=== PATIENT | female | born 1975 | race Caucasian/White ===

== ENCOUNTER 2022-10-25 14:54 | Emergency (ER) | payer MEDICARE, MEDICAID, SELFPAY ==
[2022-10-25 15:01] VITALS: BP 170/95; PULSE 98; RESP 16; TEMP 36.8; O2SAT 98; BMI 37.0
--- NOTE | 2022-10-25 15:13 | XR_ITS ---
The [address] [address] Patient Name: CHRISSY ESCOBAR MRN: [id number] date: 1975 Sex: F Assigned Patient Location: ER Current Patient Location: ED.MAIN Accession/Order Number: [id number] Exam Date: 10/25/2022 15:48 Report Date: 10/25/2022 16:13 At the request of: EVANS CARLSON Procedure: XR ankle LT min 3V EXAM: XR foot LT min 3V, XR ankle LT min 3V HISTORY: left foot pain COMPARISON: None. TECHNIQUE: 3 views of the left foot, 3 views of the left ankle are performed. FINDINGS: There is no acute fracture. There is deformity of the distal fifth metatarsal, suggesting prior fracture. A small bony spur is noted laterally along the distal fifth metatarsal. The ankle mortise is preserved. Unremarkable soft tissues. XR/XR ankle LT min 3V IMPRESSION: Suspected prior trauma to the distal fifth metatarsal. No acute bony abnormality. Electronically authenticated by: LILIANA ANDERSEN Date: 10/25/2022 16:13
--- NOTE | 2022-10-25 15:13 | ED.LOWEXI1 ---
HPI - Extremity Injury (Lower) General Chief Complaint: Extremity Injury, Lower Stated Complaint: LEFT FOOT PAIN Time Seen by Provider: 10/25/22 15:13 Source: patient Mode of arrival: walk-in History of Present Illness HPI Narrative: patient is a 47-year-old female who presents to the emergency Department for pain in the left foot and ankle for several weeks. Patient reports an injury where she stubbed her toe several weeks ago but does not know if the pain was present prior to the injury. She reports pain diffusely from the left 3rd toe across the dorsum of the foot into the ankle. There has been no swelling, redness, wounds or drainage. She states she called her PCP office and they referred her to the Emergency Room to rule out a blood clot. She has no pain in the calf, knee or thigh. No medications taken prior to arrival. Related Data Home Medications Medication Instructions Recorded Confirmed levothyroxine 112 mcg tablet 112 mcg PO DAILY 10/25/22 10/25/22 Allergies Allergy/AdvReac Type Severity Reaction Status Date / Time celecoxib [From Celebrex] Allergy Severe Verified 10/25/22 15:07 codeine Allergy Severe Verified 10/25/22 15:01 naproxen [From Aleve] Allergy Severe Verified 10/25/22 15:07 Penicillins Allergy Severe Verified 10/25/22 15:01 pregabalin [From Lyrica] Allergy Severe Verified 10/25/22 15:07 Sulfa (Sulfonamide Allergy Severe Verified 10/25/22 15:09 Antibiotics) erythromycin Allergy Severe Uncoded 10/25/22 15:07 ouracil Allergy Severe Uncoded 10/25/22 15:09 Review of Systems ROS Constitutional Denies: fever or chills Ears, nose, mouth, and throat Denies: throat pain Cardiovascular Denies: chest pain Respiratory Denies: shortness of breath or cough Gastrointestinal Denies: nausea or vomiting Musculoskeletal Denies: back pain or neck pain Integumentary/Breast Denies: rash Neurological Denies: headache Hematologic/Lymphatic Denies: easy bruising Allergic/Immunologic Denies: hives Exam Narrative Exam Narrative: Gen.: Awake, alert, in no distress Head: Normocephalic, atraumatic ENT: Moist mucous membranes Respiratory: No respiratory distress Extremities: Moves extremities equally, diffuse tenderness of the dorsum of the left foot, left 3rd toe is edematous, mildly discolored area and limited range of motion of flexion and extension of the toes of the left foot. 2+ left DP pulse. No bony point tenderness of the medial or lateral malleolus. Left calf is soft and nontender with no wounds, drainage or redness noted of the left lower extremity. Psych: Normal mood and affect Neuro: No focal neuro deficit Skin: Warm, dry, intact Constitutional Vital Signs, click to edit/add: Last Vital Signs Temp 98.2 F 10/25/22 15:01 Pulse 98 H 10/25/22 15:01 Resp 16 10/25/22 15:01 BP 170/95 H 10/25/22 15:01 Pulse Ox 98 10/25/22 15:01 O2 Del Method Room Air 10/25/22 15:01 Course Vital Signs Vital signs: Vital Signs Temperature 98.2 F 10/25/22 15:01 Pulse Rate 98 H 10/25/22 15:01 Respiratory Rate 16 10/25/22 15:01 Blood Pressure 170/95 H 10/25/22 15:01 Pulse Oximetry 98 10/25/22 15:01 Oxygen Delivery Method Room Air 10/25/22 15:01 Temperature 98.2 F 10/25/22 15:01 Pulse Rate 98 H 10/25/22 15:01 Respiratory Rate 16 10/25/22 15:01 Blood Pressure 170/95 H 10/25/22 15:01 Pulse Oximetry 98 10/25/22 15:01 Oxygen Delivery Method Room Air 10/25/22 15:01 MDM - Extremity Injury (Lower) MDM Narrative Medical decision making narrative: lab studies show the patient has leukocytosis but no other evidence of acute sepsis or wound infection. She was reevaluated by attending physician and he requested we do an arterial ultrasound of the left lower extremity. US was obtained, but the patient eloped from the emergency department prior to completion of her workup and ultrasound results. Medical Records Attestation: I reviewed the patient's medical records. Lab Data Attestation: I reviewed the patient's lab results. Imaging Data XR foot/ankle: Attestation: I have reviewed the pertinent imaging results. Radiologist's impression: Procedure: XR foot LT min 3V EXAM: XR foot LT min 3V, XR ankle LT min 3V HISTORY: left foot pain COMPARISON: None. TECHNIQUE: 3 views of the left foot, 3 views of the left ankle are performed. FINDINGS: There is no acute fracture. There is deformity of the distal fifth metatarsal, suggesting prior fracture. A small bony spur is noted laterally along the distal fifth metatarsal. The ankle mortise is preserved. Unremarkable soft tissues. IMPRESSION: Suspected prior trauma to the distal fifth metatarsal. No acute bony abnormality. Electronically authenticated by: LILIANA ANDERSEN Date: 10/25/2022 16:13 Discharge Plan Discharge Chief Complaint: Extremity Injury, Lower Clinical Impression: Acute pain of left foot Patient Disposition: Left Against Medical Advice Time of Disposition Decision: 19:10 Prescriptions / Home Meds: No Action levothyroxine 112 mcg tablet 112 mcg PO DAILY Stand Alone Forms: Portal Instructions Referrals: JAMES RUIZ [Primary Care Provider] - 1 week
--- NOTE | 2022-10-25 15:14 | XR_ITS ---
The [address] [address] Patient Name: CHRISSY ESCOBAR MRN: [id number] date: 1975 Sex: F Assigned Patient Location: ER Current Patient Location: ED.MAIN Accession/Order Number: [id number] Exam Date: 10/25/2022 15:48 Report Date: 10/25/2022 16:13 At the request of: EVANS CARLSON Procedure: XR foot LT min 3V EXAM: XR foot LT min 3V, XR ankle LT min 3V HISTORY: left foot pain COMPARISON: None. TECHNIQUE: 3 views of the left foot, 3 views of the left ankle are performed. FINDINGS: There is no acute fracture. There is deformity of the distal fifth metatarsal, suggesting prior fracture. A small bony spur is noted laterally along the distal fifth metatarsal. The ankle mortise is preserved. Unremarkable soft tissues. XR/XR foot LT min 3V IMPRESSION: Suspected prior trauma to the distal fifth metatarsal. No acute bony abnormality. Electronically authenticated by: LILIANA ANDERSEN Date: 10/25/2022 16:13
--- NOTE | 2022-10-25 15:15 | PC.NURSE ---
left foot, ankle and toes swelling and pain with movement. skin intact and pt states a couple of weeks ago she hit her foot under the counter and this may have caused a injury but is unsure
[2022-10-25 16:05] LABS: Hemoglobin 14.1 g/dL (12.0-16.0); Mean Corpuscular HGB Conc 33.6 g/dL (29.9-35.2); Mean Corpuscular Volume 89.4 fL (81.0-99.0); Mean Platelet Volume 10.4 fL (9.5-13.5); Platelet Count 280 10^3/uL (150-450); Red Cell Distribution Width 13.4 % (11.0-15.0); White Blood Count 23.2 10^3/uL (4.0-11.0)
[2022-10-25 16:13] LABS: Erythrocyte Sedimentation Rate 35 mm/hr (<=20)
[2022-10-25 16:18] LABS: Anion Gap 12.7; Calcium 8.9 mg/dL (8.5-10.1); Carbon Dioxide 27.1 mmol/L (21.0-32.0); Chloride 102 mmol/L (98-107); Estimated GFR (African America >60 (>=60); Estimated GFR (Non-African Ame >60 (>=60); Glucose 96 mg/dL (74-106); Potassium 3.8 mmol/L (3.5-5.1); Sodium 138 mmol/L (136-145)
[2022-10-25 16:23] LABS: Uric Acid 3.1 mg/dL (2.6-6.0)
[2022-10-25 16:26] LABS: C Reactive Protein 1.5 mg/dL (<=1.0)
[2022-10-25 16:38] LABS: Band Neutrophils Absolute 0.2 10^3/uL (0.0-0.3)
[2022-10-25 16:40] LABS: Eosinophils Absolute Manual 0.23 10^3/uL (0.00-0.70); Monocytes Absolute Manual 0.92 10^3/uL (0.30-0.80); Segmented Neut Absolute Manual 9.51 10^3/uL (1.4-6.5)
--- NOTE | 2022-10-25 16:46 | US_ITS ---
The [address] [address] Patient Name: CHRISSY ESCOBAR MRN: [id number] date: 1975 Sex: F Assigned Patient Location: ER Current Patient Location: Accession/Order Number: [id number] Exam Date: 10/25/2022 17:44 Report Date: 10/25/2022 21:39 At the request of: EVANS CARLSON Procedure: US arterial duplex LE LT EXAM: US arterial duplex LE LT HISTORY: left foot pain COMPARISON: None. TECHNIQUE: Arterial duplex imaging was performed of the left lower extremity. FINDINGS: The left iliac, femoral and popliteal arteries appear patent with normal triphasic waveforms and no focal stenosis or occlusion. There is an abnormally elevated peak systolic velocity of the distal left anterior tibial artery measuring 64.1 cm/s, compared to the mid anterior tibial artery which has a PSV of 13.1 cm/s indicating a greater than 50% stenosis.. There is an abnormal monophasic waveform in the anterior tibial artery with spectral broadening and there is a tardus parvus waveform in the dorsalis pedis artery. There is mild increase in the peak systolic velocity of the distal posterior tibial artery to 31.9 cm/s, compared to the mid posterior tibial artery which is 21 cm/s. This indicates a moderate stenosis (20-49%). Biphasic waveforms are also seen in the posterior tibial artery. US/US arterial duplex LE LT IMPRESSION: 1. 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 2. Findings consistent with a moderate (20-49%) stenosis of the posterior tibial artery. 3. No arterial stenosis or occlusion is seen within the left iliac, femoral or popliteal arteries. Electronically authenticated by: ARIADNA GARCIA Date: 10/25/2022 21:39
== END 2022-10-25 19:20 | disposition left against medical advice (07) ==
PROVIDERS: Physician Assistant; Emergency Provider Emergency Medicine Emergency Medical Services; PCP Internal Medicine
DX: M79.672 Pain in left foot (principal); Z53.29 Procedure and treatment not carried out because of patient's decision for other reasons; I70.292 Other atherosclerosis of native arteries of extremities, left leg
CPT/HCPCS: 36415; 73610; 73630; 80048; 84550; 85007; 85025; 85027; 85652; 86140; 93926; 99285

== ENCOUNTER 2023-07-15 20:06 | Emergency (ER) | payer MEDICARE, MEDICAID, SELFPAY ==
[2023-07-15] VITALS (10 sets, daily range): BP systolic 107–145; BP diastolic 64–98; PULSE 93; TEMP 36.6; O2SAT 93–96; BMI 37.1
--- NOTE | 2023-07-15 20:22 | US_ITS ---
The [address] [address] Patient Name: CHRISSY ESCOBAR MRN: [id number] date: 1975 Sex: F Assigned Patient Location: ER Current Patient Location: ED.MAIN Accession/Order Number: [id number] Exam Date: 07/15/2023 20:40 Report Date: 07/15/2023 22:35 At the request of: EVANS CARLSON Procedure: US venous doppler LE LT EXAM: US venous doppler LE LT HISTORY: DVT COMPARISON: None. TECHNIQUE: Duplex compression ultrasound left leg deep veins groin to calf and greater saphenous vein in the groin/proximal thigh area. FINDINGS: Normal color flow and complete compressibility left leg deep venous system groin to calf.. Normal augmentation. No abnormal fluid collection, no evidence of Floyd's cyst. US/US venous doppler LE LT IMPRESSION: Negative for DVT or saphenous thrombus left leg. Electronically authenticated by: YANNICK LE Date: 07/15/2023 22:35
--- NOTE | 2023-07-15 20:22 | US_ITS ---
The [address] [address] Patient Name: CHRISSY ESCOBAR MRN: [id number] date: 1975 Sex: F Assigned Patient Location: ER Current Patient Location: Accession/Order Number: [id number] Exam Date: 07/15/2023 20:40 Report Date: 07/16/2023 00:10 At the request of: EVANS CARLSON Procedure: US arterial duplex LE LT EXAM: US arterial duplex LE LT HISTORY: Foot numbness. COMPARISON: Left lower extremity duplex ultrasound 10/25/2022. TECHNIQUE: Multiple grayscale, and duplex Doppler images performed of the left lower extremity from the level of the iliac arteries through the foot. FINDINGS: Triphasic flow was seen from the external iliac artery through the proximal superficial femoral artery. There are normal peak systolic velocities. There is minimal spectral broadening of the waveform in the left mid femoral artery. There is an elevated peak systolic velocity in the distal anterior tibial artery measuring 33.4 cm/s as compared to 17.1 cm/s at the mid anterior tibial artery. There is an abnormal monophasic waveform in this region with spectral broadening. This is consistent with an approximately 50% to 99% stenosis. Similar findings were noted on the previous study, although the peak systolic velocity was somewhat greater on the previous study in the distal HUSSAIN at 64 cm/s. Abnormal monophasic waveforms are also seen in the proximal to mid anterior tibial artery and there is an abnormal tardus harvest waveform in the dorsalis pedis artery which is essentially stable. There is an abnormal monophasic waveform also seen with the posterior tibial artery. The peak systolic velocity of the proximal posterior tibial artery is likely somewhat elevated at 46 cm/s, previously 22 cm/s. No proximal normal waveform was obtained for comparison but this is also suspicious for a moderate to severe, approximately 50% to 99% stenosis. This is worsened compared to previous study where there were findings suspicious for a 20% to 49% stenosis. US/US arterial duplex LE LT IMPRESSION: 1. Findings consistent with an approximately 50% to 99% stenosis in the left anterior tibial artery with an abnormal tardus parvus wave form in the dorsalis pedis artery with similar findings noted previously. 2. There are additional findings suspicious for a 50% to 99% stenosis of the left posterior tibial artery, worsened since the previous study. 3. No other significant arterial stenosis or occlusion. Electronically authenticated by: ARIADNA GARCIA Date: 07/16/2023 00:10
--- NOTE | 2023-07-15 20:28 | ED_ITS ---
Documented by User: HOMAR Becker 07/15/23 22:17 HPI HPI - General Adult General Chief complaint: Extremity Problem, Nontraumatic Stated complaint: FOOT IS NUMB Time Seen by Provider: 07/15/23 20:16 Source: patient Mode of arrival: Wheelchair Limitations: no limitations History of Present Illness HPI narrative: Patient is a 48-year-old female who presents to the emergency department for numbness and pain to the left foot intermittently for at least 6 months. Patient states she has had redness with moderate pain and spasm radiating from the toes and distal portion of the left foot up the leg. She has not had any fevers, she is a 1 pack/day cigarette smoker. She is establishing with a local primary care provider in 1 week but states that the pain was getting worse. No medications taken prior to arrival. She denies any history of vascular disease and does not take any blood thinners. Related Data Home Medications ?Medication ?Instructions ?Recorded ?Confirmed levothyroxine 112 mcg tablet 112 mcg PO DAILY 10/25/22 07/15/23 Allergies Allergy/AdvReac Type Severity Reaction Status Date / Time celecoxib [From Celebrex] Allergy Severe Verified 10/25/22 15:07 codeine Allergy Severe Verified 10/25/22 15:01 naproxen [From Aleve] Allergy Severe Verified 10/25/22 15:07 Penicillins Allergy Severe Verified 10/25/22 15:01 pregabalin [From Lyrica] Allergy Severe Verified 10/25/22 15:07 Sulfa (Sulfonamide Allergy Severe Verified 10/25/22 15:09 Antibiotics) erythromycin Allergy Severe Uncoded 10/25/22 15:07 ouracil Allergy Severe Uncoded 10/25/22 15:09 Opioid HPI Opioid Management Most Recent Opioid Data: Last Pain Scale 6 07/15/23 21:28 Review of Systems ROS Constitutional Denies: fever or chills Ears, nose, mouth, and throat Denies: throat pain or nasal congestion Cardiovascular Denies: chest pain Respiratory Denies: shortness of breath or cough Gastrointestinal Denies: nausea or vomiting Musculoskeletal Denies: back pain or neck pain Integumentary/Breast Denies: rash Hematologic/Lymphatic Denies: easy bruising or easy bleeding Exam Narrative Exam Narrative: Gen.: Awake, alert, in no distress Head: Normocephalic, atraumatic ENT: Moist mucous membranes Respiratory: No respiratory distress Extremities: Varicose veins noted to the left calf with no swelling, tenderness or redness of the calf. Distal portion of the foot and toes of the left foot are erythematous, no palpable DP pulse in the foot, DP pulse is able to be obtained by Doppler. PT pulse is also obtained by Doppler. Brittle appearing toenails of the left foot compared to the right Psych: Normal mood and affect Neuro: No focal neuro deficit Skin: Warm, dry Constitutional Vital Signs, click to edit/add: Last Vital Signs Temp 97.9 F 07/15/23 20:13 Pulse 93 H 07/15/23 20:13 Resp 16 07/15/23 20:13 BP 116/72 07/16/23 00:31 Pulse Ox 95 07/15/23 23:44 O2 Del Method Room Air 07/15/23 20:13 Course Vital Signs Vital signs: Vital Signs Temperature 97.9 F 07/15/23 20:13 Pulse Rate 93 H 07/15/23 20:13 Respiratory Rate 16 07/15/23 20:13 Blood Pressure 145/98 H 07/15/23 20:13 Pulse Oximetry 96 07/15/23 20:13 Oxygen Delivery Method Room Air 07/15/23 20:13 Temperature 97.9 F 07/15/23 20:13 Pulse Rate 93 H 07/15/23 20:13 Respiratory Rate 16 07/15/23 20:13 Blood Pressure 116/72 07/16/23 00:31 Pulse Oximetry 95 07/15/23 23:44 Oxygen Delivery Method Room Air 07/15/23 20:13 Medical Decision Making [facility] Narrative Medical decision making narrative: 2216: Labs, ultrasounds of the left lower extremity were ordered for the patient. She has an elevated white blood cell count of 48.4, lactic acid and blood cultures were added as a precaution. Her exam is not consistent with cellulitis and is more consistent with a worsening vascular issue. CRP and sed rates are mildly elevated. Kidney function is stable. Ultrasound arterial and venous were ordered for the left lower extremity and the patient was medicated for pain. Case turned over to attending physician at this time. Medical Records Medical records reviewed: Yes I reviewed the patient's medical records Lab Data Lab results reviewed: Yes I reviewed the patient's lab results Labs: Lab Results 07/15/23 07/15/23 Range/Units 20:49 23:45 WBC 48.4 H* (4.0-11.0) 10^3/uL RBC 4.83 (4.20-5.40) 10^6/uL Hgb 14.3 (12.0-16.0) g/dL Hct 44.6 (36.0-48.0) % MCV 92.3 (81.0-99.0) fL MCH 29.6 (26.7-34.0) pg MCHC 32.1 (29.9-35.2) g/dL RDW 13.4 (11.0-15.0) % Plt Count 327 (150-450) 10^3/uL MPV 10.0 (9.5-13.5) fL Seg Neuts % (Manual) 17.0 Lymphocytes % (Manual) 74.0 H (20.5-60.0) % Atypical Lymphs % (Man) 9.0 % Monocytes % (Manual) 0.0 L (1.7-12.0) % Eosinophils % (Manual) 0.0 L (0.9-7.0) % Basophils % (Manual) 0.0 L (0.2-2.0) % Neutrophils # (Manual) 8.22 H (1.4-6.5) 10^3/uL Lymphocytes # (Manual) 35.81 H (1.20-3.80) 10^3/uL Abs Atypical Lymphs Man 4.35 Monocytes # (Manual) 0.00 L (0.30-0.80) 10^3/uL Eosinophils # (Manual) 0.00 (0.00-0.70) 10^3/uL Basophils # (Manual) 0.00 (0.00-0.10) 10^3/uL Smudge Cells Seen ESR 39 H (<=20) mm/hr PT 10.1 (9.0-11.6) sec INR 0.95 Sodium 141 (136-145) mmol/L Potassium 3.8 (3.5-5.1) mmol/L Chloride 103 (98-107) mmol/L Carbon Dioxide 24.4 (21.0-32.0) mmol/L Anion Gap 17.4 BUN 24.0 H (7.0-18.0) mg/dL Creatinine 0.89 (0.55-1.02) mg/dL Est GFR ( Amer) >60 (>=60) Est GFR (Non-Af Amer) >60 (>=60) BUN/Creatinine Ratio 27.0 Glucose 95 (74-106) mg/dL Lactate 1.4 (0.4-2.0) mmol/L Calcium 8.9 (8.5-10.1) mg/dL C-Reactive Protein 0.72 H (<=0.50) mg/dL Urine Color Yellow (YELLOW) Urine Clarity Clear (CLEAR) Urine pH 5.0 (5.0-9.0) Ur Specific [place] >=1.030 A (1.005-1.025) Urine Protein Negative (NEG/TRACE) mg/dL Urine Glucose (UA) Negative (NEGATIVE) mg/dL Urine Ketones Negative (NEGATIVE) mg/dL Urine Occult Blood Negative (NEGATIVE) Urine Nitrite Negative (NEGATIVE) Urine Bilirubin Small A (NEGATIVE) Urine Urobilinogen 0.2 (0.2-1.0) EU/dL Ur Leukocyte Esterase Negative (NEGATIVE) Discharge Plan Discharge Stand Alone Forms: Portal Instructions Chief Complaint: Extremity Problem, Nontraumatic Clinical Impression: Acute pain of left foot, Lymphocytosis, PAD (peripheral artery disease) Patient Disposition: Home, Self-Care Prescriptions / Home Meds: No Action levothyroxine 112 mcg tablet 112 mcg PO DAILY Print Language: Malawian Instructions: Peripheral Artery Disease (ED), Leukocytosis (ED) Additional Instructions: follow up with vascular surgery regarding your foot. call [phone] tomorrow for an appointment in next couple of days. also need to call Oncology tomorrow at 8AM for an appointment later today [phone] due to your elevated white count as discussed as you may have leukemia May take [place] every 6 hours as needed for pain Referrals: JAMES RUIZ [Primary Care Provider] - 1 week Discharge Date/Time: 07/16/23 02:23 Documented by User: Manuel Toro MD 07/16/23 06:44 HPI HPI - General Adult General Chief complaint: Extremity Problem, Nontraumatic Stated complaint: FOOT IS NUMB Time Seen by Provider: 07/15/23 20:16 Related Data Home Medications ?Medication ?Instructions ?Recorded ?Confirmed levothyroxine 112 mcg tablet 112 mcg PO DAILY 10/25/22 07/15/23 Allergies Allergy/AdvReac Type Severity Reaction Status Date / Time celecoxib [From Celebrex] Allergy Severe Verified 10/25/22 15:07 codeine Allergy Severe Verified 10/25/22 15:01 naproxen [From Aleve] Allergy Severe Verified 10/25/22 15:07 Penicillins Allergy Severe Verified 10/25/22 15:01 pregabalin [From Lyrica] Allergy Severe Verified 10/25/22 15:07 Sulfa (Sulfonamide Allergy Severe Verified 10/25/22 15:09 Antibiotics) erythromycin Allergy Severe Uncoded 10/25/22 15:07 ouracil Allergy Severe Uncoded 10/25/22 15:09 Opioid HPI Opioid Management Most Recent Opioid Data: Last Pain Scale 6 07/15/23 21:28 Exam Constitutional Vital Signs, click to edit/add: Last Vital Signs Temp 97.9 F 07/15/23 20:13 Pulse 93 H 07/15/23 20:13 Resp 16 07/15/23 20:13 BP 116/72 07/16/23 00:31 Pulse Ox 95 07/15/23 23:44 O2 Del Method Room Air 07/15/23 20:13 Course Vital Signs Vital signs: Vital Signs Temperature 97.9 F 07/15/23 20:13 Pulse Rate 93 H 07/15/23 20:13 Respiratory Rate 16 07/15/23 20:13 Blood Pressure 145/98 H 07/15/23 20:13 Pulse Oximetry 96 07/15/23 20:13 Oxygen Delivery Method Room Air 07/15/23 20:13 Temperature 97.9 F 07/15/23 20:13 Pulse Rate 93 H 07/15/23 20:13 Respiratory Rate 16 07/15/23 20:13 Blood Pressure 116/72 07/16/23 00:31 Pulse Oximetry 95 07/15/23 23:44 Oxygen Delivery Method Room Air 07/15/23 20:13 Medical Decision Making MDM Narrative Medical decision making narrative: 2216: Labs, ultrasounds of the left lower extremity were ordered for the patient. She has an elevated white blood cell count of 48.4, lactic acid and blood cultures were added as a precaution. Her exam is not consistent with cellulitis and is more consistent with a worsening vascular issue. CRP and sed rates are mildly elevated. Kidney function is stable. Ultrasound arterial and venous were ordered for the left lower extremity and the patient was medicated for pain. Case turned over to attending physician at this time. care transferred at change of shift. Arterial duplex studied reviewed and discussed with international tax manager Vascular surgeon . Informed of 50-99% stenosis of the left intervertebral artery similar to previous study 10/2022 and worsening finding of posterior tibial artery 50-99% stenosis when compared to 20-49% stenosis 10/28. He did not feel this required hospitalization and could be seen in followup in his office. patient also has leukocytosis of 48.4 with large # of lymphocytes. WBC was 23,000 10/28 but patient was loss to follow up findings concerning for leukemia or lymphoma. Patient examined and no obvious lymph nodes. Oncology paged. discussed with Dr Whitten and he can see the patient in his clinic later today Lab Data Labs: Lab Results 07/15/23 07/15/23 Range/Units 20:49 23:45 WBC 48.4 H* (4.0-11.0) 10^3/uL RBC 4.83 (4.20-5.40) 10^6/uL Hgb 14.3 (12.0-16.0) g/dL Hct 44.6 (36.0-48.0) % MCV 92.3 (81.0-99.0) fL MCH 29.6 (26.7-34.0) pg MCHC 32.1 (29.9-35.2) g/dL RDW 13.4 (11.0-15.0) % Plt Count 327 (150-450) 10^3/uL MPV 10.0 (9.5-13.5) fL Seg Neuts % (Manual) 17.0 Lymphocytes % (Manual) 74.0 H (20.5-60.0) % Atypical Lymphs % (Man) 9.0 % Monocytes % (Manual) 0.0 L (1.7-12.0) % Eosinophils % (Manual) 0.0 L (0.9-7.0) % Basophils % (Manual) 0.0 L (0.2-2.0) % Neutrophils # (Manual) 8.22 H (1.4-6.5) 10^3/uL Lymphocytes # (Manual) 35.81 H (1.20-3.80) 10^3/uL Abs Atypical Lymphs Man 4.35 Monocytes # (Manual) 0.00 L (0.30-0.80) 10^3/uL Eosinophils # (Manual) 0.00 (0.00-0.70) 10^3/uL Basophils # (Manual) 0.00 (0.00-0.10) 10^3/uL Smudge Cells Seen ESR 39 H (<=20) mm/hr PT 10.1 (9.0-11.6) sec INR 0.95 Sodium 141 (136-145) mmol/L Potassium 3.8 (3.5-5.1) mmol/L Chloride 103 (98-107) mmol/L Carbon Dioxide 24.4 (21.0-32.0) mmol/L Anion Gap 17.4 BUN 24.0 H (7.0-18.0) mg/dL Creatinine 0.89 (0.55-1.02) mg/dL Est GFR ( Amer) >60 (>=60) Est GFR (Non-Af Amer) >60 (>=60) BUN/Creatinine Ratio 27.0 Glucose 95 (74-106) mg/dL Lactate 1.4 (0.4-2.0) mmol/L Calcium 8.9 (8.5-10.1) mg/dL C-Reactive Protein 0.72 H (<=0.50) mg/dL Urine Color Yellow (YELLOW) Urine Clarity Clear (CLEAR) Urine pH 5.0 (5.0-9.0) Ur Specific [place] >=1.030 A (1.005-1.025) Urine Protein Negative (NEG/TRACE) mg/dL Urine Glucose (UA) Negative (NEGATIVE) mg/dL Urine Ketones Negative (NEGATIVE) mg/dL Urine Occult Blood Negative (NEGATIVE) Urine Nitrite Negative (NEGATIVE) Urine Bilirubin Small A (NEGATIVE) Urine Urobilinogen 0.2 (0.2-1.0) EU/dL Ur Leukocyte Esterase Negative (NEGATIVE) Discharge Plan Discharge Stand Alone Forms: Portal Instructions Chief Complaint: Extremity Problem, Nontraumatic Clinical Impression: Acute pain of left foot, Lymphocytosis, PAD (peripheral artery disease) Patient Disposition: Home, Self-Care Prescriptions / Home Meds: No Action levothyroxine 112 mcg tablet 112 mcg PO DAILY Print Language: Malawian Instructions: Peripheral Artery Disease (ED), Leukocytosis (ED) Additional Instructions: follow up with vascular surgery regarding your foot. call [phone] tomorrow for an appointment in next couple of days. also need to call Oncology tomorrow at 8AM for an appointment later today [phone] due to your elevated white count as discussed as you may have leukemia May take Franklin every 6 hours as needed for pain Referrals: JAMES RUIZ [Primary Care Provider] - 1 week Discharge Date/Time: 07/16/23 02:23
[2023-07-15 20:56] LABS: Hematocrit 44.6 % (36.0-48.0); Hemoglobin 14.3 g/dL (12.0-16.0); Mean Corpuscular HGB Conc 32.1 g/dL (29.9-35.2); Mean Corpuscular Hemoglobin 29.6 pg (26.7-34.0); Mean Corpuscular Volume 92.3 fL (81.0-99.0); Platelet Count 327 10^3/uL (150-450); Red Blood Count 4.83 10^6/uL (4.20-5.40); Red Cell Distribution Width 13.4 % (11.0-15.0)
[2023-07-15 21:04] LABS: White Blood Count 48.4 10^3/uL (4.0-11.0)
[2023-07-15 21:07] LABS: Erythrocyte Sedimentation Rate 39 mm/hr (<=20)
[2023-07-15 21:13] LABS: Anion Gap 17.4; C Reactive Protein 0.72 mg/dL (<=0.50); Calcium 8.9 mg/dL (8.5-10.1); Carbon Dioxide 24.4 mmol/L (21.0-32.0); Chloride 103 mmol/L (98-107); Estimated GFR (African America >60 (>=60); Estimated GFR (Non-African Ame >60 (>=60); Glucose 95 mg/dL (74-106); INR 0.95; Potassium 3.8 mmol/L (3.5-5.1); Prothrombin Time 10.1 sec (9.0-11.6); Sodium 141 mmol/L (136-145)
[2023-07-15 21:20] LABS: Lactate/Lactic Acid 1.4 mmol/L (0.4-2.0)
[2023-07-15] MEDS: ONDANSETRON PF 4 MG/2 ML VIAL IV (21:28)
[2023-07-15] MEDS: HYDROMORPHONE HCL 0.5 MG/0.5 ML SYRINGE IV (21:28)
[2023-07-15 22:11] LABS: Atypical Lymphocytes Abs Man 4.35; Lymphocytes Absolute Manual 35.81 10^3/uL (1.20-3.80); Segmented Neut Absolute Manual 8.22 10^3/uL (1.4-6.5)
[2023-07-15 22:12] LABS: Smudge Cells SEEN
[2023-07-15] MEDS: 0.9 % SODIUM CHLORIDE 1,000 ML 1000 ML IV (22:54)
[2023-07-16] VITALS: BP 133/92
[2023-07-16 00:15] LABS: Bilirubin Urine SMALL (NEGATIVE); Blood Urine NEGATIVE (NEGATIVE); Clarity Urine CLEAR (CLEAR); Color Urine YELLOW (YELLOW); Glucose Urine UA NEGATIVE (NEGATIVE); Ketones Urine NEGATIVE (NEGATIVE); Leukocyte Esterase Urine NEGATIVE (NEGATIVE); Nitrite Urine NEGATIVE (NEGATIVE); Protein Urine NEGATIVE (NEG/TRACE); Specific Gravity Urine >=1.030 (1.005-1.025); Urobilinogen Urine 0.2 EU/dL (0.2-1.0)
[2023-07-16 00:20] LABS: Urine Microscopic Indicated NO
[2023-07-16 00:31] VITALS: BP 116/72
[2023-07-16] MEDS: HYDROCODONE/ACET 5-325 MG TABLET 4 TAB PO (02:16)
== END 2023-07-16 02:23 | disposition home or self-care (01) ==
PROVIDERS: Physician Assistant; Emergency Provider Internal Medicine; PCP Internal Medicine
DX: M79.672 Pain in left foot (principal); D72.820 Lymphocytosis (symptomatic); I73.9 Peripheral vascular disease, unspecified; F17.210 Nicotine dependence, cigarettes, uncomplicated; Z79.890 Hormone replacement therapy
CPT/HCPCS: 36415; 80048; 81003; 83605; 85007; 85027; 85610; 85652; 86140; 87040; 93926; 93971; 96374; 96375; 99284; J1170

== ENCOUNTER 2023-07-23 07:36 | Outpatient (RCR) | payer MEDICARE, MEDICAID, SELFPAY ==
[2023-07-23 16:16] LABS: Hematocrit 42.9 % (36.0-48.0); Hemoglobin 13.7 g/dL (12.0-16.0); Mean Corpuscular HGB Conc 31.9 g/dL (29.9-35.2); Mean Corpuscular Hemoglobin 29.2 pg (26.7-34.0); Mean Corpuscular Volume 91.5 fL (81.0-99.0); Mean Platelet Volume 10.7 fL (9.5-13.5); Platelet Count 293 10^3/uL (150-450); Red Blood Count 4.69 10^6/uL (4.20-5.40); Red Cell Distribution Width 13.8 % (11.0-15.0)
[2023-07-23 16:24] LABS: White Blood Count 47.9 10^3/uL (4.0-11.0)
[2023-07-23 16:37] LABS: Segmented Neut Absolute Manual 6.22 10^3/uL (1.4-6.5)
[2023-07-23 16:38] LABS: Lymphocytes Absolute Manual 40.23 10^3/uL (1.20-3.80); Monocytes Absolute Manual 1.43 10^3/uL (0.30-0.80); Smudge Cells SEEN
[2023-07-23 16:39] LABS: Lactate Dehydrogenase 191 U/L (81-234)
== END 2023-08-06 23:59 | disposition home or self-care (01) ==
LOC: INF 07:36
PROVIDERS: PCP Internal Medicine; Visit Provider Internal Medicine Hematology & Oncology
DX: D72.820 Lymphocytosis (symptomatic) (principal)
CPT/HCPCS: 36415; 83615; 85007; 85027; 99999; G0463

== ENCOUNTER 2023-08-13 07:29 | Outpatient (RCR) | payer MEDICARE, MEDICAID, SELFPAY | END 2023-09-06 23:59 | disposition home or self-care (01) | LOC: INF 07:29 | PROVIDERS: PCP Internal Medicine; Visit Provider Internal Medicine Hematology & Oncology | DX: C91.10 Chronic lymphocytic leukemia of B-cell type not having achieved remission (principal); Z90.49 Acquired absence of other specified parts of digestive tract; E05.00 Thyrotoxicosis with diffuse goiter without thyrotoxic crisis or storm; F17.210 Nicotine dependence, cigarettes, uncomplicated; Z90.710 Acquired absence of both cervix and uterus; D72.820 Lymphocytosis (symptomatic) | CPT/HCPCS: 36415; 88275; G0463 ==

== ENCOUNTER 2023-08-20 04:46 | Emergency (ER) | payer MEDICARE, MEDICAID, SELFPAY ==
[2023-08-20 04:46] VITALS: BP 165/82; PULSE 87; TEMP 36.7; O2SAT 97; BMI 37.0
--- NOTE | 2023-08-20 04:52 | ED.EXTPRO1 ---
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 Presents this AM complaining of pain of her foot. States she vomited earlier. Nofever. currently on [place] for pain Related Data Home Medications ?Medication ?Instructions ?Recorded ?Confirmed levothyroxine 112 mcg tablet 112 mcg PO DAILY 10/25/22 08/20/23 hydrocodone 5 mg-acetaminophen 325 1 tab PO Q8H 08/20/23 08/20/23 mg tablet Allergies Allergy/AdvReac Type Severity Reaction Status Date / Time celecoxib [From Celebrex] Allergy Severe Verified 08/20/23 04:51 codeine Allergy Severe Verified 08/20/23 04:51 naproxen [From Aleve] Allergy Severe Verified 08/20/23 04:51 Penicillins Allergy Severe Verified 08/20/23 04:51 pregabalin [From Lyrica] Allergy Severe Verified 08/20/23 04:51 Sulfa (Sulfonamide Allergy Severe Verified 08/20/23 04:51 Antibiotics) aspirin Allergy Hives Verified 08/20/23 04:51 erythromycin Allergy Severe Uncoded 08/20/23 04:51 ouracil Allergy Severe Uncoded 08/20/23 04:51 Review of Systems ROS Status of ROS 10 or more systems reviewed and unremarkable except as noted in history and below Exam Constitutional Vital Signs, click to edit/add: Last Vital Signs Temp 98.1 F 08/20/23 04:46 Pulse 87 08/20/23 04:46 Resp 18 08/20/23 04:46 BP 165/82 H 08/20/23 04:46 Pulse Ox 97 08/20/23 04:46 O2 Del Method Room Air 08/20/23 04:46 Common normals: no apparent distress, average body habitus, oriented x3, no limitations, healthy appearing, alert and well nourished [facility] Common normals: normocephalic and head/scalp atraumatic Eye Common normals: EOMs intact bilaterally and conjunctivae normal Respiratory Common normals: normal respiratory effort, no retractions, no use of accessory muscles and clear to auscultation bilaterally Cardio Common normals: regular rate, regular rhythm, S1 normal heart sound and S2 normal heart sound GI Common normals: Normal to inspection, nondistended, normoactive bowel sounds present, soft to palpation and non-tender Extremity Other: small ulcer 5mm superficial plantar left fifth toe left distal foot at MTP joints and toes are red and tender. not typical appearance of cellulitis Neuro Common normals: oriented x3, CN's II-XII intact bilaterally, moves all extremities, no focal motor deficits and no sensory deficits noted Psych Appearance: grossly normal Course Vital Signs Vital signs: Vital Signs Temperature 98.1 F 08/20/23 04:46 Pulse Rate 87 08/20/23 04:46 Respiratory Rate 18 08/20/23 04:46 Blood Pressure 165/82 H 08/20/23 04:46 Pulse Oximetry 97 08/20/23 04:46 Oxygen Delivery Method Room Air 08/20/23 04:46 Temperature 98.1 F 08/20/23 04:46 Pulse Rate 87 08/20/23 04:46 Respiratory Rate 18 08/20/23 04:46 Blood Pressure 165/82 H 08/20/23 04:46 Pulse Oximetry 97 08/20/23 04:46 Oxygen Delivery Method Room Air 08/20/23 04:46 MDM - Extremity (Nontraumatic) MDM Narrative Medical decision making narrative: patient has known history of CLL and is managed by oncology. past history of PAD and chronic arterial deficiency of her left toes. Has chronic pain of her toes. is on norco and followed by vascular surgery at [facility]. Presents here this AM via squad complaining of foot pain. I have seen her in the past and her foot appears the same. xray without evidence of osteomyelitis and her inflammatory markers are improved from last visit. Patient medicated with IM morphine and discharged home to follow up with her surgeon Lab Data Labs: Lab Results 08/20/23 Range/Units 05:30 WBC 47.7 H* (4.0-11.0) 10^3/uL RBC 4.38 (4.20-5.40) 10^6/uL Hgb 13.0 (12.0-16.0) g/dL Hct 40.9 (36.0-48.0) % MCV 93.4 (81.0-99.0) fL MCH 29.7 (26.7-34.0) pg MCHC 31.8 (29.9-35.2) g/dL RDW 13.9 (11.0-15.0) % Plt Count 303 (150-450) 10^3/uL MPV 10.0 (9.5-13.5) fL Seg Neuts % (Manual) 22.0 Lymphocytes % (Manual) 64.0 H (20.5-60.0) % Atypical Lymphs % (Man) 12.0 % Monocytes % (Manual) 2.0 (1.7-12.0) % Eosinophils % (Manual) 0.0 L (0.9-7.0) % Basophils % (Manual) 0.0 L (0.2-2.0) % Neutrophils # (Manual) 10.49 H (1.4-6.5) 10^3/uL Lymphocytes # (Manual) 30.52 H (1.20-3.80) 10^3/uL Abs Atypical Lymphs Man 5.72 Monocytes # (Manual) 0.95 H (0.30-0.80) 10^3/uL Eosinophils # (Manual) 0.00 (0.00-0.70) 10^3/uL Basophils # (Manual) 0.00 (0.00-0.10) 10^3/uL ESR 24 H (<=20) mm/hr Sodium 136 (136-145) mmol/L Potassium 3.9 (3.5-5.1) mmol/L Chloride 104 (98-107) mmol/L Carbon Dioxide 24.1 (21.0-32.0) mmol/L Anion Gap 11.8 BUN 18.0 (7.0-18.0) mg/dL Creatinine 0.57 (0.55-1.02) mg/dL Est GFR ( Amer) >60 (>=60) Est GFR (Non-Af Amer) >60 (>=60) BUN/Creatinine Ratio 31.6 Glucose 93 (74-106) mg/dL Calcium 8.7 (8.5-10.1) mg/dL C-Reactive Protein <0.50 (<=0.50) mg/dL Discharge Plan Discharge Stand Alone Forms: Portal Instructions Chief Complaint: Extremity Problem, Nontraumatic Clinical Impression: Chronic lymphocytic leukemia, PAD (peripheral artery disease) Patient Disposition: Home, Self-Care Prescriptions / Home Meds: No Action levothyroxine 112 mcg tablet 112 mcg PO DAILY hydrocodone-acetaminophen 5-325 mg tablet 1 tab PO Q8H Print Language: Grenadian Instructions: Peripheral Artery Disease (ED), Chronic Lymphocytic Leukemia (DC) Additional Instructions: follow up with your vascular surgeon Referrals: JAMES RUIZ [Primary Care Provider] - 1 week
--- NOTE | 2023-08-20 05:06 | XR_ITS ---
The [address] [address] Patient Name: CHRISSY ESCOBAR MRN: [id number] date: 1975 Sex: F Assigned Patient Location: ER Current Patient Location: ED.MAIN Accession/Order Number: [id number] Exam Date: 08/20/2023 05:35 Report Date: 08/20/2023 06:19 At the request of: BIRDIE COTE Procedure: XR foot LT min 3V PROCEDURE: XR foot LT min 3V COMPARISON: 10/26/2019. HISTORY: osteomyelitis FINDINGS: BONES:No acute fracture or dislocation. Remote healed fracture of the fifth metatarsal. No focal lytic or sclerotic changes SOFT TISSUES:Soft tissue swelling to the tip of the fourth toe and along the lateral forefoot EFFUSION:None visible. OTHER: Negative. XR/XR foot LT min 3V IMPRESSION: No plain film evidence of osteomyelitis Electronically authenticated by: IZZY ROBB Date: 08/20/2023 06:19
[2023-08-20 05:37] LABS: Hematocrit 40.9 % (36.0-48.0); Mean Corpuscular HGB Conc 31.8 g/dL (29.9-35.2); Mean Corpuscular Hemoglobin 29.7 pg (26.7-34.0); Mean Corpuscular Volume 93.4 fL (81.0-99.0); Platelet Count 303 10^3/uL (150-450); Red Blood Count 4.38 10^6/uL (4.20-5.40); Red Cell Distribution Width 13.9 % (11.0-15.0)
[2023-08-20] MEDS: MORPHINE SULFATE 4 MG/ML VIAL IV (05:38)
[2023-08-20] MEDS: ONDANSETRON PF 4 MG/2 ML VIAL IV (05:38)
[2023-08-20 05:41] LABS: White Blood Count 47.7 10^3/uL (4.0-11.0)
[2023-08-20 05:43] LABS: Erythrocyte Sedimentation Rate 24 mm/hr (<=20)
[2023-08-20 05:48] LABS: Anion Gap 11.8; BUN Creatinine Ratio 31.6; C Reactive Protein <0.50 mg/dL (<=0.50); Calcium 8.7 mg/dL (8.5-10.1); Carbon Dioxide 24.1 mmol/L (21.0-32.0); Chloride 104 mmol/L (98-107); Estimated GFR (African America >60 (>=60); Estimated GFR (Non-African Ame >60 (>=60); Glucose 93 mg/dL (74-106); Potassium 3.9 mmol/L (3.5-5.1); Sodium 136 mmol/L (136-145)
[2023-08-20 05:57] LABS: Atypical Lymphocytes Abs Man 5.72; Lymphocytes Absolute Manual 30.52 10^3/uL (1.20-3.80); Monocytes Absolute Manual 0.95 10^3/uL (0.30-0.80); Segmented Neut Absolute Manual 10.49 10^3/uL (1.4-6.5)
--- OUTSIDE RECORDS SUMMARY | 2023-08-20 05:59 | XMS_ITS | CCD ---
Author Organization [facility] Care Team Providers Care Iridologist Name Role Phone SÁNCHEZ BEATTY Primary Care Unavailable MARISOL GONZALEZ Admitting Unavailable MARISOL GONZALEZ Attending Unavailable ARIADNA BUSTAMANTE Consulting Unavailable MARISOL GONZALEZ Consulting Unavailable CHAPITO [place] Attending Provider MD Kenyatta Whitten Attending Provider [phone] ARETHA ARCINIEGA Attending Unavailable SÁNCHEZ BEATTY Attending Unavailable SÁNCHEZ BEATTY Attending Unavailable ADRIANNA Beatty Primary Care Provider MD David Boyd Attending Provider [phone] Di [place] Attending Unavailable Di [place] Admitting Unavailable David Boyd Attending Unavailable David Boyd Admitting Unavailable Sánchez Beatty Primary Care Unavailable David Boyd Admitting Unavailable Sánchez Beatty Primary Care Unavailable David Boyd Attending Unavailable Kenyatta Whitten Attending Unavailable Kenyatta Whitten Admitting Unavailable Allergies Allergy Classification Reported Allergen(s) Allergy Type Date of Onset Reaction(s) Facility (1 source) celecoxib Drug Allergy 4 [facility] Repository (4 sources) Codeine Drug Allergy 4 Rash [facility] Repository (4 sources) Erythromycin Drug Allergy 5 Rash [facility] Repository (1 source) Naproxen Drug Allergy 4 [facility] Repository (4 sources) Penicillins Drug allergy (disorder) 4 Rash [facility] Repository (1 source) pregabalin Drug Allergy 4 [facility] Repository (1 source) Propylthiouracil Drug Allergy 4 [facility] Repository (1 source) Sulfonamides (Antibiotic) Drug allergy (disorder) 4 [facility] Repository (4 sources) celecoxib; Translations: [celecoxib] Drug Allergy 4 Rash [place] (1 source) Codeine Drug Allergy 4 [place] Repository (1 source) Erythromycin Drug Allergy [address] [place] [address] Repository (1 source) Penicillins Drug allergy (disorder) 4 [place] Repository Medications Current Medications Medication Drug Class(es) Dates Sig (Normalized) Sig (Original) ibuprofen 200 mg oral tablet (3 sources) Nonsteroidal Anti-inflammatory Drug Start: 07-30-2023 take 1 tablet by mouth every six hours Ibuprofen (Advil) 200 mg tablet Active 200 MG PO Every 6 hours July 30, 2023 12:00am levothyroxine sodium 0.112 mg oral tablet (3 sources) l-Thyroxine Start: 07-30-2023 Levothyroxine Active 112 MCG PO July 30, 2023 12:00am Problems Problem Classification Problem Date Documented Da te Episodic/Chronic Headache; including migraine (1 source) Other migraine, not intractable, without status migrainosus; Translations: [OTH MIGRAINE NOT INTRACTABLE W/O SM] Onset: 01-28-2020 Chronic Headache; including migraine (3 sources) Headache; including migraine; Translations: [HEADACHE UNSPECIFIED] Onset: 01-26-2020 Peripheral and visceral atherosclerosis (5 sources) Critical lower limb ischemia ; Translations: [Atherosclerosis of ute arteries of extremities with rest pain, left leg] Onset: 08-12-2023 07-30-2023 Chronic Thyroid disorders (1 source) Hypothyroidism, unspecified; Translations: [HYPOTHYROIDISM UNSPECIFIED] Onset: 01-28-2020 Chronic Results Test Name Value Interpretation Reference Range Facility US arterial pvr rest Saman US arterial pvr rest [facility] Main [address] [address] Ultrasound Report Signed Patient: Juany Laws MR#: [id number] : 1975 Acct:[id number] Age/Sex: 48 / F ADM Date: 08/12/23 Loc: UL Room: Type: [facility] CLI Attending Dr: David Boyd MD Ordering Provider: David Boyd MD Date of Service: 08/12/23 US/US arterial pvr rest LE: I70.222 - Atherosclerosis of ute arteries of extremiti... Copies to: David Boyd MD LOWER EXTREMITY SEGMENTAL ARTERIAL DOPSCAN (PVR) INDICATION: Left foot wound and diminished pulses. PROCEDURE: Right arm blood pressure is 122 , left is 120 . Pressures throughout the right leg are 212 at the high thigh, cno at the low thigh, 144 at the calf, 137 at the ankle using the posterior tibial artery and 127 at the ankle using the dorsalis pedis artery with ankle- brachial index of 1.04 1.12 . Pressures throughout the left leg are 182 at the high thigh, 189 at the low thigh, 61 at the calf, 60 at the ankle using the posterior tibial artery and 56 at the ankle using the dorsalis pedis artery with ankle-brachial index of 0.46 0.49 . Wave forms by plethysmography are normal in the right lower extremity and weakly biphasic in the left lower extremity. 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 THE PATIENT IS MOST LIKELY TO HAVE FEMOROPOPLITEAL DISEASE OF THE LEFT LOWER EXTREMITY. Impression dictated by: Benedicto Mqcueen MD08/13/2023 3:24 PM Dictation Location: [place] [address] Tech: April Painter Transcribed By: SOLANGE 08/13/23 1524 Dictated By: Benedicto Mcqueen MD 08/13/23 1523 Signed By: 08/13/23 1524 Normal [facility] CT angio abd aorta runoffon 08-06-2023 CT angio abd aorta runoff [facility] [place] [address] CT Scan Report Signed Patient: Juany Laws MR#: [id number] : 1975 Acct:[id number] Age/Sex: 48 / F ADM Date: 08/06/23 Loc: CT Room: Type: [facility] CLI Attending Dr: David Boyd MD Copies to: David Boyd MD Ordering Provider: David Boyd MD Date of Service: 08/06/23 CT/CT angio abd aorta runoff: I70.222 - Atherosclerosis of ute arteries of extremiti... CTA abdomen, pelvis, and bilateral lower extremities . CLINICAL DATA: Painful lower extremities.. TECHNIQUE: Intravenous contrast-enhanced CT angiography of the abdomen, pelvis, and bilateral lower extremities was performed. Axial, sagittal, coronal, and 3D-dimensional reconstructions were created and reviewed. This CT exam was performed using one or more of the following dose reduction techniques: Automated exposure control, adjustment of the mA and/or kV according to patient size, or use of iterative reconstruction technique. COMPARISON: None. FINDINGS: Lung Bases: No acute findings. Organs:Gallbladder has been removed. Liver spleen pancreas and adrenal glands appear unremarkable. No enhancing renal mass or hydronephrosis. The abdominal aorta demonstrates mild calcification without aneurysm, dissection or rupture. No critical stenosis or occlusion is seen involving the major branch vessels of the abdominal aorta. Mild calcification is seen involving the iliac vasculature with soft plaquing involving the left external iliac artery causing approximately 50% stenosis.[ GI: Small hiatal hernia. Distal stomach is grossly unremarkable. Small bowel appears nondilated. Duodenal diverticulum. No acute colonic abnormality.[ Pelvis:[Urinary bladder and uterus appears unremarkable. No adnexal mass.] Peritoneum/Retroperitone um:No free air, free fluid or lymphadenopathy.[ Abd wall/Bones:Abdominal wall demonstrates no acute findings. Osseous structures demonstrate degenerative change.[ Lower extremities: Left: Left common femoral artery appears unremarkable. Fish And Wildlife Biologist branches appear unremarkable. Left SFA appears unremarkable. There is occlusion of the popliteal artery appears to be collateral flow distally. The tibioperoneal trunk, anterior tibial artery, dorsalis pedis artery, posterior tibial artery and peroneal artery are clearly identified within their normal course. No significant soft tissue swelling. No fluid collection. Musculature is no focal abnormality. Osseous structures demonstrate degenerative change. Right: Right common femoral artery appears unremarkable. Fish And Wildlife Biologist branches appear unremarkable. Right SFA appears unremarkable. Popliteal artery appears unremarkable. Anterior tibial artery appears patent. Dorsalis pedis artery appears patent. Tibioperoneal trunk appears patent. Posterior tibial artery is patent. Peroneal artery appears patent. Mild anterior soft tissue swelling is seen involving the lower leg. No fluid collection. Musculature is no focal abnormality. Osseous structures demonstrate degenerative change. CT/CT angio abd aorta runoff IMPRESSION: 1. Approximately 50% stenosis involving the left external iliac artery due to soft plaquing. No critical stenosis or occlusion is seen involving the major branch vessels of the abdominal aorta. 2. There appears be occlusion of the left popliteal artery with contrast seen distally suggesting collateral flow. The anterior tibial artery, posterior tibial artery , dorsalis pedis artery and peroneal arteries are not clearly seen within the expected course. 3. No critical stenosis or occlusion is seen involving the major vessels of the right lower extremity. Impression dictated by: Jian Pérez Jr., D.O.08/06/2023 1:57 PM Dictation Location: [place] [address] Transcribed By: [facility] 08/06/23 135 Dictated By: Jian Pérez Jr, DO 08/06/23 134 Signed By: 08/06/23 135 Normal [facility] 07-22-2023 L Specimen: [id number] Received: 07/24/23 Status: YANN Agarwal Num: [id number] Spec Type: Impression Subm Dr: Kenyatta Whitten MD Tissues: PATHPER Procedures: PATHREVIEW Age/ Patient Sex Location Account Attending Physician Juany Laws 48/F [place] [id number] Kenyatta Whitten MD SPEC NUM: [id number] RECD: 07/24/23 STATUS: YANN AGARWAL NUM: [id number] BURT: 07/22/[address]: Kenyatta Whitten MD ENTERED: 07/24/23 [facility] DR: Brendan Rivera SPEC TYPE: Impression DEPT: SELENA Garcia ENTERED BY: [id number] RECV BY: [id number] ORDERED: PATHREVIEW ORDERED: PATHREVIEW Pathologist Review Abnormal lymphocytosis with atypical lymphocytes and smudge cells. Flow cytometry suggested to rule out possible lymphoproliferative disorder. Specimen: [id number] Received: 07/24/23 Status: YANN Agarwal Num: [id number] Spec Type: Impression Subm Dr: Kenyatta Whitten MD Tissues: PATHPER Procedures: PATHREVIEW Patient: Juany Laws [id number] (Continued) Signed (signature on file) Douglas Flores MD 07/24/23 1518 [facility] Horacio 07-15-2023 L Specimen: [id number] Received: 07/17/23 Status: IVETTPeewee Agarwal Num: [id number] Spec Type: Impression Subm Dr: TANYA Rodriguez Tissues: PATHPER Procedures: PATHREVIEW Age/ Patient Sex Location Account Attending Physician Juany Laws 48/F [place] [id number] Di [place], PAC SPEC NUM: [id number] RECD: 07/17/23 STATUS: YANN AGARWAL NUM: [id number] BURT: 07/15/23 [facility] DR: Di [place], PAC ENTERED: 07/17/[address]: [place],Lab SPEC TYPE: Impression DEPT: SELENA Garcia ENTERED BY: [id number] RECV BY: [id number] ORDERED: PATHREVIEW ORDERED: PATHREVIEW Pathologist Review Abnormal lymphocytosis suspicious for a leukemic process. Flow cytometry of peripheral blood is suggested. Specimen: [id number] Received: 07/17/23 Status: YANN Jacksondenis Num: [id number] Spec Type: Impression Subm Dr: Di [place], PAC Tissues: PATHPER Procedures: PATHREVIEW Patient: EusebiaJuany L [id number] (Continued) Signed (signature on file) Douglas Flores MD 07/18/23 1632 Normal [facility] Complete Blood Counton 08-14 Erythrocyte distribution width (RBC) [Ratio] 13.2 % Normal 11.0-15.0 [facility] Plasticator Comment on above: Performed By: #### L IPD, FT3, TSH, CBC, FT4 #### [facility] [address] [place], [place] [id number] Hematocrit (Bld) [Volume fraction] 43.7 % Normal 35.0-47.0 [facility] Comment on above: Performed By: #### L IPD, FT3, TSH, CBC, FT4 #### [facility] [address], [place] [id number] Hemoglobin (Bld) [Mass/Vol] 14.5 g/dL Normal 11.6-15.5 [facility] Comment on above: Performed By: #### L IPD, FT3, TSH, CBC, FT4 #### [facility] [address] [place], [place] [id number] MCH (RBC) [Entitic mass] 30.6 pg Normal 27.0-33.0 [facility]astic[facility] Comment on above: Performed By: #### L IPD, FT3, TSH, CBC, FT4 #### [facility] [address] [place], [place] [id number] MCHC (RBC) [Mass/Vol] 33.2 g/dL Normal 32.0-36.0 [facility] Comment on above: Performed By: #### L IPD, FT3, TSH, CBC, FT4 #### [facility] [address] [place], [place] [id number] MCV (RBC) [Entitic vol] 92 fL Normal 80-100 [facility] Specialist Comment on above: Performed By: #### L IPD, FT3, TSH, CBC, FT4 #### [facility] [address], [place] [id number] Platelet mean volume (Bld) [Entitic vol] 11.20 fL Normal 7.50-12.50 [facility] Specialist Comment on above: Performed By: #### L IPD, FT3, TSH, CBC, FT4 #### [facility] [address], [place] [id number] Platelets (Bld) [#/Vol] 280 10*3/uL Normal 140-400 [facility] Specialist Comment on above: Performed By: #### L IPD, FT3, TSH, CBC, FT4 #### [facility] [address] [place], [place] [id number] RBC (Bld) [#/Vol] 4.74 10*6/uL Normal 3.90-5.20 [facility] Comment on above: Performed By: #### L IPD, FT3, TSH, CBC, FT4 #### [facility] [address], [place] [id number] RDW-SD 44.7 fL Normal 37.0-50.0 [facility] Specialist Comment on above: Performed By: #### L IPD, FT3, TSH, CBC, FT4 #### [facility] [address] [place], [place] [id number] WBC (Bld) [#/Vol] 12.1 10*3/uL High 3.8-11.0 [facility] Comment on above: Performed By: #### L IPD, FT3, TSH, CBC, FT4 #### [facility] [address] [place], [place] [id number] Free T3on 08-14-2021 FT3 3.74 pg/mL Normal 2.00-4.40 [facility] Specialist Comment on above: Performed By: #### L IPD, FT3, TSH, CBC, FT4 #### [facility] [address] [place], [place] [id number] Free T4on 08-14-2021 Free T4 [Mass/Vol] 2.32 ng/dL High 0.80-1.80 [facility] Plasticator Comment on above: Performed By: #### L IPD, FT3, TSH, CBC, FT4 #### [facility] [address] [place], [place] [id number] Lipid Panelon 08-14-2021 Cholesterol [Mass/Vol] 192 mg/dL Normal 125-200 [facility] Specialist Comment on above: Result Comment: Low risk < 200mg/dL Borderline risk 201-239 mg/dl High risk > or equal to 240 Performed By: #### L IPD, FT3, TSH, CBC, FT4 #### [facility] [address] [place], [place] [id number] Cholesterol in HDL [Mass/Vol] 56 mg/dL Normal >40 [facility] Specialist Comment on above: Result Comment: High Cardiovascular Risk HDL <40 mg/dL Low Cardiovascular Risk HDL > or equal to 60 mg/dl Performed By: #### L IPD, FT3, TSH, CBC, FT4 #### [facility] [address] [place], [place] [id number] Cholesterol in LDL [Mass/Vol] 123 mg/dL Normal [facility] Specialist Comment on above: Result Comment: LDL ATP III CLASSIFICATION LDL less than 100 mg/dl Optimal LDL 100-129 mg/dl Near or above optimal LDL 130-159 Borderline high LDL 160-189 High LDL greater than 189 mg/dl Very High Performed By: #### L IPD, FT3, TSH, CBC, FT4 #### [facility] [address] [place], [place] [id number] Cholesterol in VLDL [Mass/Vol] 13 mg/dL Normal [facility] Specialist Comment on above: Performed By: #### L IPD, FT3, TSH, CBC, FT4 #### [facility] [address] [place], [place] [id number] Cholesterol.total /Cholesterol in HDL [Mass ratio] 3 {ratio} Normal [facility] Specialist Comment on above: Performed By: #### L IPD, FT3, TSH, CBC, FT4 #### [facility] [address] [place], [place] [id number] Triglyceride [Mass/Vol] 67 mg/dL Normal 30-150 [facility] Plasticator Comment on above: Result Comment: TRIG ATPIII CLASSIFICATIONS TRIG less than 150 mg/dl Normal TRIG 150-199 mg/dl Borderline High TRIG 200-500 mg/dl High TRIG greather than 500 mg/dl Very High Performed By: #### L IPD, FT3, TSH, CBC, FT4 #### [facility] [address] [place], [place] [id number] TSHon 08-14-2021 TSH 0.113 uIU/mL Low 0.400-4.500 [facility] io Plasticator Comment on above: Performed By: #### L IPD, FT3, TSH, CBC, FT4 #### [facility] [address] [place], [place] [id number] CBC AUTO DIFFon 01-26-2020 Basophils (Bld) [#/Vol] 0.1 103/ul Normal 0.0-0.1 [facility] Comment on above: Performed By: #### C BC #### [facility] [address] [place], [place] [address] Lynne Aretha Basophils/100 WBC (Bld) 0.6 % Normal 0.2-2.0 [facility] Comment on above: Performed By: #### C BC #### [facility] [address] [place], [place] [address] Lynne Aretha Eosinophils (Bld) [#/Vol] 0.4 103/ul Normal 0.0-0.7 [facility] Comment on above: Performed By: #### C BC #### [facility] [address] [place], [place] [address] Lynne Aretha Eosinophils/100 WBC (Bld) 3.2 % Normal 0.9-7.0 [facility] Comment on above: Performed By: #### C BC #### [facility] [address] [place], [place] [address] Lynne Aretha Erythrocyte distribution width (RBC) [Ratio] 12.7 % Normal 11.0-15.0 [facility] Comment on above: Performed By: #### C BC #### [facility] [address] [place], [place] [address] Lynne Aretha Hematocrit (Bld) [Volume fraction] 44.3 % Normal 36.0-48.0 [facility] Comment on above: Performed By: #### C BC #### [facility] [address] [place], [place] [address] Lynne Aretha Hemoglobin (Bld) [Mass/Vol] 14.7 g/dL Normal 12.0-16.0 [facility] Comment on above: Performed By: #### C BC #### [facility] [address] [place], [place] [address] Lynne Aretha IG # 0.05 10e3/ul Critically high 0.00-0.03 [facility] Comment on above: Performed By: #### C BC #### [facility] [address] [place] [id number] Lynne Aretha IG % 0.4 % Normal 0.0-0.5 [facility] Comment on above: Performed By: #### C BC #### [facility] [address] [place] [id number] Lynne Aretha Lymphocytes (Bld) [#/Vol] 3.4 103/ul Normal 1.2-3.8 [facility] Comment on above: Performed By: #### C BC #### [facility] [address] [place] [phone] Lynne Aretha Lymphocytes/100 WBC (Bld) 28.9 % Normal 20.5-60.0 [facility] Comment on above: Performed By: #### C BC #### [facility] [address] [place] [id number] Lynne Aretha MANUAL DIFF REQ NO Normal [facility] Comment on above: Performed By: #### C BC #### [facility] [address] [place], [place] [address] Lynne Aretha MCH (RBC) [Entitic mass] 30.3 pg Normal 26.7-34.0 [facility] Comment on above: Performed By: #### C BC #### [facility] [address] [place] [id number] Lynne Aretha MCHC (RBC) [Mass/Vol] 33.2 g/dL Normal 29.9-35.2 [facility] Comment on above: Performed By: #### C BC #### [facility] [address] [place], [place] [address] Lynne Aretha MCV (RBC) [Entitic vol] 91.3 fL Normal 81.0-99.0 [facility] Comment on above: Performed By: #### C BC #### [facility] [address] [place], [place] [address] Lynne Aretha Monocytes (Bld) [#/Vol] 0.6 103/ul Normal 0.3-0.8 [facility] Comment on above: Performed By: #### C BC #### [facility] [address] [place], [place] [address] Lynne Aretha Monocytes/100 WBC (Bld) 4.8 % Normal 1.7-12.0 [facility] Comment on above: Performed By: #### C BC #### [facility] [address] [place] [address] Lynne Aretha Neutrophils (Bld) [#/Vol] 7.4 103/ul Critically high 1.4-6.5 [facility] Comment on above: Performed By: #### C BC #### [facility] [address] [place] [address] Lynne Aretha Neutrophils/100 WBC (Bld) 62.1 % Normal 43.0-75.0 [facility] Comment on above: Performed By: #### C BC #### [facility] [address] [place] [address] Lynne Aretha Platelet mean volume (Bld) [Entitic vol] 10.3 fL Normal 9.5-13.5 [facility] Comment on above: Performed By: #### C BC #### [facility] [address] [place] [address] Lynne Aretha Platelets (Bld) [#/Vol] 309 103/ul Normal 150-450 [facility] Comment on above: Performed By: #### C BC #### [facility] [address] [place], [place] [address] Lynne Aretha RBC (Bld) [#/Vol] 4.85 106/ul Normal 4.20-5.40 [facility] Comment on above: Performed By: #### C BC #### [facility] [address] [place] [address] Lynne Carias WBC (Bld) [#/Vol] 11.9 103/ul Critically high 4.0-11.0 T [facility] Comment on above: Performed By: #### C BC #### [facility] [address] [place] [id number] [address] HEAD WO CONon 01-26-2020 CT HEAD WO CON EXAMINATION: CT HEAD WO CON HISTORY: HEADACHE COMPARISON: No relevant comparison available. TECHNIQUE: Axial CT images were obtained without IV contrast. Dose reduction techniques were achieved by using automated exposure control and/or adjustment of mA and/or kV according to patient size and/or use of iterative reconstruction technique. FINDINGS: BRAIN: No edema, hemorrhage, mass, acute infarction, or inappropriate atrophy. CSF SPACES: No hydrocephalus, subarachnoid hemorrhage, or mass. Appropriate for age. SKULL: No fracture, mass, or other significant visible lesion. SINUSES: Mild mucosal thickening within the left maxillary sinus. ORBITS: No appreciable abnormality on the limited views. OTHER: Negative IMPRESSION: 1. No intracranial hemorrhage, mass, CT evidence of acute ischemia, or suspicious findings to account for the patient's symptoms. 2. Mild chronic sinusitis. Electronically authenticated by: ARIADNA BUSTAMANTE Date: 2020-01-26 15:30 Normal [facility] PREG HCG QUALon 01-26-2020 , QUAL Negative Normal NEGATIVE [facility] Comment on above: Performed By: #### P REG #### [facility] [address] [place] [address] Lynne Aretha PROF CHEM 8 (BAS METB)on Anion gap [Moles/Vol] 12.3 mmol/L Normal [facility] Comment on above: Performed By: #### B MP, TROP #### [facility] [address] [place] [phone] Lynne Carias Calcium [Mass/Vol] 9.0 mg/dL Normal 8.4-10.2 [facility] Comment on above: Performed By: #### B MP, TROP #### [facility] [address] [place], [place] [address] Lynne Aretha Chloride [Moles/Vol] 103 mmol/L Normal 98-107 [facility] Comment on above: Performed By: #### B MP, TROP #### [facility] [address] [place] [address] Lynne Aretha CO2 [Moles/Vol] 27.1 mmol/L Normal 22.0-30.0 [facility] Comment on above: Performed By: #### B MP, TROP #### [facility] [address] [place] [address] Lynne Aretha Creatinine [Mass/Vol] 0.78 mg/dL Normal 0.52-1.04 [facility] Comment on above: Performed By: #### B FERNANDA, TROP #### [facility] [address] [place] [address] Lynne Aretha EGFR-AF JAPANESE >6097 Normal >=60 [facility] Comment on above: Performed By: #### B MP, TROP #### [facility] [address] [place] [address] Lynne Aretha EGFR-NON AF JAPANESE >60 Normal >=60 [facility] Comment on above: Performed By: #### B MP, TROP #### [facility] [address] [place] [address] Lynne Aretha Glucose [Mass/Vol] 123 mg/dL Critically high 74-106 [facility] Comment on above: Performed By: #### B MP, TROP #### [facility] [address] [place] [address] Lynne Aretha Potassium [Moles/Vol] 3.4 mmol/L Normal 3.4-5.0 [facility] Comment on above: Performed By: #### B MP, TROP #### [facility] [address] [place] [address] Lynne Aretha Sodium [Moles/Vol] 139 mmol/L Normal 137-145 [facility] Comment on above: Performed By: #### B MP, TROP #### [facility] [address] [place] [address] Lynne Aretha Urea nitrogen [Mass/Vol] 23.0 mg/dL Critically high 7.0-17.0 [facility] Comment on above: Performed By: #### B MP, TROP #### [facility] [address], [place] [address] Lynne Carias Urea nitrogen/Creatini ne [Mass ratio] 29.5 mg/mg Normal [facility] Comment on above: Performed By: #### B MP, TROP #### [facility] [address] [place] [id number] Lynne Aretha TROPONIN - Ion 01-26-2020 Troponin I.cardiac [Mass/Vol] SEE BELOW Normal [facility] Comment on above: Result Comment: <0.0 34 ng/ml NEGATIVE 0.034-0.119 INDETERMINATE 0.120 AMI CUT OFF Performed By: #### B MP, TROP #### [facility] [address] [place] [id number] Lynne Carias Troponin I.cardiac [Mass/Vol] ng/mL Normal <=0.034 [facility] Comment on above: Performed By: #### B FERNANDA, TROP #### [facility] [address] [place] [id number] Lynne Carias Vital Signs Date Time Vital Sign Value Performing Clinician Geovany cui 07-30-2023 12:36-0400 Body height 167.64 cm CHAPITO Washington Work Phone: [place] 07-30-2023 12:36-0400 Body mass index (BMI) [Ratio] 37.1 kg/m2 CHAPITO Washington Work Phone: [place] 07-30-2023 12:36-0400 Body temperature 97.6 [degF] CHAPITO Washington Work Phone: [place] 07-30-2023 12:36-0400 Body weight 104.32 kg CHAPITO Washington Work Phone: [place] 07-30-2023 12:36-0400 Diastolic blood pressure 82 mm[Hg] CHAPITO Washington Work Phone: [place] 07-30-2023 12:36-0400 Heart rate 97 /min PA-C Di Washington Work Phone: [place] 07-30-2023 12:36-0400 Respiratory rate 16 /min PA-C Di Washington Work Phone: [place] 07-30-2023 12:36-0400 SaO2% (BldA) [Mass fraction] 98 % PA-C Di Washington Work Phone: [place] 07-30-2023 12:36-0400 Systolic blood pressure 140 mm[Hg] PA-C Di Washington Work Phone: [place] Encounters Encounter Date Encounter Type Care Provider Facility Start: 08-12-2023 End: 08-12-2023 ambulatory David Boyd Facility:[place] Start: 08-12-2023 End: 08-12-2023 ambulatory II Sánchez Rogerio Work Phone: [facility] Work Phone: Start: 08-12-2023 End: 08-12-2023 Patient encounter procedure II Sánchez Rogerio Work Phone: [facility]-Ultrasound [facility] [place] Work Phone: Start: 08-06-2023 End: 08-06-2023 ambulatory David Boyd Facility:[place] Start: 08-06-2023 End: 08-06-2023 ambulatory II Sánchez Rogerio Work Phone: [facility] Work Phone: Start: 08-06-2023 End: 08-06-2023 Patient encounter procedure II Sánchez Beatty Work Phone: [facility]-CT Scan [facility] [place] Work Phone: Start: 08-05-2023 End: 08-05-2023 ambulatory SÁNCHEZ BEATTY Not Available Start: 07-30-2023 End: 07-30-2023 ambulatory PA-C Di Washington Work Phone: [facility] Work Phone: Start: 07-30-2023 End: 07-30-2023 Patient encounter procedure PA-C Di Washington Work Phone: [facility] V[facility] Work Phone: Start: 07-23-2023 End: 07-23-2023 ambulatory Kenyatta Fish Facility:[place] Start: 07-23-2023 End: 07-23-2023 ambulatory PA-C Di Washington Work Phone: [facility] Work Phone: Start: 07-23-2023 End: 07-23-2023 Departed Referred PA-C Di Washington Work Phone: [facility]-LAB Path [facility] Start: 07-22-2023 End: 07-22-2023 ambulatory SÁNCHEZ BEATTY Not Available Start: 07-15-2023 End: 07-15-2023 ambulatory Di Grecarleenjennifer Facility:[place] Start: 07-15-2023 End: 07-15-2023 ambulatory PA-C Di Washington Work Phone: [facility] Work Phone: Start: 07-15-2023 End: 07-15-2023 Departed Referred PA-C Di Washington Work Phone: [facility] Start: 07-03-2023 End: 07-03-2023 ambulatory ARETHA ARCINIEGA Not Available Start: 01-26-2020 End: 01-26-2020 Patient encounter procedure SÁNCHEZ BEATTY Facility:[facility] Procedures Date Procedure Procedure Detail Performing Clinician Start: 08-06-2023 CT of abdominal aort a with contrast II Sánchez Beatty Work Phone: Plan of Treatment Date Care Activity Detail Author Start: 08-12-2023 Pulse volume recorder pneumoplethysmography US arterial pvr rest LE [place] Start: 08-12-2023 [facility] Payers Date Payer Category Payer Self-pay [id number] 1975 Unknown [id number] [id number] 1975 Unknown [id number] 2.16.84 [id number] 1975 Unknown [id number] 2.16.84 [id number] 1975 Unknown [id number] 2.16.84 [id number] 1959 Medicaid [id number] 1959 Medicare [id number] Unknown [id number] 2.16.8 [id number] Unknown [id number] 2.16.8 [id number] Unknown [id number] 2.16.8 [id number] Unknown [id number] 2.16.8 [id number] Social History Date Type Detail Facility [facility] Work Phone: Start: 1975 Sex Assigned At Female F [facility] Start: 07-30-2023 [facility] [place] Evaluation note Note Date & Type Note Facility Evaluation note No assessment information availa ble [facility] Work Phone: Evaluation note Note Date & Type Note Facility Evaluation note Diagnosis Onset Date Critical limb ischemia of le ft lower extremity with rest pain acute [facility] Work Phone: Summary Purpose Family History No Family History Records FoundNo Family History Records FoundNo Family History Records FoundNo Family History Records Found Advance Directives Advance Directive Response Recorded Date/ Time Advance Directives No August 12, 2018 12:42pm Chief Complaint and Reason for Visit Chief Complaint Unknown Unknown REF FOR CRITICAL LIMB ISCHEMIA OF LT LOWER EXTREM I70.22 I70.22 Reason for Visit Critical limb ischem ia of left lower extremity with rest pain Chief Complaint Unknown Unknown REF FOR CRITICAL LIMB ISCHEMIA OF LT LOWER EXTREM I70.22 Reason for Visit Critical limb ischem ia of left lower extremity with rest pain Additional Source Comments INFORMATION SOURCE (unrecogn ized section and content) DATE CREATED AUTHOR 01/28/2020 [facility] DATE CREATED AUTHOR AUTHOR'S ORGANIZ ATION 08/16/2021 [facility] DATE CREATED AUTHOR AUTHOR'S ORGANIZ ATION 08/06/2023 [facility] EPIC DATE CREATED AUTHOR AUTHOR'S ORGANIZ ATION 08/15/2023 [facility] Care Teams (unrecognized sec tion and content) Team Status: Inactive Member Role Status Dates Di Washington PA-C Attending Provider Active Start: July 15, 2023 End: July 15, 2023 Team Status: Inactive Member Role Status Dates Kenyatta Whitten MD Attending Provider Active St art: July 23, 2023 End: July 23, 2023 Team Status: Active Member Role Status Dates Sánchez Beatty II MD Primary Care Provider Active Team Status: Inactive Member Role Status Dates David Boyd MD Attending Provider Active S tart: July 30, 2023 End: July 30, 2023 Sánchez Beatty II MD Primary Care Provider Active Start: July 30, 2023 End: July 30, 2023 Team Status: Inactive Member Role Status Dates Sánchez Beatty II MD Primary Care Provider Active Start: August 06, 2023 End: August 06, 2023 David Boyd MD Attending Provider Active S tart: August 06, 2023 End: August 06, 2023 Team Status: Inactive Member Role Status Dates Sánchez Beatty II MD Primary Care Provider Active Start: August 12, 2023 End: August 12, 2023 David Boyd MD Attending Provider Active S tart: August 12, 2023 End: August 12, 2023 Goals (unrecognized section and content) Goals may be documented in a n alternate sectionGoals may be documented in an alternate sectionGoals may be documented in an alternate sectionGoals may be documented in an alternate sectionGoals may be documented in an alternate section FOR RECORDS PERTAINING TO PATIENTS WHO ARE OR HAVE BEEN ENROLLED IN A CHEMICAL DEPENDENCY/SUBSTANCEABUSE PROGRAM, SOME INFORMATION MAY BE OMITTED. This clinical summary was aggregated from multiple sources. Caution should be exercised in using it in the provision of clinical care. This summary normalizes information from multiple sources, and as a consequence, information in this document may materially change the coding, format and clinical context of patient data. In addition, data may be omitted in some cases. CLINICAL DECISIONS SHOULD BE BASED ON THE PRIMARY CLINICAL RECORDS. [facility]. provides no warranty or guarantee of the accuracy or completeness of information in this document.
[2023-08-20 06:58] VITALS: BP 140/83; PULSE 79; O2SAT 95
== END 2023-08-20 06:59 | disposition home or self-care (01) ==
PROVIDERS: Emergency Provider Internal Medicine; PCP Internal Medicine
DX: I73.9 Peripheral vascular disease, unspecified (principal); C91.10 Chronic lymphocytic leukemia of B-cell type not having achieved remission; Z79.899 Other long term (current) drug therapy; Z29.89 Encounter for other specified prophylactic measures; G89.29 Other chronic pain; M79.675 Pain in left toe(s)
CPT/HCPCS: 36415; 73630; 80048; 85007; 85027; 85652; 86140; 96374; 96375; 99284

== ENCOUNTER 2023-08-26 14:53 | Outpatient (OUT) | payer MEDICARE, MEDICAID, SELFPAY ==
--- NOTE | 2023-08-26 14:57 | PE_ITS ---
[address] [address] Patient Name: CHRISSY ESCOBAR MRN: [id number] date: 1975 Sex: F Assigned Patient Location: PETCT Current Patient Location: PETCT Accession/Order Number: [id number] Exam Date: 08/26/2023 16:14 Report Date: 08/28/2023 10:40 At the request of: BE LIZ Procedure: PET skull to mid thigh NUCLEAR MEDICINE PET/CT HISTORY: Lymphocytosis D72.820, elevated white blood cells. Leukemia. COMPARISON: None. METHOD: 12.69 mCi of F-18 FDG was administered intravenously. Blood sugar level at the time of the injection: 86. At 55 minutes from injection, PET images were obtained from the skull base through the midthigh levels in the axial plane. Reformatted images were performed in the sagittal and coronal planes. A low-dose, noncontrast CT scan was performed for attenuation correction and anatomical localization. A low dose, noncontrast and nondiagnostic CT scan was performed for attenuation correction and anatomic localization. Mediastinal blood pool SUV max 3.3 using the patient's body weight as the normalization method. FINDINGS: HEAD AND NECK: There are no metabolically active lymph nodes in the neck. CHEST: There are no metabolically active mediastinal, hilar, or axillary lymph nodes. The major airways are patent. There is no pericardial effusion. There is no evidence of abnormal metabolic uptake in the esophagus. There is no evidence of abnormal metabolic uptake in the lung parenchyma. There are no pleural effusions. There is no pneumothorax. ABDOMEN AND PELVIS: There is no evidence of abnormal metabolic activity in the liver or adrenal glands. There is no evidence of abnormal metabolic active lymph nodes in the abdomen or pelvis. There is a left external iliac chain 1.5 x 0.8 cm nonmetabolically active lymph node. There is a left pelvic sidewall 1.8 x 0.9 cm nonmetabolically active lymph node. There is a right pelvic sidewall 2.3 x 1.1 nonmetabolically active lymph node. There is a right external iliac chain 1.5 x 0.7 cm nonmetabolically active lymph node. There is no free fluid. There is physiologic uptake in the urinary system and bowel. MUSCULOSKELETAL: There is no evidence of abnormal metabolically active bony lesions. PET/PET skull to mid thigh IMPRESSION: No evidence of metabolically active lymph nodes. Multiple nonmetabolically active enlarged pelvic lymph nodes. Electronically authenticated by: SRIRAM DE SOUZA Date: 08/28/2023 10:40
== END 2023-08-26 14:54 | disposition home or self-care (01) ==
LOC: PETCT 14:54
PROVIDERS: PCP Internal Medicine; Visit Provider Internal Medicine Hematology & Oncology
DX: D72.820 Lymphocytosis (symptomatic) (principal); D72.829 Elevated white blood cell count, unspecified
CPT/HCPCS: 78815; A9552

== ENCOUNTER 2023-09-17 07:36 | Outpatient (RCR) | payer MEDICARE, MEDICAID, SELFPAY | END 2023-09-17 15:43 | disposition home or self-care (01) | LOC: INF 07:36 | PROVIDERS: PCP Internal Medicine; Visit Provider Internal Medicine Hematology & Oncology | DX: C91.10 Chronic lymphocytic leukemia of B-cell type not having achieved remission (principal); F17.210 Nicotine dependence, cigarettes, uncomplicated | CPT/HCPCS: G0463 ==

== ENCOUNTER 2023-10-15 15:45 | Outpatient (OUT) | payer MEDICARE, MEDICAID, SELFPAY | END 2023-10-15 15:46 | disposition home or self-care (01) | LOC: WC 15:45 | PROVIDERS: PCP Internal Medicine; Visit Provider Podiatrist Foot & Ankle Surgery | DX: I87.332 Chronic venous hypertension (idiopathic) with ulcer and inflammation of left lower extremity (principal); L97.528 Non-pressure chronic ulcer of other part of left foot with other specified severity | CPT/HCPCS: G0463 ==

== ENCOUNTER 2023-12-30 19:06 | Emergency (ER) | payer MEDICARE, MEDICAID, SELFPAY ==
[2023-12-30 19:13] VITALS: BP 138/95; PULSE 96; TEMP 37.4; O2SAT 96; BMI 33.1
--- OUTSIDE RECORDS SUMMARY | 2023-12-30 19:15 | XMS_ITS | CCD ---
Author Organization [facility] Care Team Providers Care Inspector Glass Or Mirror Name Role Phone SÁNCHEZ BEATTY Primary Care Unavailable MARISOL GONZALEZ Admitting Unavailable MARISOL GONZALEZ Attending Unavailable ARIADNA BUSTAMANTE Consulting Unavailable MARISOL GONZALEZ Consulting Unavailable CHAPITO [place] Attending Provider MD Kenyatta Whitten Attending Provider [phone] ARETHA ARCINIEGA Attending Unavailable SÁNCHEZ BEATTY Attending Unavailable SÁNCHEZ BEATTY Attending Unavailable ADRIANNA Beatty Primary Care Provider MD David Boyd Attending Provider MD Benedicto Mcqueen Admit Provider [phone] MD Benedicto Mcqueen Attending Provider SHANNAN Mejia Attending Provider MD Enma Saenz Other Provider MD Jian Mensah Other Provider TAL Figueroa Other Provider DO Omar Marmolejo Jr Other Provider MD Davis Orozco Other Provider BREE Luz Other Provider Unavailable BREE Santoyo Other Provider Unavailable BREE Khan Other Provider Unavailable BREE Thomas Other Provider Unavailable BREE Jackson Other Provider Unavailable MD Tramaine De Leon Other Provider DO Nica Darby Other Provider MD Kevin Reed Other Provider DO Abdullahi Tee Other Provider MD Neftaly Live Other Provider [phone] MD Elena Rivera Other Provider MD Jack Garcia Other Provider Unavailable TAL Traore Other Provider MD Zoran Khan Other Provider [phone] MD Garrick Banuelos Other Provider MD Anita Martin Other Provider MD Bryan Edward Other Provider DO Shahzad Sheridan Other Provider [phone] MD Alona Culver Other Provider MD Haris Gallego Other Provider SHERRON Nielsen-C Elizabeth Beck Other Provider TAL Shafer Other Provider Unavailable MD Miles Downing Other Provider MD Antonino Thompson Other Provider MD Chandu Stubbs Other Provider MD Idania Hale Other Provider Unavailable MD Chaz Owens Other Provider DO Kenia Garcia Other Provider DO Kirk Dumont Other Provider TAL Lester Other Provider DO Yung Luong Other Provider [phone] MD Jonathan Gastelum Other Provider TAL Cueva Other Provider TAL Cole Other Provider [phone] MD Barbara Muhammad Other Provider MD Sánchez Herrmann Other Provider [place], DO Raphael Vides Other Provider [phone] DO Jonh Ferrara Other Provider MD Inocente Stubbs Other Provider MD Sandy Mckeon Other Provider TAL Wright Other Provider MD Daniel Wade Other Provider MD Renato Geller Other Provider BREE Dowd Other Provider Unavailable Beatty, Sánchez Primary Care Provider MD Davis Orozco Admit Provider MD Davis Orozco Attending Provider TAL Figueroa Other Provider Benedicto Mcqueen Attending UnavailBenedicto Kaplan Admitting Unavailabl e Sánchez Beatty Primary Care Unavailable David Boyd Attending Unavailable David Boyd Admitting Unavailable Sánchez Beatty Primary Care Unavailable David Boyd Attending Unavailable David Boyd Admitting Unavailable Benedicto Mcqueen Admitting Unavailabl Benedcito Wolf Attending UnavailDavis Mckinney Admitting Unavaila ble Sánchez Beatty Primary Care Unavailable Davis Orozco Attending Unavaila ble Sánchez Beatty Primary Care Unavailable Benedicto Mcqueen Attending Unavailabl e Benedicto Mcqueen Admitting Unavailabl e Letty, Enma Consulting Unavailable Sánchez Beatty Primary Care Unavailable Benedicto Mcqueen Attending Unavailabl veronica Mcqueen, Benedicto Vides Admitting Unavailabl Jian Lopez Consulting Unavailable Nellieovskfelix, Freya Consulting Unavailable Omar Marmolejo Jr Consulting UnavailDavis Mckinney Consulting Unavaila Diana Lyons Consulting Unavailable Adrianne Santoyo Consulting Unavailable Whit Khan Consulting Unavailable Ruth Thomas Consulting Unavailable Dot Jackson Consulting Unavailable Tramaine De Leon Consulting Unavailable Nica Darby Consulting Unavailable Kevin Reed Consulting Unavailable Abdullahi Tee Consulting UnavailNeftaly Briceno Consulting Unavailable Elena Rivera Consulting Unavailable Jack Garcia Consulting Unavailable Rasheeda Traore Consulting UnavailZoran Ferguson Consulting Unavailable Garrick Banuelos Consulting Unavailable Anita Martin Consulting Unavailable Bryan Edward Consulting Unavailable Shahzad Sheridan Consulting Unavailable Alona Culver Consulting Unavailable Haris Gallego Consulting Unavailable Elizabeth Nielsen Consulting Unavailable Isaiah Shafer Consulting Unavailable Miles Downing Consulting Unavailab Antonino Carty Consulting Unavailable Chandu Stubbs Consulting Unavailable Idania Hale Consulting Unavailable Chaz Owens Consulting Unavailable Kenia Garcia Consulting Unavailable Kirk Dumont Consulting Unavailable Sheila Lester Consulting Unavailable Yung Luong Consulting Unavailable Jonathan Gastelum Consulting Unavailable Ban Cueva Consulting Unavailable Jeanine Cole Consulting Unavailable Barbara Muhammad Consulting Unavailable Sánchez Herrmann Consulting Unavailable Raphael Ying Consulting Unavailable Jonh Ferrara Consulting Unavailable Inocente Stubbs Consulting Unavailable Sandy Mckeon Consulting UnaLauren Veronica Consulting Unavailable Daniel Wade Consulting Unavailable Renato Geller Consulting Unavailable Liz Dowd Consulting Unavailable Kenyatta Whitten Attending Unavailable Kenyatta Whitten Admitting Unavailable Di [place] Attending Unavailable Di [place] Admitting Unavailable Sánchez Beatty Primary Care Unavailable Benedicto Mcqueen Admitting UnavailBenedicto Kaplan Attending UnavailSánchez Banks Primary Care Unavailable Sharifa Mejia Attending Unavailable Sharifa Mejia Admitting Unavailable Allergies Allergy Classification Reported Allergen(s) Allergy Type Date of Onset Reaction(s) Facility Aspirin (1 source) Aspirin Drug Allergy 4 Swelling of Lip/Tongue/Thr oat [facility] Doxycycline (1 source) Doxycycline Drug Allergy 4 Nausea [facility] HMG-CoA Reductase Inhibitors (statins) (1 source) atorvastatin Drug Allergy 4 Anaphylaxis [facility] NSAIDs (1 source) celecoxib Drug Allergy 4 [facility] Opioid Agonists (1 source) Codeine Drug Allergy 4 [facility] Penicillins (antibiotic) (1 source) Penicillins Drug Allergy 4 [facility] (1 source) celecoxib Drug Allergy 4 [facility] (16 sources) Codeine Drug Allergy 4 Rash [facility] (17 sources) Erythromycin Drug Allergy 5 Rash [facility] (1 source) Naproxen Drug Allergy 4 [facility] (16 sources) Penicillins Drug allergy (disorder) 4 Rash [facility] (1 source) pregabalin Drug Allergy 4 [facility] (1 source) Propylthiouracil Drug Allergy 4 [facility] (1 source) Sulfonamides (Antibiotic) Drug allergy (disorder) 4 [facility] (16 sources) celecoxib; Translations: [celecoxib] Drug Allergy 4 [facility] (12 sources) Aspirin; Translations: [aspirin] Drug Allergy 4 Swelling of Lip/Tongue/Thr oat [facility] (12 sources) atorvastatin; Translations: [atorvastatin] Drug Allergy 4 Anaphylaxis [facility] (12 sources) Doxycycline; Translations: [doxycycline] Drug Allergy 4 Nausea [facility] (1 source) Codeine Drug Allergy 4 [facility] (1 source) Erythromycin Drug Allergy 4 [facility] (1 source) Penicillins Drug allergy (disorder) 4 [facility] Medications Current Medications Medication Drug Class(es) Dates Sig (Normalized) Sig (Original) acetaminophen 500 mg oral tablet (6 sources) Start: 11-14-2023 take 1000 mg by mouth three times daily Acetaminophen Active 1000 MG PO Three times daily 0 November 14, 2023 12:00am ciprofloxacin 500 mg oral tablet (1 source) Quinolone Antimicrobial Start: 12-06-2023 take 1 tablet by mouth every twelve hours Ciprofloxacin Hcl (Cipro) 500 mg tablet Active 500 MG PO Every 12 hours December 06, 2023 12:00am clopidogrel 75 mg oral tablet (18 sources) [id number] Platelet Inhibitor Start: 09-23-2023 End: 11-14-2023 take 75 mg by mouth once daily Clopidogrel Active 75 MG PO Daily November 14, 2023 4:00pm collagenase 0.25 unt/mg topical ointment (2 sources) Collagen-specific Enzyme Start: 12-05-2023 End: 12-11-2023 Collagenase Clostridium Histo. (Santyl) 250 unit/gram ointment Active 1 APPLIC TOPICAL Daily December 11, 2023 9:31am Apply nickel thick layer to 4x3cm wound bed and 3x3 cm wound bed on left AKA site QD in the morning cyclobenzaprine hydrochloride 10 mg oral tablet (6 sources) Muscle Relaxant Start: 11-14-2023 take 10 mg by mouth every eight hours Cyclobenzaprine Active 10 MG PO Every 8 hours November 14, 2023 12:00am docusate sodium 100 mg oral capsule (12 sources) Start: 09-23-2023 take 100 mg by mouth twice daily Docusate Sodium Active 100 MG PO Twice daily 25 01September 23, 2023 12:00am gabapentin 300 mg oral capsule (6 sources) Anti-epileptic Agent Start: 11-14-2023 take 300 mg by mouth three times daily Gabapentin Active 300 MG PO Three times daily November 14, 2023 12:00am levothyroxine sodium 0.112 mg oral tablet (16 sources) l-Thyroxine Start: 07-30-2023 take 112 ug by mouth once daily in the morning Levothyroxine Active 112 MCG PO Every morning July 30, 2023 12:00am oxyCODONE hydrochloride 5 mg oral tablet (20 sources) Opioid Agonist Start: 10-31-2023 End: 11-14-2023 take 10 mg by mouth every four hours Oxycodone Active 10 MG PO Every 4 hours 35 November 14, 2023 Start: 09-23-2023 End: 10-28-2023 take 10 mg by mouth every six hours Oxycodone Discontinued 10 MG PO Every 6 hours 60 7 October 01, 2023 October 28, 2023 12:10pm Completed/Discontinued Medications Medication Drug Class(es) Dates Sig (Normalized) Sig (Original) acetaminophen 325 mg / HYDROcodone bitartrate 5 mg oral tablet (20 sources) Opioid Agonist Start: 09-18-2023 End: 10-02-2023 take 1 tablet by mouth every four hours Hydrocodone-Acetami nophen Discontinued 1 TAB PO Every 4 hours September 18, 2023 12:00am October 02, 2023 9:23am Start: 09-09-2023 End: 09-09-2023 take 1 tablet by mouth every eight hours Hydrocodone-Acetaminophen Discontinued 1 TAB PO Every 8 hours 30 September 09, 2023 September 09, 2023 3:23pm Start: 09-09-2023 End: 09-18-2023 take 1 tablet by mouth every eight hours Hydrocodone-Acetaminophen Discontinued 1 TAB PO Every 8 hours 30 7 September 09, 2023 September 18, 2023 8:26am atorvastatin 40 mg oral tablet (12 sources) HMG-CoA Reductase Inhibitor Start: 09-09-2023 End: 09-18-2023 take 40 mg by mouth once daily at bedtime Atorvastatin Discontinued 40 MG PO Daily at bedtime 90 90 September 09, 2023 12:00am September 18, 2023 8:25am doxycycline hyclate 100 mg oral tablet (12 sources) Tetracycline-class Drug Start: 09-09-2023 End: 09-23-2023 take 100 mg by mouth twice daily Doxycycline Hyclate Discontinued 100 MG PO Twice daily 20 September 09, 2023 12:00am September 23, 2023 1:46pm ibuprofen 200 mg oral tablet (16 sources) Nonsteroidal Anti-inflammatory Drug Start: 07-30-2023 End: 11-14-2023 take 1 tablet by mouth every six hours Ibuprofen (Advil) 200 mg tablet Discontinued 200 MG PO Every 6 hours July 30, 2023 12:00am November 14, 2023 4:01pm sulfamethoxazole 800 mg / trimethoprim 160 mg oral tablet (17 sources) Dihydrofolate Reductase Inhibitor Antibacterial, Sulfonamide Antimicrobial Start: 10-03-2023 End: 10-28-2023 take 1 tablet by mouth twice daily Sulfamethoxazole- Trimethoprim (Bactrim Ds) 800-160 mg tablet Discontinued 1 TAB PO Twice daily October 24, 2023 12:08pm October 28, 2023 12:11pm Problems Problem Classification Problem Date Documented Date Episodic/Chronic Administrative/social admission (20 sources) Other reduced mobility; Translations: [Impaired mobility and activities of daily living] Onset: 10-31-2023 10-29-2023 Episodic Chronic ulcer of skin (20 sources) Ulcer of lower extremity; Translations: [Non-pressure chronic ulcer of unspecified part of left lower leg with unspecified severity] Onset: 09-18-2023 09-23-2023 Chronic Complications of surgical procedures or medical care (12 sources) Postoperative wound infection; Translations: [Infection following a procedure, other surgical site, initial encounter] Onset: 11-22-2023 11-20-2023 Episodic Diseases of white blood cells (20 sources) Leukocytosis; Translations: [Elevated white blood cell count, unspecified] Onset: 10-31-2023 10-30-2023 Chronic Gangrene (1 source) Atherosclerosis of [place] arteries of extremities with gangrene, left leg; Translations: [Atherosclerosis of [place] arteries of extremities with gangrene, left leg] Onset: 10-31-2023 Chronic Headache; including migraine (1 source) Other migraine, not intractable, without status migrainosus; Translations: [OTH MIGRAINE NOT INTRACTABLE W/O SM] Onset: 01-28-2020 Chronic Headache; including migraine (3 sources) Headache; including migraine; Translations: [HEADACHE UNSPECIFIED] Onset: 01-26-2020 Leukemias (13 sources) Chronic lymphoid leukemia, disease; Translations: [Chronic lymphocytic leukemia of B-cell type not having achieved remission] Onset: 10-31-2023 11-01-2023 Chronic Open wounds of extremities (20 sources) Amputated left lower limb above knee; Translations: [Complete traumatic amputation at level between left hip and knee, initial encounter] Onset: 10-31-2023 10-29-2023 Chronic Other injuries and conditions due to external causes (1 source) Other injury of unspecified body region, initial encounter; Translations: [Other injury of unspecified body region, initial encounter] Onset: 10-24-2023 Episodic Other nervous system disorders (1 source) Difficulty in walking, not elsewhere classified; Translations: [Difficulty in walking, not elsewhere classified] Onset: 09-18-2023 Chronic Other nervous system disorders (12 sources) Postoperative pain ; Translations: [Other acute postprocedural pain] 09-23-2023 Episodic Other nervous system disorders (14 sources) Other acute postprocedural pain; Translations: [Other acute postoperative pain] Onset: 10-02-2023 10-31-2023 Episodic Peripheral and visceral atherosclerosis (20 sources) Critical lower limb ischemia ; Translations: [Atherosclerosis of [place] arteries of extremities with rest pain, left leg] Onset: 08-12-2023 07-30-2023 Chronic Residual codes; unclassified (11 sources) History of cardiovascular surgery; Translations: [Other specified postprocedural states] 10-02-2023 Episodic Residual codes; unclassified (2 sources) Other specified postprocedural states; Translations: [Other postprocedural status] Onset: 10-28-2023 10-31-2023 Episodic Residual codes; unclassified (1 source) Other specified health status; Translations: [Other specified health status] Onset: 10-31-2023 Episodic Substance-related disorders (20 sources) Smoker; Translations: [Nicotine dependence, unspecified, uncomplicated] Onset: 10-31-2023 10-29-2023 Chronic Thyroid disorders (20 sources) Hypothyroidism, unspecified; Translations: [Hypothyroidism] Onset: 01-28-2020 10-29-2023 Chronic Results Test Name Value Interpretation Reference Range Facility Bacteria identified Aer cx N om (Unsp spec)Ordered By: Benedicto Mcqueen on 12-04-2023 Superficial Wound Culture Klebsiella pneumoniae Abnormal [facility] Superficial Wound Cultureon 12-04-2023 Superficial Wound Culture ORGANISM: Klebsiella pneumoniae (O:KLEPNE) Quantity of Growth Heavy Growth Aerobic FOZIA Charge (NMIC56) --- SUSCEPTIBILITY -- ORGANISM: O:KLEPNE ANTIBIOTIC INTERPRETATION FOZIA Amikacin S <16 Amoxacillin/K Clavulanate S <8 Ampicillin/Sulbactam S <4 Aztreonam S <4 Cefazolin S <2 Cefepime S <2 Ceftazidime S <1 Ceftazidime/Avibactam S <4 Ceftolozane/Tazobactam S <2 Ceftriaxone S <1 Cefuroxime S <4 Ciprofloxacin S <0.25 Ertapenem S <0.5 Gentamicin S <2 Levofloxacin S <0.5 Meropenem S <1 Meropenem/Vaborbactam S <2 Piperacillin/Tazobacta m S <8 Tetracycline S <4 Tigecycline S <2 Tobramycin S <2 Trimethoprim/Sulfameth oxazole S <0.5 S = SUSCEPTIBLE I = INTERMEDIATE R = RESISTANT BLANK = DATA NOT AVAILABLE, OR DRUG NOT ADVISABLE OR TESTED R* = RESISTANCE DUE TO EXTENDED SPECTRUM BETA-LACTAMASES ESBL = EXTENDED SPECTRUM BETA-LACTAMASE TFG = THYMIDINE-DEPENDENT STRAIN NAEEM = BETA-LACTAMASE POSITIVE IB = INDUCIBLE BETA-LACTAMASE. APPEARS IN PLACE OF 'S' WITH SPECIES KNOWN TO POSSESS INDUCIBLE BETA-LACTAMASES. POTENTIALLY THEY MAY BECOME RESISTANT TO ALL B-LACTAM DRUGS. PERFORMED BY: [place] [address] PATHOLOGIST ANAESTHESIOLOGIST RUBEN ALEGRE M.D. Normal [facility] Comment on above: Performed By: #### C USUP #### [address] Anisocytosis [Presence] in B lood by Light microscopyOrdered By: Yoshi Villasenor on 11-22-2023 Anisocytosis Ql (Bld) Slight [facility] Comment on above: Performed By: #### S CAN CBC #### [address] Automated basophil %Ordered By: Yoshi Villasenor on 11-22-2023 Basophils/100 WBC (Bld) 0.2 % . [facility] Comment on above: Performed By: #### S CAN CBC #### [address] Automated basophil countOrde red By: Yoshi Villasenor on 11-22-2023 Basophils (Bld) [#/Vol] 0.1 10*3/uL 0.0-0.2 [facility] Comment on above: Performed By: #### S CAN CBC #### [address] Automated blood monocyte cou ntOrdered By: Yoshi Villasenor on 11-22-2023 Monocytes (Bld) [#/Vol] 1.2 10*3/uL High 0.0-0.8 [facility] Comment on above: Performed By: #### S CAN CBC #### [facility] [address] [place] [address] Automated eosinophil %Ordere d By: Yoshi Villasenor on 11-22-2023 Eosinophils/100 WBC (Bld) 1.4 % . [facility] Comment on above: Performed By: #### S CAN CBC #### [facility] [address] [place] [address] Automated eosinophil countOr dered By: Yoshi Villasenor on 11-22-2023 Eosinophils (Bld) [#/Vol] 0.6 10*3/uL High 0.0-0.45 [facility] Comment on above: Performed By: #### S CAN CBC #### [address] Automated monocyte %Ordered By: Yoshi Villasenor on 11-22-2023 Monocytes/100 WBC (Bld) 2.6 % . [facility] Comment on above: Performed By: #### S CAN CBC #### [address] Automated neutrophil %Ordere d By: Yoshi Villasenor on 11-22-2023 Neutrophils/100 WBC (Bld) 13.2 % . [facility] Comment on above: Performed By: #### S CAN CBC #### [address] Choriogonadotropin.beta subu nit [Units/volume] in Serum or PlasmaOrdered By: Yoshi Villasenor on 11-22-2023 HCG.beta subunit Qn Negative [facility] Erythrocyte distribution wid th [Ratio] by Automated countOrdered By: Yoshi Villasenor on 11-22-2023 Erythrocyte distribution width (RBC) [Ratio] 13.9 % 11.9-15.3 [facility] Comment on above: Performed By: #### S CAN CBC #### [facility] [address] [place] [address] Erythrocytes [#/volume] in B lood by Automated countOrdered By: Yoshi Villasenor on 11-22-2023 RBC (Bld) [#/Vol] 4.06 10*6/uL 3.60-5.00 [facility] Comment on above: Performed By: #### S CAN CBC #### [address] HCG,Qualitative Serumon 11-06 HCG,Qualitative Serum Negative Normal [facility] Comment on above: Result Comment: PERF ORMED BY: [place] [address] PATHOLOGIST ANAESTHESIOLOGIST RUBEN ALEGRE M.D. Performed By: #### H CGQUAL ####[address] Hematocrit [Volume Fraction] of Blood by Automated countOrdered By: Yoshi Villasenor on 11-22-2023 Hematocrit (Bld) [Volume fraction] 36.6 % 34.0-46.4 [facility] Comment on above: Performed By: #### S CAN CBC #### [facility] [address] [place] [address] Hemoglobin [Mass/volume] in BloodOrdered By: Yoshi Villasenor on 11-22-2023 Hemoglobin (Bld) [Mass/Vol] 11.7 g/dL Low 11.8-15.4 [facility] Comment on above: Performed By: #### S CAN CBC #### [facility] [address] [place] [address] Leukocytes [#/volume] correc ingrid for nucleated erythrocytes in Blood by Automated counOrdered By: Yoshi Villasenro on 11-22-2023 WBC corrected for nucl RBC Auto (Bld) [#/Vol] 43.8 10*3/uL High 3.8-11.6 [facility] Leukocytes [#/volume] in Blo od by Automated countOrdered By: Yoshi Villasenor on 11-22-2023 WBC (Bld) [#/Vol] 43.8 10*3/uL High 3.8-11.6 [facility] Comment on above: Performed By: #### S CAN CBC #### [facility] [address] [place] [address] Lymphocytes [#/volume] in Bl ood by Automated countOrdered By: Yoshi Villasenor on 11-22-2023 Lymphocytes (Bld) [#/Vol] 36.2 10*3/uL High 1.00-4.8 [facility] Comment on above: Performed By: #### S CAN CBC #### [address] Lymphocytes/100 leukocytes i n Blood by Automated countOrdered By: Yoshi Villasenor on 11-22-2023 Lymphocytes/100 WBC (Bld) 82.6 % . [facility] Comment on above: Performed By: #### S CAN CBC #### [address] MCH [Entitic mass] by Automa ingrid countOrdered By: Yoshi Villasenor on 11-22-2023 MCH (RBC) [Entitic mass] 28.9 pg 24.7-34.3 [facility] Comment on above: Performed By: #### S CAN CBC #### [address] MCHC Auto (RBC) [Mass/Vol]Or dered By: Yoshi Villasenor on 11-22-2023 MCHC (RBC) [Mass/Vol] 32.1 g/dL 32.0-35.0 [facility] MCV [Entitic volume] by Auto mated countOrdered By: Yoshi Villasenor on 11-22-2023 MCV (RBC) [Entitic vol] 90.3 fL 80-100 [facility] Comment on above: Performed By: #### S CAN CBC #### [place] [address] [place] Microcytes LM Ql (Bld)Ordere d By: Yoshi Villasenor on 11-22-2023 Microcytes Ql (Bld) Slight [facility] Neutrophils [#/volume] in Bl ood by Automated countOrdered By: Yoshi Villasenor on 11-22-2023 Neutrophils (Bld) [#/Vol] 5.8 10*3/uL 1.8-7.7 [facility] Comment on above: Performed By: #### S CAN CBC #### [facility] [address] [place] [address] [place] Nucleated erythrocytes [Pres ence] in Blood by Automated countOrdered By: Yoshi Villasenor on 11-22-2023 Nucleated RBC Auto Ql (Bld) 0.2 /100{WBC} 0-0.5 [facility] Platelet adequacy [Presence] in Blood by Light microscopyOrdered By: Yoshi Villasenor on 11-22-2023 Platelets LM Ql (Bld) Normal Normal [facility] Platelet mean volume [Entiti c volume] in Blood by Automated countOrdered By: Yoshi Villasenor on 11-22-2023 Platelet mean volume (Bld) [Entitic vol] 7.6 fL 6.3-10.7 [facility] Comment on above: Performed By: #### S CAN CBC #### [facility] [address] Platelet morphology finding [Identifier] in BloodOrdered By: Yoshi Villasenor on 11-22-2023 Platelet morphology finding Nom (Bld) Normal Normal [facility] Platelets [#/volume] in Bloo d by Automated countOrdered By: Yoshi Villasenor on 11-22-2023 Platelets (Bld) [#/Vol] 388 10*3/uL 150-450 [facility] Comment on above: Performed By: #### S CAN CBC #### [facility] [address] RBC morphologyOrdered By: Gt Villasenor on 11-22-2023 RBC morphology finding Nom (Bld) Normal Normal [facility] Comment on above: Performed By: #### S CAN CBC #### [facility] [address] [place] [address] [place] Scan and CBCon 11-22-2023 Mean Corpuscular HGB Conc 32.1 g/dL Normal 32.0-35.0 [facility] Comment on above: Performed By: #### S CAN CBC #### [facility] [address] [place] [address] [place] Microcytosis Slight Normal [facility] Comment on above: Performed By: #### S CAN CBC #### [address] NRBC% 0.2 /100{WBC} Normal 0-0.5 [facility] Comment on above: Performed By: #### S CAN CBC #### [address] Platelet Estimate Normal Normal Normal [facility] Comment on above: Performed By: #### S CAN CBC #### [address] Platelet Morphology Normal Normal Normal [facility] Comment on above: Result Comment: PERF ORMED BY: [place] [address] PATHOLOGIST ANAESTHESIOLOGIST RUBEN ALEGRE M.D. Performed By: #### S CAN CBC #### [address] Smudge Cells Moderate Normal [facility] Comment on above: Performed By: #### S CAN CBC #### [address] Smudge cell detectionOrdered By: Yoshi Villasenor on 11-22-2023 Smudge cells LM Ql (Bld) Moderate [facility] Automated basophil %Ordered By: Freya Figueroa on 11-10-2023 Basophils/100 WBC (Bld) 0.4 % . F [facility] Comment on above: Performed By: #### S CAN CBC #### [address] Automated basophil countOrde red By: Freya Figueroa on 11-10-2023 Basophils (Bld) [#/Vol] 0.2 10*3/uL 0.0-0.2 [facility] Comment on above: Performed By: #### S CAN CBC #### [address] Automated blood monocyte cou ntOrdered By: Freya Figueroa on 11-10-2023 Monocytes (Bld) [#/Vol] 1.1 10*3/uL High 0.0-0.8 [facility] Comment on above: Performed By: #### S CAN CBC #### [address] Automated eosinophil %Ordere d By: Freya Figueroa on 11-10-2023 Eosinophils/100 WBC (Bld) 2.6 % . [facility] Comment on above: Performed By: #### S CAN CBC #### [address] Automated eosinophil countOr dered By: Freya Figueroa on 11-10-2023 Eosinophils (Bld) [#/Vol] 1.1 10*3/uL High 0.0-0.45 [facility] Comment on above: Performed By: #### S CAN CBC #### [address] Automated monocyte %Ordered By: Freya Figueroa on 11-10-2023 Monocytes/100 WBC (Bld) 2.5 % . F [facility] Comment on above: Performed By: #### S CAN CBC #### [address] Automated neutrophil %Ordere d By: Freya Figueroa on 11-10-2023 Neutrophils/100 WBC (Bld) 13.2 % . [facility] Comment on above: Performed By: #### S CAN CBC #### [address] Erythrocyte distribution wid th [Ratio] by Automated countOrdered By: Freya Figueroa on 11-10-2023 Erythrocyte distribution width (RBC) [Ratio] 14.1 % 11.9-15.3 [facility] Comment on above: Performed By: #### S CAN CBC #### [address] Erythrocytes [#/volume] in B lood by Automated countOrdered By: Freya Figueroa on 11-10-2023 RBC (Bld) [#/Vol] 3.45 10*6/uL Low 3.60-5.00 [facility] Comment on above: Performed By: #### S CAN CBC #### [address] Hematocrit [Volume Fraction] of Blood by Automated countOrdered By: Freya Figueroa on 11-10-2023 Hematocrit (Bld) [Volume fraction] 31.3 % Low 34.0-46.4 [facility] Comment on above: Performed By: #### S CAN CBC #### [address] Hemoglobin [Mass/volume] in BloodOrdered By: Freya Figueroa on 11-10-2023 Hemoglobin (Bld) [Mass/Vol] 10.0 g/dL Low 11.8-15.4 [facility] Comment on above: Performed By: #### S CAN CBC #### [address] Leukocytes [#/volume] correc ingrid for nucleated erythrocytes in Blood by Automated counOrdered By: Freya Figueroa on 11-10-2023 WBC corrected for nucl RBC Auto (Bld) [#/Vol] 41.9 10*3/uL High 3.8-11.6 [facility] Leukocytes [#/volume] in Blo od by Automated countOrdered By: Freya Figueroa on 11-10-2023 WBC (Bld) [#/Vol] 41.9 10*3/uL High 3.8-11.6 [facility] Comment on above: Performed By: #### S CAN CBC #### [address] Lymphocytes [#/volume] in Bl ood by Automated countOrdered By: Freya Figueroa on 11-10-2023 Lymphocytes (Bld) [#/Vol] 34.1 10*3/uL High 1.00-4.8 [facility] Comment on above: Performed By: #### S CAN CBC #### [address] Lymphocytes/100 leukocytes i n Blood by Automated countOrdered By: Freya Figueroa on 11-10-2023 Lymphocytes/100 WBC (Bld) 81.3 % . [facility] Comment on above: Performed By: #### S CAN CBC #### [facility] [address] [place] [address] MCH [Entitic mass] by Automa ingrid countOrdered By: Freya Figueroa on 11-10-2023 MCH (RBC) [Entitic mass] 29.1 pg 24.7-34.3 [facility] Comment on above: Performed By: #### S CAN CBC #### [facility] [address] [place] [address] MCHC Auto (RBC) [Mass/Vol]Or dered By: Freya Figueroa on 11-10-2023 MCHC (RBC) [Mass/Vol] 32.1 g/dL 32.0-35.0 [facility] MCV [Entitic volume] by Auto mated countOrdered By: Freya Figueroa on 11-10-2023 MCV (RBC) [Entitic vol] 90.8 fL 80-100 [facility] Comment on above: Performed By: #### S CAN CBC #### [facility] [address] [place] [address] Neutrophils [#/volume] in Bl ood by Automated countOrdered By: Freya Figueroa on 11-10-2023 Neutrophils (Bld) [#/Vol] 5.5 10*3/uL 1.8-7.7 [facility] Comment on above: Performed By: #### S CAN CBC #### [facility] [address] [place] [address] Nucleated erythrocytes [Pres ence] in Blood by Automated countOrdered By: Freya Figueroa on 11-10-2023 Nucleated RBC Auto Ql (Bld) 0.3 /100{WBC} 0-0.5 [facility] Platelet adequacy [Presence] in Blood by Light microscopyOrdered By: Freya Figueroa on 11-10-2023 Platelets LM Ql (Bld) Normal Normal [facility] Platelet mean volume [Entiti c volume] in Blood by Automated countOrdered By: Freya Figueroa on 11-10-2023 Platelet mean volume (Bld) [Entitic vol] 7.5 fL 6.3-10.7 [facility] Comment on above: Performed By: #### S CAN CBC #### [address] Platelet morphology finding [Identifier] in BloodOrdered By: Freya Figueroa on 11-10-2023 Platelet morphology finding Nom (Bld) Normal Normal [facility] Platelets [#/volume] in Bloo d by Automated countOrdered By: Freya Figueroa on 11-10-2023 Platelets (Bld) [#/Vol] 368 10*3/uL 150-450 [facility] Comment on above: Performed By: #### S CAN CBC #### [address] RBC morphologyOrdered By: Schuyler Figueroa on 11-10-2023 RBC morphology finding Nom (Bld) Normal Normal [facility] Comment on above: Performed By: #### S CAN CBC #### [address] Scan and CBCon 11-10-2023 Mean Corpuscular HGB Conc 32.1 g/dL Normal 32.0-35.0 [facility] Comment on above: Performed By: #### S CAN CBC #### [address] NRBC% 0.3 /100{WBC} Normal 0-0.5 [facility] Comment on above: Performed By: #### S CAN CBC #### [address] Platelet Estimate Normal Normal Normal [facility] Comment on above: Performed By: #### S CAN CBC #### [facility] [address] [place] [address] Platelet Morphology Normal Normal Normal [facility] Comment on above: Result Comment: PERF ORMED BY: [place] [address] PATHOLOGIST ANAESTHESIOLOGIST RUBEN ALEGRE M.D. Performed By: #### S CAN CBC #### [facility] [address] Basic Metabolic Panelon 10-08 Creatinine Clr Calc Pharmacy 109.51 Normal [facility] Comment on above: Result Comment: PERF ORMED BY: [place] [address] PATHOLOGIST ANAESTHESIOLOGIST RUBEN ALEGRE M.D. Performed By: #### S CAN CBC, BMP #### [place] [address] [place] GFR/1.73 sq M.predicted MDRD (S/P/Bld) [Vol rate/Area] mL/min/{1.73_m2} Normal [facility] Comment on above: Performed By: #### S CAN CBC, BMP #### [place] [address] [place] Calcium [Mass/volume] in Ser um or PlasmaOrdered By: Freya Figueroa on 11-05-2023 Calcium [Mass/Vol] 8.7 mg/dL 8.6-10.3 [facility] Comment on above: Performed By: #### S CAN CBC, BMP #### [facility] [address] [place] [address] [place] Carbon dioxide, total [Moles /volume] in Serum or PlasmaOrdered By: Freya Figueroa on 11-05-2023 CO2 [Moles/Vol] 28.1 mmol/L 21.0-31.0 [facility] Comment on above: Performed By: #### S CAN CBC, BMP #### [facility] [address] [place] [address] [place] Chloride [Moles/volume] in S juan or PlasmaOrdered By: Freya Figueroa on 11-05-2023 Chloride [Moles/Vol] 102 mmol/L 98-107 [facility] Comment on above: Performed By: #### S CAN CBC, BMP #### [facility] [address] [place] [address] [place] Creatinine [Mass/volume] in Serum or PlasmaOrdered By: Freya Figueroa on 11-05-2023 Creatinine [Mass/Vol] 0.70 mg/dL 0.60-1.20 [facility] Comment on above: Performed By: #### S CAN CBC, BMP #### [facility] [address] Glucose [Mass/volume] in Ser um or PlasmaOrdered By: Freya Figueroa on 11-05-2023 Glucose [Mass/Vol] 82 mg/dL 70-100 [facility] Comment on above: ADA recommended refe rence rangeRandom Glucose Reference Range is dependent on time and content of last meal. Glucose of more than 200 mg/dL in a nonstressed, ambulatory subject supports the diagnosis of Diabetes Mellitus. Result Comment: [facility] Glucose Reference Range is dependent on time and content of last meal. Glucose of more than 200 mg/dL in a nonstressed, ambulatory subject supports the diagnosis of Diabetes Mellitus. ADA recommended reference range Performed By: #### S CAN CBC, BMP #### [facility] [address] No Panel InformationOrdered By: Freya Figueroa on 11-05-2023 Estimated GFR (CKD-EPI) > 60.0 mL/Min [facility] Creatinine Clearance (Chem 109.51 [facility] Polychromasia [Presence] in Blood by Light microscopyOrdered By: Freya Figueroa on 11-05-2023 Polychromasia LM Ql (Bld) Slight [facility] Potassium [Moles/volume] in Serum or PlasmaOrdered By: Freya Figueroa on 11-05-2023 Potassium [Moles/Vol] 4.2 mmol/L 3.5-5.1 [facility] Comment on above: Performed By: #### S CAN CBC, BMP #### [facility] [address] Scan and CBCon 11-05-2023 Basophils (Bld) [#/Vol] 0.1 10*3/uL Normal 0.0-0.2 [facility] Comment on above: Performed By: #### B MP, SCAN CBC #### [facility] [address] [place] [address] [place] Basophils/100 WBC (Bld) 0.2 % Normal . T vasiliy [facility] Comment on above: Performed By: #### B MP, SCAN CBC #### [facility] [address] [place] [address] [place] Eosinophils (Bld) [#/Vol] 1.0 10*3/uL High 0.0-0.45 [facility] Comment on above: Performed By: #### B MP, SCAN CBC #### [place] [address] [place] Eosinophils/100 WBC (Bld) 1.9 % Normal . [facility] Comment on above: Performed By: #### B MP, SCAN CBC #### [address] Erythrocyte distribution width (RBC) [Ratio] 13.8 % Normal 11.9-15.3 [facility] Comment on above: Performed By: #### B MP, SCAN CBC #### [address] Hematocrit (Bld) [Volume fraction] 34.9 % Normal 34.0-46.4 [facility] Comment on above: Performed By: #### B MP, SCAN CBC #### [place] [address] [place] Hemoglobin (Bld) [Mass/Vol] 10.9 g/dL Low 11.8-15.4 [facility] Comment on above: Performed By: #### B MP, SCAN CBC #### [place] [address] [place] Lymphocytes (Bld) [#/Vol] 39.9 10*3/uL High 1.00-4.8 [facility] Comment on above: Performed By: #### B MP, SCAN CBC #### [place] [address] [place] Lymphocytes/100 WBC (Bld) 81.2 % Normal . [facility] Comment on above: Performed By: #### B MP, SCAN CBC #### [place] [address] [place] MCH (RBC) [Entitic mass] 28.6 pg Normal 24.7-34.3 [facility] Comment on above: Performed By: #### B MP, SCAN CBC #### [address] MCV (RBC) [Entitic vol] 91.6 fL Normal 80-100 [facility] Comment on above: Performed By: #### B MP, SCAN CBC #### [address] Mean Corpuscular HGB Conc 31.2 g/dL Low 32.0-35.0 [facility] Comment on above: Performed By: #### B MP, SCAN CBC #### [address] Monocytes (Bld) [#/Vol] 1.5 10*3/uL High 0.0-0.8 [facility] Comment on above: Performed By: #### B MP, SCAN CBC #### [address] Monocytes/100 WBC (Bld) 3.0 % Normal . [facility] Comment on above: Performed By: #### B MP, SCAN CBC #### [address] Neutrophils (Bld) [#/Vol] 6.7 10*3/uL Normal 1.8-7.7 [facility] Comment on above: Performed By: #### B MP, SCAN CBC #### [address] Neutrophils/100 WBC (Bld) 13.7 % Normal . [facility] Comment on above: Performed By: #### B MP, SCAN CBC #### [address] NRBC% 0.5 /100{WBC} Normal 0-0.5 [facility] Comment on above: Performed By: #### B MP, SCAN CBC #### [address] Platelet Estimate Normal Normal Normal [facility] Comment on above: Performed By: #### B MP, SCAN CBC #### [address] Platelet mean volume (Bld) [Entitic vol] 7.8 fL Normal 6.3-10.7 [facility] Comment on above: Performed By: #### B MP, SCAN CBC #### [address] Platelet Morphology Normal Normal Normal [facility] Comment on above: Result Comment: PERF ORMED BY: [place] [address] PATHOLOGIST ANAESTHESIOLOGIST RUBEN ALEGRE M.D. Performed By: #### B MP, SCAN CBC #### [address] Platelets (Bld) [#/Vol] 440 10*3/uL Normal 150-450 [facility] Comment on above: Performed By: #### B MP, SCAN CBC #### [address] Polychromasia Slight Normal [facility] Comment on above: Performed By: #### B MP, SCAN CBC #### [address] RBC (Bld) [#/Vol] 3.80 10*6/uL Normal 3.60-5.00 [facility] Comment on above: Performed By: #### B MP, SCAN CBC #### [address] WBC (Bld) [#/Vol] 49.1 10*3/uL High 3.8-11.6 [facility] Comment on above: Performed By: #### B MP, SCAN CBC #### [address] Serum or plasma anion gap de terminationOrdered By: Freya Figueroa on 11-05-2023 Anion gap [Moles/Vol] 12.1 mmol/L 6.0-15.0 [facility] Comment on above: Performed By: #### S CAN CBC, BMP #### [facility] [address] [place] [address] [place] Sodium [Moles/volume] in Ser um or PlasmaOrdered By: Freya Carolina on 11-05-2023 Sodium [Moles/Vol] 138 mmol/L 136-145 [facility] Comment on above: Performed By: #### S CAN CBC, BMP #### [facility] [address] [place] [address] [place] Urea nitrogen [Mass/volume] in Serum or PlasmaOrdered By: Freyasofiya Figueroa on 11-05-2023 Urea nitrogen [Mass/Vol] 14 mg/dL 10-30 [facility] Comment on above: Performed By: #### S CAN CBC, BMP #### [place] [address] [place] Alanine aminotransferase [En zymatic activity/volume] in Serum or PlasmaOrdered By: Davis Orozco on 11-01-2023 ALT [Catalytic activity/Vol] 14 U/L [facility] Comment on above: Performed By: #### B MP, SCAN CBC #### [facility] [address] [place] [address] [place] Albumin [Mass/volume] in Ser um or Plasma by Bromocresol green (BCG) dye binding methoOrdered By: Davis Orozco on 11-01-2023 Albumin BCG dye [Mass/Vol] 3.1 g/dL Low 3.5-5.7 [facility] Alkaline phosphatase [Enzyma tic activity/volume] in Serum or PlasmaOrdered By: Davis Orozco on 11-01-2023 ALP [Catalytic activity/Vol] 71 U/L 34-104 [facility] Comment on above: Performed By: #### B MP, SCAN CBC #### [facility] [address] [place] [address] [place] Aspartate aminotransferase [ Enzymatic activity/volume] in Serum or PlasmaOrdered By: Davis Orozco on 11-01-2023 AST [Catalytic activity/Vol] 20 U/L 13-39 [facility] Comment on above: Performed By: #### B MP, SCAN CBC #### [facility] [address] Bilirubin.total [Mass/volume ] in Serum or PlasmaOrdered By: Davis Orozco on 11-01-2023 Bilirubin [Mass/Vol] 0.6 mg/dL 0.3-1.0 [facility] Comment on above: Performed By: #### B MP, SCAN CBC #### [facility] [address] [place] [address] Comprehensive Metabolic Pane horacio 11-01-2023 Albumin [Mass/Vol] 3.1 g/dL Low 3.5-5.7 [facility] Comment on above: Performed By: #### B MP, SCAN CBC #### [facility] [address] [place] [address] Anion gap [Moles/Vol] 11.4 mmol/L Normal 6.0-15.0 [facility] Comment on above: Performed By: #### B MP, SCAN CBC #### [address] Calcium [Mass/Vol] 8.3 mg/dL Low 8.6-10.3 [facility] Comment on above: Performed By: #### B MP, SCAN CBC #### [address] Chloride [Moles/Vol] 102 mmol/L Normal 98-107 [facility] Comment on above: Performed By: #### B MP, SCAN CBC #### [facility] [address] [place] [address] CO2 [Moles/Vol] 28.5 mmol/L Normal 21.0-31.0 [facility] Comment on above: Performed By: #### B MP, SCAN CBC #### [facility] [address] [place] [address] Creatinine [Mass/Vol] 0.61 mg/dL Normal 0.60-1.20 [facility] Comment on above: Performed By: #### B MP, SCAN CBC #### [facility] [address] [place] [address] Creatinine Clr Calc Pharmacy 125.31 Normal [facility] Comment on above: Performed By: #### B MP, SCAN CBC #### [facility] [address] [place] [address] [place] GFR/1.73 sq M.predicted MDRD (S/P/Bld) [Vol rate/Area] mL/min/{1.73_m2} Normal [facility] Comment on above: Performed By: #### B MP, SCAN CBC #### [facility] [address] Glucose [Mass/Vol] 82 mg/dL Normal 70-100 [facility] Comment on above: Result Comment: [facility] Glucose Reference Range is dependent on time and content of last meal. Glucose of more than 200 mg/dL in a nonstressed, ambulatory subject supports the diagnosis of Diabetes Mellitus. ADA recommended reference range Performed By: #### B MP, SCAN CBC #### [facility] [address] Potassium [Moles/Vol] 3.9 mmol/L Normal 3.5-5.1 [facility] Comment on above: Performed By: #### B MP, SCAN CBC #### [facility] [address] [place] [address] [place] Sodium [Moles/Vol] 138 mmol/L Normal 136-145 [facility] Comment on above: Performed By: #### B MP, SCAN CBC #### [facility] [address] Urea nitrogen [Mass/Vol] 11 mg/dL Normal 7-25 [facility] Comment on above: Performed By: #### B MP, SCAN CBC #### [facility] [address] [place] [address] [place] Diff and CBCon 11-01-2023 Erythrocyte distribution width (RBC) [Ratio] 14.1 % Normal 11.9-15.3 [facility] Comment on above: Performed By: #### B MP, SCAN CBC #### [facility] [address] [place] [address] [place] Giant Platelet Tally 1 /100{WBC} Normal [facility] Comment on above: Performed By: #### B MP, SCAN CBC #### [address] Hematocrit (Bld) [Volume fraction] 31.3 % Low 34.0-46.4 [facility] Comment on above: Performed By: #### B MP, SCAN CBC #### [address] Hemoglobin (Bld) [Mass/Vol] 10.2 g/dL Low 11.8-15.4 [facility] Comment on above: Performed By: #### B MP, SCAN CBC #### [address] MCH (RBC) [Entitic mass] 29.5 pg Normal 24.7-34.3 [facility] Comment on above: Performed By: #### B MP, SCAN CBC #### [address] MCV (RBC) [Entitic vol] 90.9 fL Normal 80-100 T [facility] Comment on above: Performed By: #### B MP, SCAN CBC #### [address] Mean Corpuscular HGB Conc 32.5 g/dL Normal 32.0-35.0 [facility] Comment on above: Performed By: #### B MP, SCAN CBC #### [address] Metamyelocytes 1 % High 0-0 [facility] Comment on above: Performed By: #### B MP, SCAN CBC #### [address] Platelet Estimate Normal Normal Normal [facility] Comment on above: Performed By: #### B MP, SCAN CBC #### [address] Platelet mean volume (Bld) [Entitic vol] 8.0 fL Normal 6.3-10.7 [facility] Comment on above: Result Comment: PERF ORMED BY: [place] [address] PATHOLOGIST ANAESTHESIOLOGIST RUBEN ALEGRE M.D. Performed By: #### B MP, SCAN CBC #### [facility] [address] [place] [address] Platelet Morphology Normal Normal Normal [facility] Comment on above: Result Comment: PERF ORMED BY: [place] [address] PATHOLOGIST ANAESTHESIOLOGIST RUBEN ALEGRE M.D. Performed By: #### B MP, SCAN CBC #### [facility] [address] [place] [address] [place] Platelets (Bld) [#/Vol] 358 10*3/uL Normal 150-450 [facility] Comment on above: Performed By: #### B MP, SCAN CBC #### [facility] [address] [place] [address] [place] RBC (Bld) [#/Vol] 3.44 10*6/uL Low 3.60-5.00 [facility] Comment on above: Performed By: #### B MP, SCAN CBC #### [place] [address] [place] RBC morphology finding Nom (Bld) Normal Normal Normal [facility] Comment on above: Performed By: #### B MP, SCAN CBC #### [facility] [address] [place] [address] [place] WBC (Bld) [#/Vol] 42.4 10*3/uL High 3.8-11.6 [facility] Comment on above: Performed By: #### B MP, SCAN CBC #### [facility] [address] [place] [address] [place] Eosinophils/100 leukocytes i n Blood by Manual countOrdered By: Davis Orozco on 11-01-2023 Eosinophils/100 WBC (Bld) 2 % 1-3 [facility] Comment on above: Performed By: #### B MP, SCAN CBC #### [facility] [address] [place] [address] [place] Giant platelets/100 leukocyt es [Ratio] in Blood by Manual countOrdered By: Davis Orozco on 11-01-2023 Giant platelets/100 WBC Manual cnt (Bld) [Ratio] 1 /100{WBC} [facility] Lymphocytes/100 leukocytes i n Blood by Manual countOrdered By: Davis Orozco on 11-01-2023 Lymphocytes/100 WBC (Bld) 39 % 18-42 [facility] Comment on above: Performed By: #### B MP, SCAN CBC #### [facility] [address] [place] [address] Manual blood segmented neutr ophils/100 leukocytesOrdered By: Davis Orozco on 11-01-2023 Segmented neutrophils/100 WBC (Bld) 51 % 50-70 [facility] Comment on above: Performed By: #### B MP, SCAN CBC #### [facility] [address] [place] [address] [place] Metamyelocytes/100 WBC Manua l cnt (Bld)Ordered By: Davis Orozco on 11-01-2023 Metamyelocytes/100 WBC (Bld) 1 % High 0-0 [facility] Monocytes/100 leukocytes in Blood by Manual countOrdered By: Davis Orozco on 11-01-2023 Monocytes/100 WBC (Bld) 8 % 2-11 [facility] Comment on above: Performed By: #### B MP, SCAN CBC #### [address] Prealbumin [Mass/volume] in Serum or PlasmaOrdered By: Davis Orozco on 11-01-2023 Prealbumin [Mass/Vol] 15.7 mg/dL Low 17.0-34.0 [facility] Comment on above: Result Comment: PERF ORMED BY: [place] [address] PATHOLOGIST ANAESTHESIOLOGIST RUBEN ALEGRE M.D. Performed By: #### B MP, SCAN CBC #### [facility] [address] [place] [address] [place] Protein [Mass/volume] in Ser um or PlasmaOrdered By: Davis Orozco on 11-01-2023 Protein [Mass/Vol] 5.1 g/dL Low 6.4-8.9 [facility] Comment on above: Performed By: #### B MP, SCAN CBC #### [facility] [address] [place] [address] Serum globulin measurement b y calculation (mass/volume)Ordered By: Davis Orozco on 11-01-2023 Globulin (S) [Mass/Vol] 2.0 g/dL F [facility] Comment on above: Performed By: #### B MP, SCAN CBC #### [address] Serum or plasma albumin/glob ulin mass ratioOrdered By: Davis Orozco on 11-01-2023 Albumin/Globulin [Mass ratio] 1.6 {ratio} [facility] Comment on above: Performed By: #### B MP, SCAN CBC #### [address] Anisocytosis [Presence] in B lood by Light microscopyOrdered By: David Boyd on 10-30-2023 Anisocytosis Ql (Bld) Slight [facility] Comment on above: Performed By: #### B MP, SCAN CBC #### [address] Automated basophil %Ordered By: David Boyd on 10-30-2023 Basophils/100 WBC (Bld) 0.2 % . [facility] Comment on above: Performed By: #### B MP, SCAN CBC #### [facility] [address] [place] [address] Automated basophil countOrde red By: David Boyd on 10-30-2023 Basophils (Bld) [#/Vol] 0.1 10*3/uL 0.0-0.2 [facility] Comment on above: Performed By: #### B MP, SCAN CBC #### [address] Automated blood monocyte cou ntOrdered By: David Boyd on 10-30-2023 Monocytes (Bld) [#/Vol] 1.2 10*3/uL High 0.0-0.8 [facility] Comment on above: Performed By: #### B MP, SCAN CBC #### [address] Automated eosinophil %Ordere d By: David Boyd on 10-30-2023 Eosinophils/100 WBC (Bld) 1.1 % . [facility] Comment on above: Performed By: #### B MP, SCAN CBC #### [facility] [address] [place] [address] Automated eosinophil countOr dered By: David Boyd on 10-30-2023 Eosinophils (Bld) [#/Vol] 0.5 10*3/uL High 0.0-0.45 [facility] Comment on above: Performed By: #### B MP, SCAN CBC #### [address] Automated monocyte %Ordered By: David Boyd on 10-30-2023 Monocytes/100 WBC (Bld) 2.5 % . [facility] Comment on above: Performed By: #### B MP, SCAN CBC #### [address] Automated neutrophil %Ordere d By: David Boyd on 10-30-2023 Neutrophils/100 WBC (Bld) 14.0 % . [facility] Comment on above: Performed By: #### B MP, SCAN CBC #### [address] Basic Metabolic Panelon 07- Creatinine Clr Calc Pharmacy 139.34 Normal [facility] Comment on above: Result Comment: PERF ORMED BY: [place] [address] PATHOLOGIST ANAESTHESIOLOGIST RUBEN ALEGRE M.D. Performed By: #### B MP, SCAN CBC #### [address] GFR/1.73 sq M.predicted MDRD (S/P/Bld) [Vol rate/Area] mL/min/{1.73_m2} Normal [facility] Comment on above: Performed By: #### B MP, SCAN CBC #### [facility] [address] [place] [address] [place] Calcium [Mass/volume] in Ser um or PlasmaOrdered By: David Boyd on 10-30-2023 Calcium [Mass/Vol] 8.0 mg/dL Low 8.6-10.3 [facility] Comment on above: Performed By: #### B MP, SCAN CBC #### [facility] [address] Carbon dioxide, total [Moles /volume] in Serum or PlasmaOrdered By: David Boyd on 10-30-2023 CO2 [Moles/Vol] 27.6 mmol/L 21.0-31.0 [facility] Comment on above: Performed By: #### B MP, SCAN CBC #### [facility] [address] [place] [address] [place] Chloride [Moles/volume] in S juan or PlasmaOrdered By: David Boyd on 10-30-2023 Chloride [Moles/Vol] 105 mmol/L 98-107 [facility] Comment on above: Performed By: #### B MP, SCAN CBC #### [facility] [address] [place] [address] Creatinine [Mass/volume] in Serum or PlasmaOrdered By: David Boyd on 10-30-2023 Creatinine [Mass/Vol] 0.61 mg/dL 0.60-1.20 [facility] Comment on above: Performed By: #### B MP, SCAN CBC #### [facility] [address] [place] [address] [place] Erythrocyte distribution wid th [Ratio] by Automated countOrdered By: David Boyd on 10-30-2023 Erythrocyte distribution width (RBC) [Ratio] 14.2 % 11.9-15.3 [facility] Comment on above: Performed By: #### B MP, SCAN CBC #### [facility] [address] Erythrocytes [#/volume] in B lood by Automated countOrdered By: David Boyd on 10-30-2023 RBC (Bld) [#/Vol] 3.28 10*6/uL Low 3.60-5.00 [facility] Comment on above: Performed By: #### B MP, SCAN CBC #### [facility] [address] [place] [address] [place] Glucose [Mass/volume] in Ser um or PlasmaOrdered By: David Boyd on 10-30-2023 Glucose [Mass/Vol] 80 mg/dL 70-100 [facility] Comment on above: ADA recommended refe rence rangeRandom Glucose Reference Range is dependent on time and content of last meal. Glucose of more than 200 mg/dL in a nonstressed, ambulatory subject supports the diagnosis of Diabetes Mellitus. Result Comment: [place] [facility] Glucose Reference Range is dependent on time and content of last meal. Glucose of more than 200 mg/dL in a nonstressed, ambulatory subject supports the diagnosis of Diabetes Mellitus. ADA recommended reference range Performed By: #### B MP, SCAN CBC #### [address] Hematocrit [Volume Fraction] of Blood by Automated countOrdered By: David Boyd on 10-30-2023 Hematocrit (Bld) [Volume fraction] 29.9 % Low 34.0-46.4 [facility] Comment on above: Performed By: #### B MP, SCAN CBC #### [facility] [address] [place] [address] [place] Hemoglobin [Mass/volume] in BloodOrdered By: David Boyd on 10-30-2023 Hemoglobin (Bld) [Mass/Vol] 9.7 g/dL Low 11.8-15.4 [facility] Comment on above: Performed By: #### B MP, SCAN CBC #### [address] Hypochromia LM Ql (Bld)Order ed By: David Boyd on 10-30-2023 Hypochromia Ql (Bld) Slight [facility] Leukocytes [#/volume] correc ingrid for nucleated erythrocytes in Blood by Automated counOrdered By: David Boyd on 10-30-2023 WBC corrected for nucl RBC Auto (Bld) [#/Vol] 47.6 10*3/uL High 3.8-11.6 [facility] Leukocytes [#/volume] in Blo od by Automated countOrdered By: David Boyd on 10-30-2023 WBC (Bld) [#/Vol] 47.6 10*3/uL High 3.8-11.6 [facility] Comment on above: Performed By: #### B MP, SCAN CBC #### [facility] [address] [place] [address] Lymphocytes [#/volume] in Bl ood by Automated countOrdered By: David Boyd on 10-30-2023 Lymphocytes (Bld) [#/Vol] 39.1 10*3/uL High 1.00-4.8 [facility] Comment on above: Performed By: #### B MP, SCAN CBC #### [facility] [address] [place] [address] Lymphocytes/100 leukocytes i n Blood by Automated countOrdered By: David Boyd on 10-30-2023 Lymphocytes/100 WBC (Bld) 82.2 % . [facility] Comment on above: Performed By: #### B MP, SCAN CBC #### [facility] [address] [place] [address] [place] MCH [Entitic mass] by Automa ingrid countOrdered By: David Boyd on 10-30-2023 MCH (RBC) [Entitic mass] 29.4 pg 24.7-34.3 [facility] Comment on above: Performed By: #### B MP, SCAN CBC #### [facility] [address] [place] [address] MCHC Auto (RBC) [Mass/Vol]Or dered By: David Boyd on 10-30-2023 MCHC (RBC) [Mass/Vol] 32.3 g/dL 32.0-35.0 [facility] MCV [Entitic volume] by Auto mated countOrdered By: David Boyd on 10-30-2023 MCV (RBC) [Entitic vol] 91.1 fL 80-100 F [facility] Comment on above: Performed By: #### B MP, SCAN CBC #### [facility] [address] Microcytes LM Ql (Bld)Ordere d By: David Boyd on 10-30-2023 Microcytes Ql (Bld) Slight [facility] Neutrophils [#/volume] in Bl ood by Automated countOrdered By: David Boyd on 10-30-2023 Neutrophils (Bld) [#/Vol] 6.7 10*3/uL 1.8-7.7 [facility] Comment on above: Performed By: #### B MP, SCAN CBC #### [facility] [address] [place] [address] No Panel InformationOrdered By: David Boyd on 10-30-2023 Estimated GFR (CKD-EPI) > 60.0 mL/Min [facility] Creatinine Clearance (Chem 139.34 [facility] Nucleated erythrocytes [Pres ence] in Blood by Automated countOrdered By: David Boyd on 10-30-2023 Nucleated RBC Auto Ql (Bld) 0.5 /100{WBC} 0-0.5 [facility] Platelet adequacy [Presence] in Blood by Light microscopyOrdered By: David Boyd on 10-30-2023 Platelets LM Ql (Bld) Normal Normal [facility] Platelet mean volume [Entiti c volume] in Blood by Automated countOrdered By: David Boyd on 10-30-2023 Platelet mean volume (Bld) [Entitic vol] 7.8 fL 6.3-10.7 [facility] Comment on above: Performed By: #### B MP, SCAN CBC #### [facility] [address] Platelet morphology finding [Identifier] in BloodOrdered By: David Boyd on 10-30-2023 Platelet morphology finding Nom (Bld) N/A [facility] Platelets [#/volume] in Bloo d by Automated countOrdered By: David Boyd on 10-30-2023 Platelets (Bld) [#/Vol] 363 10*3/uL 150-450 [facility] Comment on above: Performed By: #### B MP, SCAN CBC #### [address] Poikilocytosis [Presence] in Blood by Light microscopyOrdered By: David Boyd on 10-30-2023 Poikilocytosis LM Ql (Bld) Slight [facility] Potassium [Moles/volume] in Serum or PlasmaOrdered By: David Boyd on 10-30-2023 Potassium [Moles/Vol] 3.6 mmol/L 3.5-5.1 [facility] Comment on above: Performed By: #### B MP, SCAN CBC #### [address] RBC morphologyOrdered By: Mo Boyd on 10-30-2023 RBC morphology finding Nom (Bld) N/A [facility] Red blood cell stomatocyte d etectionOrdered By: David Boyd on 10-30-2023 Stomatocytes LM Ql (Bld) Slight [facility] Scan and CBCon 10-30-2023 Hypochromasia Slight Normal [facility] Comment on above: Performed By: #### B MP, SCAN CBC #### [address] Mean Corpuscular HGB Conc 32.3 g/dL Normal 32.0-35.0 [facility] Comment on above: Performed By: #### B MP, SCAN CBC #### [address] Microcytosis Slight Normal [facility] Comment on above: Performed By: #### B MP, SCAN CBC #### [facility] [address] [place] [address] NRBC% 0.5 /100{WBC} Normal 0-0.5 [facility] Comment on above: Performed By: #### B MP, SCAN CBC #### [address] Platelet Estimate Normal Normal Normal [facility] Comment on above: Result Comment: PERF ORMED BY: [place] [address] PATHOLOGIST ANAESTHESIOLOGIST RUBEN ALEGRE M.D. Performed By: #### B MP, SCAN CBC #### [address] Poikilocytosis Slight Normal [facility] Comment on above: Performed By: #### B MP, SCAN CBC #### [address] Stomatocytes Slight Normal [facility] Comment on above: Performed By: #### B MP, SCAN CBC #### [address] Serum or plasma anion gap de terminationOrdered By: David Boyd on 10-30-2023 Anion gap [Moles/Vol] 8.0 mmol/L 6.0-15.0 [facility] Comment on above: Performed By: #### B MP, SCAN CBC #### [address] Sodium [Moles/volume] in Ser um or PlasmaOrdered By: David Boyd on 10-30-2023 Sodium [Moles/Vol] 137 mmol/L 136-145 [facility] Comment on above: Performed By: #### B MP, SCAN CBC #### [facility] [address] [place] [address] Urea nitrogen [Mass/volume] in Serum or PlasmaOrdered By: David Boyd on 10-30-2023 Urea nitrogen [Mass/Vol] 9 mg/dL 7-25 [facility] Comment on above: Performed By: #### B MP, SCAN CBC #### [facility] [address] [place] [address] Basic Metabolic Panelon 07- Anion gap [Moles/Vol] 11.4 mmol/L Normal 6.0-15.0 [facility] Comment on above: Performed By: #### S CAN CBC, BMP ####[place] [id number] [place] [id number] [facility] Calcium [Mass/Vol] 8.3 mg/dL Low 8.6-10.3 [facility] Comment on above: Performed By: #### S CAN CBC, BMP ####[place] [id number] [facility] Chloride [Moles/Vol] 104 mmol/L Normal 98-107 [facility] Comment on above: Performed By: #### S CAN CBC, BMP ####[address] CO2 [Moles/Vol] 24.2 mmol/L Normal 21.0-31.0 [facility] Comment on above: Performed By: #### S CAN CBC, BMP ####[place] [id number] [facility] Creatinine [Mass/Vol] 0.57 mg/dL Low 0.60-1.20 [facility] Comment on above: Performed By: #### S CAN CBC, BMP ####[place] [id number] [place] Creatinine Clr Calc Pharmacy 149.58 Normal [facility] Comment on above: Result Comment: PERF ORMED BY: [facility] [address] [place] [id number] PATHOLOGIST ANAESTHESIOLOGIST RUBEN ALEGRE M.D. Performed By: #### S CAN CBC, BMP ####[place] [id number] [place] GFR/1.73 sq M.predicted MDRD (S/P/Bld) [Vol rate/Area] mL/min/{1.73_m2} Normal [facility] Comment on above: Performed By: #### S CAN CBC, BMP ####[place] [id number] [place] Glucose [Mass/Vol] 103 mg/dL High 70-100 [facility] Comment on above: Result Comment: [facility] Glucose Reference Range is dependent on time and content of last meal. Glucose of more than 200 mg/dL in a nonstressed, ambulatory subject supports the diagnosis of Diabetes Mellitus. ADA recommended reference range Performed By: #### S CAN CBC, BMP ####[place] [id number] Potassium [Moles/Vol] 4.6 mmol/L Normal 3.5-5.1 [facility] Comment on above: Performed By: #### S CAN CBC, BMP ####[place] [address] Sodium [Moles/Vol] 135 mmol/L Low 136-145 [facility] Comment on above: Performed By: #### S CAN CBC, BMP ####[address] Urea nitrogen [Mass/Vol] 11 mg/dL Normal 7-25 [facility] Comment on above: Performed By: #### S CAN CBC, BMP ####[address] Scan and CBCon 10-29-2023 Basophils (Bld) [#/Vol] 0.2 10*3/uL Normal 0.0-0.2 [facility] Comment on above: Performed By: #### S CAN CBC, BMP ####[place] [address] [place] Basophils/100 WBC (Bld) 0.3 % Normal . [facility] Comment on above: Performed By: #### S CAN CBC, BMP ####[place] [address] [place] Eosinophils (Bld) [#/Vol] 0.0 10*3/uL Normal 0.0-0.45 [facility] Comment on above: Performed By: #### S CAN CBC, BMP ####[place] [id number] [place] Eosinophils/100 WBC (Bld) 0.0 % Normal . [facility] Comment on above: Performed By: #### S CAN CBC, BMP ####[address] Erythrocyte distribution width (RBC) [Ratio] 14.3 % Normal 11.9-15.3 [facility] Comment on above: Performed By: #### S CAN CBC, BMP ####[address] Hematocrit (Bld) [Volume fraction] 32.5 % Low 34.0-46.4 [facility] Comment on above: Performed By: #### S CAN CBC, BMP ####[address] Hemoglobin (Bld) [Mass/Vol] 10.5 g/dL Low 11.8-15.4 [facility] Comment on above: Performed By: #### S CAN CBC, BMP ####[address] Lymphocytes (Bld) [#/Vol] 46.4 10*3/uL High 1.00-4.8 [facility] Comment on above: Performed By: #### S CAN CBC, BMP ####[address] Lymphocytes/100 WBC (Bld) 77.9 % Normal . [facility] Comment on above: Performed By: #### S CAN CBC, BMP ####[address] MCH (RBC) [Entitic mass] 29.4 pg Normal 24.7-34.3 [facility] Comment on above: Performed By: #### S CAN CBC, BMP ####[address] MCV (RBC) [Entitic vol] 91.5 fL Normal 80-100 [facility] Comment on above: Performed By: #### S CAN CBC, BMP ####[address] Mean Corpuscular HGB Conc 32.2 g/dL Normal 32.0-35.0 [facility] Comment on above: Performed By: #### S CAN CBC, BMP ####[address] Monocytes (Bld) [#/Vol] 1.2 10*3/uL High 0.0-0.8 [facility] Comment on above: Performed By: #### S CAN CBC, BMP ####[address] Monocytes/100 WBC (Bld) 2.1 % Normal . [facility] Comment on above: Performed By: #### S CAN CBC, BMP ####[address] Neutrophils (Bld) [#/Vol] 11.7 10*3/uL High 1.8-7.7 [facility] Comment on above: Performed By: #### S CAN CBC, BMP ####[address] Neutrophils/100 WBC (Bld) 19.7 % Normal . [facility] Comment on above: Performed By: #### S CAN CBC, BMP ####[address] NRBC% 0.5 /100{WBC} Normal 0-0.5 [facility] Comment on above: Performed By: #### S CAN CBC, BMP ####[address] Platelet Estimate Normal Normal Normal [facility] Comment on above: Performed By: #### S CAN CBC, BMP ####[address] Platelet mean volume (Bld) [Entitic vol] 7.9 fL Normal 6.3-10.7 [facility] Comment on above: Performed By: #### S CAN CBC, BMP ####[address] Platelet Morphology Normal Normal Normal [facility] Comment on above: Result Comment: PERF ORMED BY: [facility] [address] [place] [address] PATHOLOGIST ANAESTHESIOLOGIST RUBEN ALEGRE M.D. Performed By: #### S CAN CBC, BMP ####[place] [id number] Platelets (Bld) [#/Vol] 424 10*3/uL Normal 150-450 [facility] Comment on above: Performed By: #### S CAN CBC, BMP ####[address] RBC (Bld) [#/Vol] 3.55 10*6/uL Low 3.60-5.00 [facility] Comment on above: Performed By: #### S CAN CBC, BMP ####[address] RBC morphology finding Nom (Bld) Normal Normal Normal [facility] Comment on above: Performed By: #### S CAN CBC, BMP ####[address] Smudge Cells Marked Normal [facility] Comment on above: Performed By: #### S CAN CBC, BMP ####[address] WBC (Bld) [#/Vol] 59.5 10*3/uL High 3.8-11.6 [facility] Comment on above: Performed By: #### S CAN CBC, BMP ####[address] Smudge cell detectionOrdered By: Benedicto Mcqueen on 10-29-2023 Smudge cells LM Ql (Bld) Marked [facility] Aerobic Cultureon 10-28-2023 Aerobic Culture Comment left leg seroma culture ORGANISM: Klebsiella pneumoniae (O:KLEPNE) Quantity of Growth Light Growth Comment left leg seroma culture No Anaerobes Isolated 3 Days Comment left leg seroma culture Gram Stain Result Rare White Blood Cells Rare Gram Negative Bacilli Aerobic FOZIA Charge (NMIC56) --- SUSCEPTIBILITY -- ORGANISM: O:KLEPNE ANTIBIOTIC INTERPRETATION FOZIA Amikacin S <16 Amoxacillin/K Clavulanate S <8 Ampicillin/Sulbactam S <4 Aztreonam S <4 Cefazolin S <2 Cefepime S <2 Ceftazidime S <1 Ceftazidime/Avibactam S <4 Ceftolozane/Tazobactam S <2 Ceftriaxone S <1 Cefuroxime S <4 Ciprofloxacin S <0.25 Ertapenem S <0.5 Gentamicin S <2 Levofloxacin S <0.5 Meropenem S <1 Meropenem/Vaborbactam S <2 Piperacillin/Tazobacta m S <8 Tetracycline S <4 Tigecycline S <2 Tobramycin S <2 Trimethoprim/Sulfameth oxazole S <0.5 S = SUSCEPTIBLE I = INTERMEDIATE R = RESISTANT BLANK = DATA NOT AVAILABLE, OR DRUG NOT ADVISABLE OR TESTED R* = RESISTANCE DUE TO EXTENDED SPECTRUM BETA-LACTAMASES ESBL = EXTENDED SPECTRUM BETA-LACTAMASE TFG = THYMIDINE-DEPENDENT STRAIN NAEEM = BETA-LACTAMASE POSITIVE IB = INDUCIBLE BETA-LACTAMASE. APPEARS IN PLACE OF 'S' WITH SPECIES KNOWN TO POSSESS INDUCIBLE BETA-LACTAMASES. POTENTIALLY THEY MAY BECOME RESISTANT TO ALL B-LACTAM DRUGS. PERFORMED BY: [place] [address] PATHOLOGIST ANAESTHESIOLOGIST RUBEN ALEGRE M.D. Normal [facility] Comment on above: Performed By: #### A ERC #### [facility] [address] Aerobic Culture Comment left leg seroma fluid culture ORGANISM: Klebsiella pneumoniae (O:KLEPNE) Quantity of Growth Light Growth ORGANISM: Pseudomonas putida group (O:PSEPUTGRP) Quantity of Growth Light Growth Comment left leg seroma fluid culture No Anaerobes Isolated 3 Days Comment left leg seroma fluid culture Gram Stain Result Rare White Blood Cells No Bacteria Seen Aerobic FOZIA Charge (NMIC56) --- SUSCEPTIBILITY -- ORGANISM: O:KLEPNE ANTIBIOTIC INTERPRETATION FOZIA Amikacin S <16 Amoxacillin/K Clavulanate S <8 Ampicillin/Sulbactam S <4 Aztreonam S <4 Cefazolin S <2 Cefepime S <2 Ceftazidime S <1 Ceftazidime/Avibactam S <4 Ceftolozane/Tazobactam S <2 Ceftriaxone S <1 Cefuroxime S <4 Ciprofloxacin S <0.25 Ertapenem S <0.5 Gentamicin S <2 Levofloxacin S <0.5 Meropenem S <1 Meropenem/Vaborbactam S <2 Piperacillin/Tazobacta m S <8 Tetracycline S <4 Tigecycline S <2 Tobramycin S <2 Trimethoprim/Sulfameth oxazole S <0.5 Aerobic FOZIA Charge (NMIC56) --- SUSCEPTIBILITY -- ORGANISM: O:PSEPUTGRP ANTIBIOTIC INTERPRETATION FOZIA Amikacin S <16 Aztreonam I 16 Cefepime S <2 Ceftazidime S <1 Ceftriaxone S 8 Gentamicin S <2 Piperacillin/Tazobacta m S <8 Tetracycline S <4 Tobramycin S <2 Trimethoprim/Sulfameth oxazole R >2 S = SUSCEPTIBLE I = INTERMEDIATE R = RESISTANT BLANK = DATA NOT AVAILABLE, OR DRUG NOT ADVISABLE OR TESTED R* = RESISTANCE DUE TO EXTENDED SPECTRUM BETA-LACTAMASES ESBL = EXTENDED SPECTRUM BETA-LACTAMASE TFG = THYMIDINE-DEPENDENT STRAIN NAEEM = BETA-LACTAMASE POSITIVE IB = INDUCIBLE BETA-LACTAMASE. APPEARS IN PLACE OF 'S' WITH SPECIES KNOWN TO POSSESS INDUCIBLE BETA-LACTAMASES. POTENTIALLY THEY MAY BECOME RESISTANT TO ALL B-LACTAM DRUGS. PERFORMED BY: [facility] [address] [place] [address] PATHOLOGIST ANAESTHESIOLOGIST RUBEN ALEGRE M.D. Normal [facility] Comment on above: Performed By: #### A [facility] ####[facility] [id number] [place] [id number] [facility] Basic Metabolic Panelon 07-2 Anion gap [Moles/Vol] 12.0 mmol/L Normal 6.0-15.0 [facility] Comment on above: Performed By: #### H CGYANETHAL, BMP ####[address] Calcium [Mass/Vol] 9.2 mg/dL Normal 8.6-10.3 [facility] Comment on above: Performed By: #### H CGQUAL, BMP ####[address] Chloride [Moles/Vol] 104 mmol/L Normal 98-107 [facility] Comment on above: Performed By: #### H CGTRUDI, BMP ####[address] CO2 [Moles/Vol] 25.4 mmol/L Normal 21.0-31.0 [facility] Comment on above: Performed By: #### H CGYANETHAL, BMP ####[address] Creatinine [Mass/Vol] 0.83 mg/dL Normal 0.60-1.20 [facility] Comment on above: Performed By: #### H CGTRUDI, BMP ####[address] Creatinine Clr Calc Pharmacy 98.79 Normal [facility] Comment on above: Performed By: #### H CGYANETHAL, BMP ####[place] [id number] [facility] GFR/1.73 sq M.predicted MDRD (S/P/Bld) [Vol rate/Area] mL/min/{1.73_m2} Normal [facility] Comment on above: Performed By: #### H CGQUAL, BMP ####[place] [id number] [facility] Glucose [Mass/Vol] 85 mg/dL Normal 70-100 [facility] Comment on above: Result Comment: [place] Glucose Reference Range is dependent on time and content of last meal. Glucose of more than 200 mg/dL in a nonstressed, ambulatory subject supports the diagnosis of Diabetes Mellitus. ADA recommended reference range Performed By: #### H VALORIE HOLDER ####[place] [address] [address] Potassium [Moles/Vol] 4.4 mmol/L Normal 3.5-5.1 [facility] Comment on above: Performed By: #### H GALLO, BMP ####[place] [address] Sodium [Moles/Vol] 137 mmol/L Normal 136-145 [facility] Comment on above: Performed By: #### H GALLO BMP ####[place] [address] Urea nitrogen [Mass/Vol] 16 mg/dL Normal 7-25 [facility] Comment on above: Performed By: #### H GALLO BMP ####[place] [address] [address] Choriogonadotropin.beta subu nit [Units/volume] in Serum or PlasmaOrdered By: Thiago Pham on 10-28-2023 HCG.beta subunit Qn Negative [facility] Gram stain for investigation of transfusion reactionOrdered By: Benedicto Mcqueen on 10-28-2023 Microscopic observation Gram stain Nom (Unsp spec) Pseudomonas putida group Abnormal [facility] Microscopic observation Gram stain Nom (Unsp spec) Klebsiella pneumoniae Abnormal [facility] HCG,Qualitative Serumon 10-07 HCG,Qualitative Serum Negative Normal [facility] Comment on above: Result Comment: PERF ORMED BY: [facility] [address] [place] [id number] PATHOLOGIST ANAESTHESIOLOGIST RUBEN ALEGRE M.D. Performed By: #### H GALLO, BMP ####[place] [address] [place] [id number] [facility] Horacio 10-28-2023 L Specimen: [id number] Received: 10/28/23-1399 Status: SOUT Req Num: [id number] Spec Type: Surgical Subm Dr: Benedicto Mcqueen MD Tissues: A Extremity - Amputation, Non-Traumatic (LT LEG AKA) Procedures: HE/5, Gross/Micro L5, Decalcification Age/ Patient Sex Location Account Attending Physician Juany Laws 48/F 4N [id number] Benedicto Mcqueen MD SPEC NUM: [id number] RECD: 10/28/23 STATUS: YANN REQ NUM: [id number] BURT: 10/28/231348 [facility] DR: Benedicto Mcqueen MD ENTERED: 10/28/23-[address] [facility] [address]: SPEC TYPE: Surgical DEPT: S ORDERED: HE/5, Gross/Micro L5, Decalcification ORDERED: HE/5, Gross/Micro L5, Decalcification Pathological Diagnosis Lower extremity, left (kbwkd-yti-[id number] amputation): Gangrenous necrosis/ulceration of skin and soft tissue with involvement of underlying bone (osteomyelitis) Atherosclerosis with dystrophic calcifications, severe Perineural fibrosis Trilinear hematopoietic marrow with maturation No malignancy seen Clinical Information Gangrene Gross Description Received fresh, labeled with the patient's name, date of and left leg aka is a left lower extremity amputated through the femur with a smooth resection margin.?The specimen is 15.3 cm from proximal surgical margin to knee and 39.7 cm from knee to ankle, with an average diameter of 16.9 cm and foot length of 21.6 cm. All 5 digits are present and contain thickened huff nails. There is a 17.2 x 2.8 cm brown-black, necrotic area of ulceration present along the medial aspect of the leg that is contiguous with the a poorly healed, slightly firm scar which measures 12.5 cm in length and comes to within 12.0 cm of the nearest skin and soft tissue margins. The remaining skin is huff with no additional lesions, scars or areas of discoloration present. The bone at the resection margin is unremarkable. The posterior popliteal artery is severely calcified with luminal obstruction up to 90%. Sectioning underneath the ulcerated area reveals sloughing soft tissue and ---- Specimen: [id number] Received: 10/28/23 Status: YANN Agarwal Num: [id number] Spec Type: Surgical Subm Dr: Benedicto Mcqueen MD Tissues: A Extremity - Amputation, Non-Traumatic (LT LEG AKA) Procedures: HE/5, Gross/Micro L5, Decalcification ---- Patient: Juany Laws [id number] (Continued) ---- Specimen: [id number] Received: 10/28/23 (Continued) Gross Description (Continued) Signed (signature on file) Ras Thomas Jr., MD 11/04/23 1427 ---- Specimen: [id number] Received: 10/28/23 Status: YANN Agarwal Num: [id number] Spec Type: Surgical Subm Dr: Benedicto Mcqueen MD Tissues: A Extremity - Amputation, Non-Traumatic (LT LEG AKA) Procedures: , Gross/Micro L5, Decalcification ---- Patient: Juany Laws [id number] (Continued) ---- Specimen: [id number] Received: 10/28/23-1399 (Continued) Gross Description (Continued) unremarkable yellow bone matrix. Pickle Pumper sections are submitted as follows: A1: Bone marrow at bone margin (following decal) A2: Skin and soft tissue margins A3: Skin ulcer A4: Vessels (following decal) A5: Full-thickness section of skin ulcer, underlying soft tissue and bone (following decal) CPT Codes 58926, 91680 x 3 ---- ---- Specimen: [id number] Received: 10/28/23 Status: YANN Agarwal Num: [id number] Spec Type: Surgical Subm Dr: Benedicto Mcqueen MD Tissues: A Extremity - Amputation, Non-Traumatic (LT LEG AKA) Procedures: HE/5, Gross/Micro L5, Decalcification ---- Patient: Juany Laws Syed [id number] (Continued) ---- Signed (signature on file) Ras Thomas Jr., MD 11/04/23 1427 Normal [facility] Scan and CBCon 10-28-2023 Basophils (Bld) [#/Vol] 0.2 10*3/uL Normal 0.0-0.2 [facility] Comment on above: Performed By: #### S CAN CBC #### [facility] [address] Basophils/100 WBC (Bld) 0.3 % Normal . Peewee amanda [facility] Comment on above: Performed By: #### S CAN CBC #### [facility] [address] [place] [address] [place] Eosinophils (Bld) [#/Vol] 0.3 10*3/uL Normal 0.0-0.45 [facility] Comment on above: Performed By: #### S CAN CBC #### [address] Eosinophils/100 WBC (Bld) 0.5 % Normal . [facility] Comment on above: Performed By: #### S CAN CBC #### [address] Erythrocyte distribution width (RBC) [Ratio] 14.2 % Normal 11.9-15.3 [facility] Comment on above: Performed By: #### S CAN CBC #### [address] Hematocrit (Bld) [Volume fraction] 38.9 % Normal 34.0-46.4 [facility] Comment on above: Performed By: #### S CAN CBC #### [address] Hemoglobin (Bld) [Mass/Vol] 12.4 g/dL Normal 11.8-15.4 [facility] Comment on above: Performed By: #### S CAN CBC #### [address] Lymphocytes (Bld) [#/Vol] 47.7 10*3/uL High 1.00-4.8 [facility] Comment on above: Performed By: #### S CAN CBC #### [address] Lymphocytes/100 WBC (Bld) 86.1 % Normal . [facility] Comment on above: Performed By: #### S CAN CBC #### [address] MCH (RBC) [Entitic mass] 29.3 pg Normal 24.7-34.3 [facility] Comment on above: Performed By: #### S CAN CBC #### [address] MCV (RBC) [Entitic vol] 91.8 fL Normal 80-100 T [facility] Comment on above: Performed By: #### S CAN CBC #### [address] Mean Corpuscular HGB Conc 31.9 g/dL Low 32.0-35.0 [facility] Comment on above: Performed By: #### S CAN CBC #### [address] Monocytes (Bld) [#/Vol] 0.6 10*3/uL Normal 0.0-0.8 [facility] Comment on above: Performed By: #### S CAN CBC #### [address] Monocytes/100 WBC (Bld) 1.2 % Normal . [facility] Comment on above: Performed By: #### S CAN CBC #### [address] Neutrophils (Bld) [#/Vol] 6.6 10*3/uL Normal 1.8-7.7 [facility] Comment on above: Performed By: #### S CAN CBC #### [place] [address] [place] Neutrophils/100 WBC (Bld) 11.9 % Normal . [facility] Comment on above: Performed By: #### S CAN CBC #### [address] NRBC% 0.2 /100{WBC} Normal 0-0.5 [facility] Comment on above: Performed By: #### S CAN CBC #### [address] Platelet Estimate Increased Normal Normal [facility] Comment on above: Performed By: #### S CAN CBC #### [address] Platelet mean volume (Bld) [Entitic vol] 7.9 fL Normal 6.3-10.7 [facility] Comment on above: Performed By: #### S CAN CBC #### [address] Platelet Morphology Normal Normal Normal [facility] Comment on above: Result Comment: PERF ORMED BY: [place] [address] PATHOLOGIST ANAESTHESIOLOGIST RUBEN ALEGRE M.D. Performed By: #### S CAN CBC #### [address] Platelets (Bld) [#/Vol] 469 10*3/uL High 150-450 [facility] Comment on above: Performed By: #### S CAN CBC #### [address] RBC (Bld) [#/Vol] 4.23 10*6/uL Normal 3.60-5.00 [facility] Comment on above: Performed By: #### S CAN CBC #### [address] RBC morphology finding Nom (Bld) Normal Normal Normal [facility] Comment on above: Performed By: #### S CAN CBC #### [address] Smudge Cells Marked Normal [facility] Comment on above: Performed By: #### S CAN CBC #### [address] WBC (Bld) [#/Vol] 55.3 10*3/uL High 3.8-11.6 [facility] Comment on above: Performed By: #### S CAN CBC #### [address] Aerobic Cultureon 10-24-2023 Aerobic Culture ORGANISM: Pseudomona s putida group (O:PSEPUTGRP) Quantity of Growth Light Growth No Anaerobes Isolated 3 Days Gram Stain Result 2+ Gram Negative Bacilli 1+ White Blood Cells Aerobic FOZIA Charge (NMIC56) --- SUSCEPTIBILITY -- ORGANISM: O:PSEPUTGRP ANTIBIOTIC INTERPRETATION FOZIA Amikacin S <16 Aztreonam I 16 Cefepime S <2 Ceftazidime S <1 Ceftriaxone S 8 Gentamicin S <2 Piperacillin/Tazobacta m S <8 Tetracycline S <4 Tobramycin S <2 Trimethoprim/Sulfameth oxazole R >2 S = SUSCEPTIBLE I = INTERMEDIATE R = RESISTANT BLANK = DATA NOT AVAILABLE, OR DRUG NOT ADVISABLE OR TESTED R* = RESISTANCE DUE TO EXTENDED SPECTRUM BETA-LACTAMASES ESBL = EXTENDED SPECTRUM BETA-LACTAMASE TFG = THYMIDINE-DEPENDENT STRAIN NAEEM = BETA-LACTAMASE POSITIVE IB = INDUCIBLE BETA-LACTAMASE. APPEARS IN PLACE OF 'S' WITH SPECIES KNOWN TO POSSESS INDUCIBLE BETA-LACTAMASES. POTENTIALLY THEY MAY BECOME RESISTANT TO ALL B-LACTAM DRUGS. PERFORMED BY: [facility] [address] [place] [address] PATHOLOGIST ANAESTHESIOLOGIST RUBEN ALEGRE M.D. Normal [facility] Comment on above: Performed By: #### A ERC ####[id number] [place] [id number] [facility] Gram stain for investigation of transfusion reactionOrdered By: Sharifa Mejia on 10-24-2023 Microscopic observation Gram stain Nom (Unsp spec) Pseudomonas putida group Abnormal [facility] Bacteria identified Aer cx N om (Unsp spec)Ordered By: Benedicto Mcqueen on 10-02-2023 Superficial Wound Culture Klebsiella pneumoniae Abnormal [facility] Superficial Wound Cultureon 10-02-2023 Superficial Wound Culture ORGANISM: Klebsiella pneumoniae (O:KLEPNE) Quantity of Growth Moderate Growth Aerobic FOZIA Charge (NMIC56) --- SUSCEPTIBILITY -- ORGANISM: O:KLEPNE ANTIBIOTIC INTERPRETATION FOZIA Amikacin S <16 Amoxacillin/K Clavulanate S <8 Ampicillin/Sulbactam S <4 Aztreonam S <4 Cefazolin S <2 Cefepime S <2 Ceftazidime S <1 Ceftazidime/Avibactam S <4 Ceftolozane/Tazobactam S <2 Ceftriaxone S <1 Cefuroxime S <4 Ciprofloxacin S <0.25 Ertapenem S <0.5 Gentamicin S <2 Levofloxacin S <0.5 Meropenem S <1 Meropenem/Vaborbactam S <2 Piperacillin/Tazobacta m S <8 Tetracycline S <4 Tigecycline S <2 Tobramycin S <2 Trimethoprim/Sulfameth oxazole S <0.5 S = SUSCEPTIBLE I = INTERMEDIATE R = RESISTANT BLANK = DATA NOT AVAILABLE, OR DRUG NOT ADVISABLE OR TESTED R* = RESISTANCE DUE TO EXTENDED SPECTRUM BETA-LACTAMASES ESBL = EXTENDED SPECTRUM BETA-LACTAMASE TFG = THYMIDINE-DEPENDENT STRAIN NAEEM = BETA-LACTAMASE POSITIVE IB = INDUCIBLE BETA-LACTAMASE. APPEARS IN PLACE OF 'S' WITH SPECIES KNOWN TO POSSESS INDUCIBLE BETA-LACTAMASES. POTENTIALLY THEY MAY BECOME RESISTANT TO ALL B-LACTAM DRUGS. PERFORMED BY: [facility] [address] [place] [address] PATHOLOGIST ANAESTHESIOLOGIST RUBEN ALEGRE M.D. Normal [facility] Comment on above: Performed By: #### C USUP ####[address] Anisocytosis [Presence] in B lood by Light microscopyOrdered By: Benedicto Mcqueen on 09-21-2023 Anisocytosis Ql (Bld) Slight [facility] Comment on above: Performed By: #### B MP, SCAN CBC ####[address] Automated basophil %Ordered By: Benedicto Mcqueen on 09-21-2023 Basophils/100 WBC (Bld) 0.4 % . F [facility] Comment on above: Performed By: #### B MP, SCAN CBC ####[address] Automated basophil countOrde red By: Benedicto Mcqueen on 09-21-2023 Basophils (Bld) [#/Vol] 0.2 10*3/uL 0.0-0.2 [facility] Comment on above: Performed By: #### B MP, SCAN CBC ####[address] Automated blood monocyte cou ntOrdered By: Benedicto Mcqueen on 09-21-2023 Monocytes (Bld) [#/Vol] 0.8 10*3/uL 0.0-0.8 [facility] Comment on above: Performed By: #### B MP, SCAN CBC ####[place] [address] [address] Automated eosinophil %Ordere d By: Benedicto Mcqueen on 09-21-2023 Eosinophils/100 WBC (Bld) 0.0 % . [facility] Comment on above: Performed By: #### B MP, SCAN CBC ####[place] [address] [address] Automated eosinophil countOr dered By: Benedicto Mcqueen on 09-21-2023 Eosinophils (Bld) [#/Vol] 0.0 10*3/uL 0.0-0.45 [facility] Comment on above: Performed By: #### B MP, SCAN CBC ####[address] Automated monocyte %Ordered By: Benedicto Mcqueen on 09-21-2023 Monocytes/100 WBC (Bld) 1.9 % . F [facility] Comment on above: Performed By: #### B MP, SCAN CBC ####[address] Automated neutrophil %Ordere d By: Benedicto Mcqueen on 09-21-2023 Neutrophils/100 WBC (Bld) 21.4 % . [facility] Comment on above: Performed By: #### B MP, SCAN CBC ####[address] Basic Metabolic Panelon 09-06 Creatinine Clr Calc Pharmacy 146.61 Normal [facility] Comment on above: Result Comment: PERF ORMED BY: [facility] [address] [place] [address] PATHOLOGIST ANAESTHESIOLOGIST RUBEN ALEGRE M.D. Performed By: #### B MP, SCAN CBC ####[facility] [place] [address] [place] GFR/1.73 sq M.predicted MDRD (S/P/Bld) [Vol rate/Area] mL/min/{1.73_m2} Normal [facility] Comment on above: Performed By: #### B MP, SCAN CBC ####[facility] [id number] [place] [address] [place] Calcium [Mass/volume] in Ser um or PlasmaOrdered By: Benedicto Mcqueen on 09-21-2023 Calcium [Mass/Vol] 8.2 mg/dL Low 8.6-10.3 [facility] Comment on above: Performed By: #### B MP, SCAN CBC ####[place] [address] [address] Carbon dioxide, total [Moles /volume] in Serum or PlasmaOrdered By: Benedicto Mcqueen on 09-21-2023 CO2 [Moles/Vol] 25.6 mmol/L 21.0-31.0 [facility] Comment on above: Performed By: #### B MP, SCAN CBC ####[place] [address] [place] [id number] [place] Chloride [Moles/volume] in S juan or PlasmaOrdered By: Benedicto Mcqueen on 09-21-2023 Chloride [Moles/Vol] 104 mmol/L 98-107 [facility] Comment on above: Performed By: #### B MP, SCAN CBC ####[place] [id number] [place] Creatinine [Mass/volume] in Serum or PlasmaOrdered By: Benedicto Mcqueen on 09-21-2023 Creatinine [Mass/Vol] 0.57 mg/dL Low 0.60-1.20 [facility] Comment on above: Performed By: #### B MP, SCAN CBC ####[place] [id number] [place] Erythrocyte distribution wid th [Ratio] by Automated countOrdered By: Benedicto Mcqueen on 09-21-2023 Erythrocyte distribution width (RBC) [Ratio] 14.0 % 11.9-15.3 [facility] Comment on above: Performed By: #### B MP, SCAN CBC ####[facility] [place] [address] [place] Erythrocytes [#/volume] in B lood by Automated countOrdered By: Benedicto Mcqueen on 09-21-2023 RBC (Bld) [#/Vol] 4.00 10*6/uL 3.60-5.00 [facility] Comment on above: Performed By: #### B MP, SCAN CBC ####[place] [id number] [place] Glucose [Mass/volume] in Ser um or PlasmaOrdered By: Benedicto Mcqueen on 09-21-2023 Glucose [Mass/Vol] 88 mg/dL 70-100 [facility] Comment on above: ADA recommended refe rence rangeRandom Glucose Reference Range is dependent on time and content of last meal. Glucose of more than 200 mg/dL in a nonstressed, ambulatory subject supports the diagnosis of Diabetes Mellitus. Result Comment: [place] om Glucose Reference Range is dependent on time and content of last meal. Glucose of more than 200 mg/dL in a nonstressed, ambulatory subject supports the diagnosis of Diabetes Mellitus. ADA recommended reference range Performed By: #### B MP, SCAN CBC ####[place] [id number] [facility] Hematocrit [Volume Fraction] of Blood by Automated countOrdered By: Benedicto Mcqueen on 09-21-2023 Hematocrit (Bld) [Volume fraction] 36.8 % 34.0-46.4 [facility] Comment on above: Performed By: #### B MP, SCAN CBC ####[address] [address] [place] Hemoglobin [Mass/volume] in BloodOrdered By: Benedicto Mcqueen on 09-21-2023 Hemoglobin (Bld) [Mass/Vol] 11.9 g/dL 11.8-15.4 [facility] Comment on above: Performed By: #### B MP, SCAN CBC ####[place] [address] [place] [id number] [facility] Leukocytes [#/volume] correc ingrid for nucleated erythrocytes in Blood by Automated counOrdered By: Benedicto Mcqueen on 09-21-2023 WBC corrected for nucl RBC Auto (Bld) [#/Vol] 39.2 10*3/uL High 3.8-11.6 [facility] Leukocytes [#/volume] in Blo od by Automated countOrdered By: Benedicto Mcqueen on 09-21-2023 WBC (Bld) [#/Vol] 39.2 10*3/uL High 3.8-11.6 [facility] Comment on above: Performed By: #### B MP, SCAN CBC ####[address] Lymphocytes [#/volume] in Bl ood by Automated countOrdered By: Benedicto Mcqueen on 09-21-2023 Lymphocytes (Bld) [#/Vol] 29.9 10*3/uL High 1.00-4.8 [facility] Comment on above: Performed By: #### B MP, SCAN CBC ####[address] Lymphocytes/100 leukocytes i n Blood by Automated countOrdered By: Benedicto Mcqueen on 09-21-2023 Lymphocytes/100 WBC (Bld) 76.3 % . [facility] Comment on above: Performed By: #### B MP, SCAN CBC ####[address] MCH [Entitic mass] by Automa ingrid countOrdered By: Benedicto Mcqueen on 09-21-2023 MCH (RBC) [Entitic mass] 29.9 pg 24.7-34.3 [facility] Comment on above: Performed By: #### B MP, SCAN CBC ####[address] MCHC Auto (RBC) [Mass/Vol]Or dered By: Benedicto Mcqueen on 09-21-2023 MCHC (RBC) [Mass/Vol] 32.4 g/dL 32.0-35.0 [facility] MCV [Entitic volume] by Auto mated countOrdered By: Benedicto Mcqueen on 09-21-2023 MCV (RBC) [Entitic vol] 92.1 fL 80-100 [facility] Comment on above: Performed By: #### B MP, SCAN CBC ####[facility] [id number] Microcytes LM Ql (Bld)Ordere d By: Benedicto Mcqueen on 09-21-2023 Microcytes Ql (Bld) Slight [facility] Neutrophils [#/volume] in Bl ood by Automated countOrdered By: Benedicto Mcqueen on 09-21-2023 Neutrophils (Bld) [#/Vol] 8.4 10*3/uL High 1.8-7.7 [facility] Comment on above: Performed By: #### B MP, SCAN CBC ####[facility] [id number] No Panel InformationOrdered By: Benedicto Mcqueen on 09-21-2023 Estimated GFR (CKD-EPI) > 60.0 mL/Min [facility] Creatinine Clearance (Chem 146.61 [facility] Nucleated erythrocytes [Pres ence] in Blood by Automated countOrdered By: Benedicto Mcqueen on 09-21-2023 Nucleated RBC Auto Ql (Bld) 0.3 /100{WBC} 0-0.5 [facility] Platelet adequacy [Presence] in Blood by Light microscopyOrdered By: Benedicto Mcqueen on 09-21-2023 Platelets LM Ql (Bld) Normal Normal [facility] Platelet mean volume [Entiti c volume] in Blood by Automated countOrdered By: Benedicto Mcqueen on 09-21-2023 Platelet mean volume (Bld) [Entitic vol] 8.9 fL 6.3-10.7 [facility] Comment on above: Performed By: #### B MP, SCAN CBC ####[facility] [id number] [address] Platelet morphology finding [Identifier] in BloodOrdered By: Benedicto Mcqueen on 09-21-2023 Platelet morphology finding Nom (Bld) Normal Normal [facility] Platelets [#/volume] in Bloo d by Automated countOrdered By: Benedicto Mcqueen on 09-21-2023 Platelets (Bld) [#/Vol] 218 10*3/uL 150-450 [facility] Comment on above: Performed By: #### B MP, SCAN CBC ####[address] Potassium [Moles/volume] in Serum or PlasmaOrdered By: Benedicto Mcqueen on 09-21-2023 Potassium [Moles/Vol] 3.8 mmol/L 3.5-5.1 [facility] Comment on above: Performed By: #### B MP, SCAN CBC ####[address] RBC morphologyOrdered By: Zachary Mcqueen on 09-21-2023 RBC morphology finding Nom (Bld) N/A [facility] Scan and CBCon 09-21-2023 Mean Corpuscular HGB Conc 32.4 g/dL Normal 32.0-35.0 [facility] Comment on above: Performed By: #### B MP, SCAN CBC ####[address] Microcytosis Slight Normal [facility] Comment on above: Performed By: #### B MP, SCAN CBC ####[address] NRBC% 0.3 /100{WBC} Normal 0-0.5 [facility] Comment on above: Performed By: #### B MP, SCAN CBC ####[address] Platelet Estimate Normal Normal Normal [facility] Comment on above: Performed By: #### B MP, SCAN CBC ####[address] Platelet Morphology Normal Normal Normal [facility] Comment on above: Result Comment: PERF ORMED BY: [facility] [address] [place] [address] PATHOLOGIST ANAESTHESIOLOGIST RUBEN ALEGRE M.D. Performed By: #### B MP, SCAN CBC ####[address] Smudge Cells Marked Normal [facility] Comment on above: Performed By: #### B MP, SCAN CBC ####[address] Serum or plasma anion gap de terminationOrdered By: Benedicto Mcqueen on 09-21-2023 Anion gap [Moles/Vol] 11.2 mmol/L 6.0-15.0 [facility] Comment on above: Performed By: #### B MP, SCAN CBC ####[address] Smudge cell detectionOrdered By: Benedicto Mcqueen on 09-21-2023 Smudge cells LM Ql (Bld) Marked [facility] Sodium [Moles/volume] in Ser um or PlasmaOrdered By: Benedicto Mcqueen on 09-21-2023 Sodium [Moles/Vol] 137 mmol/L 136-145 [facility] Comment on above: Performed By: #### B MP, SCAN CBC ####[address] Urea nitrogen [Mass/volume] in Serum or PlasmaOrdered By: Benedicto Mcqueen on 09-21-2023 Urea nitrogen [Mass/Vol] 6 mg/dL Low 7-25 [facility] Comment on above: Performed By: #### B MP, SCAN CBC ####[address] HCG ( test) IA.rapi d Ql (U)Ordered By: Yoshi Villasenor on 09-20-2023 HCG ( test) Ql (U) Negative [facility] HCG,Urineon 09-20-2023 Beta HCG ( test) Ql (U) Negative Normal [facility] Comment on above: Result Comment: PERF ORMED BY: [facility] [address] [place] [id number] PATHOLOGIST ANAESTHESIOLOGIST RUBEN ALEGRE M.D. Performed By: #### U HCG ####[address] Scan and CBCon 09-20-2023 Basophils (Bld) [#/Vol] 0.3 10*3/uL High 0.0-0.2 [facility] Comment on above: Performed By: #### S CAN CBC ####[address] Basophils/100 WBC (Bld) 0.7 % Normal . [facility] Comment on above: Performed By: #### S CAN CBC ####[address] Eosinophils (Bld) [#/Vol] 0.4 10*3/uL Normal 0.0-0.45 [facility] Comment on above: Performed By: #### S CAN CBC ####[address] Eosinophils/100 WBC (Bld) 1.1 % Normal . [facility] Comment on above: Performed By: #### S CAN CBC ####[address] Erythrocyte distribution width (RBC) [Ratio] 14.0 % Normal 11.9-15.3 [facility] Comment on above: Performed By: #### S CAN CBC ####[address] Hematocrit (Bld) [Volume fraction] 39.7 % Normal 34.0-46.4 [facility] Comment on above: Performed By: #### S CAN CBC ####[address] Hemoglobin (Bld) [Mass/Vol] 13.1 g/dL Normal 11.8-15.4 [facility] Comment on above: Performed By: #### S CAN CBC ####[address] Lymphocytes (Bld) [#/Vol] 24.3 10*3/uL High 1.00-4.8 [facility] Comment on above: Performed By: #### S CAN CBC ####[address] Lymphocytes/100 WBC (Bld) 69.8 % Normal . [facility] Comment on above: Performed By: #### S CAN CBC ####[address] MCH (RBC) [Entitic mass] 30.2 pg Normal 24.7-34.3 [facility] Comment on above: Performed By: #### S CAN CBC ####[address] MCV (RBC) [Entitic vol] 91.6 fL Normal 80-100 [facility] Comment on above: Performed By: #### S CAN CBC ####[address] Mean Corpuscular HGB Conc 33.0 g/dL Normal 32.0-35.0 [facility] Comment on above: Performed By: #### S CAN CBC ####[address] Monocytes (Bld) [#/Vol] 1.3 10*3/uL High 0.0-0.8 [facility] Comment on above: Performed By: #### S CAN CBC ####[address] Monocytes/100 WBC (Bld) 3.6 % Normal . [facility] Comment on above: Performed By: #### S CAN CBC ####[address] Neutrophils (Bld) [#/Vol] 8.7 10*3/uL High 1.8-7.7 [facility] Comment on above: Performed By: #### S CAN CBC ####[address] Neutrophils/100 WBC (Bld) 24.8 % Normal . [facility] Comment on above: Performed By: #### S CAN CBC ####[address] NRBC% 0.3 /100{WBC} Normal 0-0.5 [facility] Comment on above: Performed By: #### S CAN CBC ####[address] Platelet Estimate Normal Normal Normal [facility] Comment on above: Performed By: #### S CAN CBC ####[address] Platelet mean volume (Bld) [Entitic vol] 8.9 fL Normal 6.3-10.7 [facility] Comment on above: Performed By: #### S CAN CBC ####[address] Platelet Morphology Normal Normal Normal [facility] Comment on above: Result Comment: PERF ORMED BY: [facility] [address] [place] [address] PATHOLOGIST ANAESTHESIOLOGIST RUBEN ALEGRE M.D. Performed By: #### S CAN CBC ####[address] Platelets (Bld) [#/Vol] 203 10*3/uL Normal 150-450 [facility] Comment on above: Performed By: #### S CAN CBC ####[address] RBC (Bld) [#/Vol] 4.34 10*6/uL Normal 3.60-5.00 [facility] Comment on above: Performed By: #### S CAN CBC ####[address] RBC morphology finding Nom (Bld) Normal Normal Normal [facility] Comment on above: Performed By: #### S CAN CBC ####[address] Smudge Cells Slight Normal [facility] Comment on above: Performed By: #### S CAN CBC ####[address] WBC (Bld) [#/Vol] 34.9 10*3/uL High 3.8-11.6 [facility] Comment on above: Performed By: #### S CAN CBC ####[facility] Amphetamine Screen Ql (U)Ord ered By: Benedicto Charisse on 09-19-2023 Amphetamines Ql (U) Negative Negative [facility] Barbiturates [Presence] in U rine by Screen methodOrdered By: Benedicto Charisse on 09-19-2023 Barbiturates Screen Ql (U) Negative Negative [facility] Basic Metabolic Panelon 09-06 Anion gap [Moles/Vol] 9.7 mmol/L Normal 6.0-15.0 [facility] Comment on above: Performed By: #### B MP, SCAN CBC #### [address] Calcium [Mass/Vol] 8.3 mg/dL Low 8.6-10.3 [facility] Comment on above: Performed By: #### B MP, SCAN CBC #### [address] Chloride [Moles/Vol] 107 mmol/L Normal 98-107 [facility] Comment on above: Performed By: #### B MP, SCAN CBC #### [address] CO2 [Moles/Vol] 26.3 mmol/L Normal 21.0-31.0 [facility] Comment on above: Performed By: #### B MP, SCAN CBC #### [address] Creatinine [Mass/Vol] 0.60 mg/dL Normal 0.60-1.20 [facility] Comment on above: Performed By: #### B MP, SCAN CBC #### [facility] [address] [place] [address] [place] Creatinine Clr Calc Pharmacy 138.55 Normal [facility] Comment on above: Result Comment: PERF ORMED BY: [place] [address] PATHOLOGIST ANAESTHESIOLOGIST JIANLAN SUN M.D. Performed By: #### B MP, SCAN CBC #### [facility] [address] [place] [address] [place] GFR/1.73 sq M.predicted MDRD (S/P/Bld) [Vol rate/Area] mL/min/{1.73_m2} Normal [facility] Comment on above: Performed By: #### B MP, SCAN CBC #### [facility] [address] [place] [address] [place] Glucose [Mass/Vol] 79 mg/dL Normal 70-100 [facility] Comment on above: Result Comment: [facility] Glucose Reference Range is dependent on time and content of last meal. Glucose of more than 200 mg/dL in a nonstressed, ambulatory subject supports the diagnosis of Diabetes Mellitus. ADA recommended reference range Performed By: #### B MP, SCAN CBC #### [facility] [address] [place] [address] [place] Potassium [Moles/Vol] 4.0 mmol/L Normal 3.5-5.1 [facility] Comment on above: Performed By: #### B MP, SCAN CBC #### [facility] [address] [place] [address] [place] Sodium [Moles/Vol] 139 mmol/L Normal 136-145 [facility] Comment on above: Performed By: #### B MP, SCAN CBC #### [facility] [address] [place] [address] [place] Urea nitrogen [Mass/Vol] 8 mg/dL Normal 7-25 [facility] Comment on above: Performed By: #### B MP, SCAN CBC #### [facility] [address] [place] [address] [place] Benzodiazepines Screen Ql (U )Ordered By: Benedicto Mcqueen on 09-19-2023 Benzodiazepines Ql (U) Negative Negative [facility] Benzoylecgonine [Presence] i n Urine by Screen methodOrdered By: Benedicto Mcqueen on 09-19-2023 Benzoylecgonine Screen Ql (U) Negative Negative [facility] Bilirubin Test strip Ql (U)O rdered By: Benedicto Mcqueen on 09-19-2023 Bilirubin Ql (U) Negative Negative [facility] Cannabinoids [Presence] in U rine by Screen methodOrdered By: Benedicto Mcqueen on 09-19-2023 Cannabinoids Screen Ql (U) Negative Negative [facility] Comment on above: These are unconfirme d results and should not be used for legal purposes. Drug Cut-Off Concentration: AMPH 1000 ng/mL HARVINDER 200 ng/mL GOPAL 200 ng/mL COCM 300 ng/mL OP 300 ng/mL PCP 25 ng/mL THC 20 ng/mL Color of Urine by AutoOrdere d By: Benedicto Mcqueen on 09-19-2023 Color (U) Colorless Yellow [facility] Comment on above: Order Comment: Name Collection Type:: Clean-Voided Midstream Performed By: #### U A ####[address] Drug Screen,Urineon 09-19-19 24 Amphetamine Screen,Urine Negative Normal Negative [facility] Comment on above: Performed By: #### U RDS ####[address] Barbiturate Screen,Urine Negative Normal Negative [facility] Comment on above: Performed By: #### U RDS ####[address] Benzodiazepines Screen,Urine Negative Normal Negative [facility] Comment on above: Performed By: #### U RDS ####[address] Cannabinoid Screen,Urine Negative Normal Negative [facility] Comment on above: Result Comment: Thes e are unconfirmed results and should not be used for legal purposes. Drug Cut-Off Concentration: AMPH 1000 ng/mL HARVINDER 200 ng/mL GOPAL 200 ng/mL COCM 300 ng/mL OP 300 ng/mL PCP 25 ng/mL THC 20 ng/mL PERFORMED BY: [facility] [address] [place] [address] PATHOLOGIST ANAESTHESIOLOGIST RUBEN ALEGRE M.D. Performed By: #### U RDS ####[address] Cocaine Screen,Urine Negative Normal Negative [facility] Comment on above: Performed By: #### U RDS ####[place] [address] [place] [address] [facility] Opiate Screen,Urine Positive High Negative [facility] Comment on above: Performed By: #### U RDS ####[place] [address] [place] [address] [facility] Phencyclidine Screen,Urine Negative Normal Negative [facility] Comment on above: Performed By: #### U RDS ####[address] [address] [facility] Glucose [Mass/volume] in Uri ne by Test stripOrdered By: Benedicto Mcqueen on 09-19-2023 Glucose Test strip (U) [Mass/Vol] Normal mg/dL Normal [facility] Hemoglobin Test strip Ql (U) Ordered By: Benedicto Mcqueen on 09-19-2023 Hemoglobin Ql (U) Negative Negative [facility] Ketones [Presence] in Urine by Test stripOrdered By: Benedicto Mcqueen on 09-19-2023 Ketones Ql (U) Negative Negative [facility] Comment on above: Order Comment: Name Collection Type:: Clean-Voided Midstream Performed By: #### U A ####[address] [address] [facility] Leukocyte esterase [Presence ] in Urine by Test stripOrdered By: Benedicto Mcqueen on 09-19-2023 Leukocyte esterase Test strip Ql (U) Negative Negative [facility] Comment on above: Order Comment: Name Collection Type:: Clean-Voided Midstream Performed By: #### U A ####[address] [address] [facility] Nitrite Test strip Ql (U)Ord ered By: Benedicto Mcqueen on 09-19-2023 Nitrite Ql (U) Negative Negative [facility] Opiates [Presence] in Urine by Screen methodOrdered By: Benedicto Mcqueen on 09-19-2023 Opiates Screen Ql (U) Positive High Negative [facility] Phencyclidine Screen Ql (U)O rdered By: Benedicto Mcqueen on 09-19-2023 Phencyclidine Ql (U) Negative Negative [facility] Protein Test strip (U) [Mass /Vol]Ordered By: Benedicto Mcqueen on 09-19-2023 Protein (U) [Mass/Vol] Negative Negative [facility] Scan and CBCon 09-19-2023 Basophils (Bld) [#/Vol] 0.0 10*3/uL Normal 0.0-0.2 [facility] Comment on above: Performed By: #### B MP, SCAN CBC #### [address] Basophils/100 WBC (Bld) 0.1 % Normal . T vasiliy [facility] Comment on above: Performed By: #### B MP, SCAN CBC #### [facility] [address] Eosinophils (Bld) [#/Vol] 0.3 10*3/uL Normal 0.0-0.45 [facility] Comment on above: Performed By: #### B MP, SCAN CBC #### [address] Eosinophils/100 WBC (Bld) 0.7 % Normal . [facility] Comment on above: Performed By: #### B MP, SCAN CBC #### [address] Erythrocyte distribution width (RBC) [Ratio] 14.1 % Normal 11.9-15.3 [facility] Comment on above: Performed By: #### B MP, SCAN CBC #### [address] Hematocrit (Bld) [Volume fraction] 38.1 % Normal 34.0-46.4 [facility] Comment on above: Performed By: #### B MP, SCAN CBC #### [address] Hemoglobin (Bld) [Mass/Vol] 12.4 g/dL Normal 11.8-15.4 [facility] Comment on above: Performed By: #### B MP, SCAN CBC #### [place] [address] [place] Lymphocytes (Bld) [#/Vol] 28.1 10*3/uL High 1.00-4.8 [facility] Comment on above: Performed By: #### B MP, SCAN CBC #### [address] Lymphocytes/100 WBC (Bld) 81.1 % Normal . [facility] Comment on above: Performed By: #### B MP, SCAN CBC #### [address] MCH (RBC) [Entitic mass] 30.1 pg Normal 24.7-34.3 [facility] Comment on above: Performed By: #### B MP, SCAN CBC #### [address] MCV (RBC) [Entitic vol] 92.3 fL Normal 80-100 [facility] Comment on above: Performed By: #### B MP, SCAN CBC #### [address] Mean Corpuscular HGB Conc 32.6 g/dL Normal 32.0-35.0 [facility] Comment on above: Performed By: #### B MP, SCAN CBC #### [address] Monocytes (Bld) [#/Vol] 0.8 10*3/uL Normal 0.0-0.8 [facility] Comment on above: Performed By: #### B MP, SCAN CBC #### [address] Monocytes/100 WBC (Bld) 2.4 % Normal . [facility] Comment on above: Performed By: #### B MP, SCAN CBC #### [address] Neutrophils (Bld) [#/Vol] 5.4 10*3/uL Normal 1.8-7.7 [facility] Comment on above: Performed By: #### B MP, SCAN CBC #### [place] [address] [place] Neutrophils/100 WBC (Bld) 15.7 % Normal . [facility] Comment on above: Performed By: #### B MP, SCAN CBC #### [address] NRBC% 0.5 /100{WBC} Normal 0-0.5 [facility] Comment on above: Performed By: #### B MP, SCAN CBC #### [address] Platelet Estimate Normal Normal Normal [facility] Comment on above: Performed By: #### B MP, SCAN CBC #### [address] Platelet mean volume (Bld) [Entitic vol] 9.0 fL Normal 6.3-10.7 [facility] Comment on above: Performed By: #### B MP, SCAN CBC #### [address] Platelet Morphology Normal Normal Normal [facility] Comment on above: Result Comment: PERF ORMED BY: [place] [address] PATHOLOGIST ANAESTHESIOLOGIST RUBEN ALEGRE M.D. Performed By: #### B MP, SCAN CBC #### [place] [address] [place] Platelets (Bld) [#/Vol] 215 10*3/uL Normal 150-450 [facility] Comment on above: Performed By: #### B MP, SCAN CBC #### [place] [address] [place] RBC (Bld) [#/Vol] 4.13 10*6/uL Normal 3.60-5.00 [facility] Comment on above: Performed By: #### B MP, SCAN CBC #### [address] RBC morphology finding Nom (Bld) Normal Normal Normal [facility] Comment on above: Performed By: #### B MP, SCAN CBC #### [address] [address] [place] WBC (Bld) [#/Vol] 34.7 10*3/uL High 3.8-11.6 [facility] Comment on above: Performed By: #### B MP, SCAN CBC #### [facility] [address] Specific gravity Test strip (U) [Rel density]Ordered By: Benedicto Mcqueen on 09-19-2023 Specific gravity (U) [Rel density] 1.005 1.001-1.030 [facility] US venous mapping BI loweron 09-19-2023 US venous mapping BI lower [facility] [place] [address] [place] [address] Ultrasound Report Signed Patient: Juany Laws MR#: [id number] : 1975 Acct:[id number] Age/Sex: 48 / F ADM Date: 09/18/23 Loc: Room: [address] [place] [address] Type: ADM IN Attending Dr: Benedicto Mcqueen MD Ordering Provider: Benedicto Mcqueen MD Date of Service: 09/18/23 US/US venous mapping BI lower: bypass surgery Copies to: Benedicto Mcqueen MD Bilateral lower extremity vein mapping. INDICATIONS: Need for bypass surgery. FINDINGS: Right lower extremity: Right lower extremity greater saphenous vein was adequate for bypass conduit. Left lower extremity: Left lower extremity greater saphenous vein was of adequate diameter for bypass conduit. US/US venous mapping BI lower IMPRESSION: As above. Impression dictated by: Benedicto Mcqueen MD09/19/2023 4:25 PM Dictation Location: [place] [address] Tech: Cheyenne Rodriguez Transcribed By: SOLANGE 09/19/23 1625 Dictated By: Benedicto Mcqueen MD 09/19/23 162 Signed By: 09/19/23 1625 Normal [facility] Urinalysison 09-19-2023 Bilirubin,Urine Negative Normal Negative [facility] Comment on above: Order Comment: Name Collection Type:: Clean-Voided Midstream Performed By: #### U A ####[facility] [address] Glucose Ql (U) Normal Normal Normal [facility] Comment on above: Order Comment: Name Collection Type:: Clean-Voided Midstream Performed By: #### U A ####[place] [id number] [facility] Nitrite,Urine Negative Normal Negative [facility] Comment on above: Order Comment: Name Collection Type:: Clean-Voided Midstream Performed By: #### U A ####[place] [id number] [facility] Occult Blood,Urine Negative Normal Negative [facility] Comment on above: Order Comment: Name Collection Type:: Clean-Voided Midstream Result Comment: PERF ORMED BY: [facility] [address] [address] PATHOLOGIST ANAESTHESIOLOGIST RUBEN ALEGRE M.D. Performed By: #### U A ####[place] [id number] [facility] Protein,Urine Negative Normal Negative [facility] Comment on above: Order Comment: Name Collection Type:: Clean-Voided Midstream Performed By: #### U A ####[place] [id number] [facility] Specificy [place],Urine 1.005 Normal 1.001-1.030 [facility] Comment on above: Order Comment: Name Collection Type:: Clean-Voided Midstream Performed By: #### U A ####[place] [id number] [facility] Urobilinogen,Urine Normal Normal Normal [facility] Comment on above: Order Comment: Name Collection Type:: Clean-Voided Midstream Performed By: #### U A ####[place] [id number] [facility] Urine appearanceOrdered By: Benedicto Mcqueen on 09-19-2023 Appearance (U) Clear Clear [facility] Comment on above: Order Comment: Name Collection Type:: Clean-Voided Midstream Performed By: #### U A ####[place] [address] [facility] Urobilinogen Test strip (U) [Mass/Vol]Ordered By: Benedicto Mcqueen on 09-19-2023 Urobilinogen (U) [Mass/Vol] Normal mg/dL Normal [facility] pH of Urine by Test stripOrd ered By: Benedicto Mcqueen on 09-19-2023 pH (U) 5.5 [pH] 5.0-9.0 [facility] Comment on above: Order Comment: Name Collection Type:: Clean-Voided Midstream Performed By: #### U A ####[address] [address] [facility] ABO/Rh Retypeon 09-18-2023 ABO/RH Recheck Result Negative Normal [facility] Comment on above: Result Comment: PERF ORMED BY: [facility] [address] [place] [id number] PATHOLOGIST ANAESTHESIOLOGIST RUBEN ALEGRE M.D. Blood Urea Nitrogenon 2023 Urea nitrogen [Mass/Vol] 14 mg/dL Normal 7-25 [facility] Comment on above: Performed By: #### B UN, CREAT ####[address] [address] [facility] Creatinineon 09-18-2023 Creatinine [Mass/Vol] 0.71 mg/dL Normal 0.60-1.20 [facility] Comment on above: Performed By: #### B UN, CREAT ####[place] [id number] [place] Creatinine Clr Calc Pharmacy 116.04 Normal [facility] Comment on above: Result Comment: PERF ORMED BY: [facility] [address] [place] [address] PATHOLOGIST ANAESTHESIOLOGIST RUBEN ALEGRE M.D. Performed By: #### B UN, CREAT ####[address] [address] [facility] GFR/1.73 sq M.predicted MDRD (S/P/Bld) [Vol rate/Area] mL/min/{1.73_m2} Normal [facility] Comment on above: Performed By: #### B UN, CREAT ####[facility] [id number] [place] [id number] [facility] ECG 12 lead ECGon 09-18-2023 ECG 12 [place] [address] Electrocardiograph Report Signed Patient: Juany Laws MR#: [id number] : 1975 Acct:[id number] Age/Sex: 48 / F ADM Date: 09/18/23 Loc: IR Room: Type: [facility] Attending Dr: Benedicto Mcqueen MD Ordering Provider: Benedicto Mcqueen MD Date of Service: 09/18/2303/31/1009 ECG/ECG 12 lead ECG: Pre op Risk Assessment and Stratification Copies to: Test Reason : Blood Pressure : / mmHG Vent. Rate : 066 BPM Atrial Rate : 066 BPM P-R Int : 160 ms QRS Dur : 066 ms QT Int : 426 ms P-R-T Axes : 043 011 016 degrees QTc Int : 446 ms Normal sinus rhythm Normal ECG Confirmed by Timothy Henderson ([id number]) on 09/18/2023 12:15:33 PM Referred By: Electronically Signed By:Timothy Henderson Transcribed By: MUS Signed By Timothy Henderson MD 09/18/23 1215 Normal [facility] Type and Screenon 09-18-2023 ABO and Rh group Nom (Bld) Blood group A Rh(D) negative Normal [facility] Comment on above: Result Comment: PERF ORMED BY: [place] [address] PATHOLOGIST ANAESTHESIOLOGIST RUBEN ALEGRE M.D. XR chest 2V*on 09-18-2023 XR chest 2V* [place] [address] XRay Report Signed Patient: Juany Laws MR#: [id number] : 1975 Acct:[id number] Age/Sex: 48 / F ADM Date: 09/18/23 Loc: Room: 3P4041-5 Type: [facility] Attending Dr: Benedicto Mcqueen MD Copies to: Benedicto Mcqueen MD Ordering Provider: Benedicto Mcqueen MD Date of Service: 09/18/23 XR/XR chest 2V*: Pre op Plain film chest 2 view HISTORY: Preop assessment. Vascular surgery. COMPARISON: None FINDINGS: SUPPORT DEVICES: None POSTSURGICAL CHANGES: None HEART: Within normal limits PULMONARY PRINCE: Within normal limits MEDIASTINUM: Unremarkable LUNGS AND PLEURA: No acute lung process, pleural effusion or pneumothorax identified. BONY STRUCTURES: Intact ADDITIONAL FINDINGS None XR/XR chest 2V* IMPRESSION: No acute process. Impression dictated by: David Martínez M.D.09/18/2023 6:21 PM Dictation Location: [place] [address] Transcribed By: [facility] 09/18/231820 Dictated By: David Martínez DO 09/18/231819 Signed By: 09/18/231820 Normal [facility] US arterial pvr rest Saman US arterial pvr rest [facility] [place] [address] Ultrasound Report Signed Patient: Juany Laws MR#: [id number] : 1975 Acct:[id number] Age/Sex: 48 / F ADM Date: 08/12/23 Loc: Room: Type: [facility] Attending Dr: David Boyd MD Ordering Provider: David Boyd MD Date of Service: 08/12/23 US/US arterial pvr rest LE: I70.222 - Atherosclerosis of [place] arteries of extremiti... Copies to: David Boyd [...] LEFT LOWER EXTREMITY. Impression dictated by: Benedicto Mcqueen MD08/13/2023 3:24 PM Dictation Location: [facility]04 Tech: April Inocencio Transcribed By: SOLANGE 08/13/23 1524 Dictated By: Benedicto Mcqueen MD 08/13/23 1523 Signed By: 08/13/23 1524 Normal [facility] CT angio abd aorta runoffon 08-06-2023 CT angio abd aorta runoff [facility] [place] [address] [place] [address] CT Scan Report Signed Patient: Juany Laws MR#: [id number] : 1975 Acct:[id number] Age/Sex: 48 / F ADM Date: 08/06/23 Loc: CT Room: Type: [facility] Attending Dr: David Boyd MD Copies to: David Boyd MD Ordering Provider: David Body MD Date of Service: 08/06/23 CT/CT angio abd aorta runoff: I70.222 - Atherosclerosis of [place] arteries of extremiti... CTA abdomen, pelvis, and [...] and uterus appears unremarkable. No adnexal mass.] Peritoneum/Retroperito neum:No free air, free fluid or lymphadenopathy.[ Abd wall/Bones:Abdominal wall demonstrates no acute findings. Osseous structures demonstrate degenerative change.[ Lower extremities: Left: Left common femoral artery appears unremarkable. [employer] Officer branches appear unremarkable. Left SFA appears unremarkable. [...] Right: Right common femoral artery appears unremarkable. [employer] Officer branches appear unremarkable. Right SFA appears unremarkable. [...] Pérez Jr., D.O.08/06/2023 1:57 PM Dictation Location: [place] [address] Transcribed By: SOLANGE 04/1356 Dictated By: Jian Pérez Jr, DO 08/06/231343 Signed By: 08/06/231356 Normal [facility] Horacio 07-22-2023 L Specimen: Received: 07/24/23 Status: YANN Agarwal Num: [id number] Spec Type: Impression Subm Dr: Kenyatta Whitten MD Tissues: PATHPER Procedures: PATHREVIEW Age/ Patient Sex Location Account Attending Physician Ema Lawsberaúl Lynch 48/F [place] [id number] Kenyatta Whitten MD SPEC NUM: [id number] RECD: 07/24/23 STATUS: YANN REJannie NUM: [id number] BURT: 07/22/[address]: Kenyatta Whitten MD ENTERED: 07/24/[address] [facility] [address]: Brendan Rivera SPEC TYPE: Impression DEPT: SELENA Garcia ENTERED BY: [id number] RECV BY: [id number] ORDERED: PATHREVIEW ORDERED: PATHREVIEW Pathologist Review Abnormal lymphocytosis with atypical lymphocytes and smudge cells. Flow cytometry suggested to rule out possible lymphoproliferative disorder. ---- ---- Specimen: [id number] Received: 07/24/23 Status: YANN Agarwal Num: [id number] Spec Type: Impression Subm Dr: Kenyatta Whitten MD Tissues: PATHPER Procedures: PATHREVIEW ---- Patient: Juany Laws [id number] (Continued) ---- Signed (signature on file) Douglas Flores MD 07/24/23 1518 Normal [facility] Horacio 07-15-2023 L Specimen: [id number] Received: 07/17/23 Status: SOUPeewee Rejannie Num: [id number] Spec Type: Impression Subm Dr: Di Washington, PAC Tissues: PATHPER Procedures: PATHREVIEW Age/ Patient Sex Location Account Attending Physician GeolaureenJuany mccann 48/F [place] [id number] Di Washington, PAC SPEC NUM: [id number] RECD: 07/17/23 STATUS: SOUPeewee REJannie NUM: [id number] BURT: 07/15/[address]: Di Washington, PAC ENTERED: 07/17/[address]: Nicole,Lab SPEC TYPE: Impression DEPT: SELENA Garcia ENTERED BY: [id number] RECV BY: [id number] ORDERED: PATHREVIEW ORDERED: PATHREVIEW Pathologist Review Abnormal lymphocytosis suspicious for a leukemic process. Flow cytometry of peripheral blood is suggested. ---- ---- Specimen: [id number] Received: 07/17/23 Status: YANN Agarwal Num: [id number] Spec Type: Impression Subm Dr: TANYA Rodriguez Tissues: PATHPER Procedures: PATHREVIEW ---- Patient: Juany Laws [id number] (Continued) ---- Signed (signature on file) Douglas Flores MD 07/18/231631 Normal [facility] Complete Blood Counton 08-14 Erythrocyte distribution width (RBC) [Ratio] 13.2 % Normal 11.0-15.0 [facility] Switching Operator Comment on above: Performed By: #### L IPD, FT3, TSH, CBC, FT4 #### [facility] [address], [place] [id number] Hematocrit (Bld) [Volume fraction] 43.7 % Normal 35.0-47.0 [facility] Specialist Comment on above: Performed By: #### L IPD, FT3, TSH, CBC, FT4 #### [facility] [address], [place] [id number] Hemoglobin (Bld) [Mass/Vol] 14.5 g/dL Normal 11.6-15.5 [facility] Specialist Comment on above: Performed By: #### L IPD, FT3, TSH, CBC, FT4 #### [facility] [address], [place] [id number] MCH (RBC) [Entitic mass] 30.6 pg Normal 27.0-33.0 [facility] Specialist Comment on above: Performed By: #### L IPD, FT3, TSH, CBC, FT4 #### [facility] [address], [place] [id number] MCHC (RBC) [Mass/Vol] 33.2 g/dL Normal 32.0-36.0 [facility] Comment on above: Performed By: #### L IPD, FT3, TSH, CBC, FT4 #### [facility] [address], [place] [id number] MCV (RBC) [Entitic vol] 92 fL Normal 80-100 N [facility] Comment on above: Performed By: #### L IPD, FT3, TSH, CBC, FT4 #### [facility] [address], [place] [id number] Platelet mean volume (Bld) [Entitic vol] 11.20 fL Normal 7.50-12.50 [facility] Specialist Comment on above: Performed By: #### L IPD, FT3, TSH, CBC, FT4 #### [facility] [address], [place] [id number] Platelets (Bld) [#/Vol] 280 10*3/uL Normal 140-400 [facility] Specialist Comment on above: Performed By: #### L IPD, FT3, TSH, CBC, FT4 #### [facility] [address], [place] [id number] RBC (Bld) [#/Vol] 4.74 10*6/uL Normal 3.90-5.20 [facility] Comment on above: Performed By: #### L IPD, FT3, TSH, CBC, FT4 #### [facility] [address], [place] [id number] RDW-SD 44.7 fL Normal 37.0-50.0 [facility] Comment on above: Performed By: #### L IPD, FT3, TSH, CBC, FT4 #### [facility] [address], [place] [id number] WBC (Bld) [#/Vol] 12.1 10*3/uL High 3.8-11.0 [facility] Comment on above: Performed By: #### L IPD, FT3, TSH, CBC, FT4 #### [facility] [address], [place] [id number] Free T3on 08-14-2021 FT3 3.74 pg/mL Normal 2.00-4.40 [facility] Comment on above: Performed By: #### L IPD, FT3, TSH, CBC, FT4 #### [facility] [address], [place] [id number] Free T4on 08-14-2021 Free T4 [Mass/Vol] 2.32 ng/dL High 0.80-1.80 [facility] Comment on above: Performed By: #### L IPD, FT3, TSH, CBC, FT4 #### [facility] [address], [place] [id number] Lipid Panelon 08-14-2021 Cholesterol [Mass/Vol] 192 mg/dL Normal 125-200 No [facility] Comment on above: Result Comment: Low risk < 200mg/dL Borderline risk 201-239 mg/dl High risk > or equal to 240 Performed By: #### L IPD, FT3, TSH, CBC, FT4 #### [facility] [address], [place] [id number] Cholesterol in HDL [Mass/Vol] 56 mg/dL Normal >40 [facility] Switching Operator Comment on above: Result Comment: High Cardiovascular Risk HDL <40 mg/dL Low Cardiovascular Risk HDL > or equal to 60 mg/dl Performed By: #### L IPD, FT3, TSH, CBC, FT4 #### [facility] [address], [place] [id number] Cholesterol in LDL [Mass/Vol] 123 mg/dL Normal [facility] Specialist Comment on above: Result Comment: LDL ATP III CLASSIFICATION LDL less than 100 mg/dl Optimal LDL 100-129 mg/dl Near or above optimal LDL 130-159 Borderline high LDL 160-189 High LDL greater than 189 mg/dl Very High Performed By: #### L IPD, FT3, TSH, CBC, FT4 #### [facility] [address], [place] [id number] Cholesterol in VLDL [Mass/Vol] 13 mg/dL Normal [facility] Specialist Comment on above: Performed By: #### L IPD, FT3, TSH, CBC, FT4 #### [facility] [address], [place] [id number] Cholesterol.total/Jazmine sterol in HDL [Mass ratio] 3 {ratio} Normal [facility] Specialist Comment on above: Performed By: #### L IPD, FT3, TSH, CBC, FT4 #### [facility] [address] [place], [place] [id number] Triglyceride [Mass/Vol] 67 mg/dL Normal 30-150 N [facility] Specialist Comment on above: Result Comment: TRIG ATPIII CLASSIFICATIONS TRIG less than 150 mg/dl Normal TRIG 150-199 mg/dl Borderline High TRIG 200-500 mg/dl High TRIG greather than 500 mg/dl Very High Performed By: #### L IPD, FT3, TSH, CBC, FT4 #### [facility] [address] [place], [place] [id number] TSHon 08-14-2021 TSH 0.113 uIU/mL Low 0.400-4.500 [facility] Specialist Comment on above: Performed By: #### L IPD, FT3, TSH, CBC, FT4 #### [facility] [address] [place], [place] [id number] CBC AUTO DIFFon 01-26-2020 Basophils (Bld) [#/Vol] 0.1 103/ul Normal 0.0-0.1 [facility] Comment on above: Performed By: #### C BC #### [facility] [address] [place] [address] Lynne Aretha Basophils/100 WBC (Bld) 0.6 % Normal 0.2-2.0 [facility] Comment on above: Performed By: #### C BC #### [facility] [address] [place] [address] Lynne Aretha Eosinophils (Bld) [#/Vol] 0.4 103/ul Normal 0.0-0.7 [facility] Comment on above: Performed By: #### C BC #### [facility] [address] [place] [address] Lynne Aretha Eosinophils/100 WBC (Bld) 3.2 % Normal 0.9-7.0 [facility] Comment on above: Performed By: #### C BC #### [facility] [address] [place] [address] Lynne Aretha Erythrocyte distribution width (RBC) [Ratio] 12.7 % Normal 11.0-15.0 [facility] Comment on above: Performed By: #### C BC #### [facility] [address] [place] [address] Lynne Aretha Hematocrit (Bld) [Volume fraction] 44.3 % Normal 36.0-48.0 [facility] Comment on above: Performed By: #### C BC #### [facility] [address] [place] [address] Lynne Aretha Hemoglobin (Bld) [Mass/Vol] 14.7 g/dL Normal 12.0-16.0 [facility] Comment on above: Performed By: #### C BC #### [facility] [address] [place] [address] Lynne Aretha IG # 0.05 10e3/ul Critically high 0.00-0.03 [facility] Comment on above: Performed By: #### C BC #### [facility] [address] [place] [address] Lynne Aretha IG % 0.4 % Normal 0.0-0.5 [facility] Comment on above: Performed By: #### C BC #### [facility] [address] [place], [place] [phone] Lynne Aretha Lymphocytes (Bld) [#/Vol] 3.4 103/ul Normal 1.2-3.8 [facility] Comment on above: Performed By: #### C BC #### [facility] [address] [place], [place] [phone] Lynne Aretha Lymphocytes/100 WBC (Bld) 28.9 % Normal 20.5-60.0 [facility] Comment on above: Performed By: #### C BC #### [facility] [address] [place], [place] [id number] Lynne Alcalaen MANUAL DIFF REQ NO Normal [facility] Comment on above: Performed By: #### C BC #### [facility] [address] [place], [place] [phone] Lynne Aretha MCH (RBC) [Entitic mass] 30.3 pg Normal 26.7-34.0 [facility] Comment on above: Performed By: #### C BC #### [facility] [address] [place], [place] [phone] Lynneshira Alcalaen MCHC (RBC) [Mass/Vol] 33.2 g/dL Normal 29.9-35.2 [facility] Comment on above: Performed By: #### C BC #### [facility] [address] [place], [place] [phone] Lynne Aretha MCV (RBC) [Entitic vol] 91.3 fL Normal 81.0-99.0 [facility] Comment on above: Performed By: #### C BC #### [facility] [address] [place], [place] [phone] Lynne Aretha Monocytes (Bld) [#/Vol] 0.6 103/ul Normal 0.3-0.8 [facility] Comment on above: Performed By: #### C BC #### [facility] [address] [place], [place] [phone] Lynne Aretha Monocytes/100 WBC (Bld) 4.8 % Normal 1.7-12.0 [facility] Comment on above: Performed By: #### C BC #### [facility] [address] [place], [place] [phone] Lynne Aretha Neutrophils (Bld) [#/Vol] 7.4 103/ul Critically high 1.4-6.5 [facility] Comment on above: Performed By: #### C BC #### [facility] [address] [place], [place] [phone] Lynne Aretha Neutrophils/100 WBC (Bld) 62.1 % Normal 43.0-75.0 [facility] Comment on above: Performed By: #### C BC #### [facility] [address] [place], [place] [phone] Lynneshira Carias Platelet mean volume (Bld) [Entitic vol] 10.3 fL Normal 9.5-13.5 [facility] Comment on above: Performed By: #### C BC #### [facility] [address] [place], [place] [phone] Lynne Aretha Platelets (Bld) [#/Vol] 309 103/ul Normal 150-450 [facility] Comment on above: Performed By: #### C BC #### [facility] [address] [place], [place] [phone] Lynneshira Alcalaen RBC (Bld) [#/Vol] 4.85 106/ul Normal 4.20-5.40 [facility] Comment on above: Performed By: #### C BC #### [facility] [address] [place], [place] [phone] Lynne Aretha WBC (Bld) [#/Vol] 11.9 103/ul Critically high 4.0-11.0 [facility] Comment on above: Performed By: #### C BC #### [facility] [address] [place], [place] [phone] Lynneshira Alcalaen CT HEAD WO CONon 01-26-2020 CT HEAD [...] ARIADNA BUSTAMANTE Date: 2020-01-26 15:30 Normal [facility] PREG HCG QUALon 01-26-2020 , QUAL Negative Normal NEGATIVE [facility] Comment on above: Performed By: #### P REG #### [facility] [address] [place] [address] Lynne Aretha PROF CHEM 8 (BAS METB)on Anion gap [Moles/Vol] 12.3 mmol/L Normal [facility] Comment on above: Performed By: #### B MP, TROP #### [facility] [address] [place] [id number] Lynne Aretha Calcium [Mass/Vol] 9.0 mg/dL Normal 8.4-10.2 [facility] Comment on above: Performed By: #### B MP, TROP #### [facility] [address] [place] [id number] Lynne Aretha Chloride [Moles/Vol] 103 mmol/L Normal 98-107 [facility] Comment on above: Performed By: #### B MP, TROP #### [facility] [address] [place] [id number] Lynne Aretha CO2 [Moles/Vol] 27.1 mmol/L Normal 22.0-30.0 [facility] Comment on above: Performed By: #### B MP, TROP #### [facility] [address] [place] [address] Lynne Aretha Creatinine [Mass/Vol] 0.78 mg/dL Normal 0.52-1.04 [facility] Comment on above: Performed By: #### B MP, TROP #### [facility] [address] [place], [place] [address] Lynne Aretha EGFR-AF ARMENIAN >6097 Normal >=60 [facility] Comment on above: Performed By: #### B MP, TROP #### [facility] [address] [place], [place] [address] Lynne Aretha EGFR-NON AF ARMENIAN >60 Normal >=60 [facility] Comment on above: Performed By: #### B MP, TROP #### [facility] [address] [place] [address] Lynne Aretha Glucose [Mass/Vol] 123 mg/dL Critically high 74-106 [facility] Comment on above: Performed By: #### B MP, TROP #### [facility] [address] [place] [address] Lynne Aretha Potassium [Moles/Vol] 3.4 mmol/L Normal 3.4-5.0 [facility] Comment on above: Performed By: #### B MP, TROP #### [facility] [address] [place] [address] Lynne Aretha Sodium [Moles/Vol] 139 mmol/L Normal 137-145 [facility] Comment on above: Performed By: #### B MP, TROP #### [facility] [address] [place] [id number] Lynne Aretha Urea nitrogen [Mass/Vol] 23.0 mg/dL Critically high 7.0-17.0 [facility] Comment on above: Performed By: #### B MP, TROP #### [facility] [address] [place] [address] Lynne Aretha Urea nitrogen/Creatinine [Mass ratio] 29.5 mg/mg Normal [facility] Comment on above: Performed By: #### B MP, TROP #### [facility] [address] [place] [address] Lynne Aretha TROPONIN - Ion 01-26-2020 Troponin I.cardiac [Mass/Vol] SEE BELOW Normal [facility] Comment on above: Result Comment: <0.0 34 ng/ml NEGATIVE 0.034-0.119 INDETERMINATE 0.120 AMI CUT OFF Performed By: #### B MP, TROP #### [facility] [address] [place], [place] [address] Lynne Carias Troponin I.cardiac [Mass/Vol] ng/mL Normal <=0.034 [facility] Comment on above: Performed By: #### B MP, TROP #### [facility] [address] [place], [place] [address] Lynne Carias Vital Signs Date Time Vital Sign Value Performing Clinician Geovany lity 12-18-2023 11:33-0400 Body height 167.64 cm II Sánchez Beatty Work Phone: [facility] 12-18-2023 11:33-0400 Body mass index (BMI) [Ratio] 32 kg/m2 II Sánchez Beatty Work Phone: [facility] 12-18-2023 11:33-0400 Body temperature 97.6 [degF] II Sánchez Beatty Work Phone: [facility] 12-18-2023 11:33-0400 Body weight 90 kg II Sánchez Beatty Work Phone: [facility] 12-18-2023 11:33-0400 Diastolic blood pressure 72 mm[Hg] II Sánchez Beatty Work Phone: [facility] 12-18-2023 11:33-0400 Heart rate 89 /min II Sánchez Beatty Work Phone: [facility] 12-18-2023 11:33-0400 Respiratory rate 16 /min II Sánchez Beatty Work Phone: [facility] 12-18-2023 11:33-0400 SaO2% (BldA) [Mass fraction] 98 % II Sánchez Beatty Work Phone: [facility] 12-18-2023 11:33-0400 Systolic blood pressure 116 mm[Hg] II Sánchez Beatty Work Phone: [facility] 12-04-2023 10:52-0400 Body height 167.64 cm II Sánchez Beatty Work Phone: [facility] 12-04-2023 10:52-0400 Body mass index (BMI) [Ratio] 32.3 kg/m2 II Sánchez Beatty Work Phone: [facility] 12-04-2023 10:52-0400 Body temperature 97.3 [degF] II Sánchez Beatty Work Phone: [facility] 12-04-2023 10:52-0400 Body weight 90.71 kg II Sánchez Beatty Work Phone: [facility] 12-04-2023 10:52-0400 Diastolic blood pressure 80 mm[Hg] II Sánchez Beatty Work Phone: [facility] 12-04-2023 10:52-0400 Heart rate 84 /min II Sánchez Beatty Work Phone: [facility] 12-04-2023 10:52-0400 SaO2% (BldA) [Mass fraction] 97 % II Sánchez Beatty Work Phone: [facility] 12-04-2023 10:52-0400 Systolic blood pressure 124 mm[Hg] II Sánchez Beatty Work Phone: [facility] 11-22-2023 11:13-0400 Diastolic blood pressure 64 mm[Hg] II Sánchez Beatty Work Phone: [facility] 11-22-2023 11:13-0400 Heart rate 77 /min II Sánchez Beatty Work Phone: [facility] 11-22-2023 11:13-0400 Respiratory rate 16 /min II Sánchez Beatty Work Phone: [facility] 11-22-2023 11:13-0400 SaO2% (BldA) [Mass fraction] 95 % II Sánchez Beatty Work Phone: [facility] 11-22-2023 11:13-0400 Systolic blood pressure 99 mm[Hg] II Sánchez Beatty Work Phone: [facility] 11-22-2023 09:16-0400 Body height 167.64 cm II Sánchez Beatty Work Phone: [facility] 11-22-2023 09:16-0400 Body temperature 98 [degF] II Sánchez Beatty Work Phone: [facility] 11-22-2023 09:16-0400 Body weight 93.41 kg II Sánchez Beatty Work Phone: [facility] 11-20-2023 11:17-0400 Body height 167.64 cm II Sánchez Beatty Work Phone: [facility] 11-20-2023 11:17-0400 Body mass index (BMI) [Ratio] 33 kg/m2 II Sánchez Beatty Work Phone: [facility] 11-20-2023 11:17-0400 Body temperature 97.8 [degF] II Sánchez Beatty Work Phone: [facility] 11-20-2023 11:17-0400 Body weight 93 kg II Sánchez Beatty Work Phone: [facility] 11-20-2023 11:17-0400 Diastolic blood pressure 72 mm[Hg] II Sánchez Beatty Work Phone: [facility] 11-20-2023 11:17-0400 Heart rate 68 /min II Sánchez Beatty Work Phone: [facility] 11-20-2023 11:17-0400 Respiratory rate 16 /min II Sánchez Beatty Work Phone: [facility] 11-20-2023 11:17-0400 SaO2% (BldA) [Mass fraction] 98 % II Sánchez Beatty Work Phone: [facility] 11-20-2023 11:17-0400 Systolic blood pressure 116 mm[Hg] II Sánchez Beatty Work Phone: [facility] 11-15-2023 10:40-0400 Body temperature 98.1 [degF] II Sánchez Beatty Work Phone: [facility] 11-15-2023 10:40-0400 Diastolic blood pressure 83 mm[Hg] II Sánchez Beatty Work Phone: [facility] 11-15-2023 10:40-0400 Heart rate 87 /min II Sánchez Beatty Work Phone: [facility] 11-15-2023 10:40-0400 Respiratory rate 16 /min II Sánchez Beatty Work Phone: [facility] 11-15-2023 10:40-0400 SaO2% (BldA) [Mass fraction] 96 % II Sánchez Beatty Work Phone: [facility] 11-15-2023 10:40-0400 Systolic blood pressure 128 mm[Hg] II Sánchez Beatty Work Phone: [facility] 11-12-2023 12:14-0400 Body height 167.64 cm II Sánchez Beatty Work Phone: [facility] 11-10-2023 04:02-0400 Body weight 93.3 kg II Sánchez Beatty Work Phone: [facility] 10-31-2023 12:09-0400 Body temperature 97.9 [degF] II Sánchez Beatty Work Phone: [facility] 10-31-2023 12:09-0400 Diastolic blood pressure 76 mm[Hg] II Sánchez Beatty Work Phone: [facility] 10-31-2023 12:09-0400 Heart rate 85 /min II Sánchez Beatty Work Phone: [facility] 10-31-2023 12:09-0400 Respiratory rate 19 /min II Sánchez Beatty Work Phone: [facility] 10-31-2023 12:09-0400 SaO2% (BldA) [Mass fraction] 95 % II Sánchez Beatty Work Phone: [facility] 10-31-2023 12:09-0400 Systolic blood pressure 123 mm[Hg] II Sánchez Beatty Work Phone: [facility] 10-31-2023 06:00-0400 Body weight 106.4 kg II Sánchez Beatty Work Phone: [facility] 10-29-2023 12:50-0400 Body height 167.64 cm II Sánchez Beatty Work Phone: [facility] 10-29-2023 08:00-0400 Inhaled oxygen flow rate 2 L/min II Sánchez Beatty Work Phone: [facility] 10-28-2023 12:50-0400 Body mass index (BMI) [Ratio] 35.5 kg/m2 II Sánchez Beatty Work Phone: [facility] 10-24-2023 10:23-0400 Body height 167.64 cm II Sánchez Beatty Work Phone: [facility] 10-24-2023 10:23-0400 Body mass index (BMI) [Ratio] 35.5 kg/m2 II Sánchez Beatty Work Phone: [facility] 10-24-2023 10:23-0400 Body temperature 97.8 [degF] II Sánchez Beatty Work Phone: [facility] 10-24-2023 10:23-0400 Body weight 99.79 kg II Sánchez Beatty Work Phone: [facility] 10-24-2023 10:23-0400 Diastolic blood pressure 68 mm[Hg] II Sánchez Beatty Work Phone: [facility] 10-24-2023 10:23-0400 Heart rate 68 /min II Sánchez Beatty Work Phone: [facility] 10-24-2023 10:23-0400 Respiratory rate 16 /min II Sánchez Beatty Work Phone: [facility] 10-24-2023 10:23-0400 SaO2% (BldA) [Mass fraction] 98 % II Sánchez Beatty Work Phone: [facility] 10-24-2023 10:23-0400 Systolic blood pressure 118 mm[Hg] II Sánchez Beatty Work Phone: [facility] 10-02-2023 09:29-0400 Body temperature 96.9 [degF] II Sánchez Beatty Work Phone: [facility] 10-02-2023 09:29-0400 Body weight 105.68 kg II Sánchez Beatty Work Phone: [facility] 10-02-2023 09:29-0400 Diastolic blood pressure 64 mm[Hg] II Sánchez Beatty Work Phone: [facility] 10-02-2023 09:29-0400 Heart rate 97 /min II Sánchez Beatty Work Phone: [facility] 10-02-2023 09:29-0400 SaO2% (BldA) [Mass fraction] 98 % II Sánchez Beatty Work Phone: [facility] 10-02-2023 09:29-0400 Systolic blood pressure 106 mm[Hg] II Sánchez Beatty Work Phone: [facility] 09-23-2023 09:21-0400 Body temperature 98 [degF] II Sánchez Beatty Work Phone: [facility] 09-23-2023 09:21-0400 Diastolic blood pressure 62 mm[Hg] II Sánchez Beatty Work Phone: [facility] 09-23-2023 09:21-0400 Heart rate 90 /min II Sánchez Beatty Work Phone: [facility] 09-23-2023 09:21-0400 Respiratory rate 15 /min II Sánchez Beatty Work Phone: [facility] 09-23-2023 09:21-0400 SaO2% (BldA) [Mass fraction] 97 % II Sánchez Beatty Work Phone: [facility] 09-23-2023 09:21-0400 Systolic blood pressure 109 mm[Hg] II Sánchez Beatty Work Phone: [facility] 09-23-2023 06:10-0400 Body weight 106 kg II Sánchez Beatty Work Phone: [facility] 09-21-2023 08:00-0400 Inhaled oxygen flow rate 2 L/min II Sánchez Beatty Work Phone: [facility] 09-20-2023 09:25-0400 Body mass index (BMI) [Ratio] 36.3 kg/m2 II Sánchez Beatty Work Phone: [facility] 09-20-2023 07:40-0400 Body height 167.64 cm II Sánchez Beatty Work Phone: [facility] 09-09-2023 12:39-0400 Body height 167.64 cm II Sánchez Beatty Work Phone: [facility] 09-09-2023 12:39-0400 Body mass index (BMI) [Ratio] 37 kg/m2 II Sánchez Beatty Work Phone: [facility] 09-09-2023 12:39-0400 Body temperature 97.6 [degF] II Sánchez Beatty Work Phone: [facility] 09-09-2023 12:39-0400 Body weight 104 kg II Sánchez Beatty Work Phone: [facility] 09-09-2023 12:39-0400 Diastolic blood pressure 82 mm[Hg] II Sánchez Beatty Work Phone: [facility] 09-09-2023 12:39-0400 Heart rate 89 /min II Sánchez Beatty Work Phone: [facility] 09-09-2023 12:39-0400 Respiratory rate 16 /min II Sánchez Beatty Work Phone: [facility] 09-09-2023 12:39-0400 SaO2% (BldA) [Mass fraction] 97 % II Sánchez Rogerio Work Phone: [facility] 09-09-2023 12:39-0400 Systolic blood pressure 126 mm[Hg] II Sánchez Beatty Work Phone: [facility] 07-30-2023 12:36-0400 Body height 167.64 cm PA-C Di Grechny Work Phone: [facility] 07-30-2023 12:36-0400 Body mass index (BMI) [Ratio] 37.1 kg/m2 PA-C Di Grechny Work Phone: [facility] 07-30-2023 12:36-0400 Body temperature 97.6 [degF] PA-C Di Grechny Work Phone: [facility] 07-30-2023 12:36-0400 Body weight 104.32 kg PA-C Di Grechny Work Phone: [facility] 07-30-2023 12:36-0400 Diastolic blood pressure 82 mm[Hg] PA-C Di Grechny Work Phone: [facility] 07-30-2023 12:36-0400 Heart rate 97 /min PA-C Di Grechny Work Phone: [facility] 07-30-2023 12:36-0400 Respiratory rate 16 /min PA-C Di Grechny Work Phone: [facility] 07-30-2023 12:36-0400 SaO2% (BldA) [Mass fraction] 98 % PA-C Di Grechny Work Phone: [facility] 07-30-2023 12:36-0400 Systolic blood pressure 140 mm[Hg] PA-C Di Grechny Work Phone: [facility] Encounters Encounter Date Encounter Type Care Provider Facility Start: 12-18-2023 End: 12-18-2023 ambulatory II Sánchez Beatty Work Phone: [facility] Work Phone: Start: 12-18-2023 End: 12-18-2023 Patient encounter procedure II Sánchez Beatty Work Phone: [facility] Work Phone: Start: 12-04-2023 End: 12-04-2023 Departed Referred II Sánchez Beatty Work Phone: [facility] [place] Work Phone: Start: 12-04-2023 End: 12-04-2023 ambulatory II Sánchez Beatty Work Phone: [facility] Work Phone: Start: 12-04-2023 End: 12-04-2023 Patient encounter procedure II Sánchez Beatty Work Phone: [facility] Work Phone: Start: 11-22-2023 Non-patient / Non-visit II James Beatty Work Phone: [facility] Work Phone: Start: 11-22-2023 End: 11-22-2023 Admission to same day surgery center II Sánchez Beatty Work Phone: [facility] [place] Start: 11-22-2023 End: 11-22-2023 ambulatory II Sánchez Beatty Work Phone: [facility] Work Phone: Start: 11-20-2023 End: 11-20-2023 ambulatory II Sánchez Beatty Work Phone: [facility] Work Phone: Start: 11-20-2023 End: 11-20-2023 Patient encounter procedure II Sánchez Beatty Work Phone: [facility] Work Phone: Start: 11-15-2023 Non-patient / Non-visit II James Beatty Work Phone: [facility] Work Phone: Start: 11-08-2023 Non-patient / Non-visit II James Beatty Work Phone: [facility] Work Phone: Start: 11-01-2023 Non-patient / Non-visit II James Beatty Work Phone: [facility] Work Phone: Start: 10-31-2023 End: 11-15-2023 Evaluation and management of inpatient II Sánchez Beatty Work Phone: [facility] Work Phone: Start: 10-29-2023 Non-patient / Non-visit II James Beatty Work Phone: [facility] Work Phone: Start: 10-29-2023 Non-patient / Non-visit II James Beatty Work Phone: [facility] Work Phone: Start: 10-28-2023 End: 10-31-2023 Evaluation and management of inpatient II Sánchez Beatty Work Phone: [facility] Work Phone: Start: 10-24-2023 End: 10-24-2023 ambulatory II Sánchez Beatty Work Phone: [facility] Work Phone: Start: 10-24-2023 End: 10-24-2023 Patient encounter procedure II Sánchez Beatty Work Phone: [facility] Work Phone: Start: 10-02-2023 End: 10-02-2023 Departed Referred II Sánchez Beatty Work Phone: [facility] [place] Work Phone: Start: 10-02-2023 End: 10-02-2023 ambulatory II Sánchez Beatty Work Phone: [facility] Work Phone: Start: 10-02-2023 End: 10-02-2023 Patient encounter procedure II Sánchez Beatty Work Phone: [facility] Work Phone: Start: 09-27-2023 End: 09-23-2023 Non-patient / Non-visit II Sánchez Beatty Work Phone: [facility] Work Phone: Start: 09-18-2023 Patient encounter status II Srini Beatty Work Phone: [facility] Start: 09-18-2023 End: 09-23-2023 Non-patient / Non-visit II Sánchez Beatty Work Phone: [facility] Work Phone: Start: 09-18-2023 End: 09-23-2023 Encounter for preprocedural cardiovascular examination II Sánchez Beatty Work Phone: [facility] Start: 09-18-2023 End: 09-23-2023 Evaluation and management of inpatient II Sánchez Beatty Work Phone: [facility] Work Phone: Start: 09-18-2023 End: 09-23-2023 Non-patient / Non-visit II Sánchez Beatty Work Phone: [facility] Work Phone: Start: 09-09-2023 End: 09-09-2023 ambulatory II Sánchez Beatty Work Phone: [facility] Work Phone: Start: 09-09-2023 End: 09-09-2023 Patient encounter procedure II Sánchez Beatty Work Phone: [facility] Work Phone: Start: 08-12-2023 End: 08-12-2023 Patient encounter procedure II Sánchez Beatty Work Phone: [facility] [place] Work Phone: Start: 08-12-2023 End: 08-12-2023 ambulatory II Sánchez Beatty Work Phone: [facility] Work Phone: Start: 08-06-2023 End: 08-06-2023 Patient encounter procedure II Sánchez Beatty Work Phone: [facility] [place] Work Phone: Start: 08-06-2023 End: 08-06-2023 ambulatory II Sánchez Beatty Work Phone: [facility] Work Phone: Start: 08-05-2023 End: 08-05-2023 ambulatory SÁNCHEZ BEATTY Not Available Start: 07-30-2023 End: 07-30-2023 ambulatory CHAPITO Washington Work Phone: [facility] Work Phone: Start: 07-30-2023 End: 07-30-2023 Patient encounter procedure CHAPITO Washington Work Phone: [facility] Vascular Surgery Work Phone: Start: 07-23-2023 End: 07-23-2023 ambulatory Kenyatta Fish [facility] Work Phone: Start: 07-23-2023 End: 07-23-2023 Departed Referred CHAPITO Washington Work Phone: [facility] Start: 07-22-2023 End: 07-22-2023 ambulatory SÁNCHEZ BEATTY Not Available Start: 07-15-2023 End: 07-15-2023 ambulatory Di Washington [facility] Work Phone: Start: 07-15-2023 End: 07-15-2023 Departed Referred CHAPITO Di Washington Work Phone: [facility] Start: 07-03-2023 End: 07-03-2023 ambulatory ARETHA ARCINIEGA Not Available Start: 01-26-2020 End: 01-26-2020 Patient encounter procedure SÁNCHEZ BEATTY Facility:H1 Procedures Date Procedure Procedure Detail Performing Clinician Start: 12-04-2023 Aerobic microbial culture II Sánchez Beatty Work Phone: Start: 11-22-2023 Debridement II Sánchez Beatty Work Phone: Start: 10-28-2023 Investigation of tra nsfusion reaction II Sánchez Beatty Work Phone: Start: 10-28-2023 Amputation of lower limb II Sánchez Beatty Work Phone: Start: 10-24-2023 Investigation of tra nsfusion reaction II Sánchez Beatty Work Phone: Start: 10-02-2023 Aerobic microbial culture II Sánchez Beatty Work Phone: Start: 09-20-2023 Femorodistal bypass II Sánchez Beatty Work Phone: Start: 09-18-2023 Antibody screen Benedicto Mcqueen Comment on above: Result Comment: PERF ORMED BY: [facility] [address] [place] [address] PATHOLOGIST ANAESTHESIOLOGIST RUBEN ALEGRE M.D. Start: 09-18-2023 Plain chest X-ray II Da ren Beatty Work Phone: Start: 09-18-2023 US scan venography o f lower limbs II Sánchez Beatty Work Phone: Start: 09-18-2023 Lower limb angiography II Sánchez Beatty Work Phone: Start: 08-12-2023 Pulse volume recorde r pneumoplethysmography II Sánchez Beatty Work Phone: Start: 08-06-2023 CT of abdominal aort a with contrast II Sánchez Beatty Work Phone: Plan of Treatment Date Care Activity Detail Author Start: 12-04-2023 Superficial Wound Culture Superficial Wound Culture [facility] Start: 12-04-2023 Bacteria identified in Unspecified specimen by Aerobe culture [facility] Start: 11-22-2023 End: 11-22-2023 [facility] Start: 11-15-2023 [facility] Start: 10-31-2023 Hospital admission [facility] Start: 10-31-2023 [facility] Start: 10-30-2023 Referral to clinical assistant designer [facility] Start: 10-30-2023 Arrangement of care procedure [facility] Start: 10-29-2023 Hospital admission [facility] Start: 10-29-2023 Referral to rehabilitation physician [facility] Start: 10-28-2023 Referral to Leather Worker [facility] Start: 10-28-2023 Detachment at Left Upper Leg, Low, Open Approach Detachment at Left Upper Leg, Low, Open Approach [facility] Start: 10-24-2023 Microscopic observation [Identifier] in Unspecified specimen by Gram stain [facility] Start: 10-24-2023 [facility] Start: 10-02-2023 Superficial Wound Culture Superficial Wound Culture [facility] Start: 10-02-2023 Bacteria identified in Unspecified specimen by Aerobe culture [facility] Start: 09-23-2023 [facility] Start: 09-18-2023 Fluoroscopy of Left Lower Extremity Arteries using Low Osmolar Contrast Fluoroscopy of Left Lower Extremity Arteries using Low Osmolar Contrast [facility] Start: 09-18-2023 Inspection of Lower Artery, Open Approach Inspection of Lower Artery, Open Approach [facility] Start: 09-18-2023 Hospital admission [facility] Start: 09-09-2023 Patient referral [facility] Work Phone: Start: 08-12-2023 Pulse volume recorder pneumoplethysmography US arterial pvr rest LE [facility] Start: 08-12-2023 [facility] Bacteria identified in Unspecified specimen by Aerobe culture [facility] Bacteria identified in Unspecified specimen by Anaerobe culture [facility] Patient Education [facility] Work Phone: Patient referral [facility] Work Phone: [facility] Payers Date Payer Category Payer Medicare [id number] 2023 Self-pay [id number] 1975 Unknown [id number] 2.16.84 [id number] 1975 Unknown [id number] 2.16.84 [id number] 1975 Unknown [id number] 2.16.84 [id number] 1975 Unknown [id number] 2.16.84 [id number] 1959 Medicaid [id number] 1959 Medicare [id number] Unknown [id number] Unknown [id number] .. [id number] Unknown [id number] Unknown [id number] 2.16.8 [id number] Unknown [id number] 2.16.8 [id number] Unknown [id number] 2.16.8 [id number] Unknown [id number] 2.16.8 [id number] Unknown [id number] 2.16.8 [id number] Unknown [id number] 2.16.8 [id number] Unknown [id number] 2.16.8 [id number] Unknown [id number] 2.16.8 [id number] Social History Date Type Detail Facility Tobacco smoking status NHIS Unknown if ever smoked [facility] Work Phone: Start: 1975 Sex Assigned At Female [facility] Start: 07-30-2023 End: 11-22-2023 Tobacco smoking status NHIS Smoker (finding) [facility] NEGATED: Highlighted row [facility] Goals Date Patient Goal Desired Activity /State Functional Status Date Assessment Result Facility 11-15-2023 Functional status Patient is Pro gressing Toward Baseline [facility] Work Phone: 10-31-2023 Functional status Patient is Pro gressing Toward Baseline [facility] Work Phone: 09-23-2023 Functional status Patient at Baseline [facility] Work Phone: Mental Status Date Assessment Result Facility 11-15-2023 Cognitive function Cognitive Sta tus Patient at Baseline [facility] Work Phone: 10-31-2023 Cognitive function Cognitive Sta tus Patient is Progressing Toward Baseline [facility] Work Phone: 09-23-2023 Cognitive function Cognitive Sta tus Patient at Baseline [facility] Work Phone: Clinical Notes 09-18-2023 to 11-22-2023 Note Date & Type Note Facility 11-22-2023 Procedure note [facility] 11-14-2023 Progress note Note Date/Time November 13, 2023 2:10pm [facility] [address] [place] [id number] Physiatry(Rehab) Progress Note Signed with Mitra Patient: Juany Laws MR# : [id number] : 1975 Acct:[id number] Age/Sex: 48 / F Adm Date: 4 Loc: Room: 8C7604-9 Type: ADM IN Attending Dr: Davis Orozco MD Copies to: ~ ADDENDUM1 * Though patient can use a walker as noted above, she does require some assistance/supervision by another person while using. She was prescribed a wheelchair at discharge as she does have some mobility limitation that impairs their ability to safely and independently complete one or more MRADL?s in the home, related to?left above knee amputation,?that cannot sufficiently be resolved with a cane or walker. The use of the wheelchair will significantly improve her ability to independently and safely participate in MRADL?s, the patient has expressed willingness to use the wheelchair in the home, and is able to self-propel the wheelchair independently. ? * Elevated leg rests were prescribed as patient will need to keep her left residual limb elevated to reduce edema and promote healing for future prosthesis. Addendum Documented By: Davis Orozco MD 11/14/23 1556 Addendum Signed By: <Electronically signed by Davis Orozco MD> 11/14/23 1556 Date of Service: 11/13/2023 Subjective Subjective Narrative: Ms. Laws is a 48 year old female with a past medical history of left foot wound, hypothyroidism, current smoker, recently diagnosed with CLL in July 2023who underwent left above the knee amputation with application of wound VAC secondary to irreversible left lower extremity vascular gangrene by Dr. Mcqueen on 10/28/2023. Post op course was complicated by some urinary retention requiring a calloway catheter. Regarding the patients CLL, she follows with Dr. Chyna Whitten at [facility]. Her white count is being monitored and she may start chemotherapy if leukocytosis worsens. The patient lives in an apartment alone. No KESHIA. Uses a walker. IND. Interval history: Patient was seen and evaluated in her room while sitting in the wheelchair. Sheis alert, pleasant, oriented. States she has not slept well because she forgot to take her muscle relaxer and did not want to take it too late because it makesher drowsy during the day. Her pain overall is improving. She still has some drainage from the left stump. The dressing was changed yesterday. She continues to tolerate therapy and feels she is progressing well. This morning she was able to ambulate 75 feet with a walker and standby contact-guardassist. Propels self in wheelchair for community distances. SBA with transfersand bed mobility. Plan is for her to be discharged home on Saturday. Review of Systems Review of Systems All other systems reviewed & are negative unless noted below or in HPI Exam Physical Exam Vital Signs: Temp Pulse Resp BP Pulse Ox O2 Del Method 98.2 F 79 16 102/69 95 Room Air 11/13/23 05:08 11/13/23 05:08 11/13/23 05:08 11/13/23 05:08 11/13/23 05:08 11/13/23 07:30 Narrative: General: Awake, alert, oriented x3 HENT: Normal to inspection, normocephalic, atraumatic Eyes: PERRL, normal conjunctiva and sclera Neck: Normal ROM, normal visual inspection. Trachea midline. Cardio: Regular heart rate and rhythm Respiratory: Clear to auscultation bilaterally. Normal respiratory effort. No respiratory distress. GI: Abdomen soft, nontender, nondistended, active bowel sounds x4 quadrants Neuro: CN II-XII intact. Strength 5/5, equal bilaterally Extremities: Trace edema in the right lower extremity. Left AKA. Psych: Affect is constricted. Normal speech. Objective Labs 11/10/23 04:44 11/05/23 06:33 Medications and Allergies Allergies and Active Meds: Allergies aspirin Allergy (Severe, Verified 10/24/23 10:23) Swelling of Lip/Tongue/Throat atorvastatin [From Lipitor] Allergy (Severe, Verified 10/24/23 10:23) Anaphylaxis celecoxib [From Celebrex] Allergy (Verified 10/24/23 10:23) Rash codeine Allergy (Verified 10/24/23 10:23) Rash erythromycin base Allergy (Verified 10/24/23 10:23) Rash Penicillins Allergy (Verified 10/24/23 10:23) Rash doxycycline Adverse Reaction (Verified 10/24/23 10:23) Nausea Active Medications Generic Name Dose Route Start Last Admin Trade Name Freq PRN Reason Stop Dose Admin Acetaminophen 1,000 mg 11/08/23 14:00 11/13/23 13:55 Acetaminophen 500 Mg Tablet PO 11/07/24 13:59 1,000 mg TID FAISAL Administration Al Hydrox/Mg Hydrox/Simethicone 30 ml 10/31/23 14:57 Mag Hydrox/Al Hydrox/Simeth 30 Ml Udc PO 10/30/24 14:56 Q4H PRN Indigestion Bisacodyl 10 mg 10/31/23 14:57 Bisacodyl 10 Mg Supp.Rect KS 10/30/24 14:56 DAILY PRN Constipation Clopidogrel Bisulfate 75 mg 11/01/23 09:00 11/13/23 13:57 Clopidogrel Bisulfate 75 Mg Tablet PO 10/31/24 08:59 75 mg DAILY FAISAL Administration Cyclobenzaprine HCl 10 mg 11/08/23 10:06 11/11/23 20:12 Cyclobenzaprine 10 Mg Tablet PO 11/07/24 10:05 10 mg Q8HR PRN Administration Muscle Spasm Docusate Sodium 100 mg 10/31/23 14:57 11/01/23 06:29 Docusate 100 Mg Capsule PO 10/30/24 14:56 100 mg BID PRN Administration Constipation Docusate Sodium 283 mg 10/31/23 14:57 Docusate Enema 283 Mg/5 Ml Enema KS 10/30/24 14:56 DAILY PRN Constipation Docusate Sodium 100 mg 10/31/23 21:00 11/13/23 09:57 Docusate 100 Mg Capsule PO 10/30/24 20:59 100 mg BID FAISAL Administration Enoxaparin Sodium 40 mg 11/01/23 09:00 11/13/23 13:57 Enoxaparin 40 Mg/0.4 Ml Syringe SUBCUT 10/31/24 08:59 40 mg DAILY@1000 FAISAL Administration Gabapentin 300 mg 11/06/23 14:00 11/13/23 09:57 Gabapentin 300 Mg Capsule PO 11/05/24 13:59 300 mg TID FAISAL Administration Ibuprofen 200 mg 10/31/23 15:13 Ibuprofen 200 Mg Tablet PO 10/30/24 15:12 Q6HR PRN pain Lactulose 30 gm 10/31/23 14:57 11/01/23 20:15 Lactulose 20 Gm/30 Ml Udc PO 10/30/24 14:56 30 gm DAILY PRN Administration Constipation Levothyroxine Sodium 112 mcg 11/01/23 06:30 11/13/23 05:12 Levothyroxine 112 Mcg Tablet PO 10/31/24 06:29 112 mcg DAILY@0630 FAISAL Administration Nicotine 1 each 11/09/23 12:00 11/13/23 13:57 Nicotine Patch 21 Mg/24hr 1 Each Patch.Td24 TRANSDERML 12/20/23 09:01 1 each DAILY FAISAL Administration Ondansetron HCl 4 mg 11/04/23 12:03 Ondansetron Odt 4 Mg Tab.Rapdis PO 11/03/24 12:02 Q8HR PRN Nausea And Vomiting Oxycodone HCl 10 mg 10/31/23 15:13 11/12/23 14:39 Oxycodone Ir 5 Mg Tablet PO 10 mg Q4HR PRN Administration Pain Scale 6 - 10 Sennosides 2 tab 11/01/23 10:00 11/13/23 13:57 Sennosides 8.6 Mg Tablet PO 10/31/24 09:59 2 tab DAILY FAISAL Administration Sodium Chloride 0 ml 10/31/23 14:57 Sodium Chloride 0.9 % 10 Ml Syringe IV-PUSH 10/30/24 14:56 PRN PRN Flush Assessment/Plan Assessment/Plan (1) Critical limb ischemia of left lower extremity with rest pain: (2) PAD (peripheral artery disease): (3) Above knee amputation of left lower extremity: (4) Postoperative pain: (5) Leukocytosis: (6) CLL (chronic lymphocytic leukemia): (7) Impaired mobility and activities of daily living: (8) Smoker: (9) Hypothyroid: Plan This is a 48-year-old female who presents to [facility] IRF due to multifactorial functional decline in the setting of left above knee amputation due to peripheral artery disease. She has continued impaired mobility and impaired independence with ADLs and IADLs requiring PT/OT 5-7 days/week 3 hours/day to maximize safety and independence with functional ability and self-care. #. Left AKA 2/2 severe PVD -PT to improve patient's strength, endurance, bed mobility, transfers (sit-stand), standing balance, gait quality on level surfaces and stairs, coordination and functional ADL skills. We will also work to improve patient's safety awareness during transfers and ambulation. -OT for basic ADL retraining (bathing, dressing, toileting, continence, grooming, feeding, transferring), to increase activity tolerance and functional mobility to evaluate for adaptive assistive device. We will work to improve patient's endurance and educate patient on fall prevention and energy conservation techniques-pacing strategies and proper breathing techniques duringfunctional tasks. -Patient education -Pressure ulcer prophylaxis; encourage mobilization, frequent postural changes, pressure-relief techniques -DVT prophylaxis -Encourage deep breathing exercise incentive spirometry. -Monitor bladder. Toileting schedule. Continue current bladder management, with scans as needed and CIC if needed. Start bowel care program every day to obtain continence, prevent ileus. -Maintain fall precautions -Gait and balance retraining -Provision of the necessary gait aids and functional adaptive equipment to enhance the patient's a functional spiritism -Encourage deep breathing exercises and incentive spirometry -RD evaluation -Ensure adequate nutrition and hydration -Discharge planning. -Pain management as below -Daily stump dressing changes. Wound vac #. Acute urinary retention -S/p calloway catheter placed on 10/29 -Would try void trial early next week #. CLL -WBC 42.4 on admission to rehab -Follows with oncology at [facility] UPDATES: -Remains clinically stable. No acute concerns or complaints. -Continue current pain regimen. -Progressing towards functional baseline and therapy. Plan is to DC home on Saturday. Neurology follow-up in outpatient settings. Hospitalist to assist with management of comorbid medical conditions #. Pain control: Tylenol PRN, Ibuprofen 200 mg q6hr PRN, Oxy 10 q4hr PRN #. Bowel and bladder: Continent of Bowel/bladder #. Skin: (pressure ulcer/surgical site) Left residual limb incision. Monitor. Wound care #. Sleep: Optimize sleep/wake cycle DVT prophylaxis: Lovenox 40 mg daily Functional status: Impaired. Limited by pain, weakness Discharge planning: ELOS 1-2 weeks I spent 19 minutes for services, including [id number] encounter with the patient, discussion of the case, plan of care, and exam; and [id number] activities, such as reviewing pertinent call center support consultant documentation, recent therapynotes, laboratory and radiology studies, and discussion of case with care team including physician, nursing, behavioral health case manager, and therapists. More than 50 % of time was spent on patient/family counseling or coordination ofcare. <Statement entered by Davis Orozco MD - 11/13/23 14:32> Patient was personally seen by me, Dr. Orozco, on the day of encounter, reviewed the history and the relevant portions of the chart, including current orders, allied health and call center support consultant notes, labs/imaging and performed veloz elements of exam and I formulated the plan of care and facilitated the medical decision making. I completed a substantive portion of this encounter, the medical decision makingportion of this note in its entirety, including Allied health note review, nursing note review, call center support consultant note review, discussion with nursing and case management, and more than 50% of my time was spent on counseling and coordination of care, time spent 25 minutes Documented By: Freya Figueroa APRN 11/13/23 1 406 Signed By: <Electronically signed by TAL Figueroa> 11/13/23 1410 <Electronically signed by Davis Orozco MD> 11/13/23 1432 [facility] Work Phone: 1(142) 876-326708-07-2024 Progress note Author Davis Orozco [facility] November 13, 2023 2:31pm Note Date/Time November 12, 2023 9:4 8pm [facility] [address] [place] [address] Physiatry(Rehab) Progress Note Signed Patient: Juany Laws MR# : [id number] : 1975 Acct:[id number] Age/Sex: 48 / F Adm Date: 4 Loc: Room: [address] [place] [address] Type: ADM IN Attending Dr: Davis Orozco MD Copies to: ~ Date of Service: 11/12/2023 Subjective Subjective Narrative: Ms. Laws is a 48 year old female with a past medical history of left foot wound, hypothyroidism, current smoker, recently diagnosed with CLL in July 2023who underwent left above the knee amputation with application of wound VAC secondary to irreversible left lower extremity vascular gangrene by Dr. Mcqueen on 10/28/2023. Post op course was complicated by some urinary retention requiring a calloway catheter. Regarding the patients CLL, she follows with Dr. Chyna Whitten at [facility]. Her white count is being monitored and she may start chemotherapy if leukocytosis worsens. The patient lives in an apartment alone. No KESHIA. Uses a walker. IND. Interval history: Patient seen today. Sitting up in wheelchair. In no distress. Denies chest pain,fever, chills, SOB. Continues to have some phantom limb pain Patient progressing well. Discussed at team meeting with DC plan for 11/14. Patient agreeable. Review of Systems Review of Systems All other systems reviewed & are negative unless noted below or in HPI Exam Physical Exam Vital Signs: Temp Pulse Resp BP Pulse Ox O2 Del Method 98.5 F 77 16 132/85 96 Room Air 11/12/23 21:13 11/12/23 21:13 11/12/23 21:13 11/12/23 21:13 11/12/23 21:13 11/12/23 21:33 Narrative: Pleasant NAD AO x 3 RRR S1 S2 Non-labored breathing Abd soft Left residual limb wrapped, wound vac in place. Right lower extremity intact. Objective Labs 11/10/23 04:44 11/05/23 06:33 Medications and Allergies Allergies and Active Meds: Allergies aspirin Allergy (Severe, Verified 10/24/23 10:23) Swelling of Lip/Tongue/Throat atorvastatin [From Lipitor] Allergy (Severe, Verified 10/24/23 10:23) Anaphylaxis celecoxib [From Celebrex] Allergy (Verified 10/24/23 10:23) Rash codeine Allergy (Verified 10/24/23 10:23) Rash erythromycin base Allergy (Verified 10/24/23 10:23) Rash Penicillins Allergy (Verified 10/24/23 10:23) Rash doxycycline Adverse Reaction (Verified 10/24/23 10:23) Nausea Active Medications Generic Name Dose Route Start Last Admin Trade Name Freq PRN Reason Stop Dose Admin Acetaminophen 1,000 mg 11/08/23 14:00 11/12/23 21:14 Acetaminophen 500 Mg Tablet PO 11/07/24 13:59 1,000 mg TID FAISAL Administration Al Hydrox/Mg Hydrox/Simethicone 30 ml 10/31/23 14:57 Mag Hydrox/Al Hydrox/Simeth 30 Ml Udc PO 10/30/24 14:56 Q4H PRN Indigestion Bisacodyl 10 mg 10/31/23 14:57 Bisacodyl 10 Mg Supp.Rect KS 10/30/24 14:56 DAILY PRN Constipation Clopidogrel Bisulfate 75 mg 11/01/23 09:00 11/12/23 08:33 Clopidogrel Bisulfate 75 Mg Tablet PO 10/31/24 08:59 75 mg DAILY FAISAL Administration Cyclobenzaprine HCl 10 mg 11/08/23 10:06 11/11/23 20:12 Cyclobenzaprine 10 Mg Tablet PO 11/07/24 10:05 10 mg Q8HR PRN Administration Muscle Spasm Docusate Sodium 100 mg 10/31/23 14:57 11/01/23 06:29 Docusate 100 Mg Capsule PO 10/30/24 14:56 100 mg BID PRN Administration Constipation Docusate Sodium 283 mg 10/31/23 14:57 Docusate Enema 283 Mg/5 Ml Enema KS 10/30/24 14:56 DAILY PRN Constipation Docusate Sodium 100 mg 10/31/23 21:00 11/12/23 21:14 Docusate 100 Mg Capsule PO 10/30/24 20:59 100 mg BID FAISAL Administration Enoxaparin Sodium 40 mg 11/01/23 09:00 11/12/23 08:35 Enoxaparin 40 Mg/0.4 Ml Syringe SUBCUT 10/31/24 08:59 40 mg DAILY@1000 FAISAL Administration Gabapentin 300 mg 11/06/23 14:00 11/12/23 21:14 Gabapentin 300 Mg Capsule PO 11/05/24 13:59 300 mg TID FAISAL Administration Ibuprofen 200 mg 10/31/23 15:13 Ibuprofen 200 Mg Tablet PO 10/30/24 15:12 Q6HR PRN pain Lactulose 30 gm 10/31/23 14:57 11/01/23 20:15 Lactulose 20 Gm/30 Ml Udc PO 10/30/24 14:56 30 gm DAILY PRN Administration Constipation Levothyroxine Sodium 112 mcg 11/01/23 06:30 11/12/23 05:42 Levothyroxine 112 Mcg Tablet PO 10/31/24 06:29 112 mcg DAILY@0630 FAISAL Administration Nicotine 1 each 11/09/23 12:00 11/12/23 08:33 Nicotine Patch 21 Mg/24hr 1 Each Patch.Td24 TRANSDERML 12/20/23 09:01 1 each DAILY FAISAL Administration Ondansetron HCl 4 mg 11/04/23 12:03 Ondansetron Odt 4 Mg Tab.Rapdis PO 11/03/24 12:02 Q8HR PRN Nausea And Vomiting Oxycodone HCl 10 mg 10/31/23 15:13 11/12/23 14:39 Oxycodone Ir 5 Mg Tablet PO 10 mg Q4HR PRN Administration Pain Scale 6 - 10 Sennosides 2 tab 11/01/23 10:00 11/12/23 08:33 Sennosides 8.6 Mg Tablet PO 10/31/24 09:59 2 tab DAILY FAISAL Administration Sodium Chloride 0 ml 10/31/23 14:57 Sodium Chloride 0.9 % 10 Ml Syringe IV-PUSH 10/30/24 14:56 PRN PRN Flush Assessment/Plan Assessment/Plan (1) Critical limb ischemia of left lower extremity with rest pain: (2) PAD (peripheral artery disease): (3) Above knee amputation of left lower extremity: (4) Postoperative pain: (5) Leukocytosis: (6) CLL (chronic lymphocytic leukemia): (7) Impaired mobility and activities of daily living: (8) Smoker: (9) Hypothyroid: Plan This is a 48-year-old female who presents to [facility] IRF due to multifactorial functional decline in the setting of left above knee amputation due to peripheral artery disease. She has continued impaired mobility and impaired independence with ADLs and IADLs requiring PT/OT 5-7 days/week 3 hours/day to maximize safety and independence with functional ability and self-care. #. Left AKA 2/2 severe PVD -PT to improve patient's strength, endurance, bed mobility, transfers (sit- stand), standing balance, gait quality on level surfaces and stairs, coordination and functional ADL skills. We will also work to improve patient's safety awareness during transfers and ambulation. -OT for basic ADL retraining (bathing, dressing, toileting, continence, grooming, feeding, transferring), to increase activity tolerance and functional mobility to evaluate for adaptive assistive device. We will work to improve patient's endurance and educate patient on fall prevention and energy conservation techniques-pacing strategies and proper breathing techniques duringfunctional tasks. -Patient education -Pressure ulcer prophylaxis; encourage mobilization, frequent postural changes, pressure-relief techniques -DVT prophylaxis -Encourage deep breathing exercise incentive spirometry. -Monitor bladder. Toileting schedule. Continue current bladder management, with scans as needed and CIC if needed. Start bowel care program every day to obtain continence, prevent ileus. -Maintain fall precautions -Gait and balance retraining -Provision of the necessary gait aids and functional adaptive equipment to enhance the patient's a functional spiritism -Encourage deep breathing exercises and incentive spirometry -RD evaluation -Ensure adequate nutrition and hydration -Discharge planning. -Pain management as below -Daily stump dressing changes. Wound vac #. Acute urinary retention-resolved #. CLL -WBC 42.4 on admission to rehab -Follows with oncology at [facility] UPDATES: -Patient doing well. Plan for DC 11/14 -Will clarify how long patient will need wound vac -No major concerns today Hospitalist to assist with management of comorbid medical conditions #. Pain control: Tylenol PRN, Ibuprofen 200 mg q6hr PRN, Oxy 10 q4hr PRN #. Bowel and bladder: Continent of Bowel/bladder #. Skin: (pressure ulcer/surgical site) Left residual limb incision. Monitor. Wound care #. Sleep: Optimize sleep/wake cycle DVT prophylaxis: Lovenox 40 mg daily Functional status: Impaired. Limited by pain, weakness Discharge plannin/9 Patient was personally seen by me, Dr. Orozco, on the day of encounter, reviewed the history and the relevant portions of the chart, including current orders, allied health and call center support consultant notes, labs/imaging and performed veloz elements of exam and I formulated the plan of care and facilitated the medical decision making. I completed a substantive portion of this encounter, the medical decision makingportion of this note in its entirety, including Allied health note review, nursing note review, call center support consultant note review, discussion with nursing and case management, and more than 50% of my time was spent on counseling and coordination of care, time spent 30 minutes Case reviewed at weekly team conference, discussed progress and goals of care, barriers/problems to date and discharge planning. Documented By: Davis Orozco MD [id number] Signed By: <Electronically signed by Davis Orozco MD> 11/13/23 1431 [facility] Work Phone: 1(170) 590-562808-05-2024 Progress note Author Davis Orozco [facility] November 11, 2023 1:25pm Note Date/Time November 11, 2023 12: 43pm [facility] [address] [place] [address] Physiatry(Rehab) Progress Note Signed Patient: Juany Laws MR# : [id number] : 1975 Acct:[id number] Age/Sex: 48 / F Adm Date: 4 Loc: Room: [address] [place] [address] Type: ADM IN Attending Dr: Davis Orozco MD Copies to: ~ <Freya Figueroa APRN - Last Filed: 11/11/23 12:43> Date of Service: 11/11/2023 Subjective <Freya Figueroa APRN - Last Filed: 11/11/23 12:43> Subjective Narrative: Ms. Laws is a 48 year old female with a past medical history of left foot wound, hypothyroidism, current smoker, recently diagnosed with CLL in July 2023who underwent left above the knee amputation with application of wound VAC secondary to irreversible left lower extremity vascular gangrene by Dr. Mcqueen on 10/28/2023. Post op course was complicated by some urinary retention requiring a calloway catheter. Regarding the patients CLL, she follows with Dr. Chyna Whitten at [facility]. Her white count is being monitored and she may start chemotherapy if leukocytosis worsens. The patient lives in an apartment alone. No KESHIA. Uses a walker. IND. Interval history: Patient seen and evaluated in her room. Offers no new complaints or concerns. Stump pain is on and off but better with a muscle relaxer. She is having less wound VAC drainage. Otherwise, no major complaints or concerns. She is doing well in therapy. Ambulatory 85/78 feet with a walker and SBA/CGA. Requires SBA with transfers. She would like to go home soon. Will need to reschedule oncology appointment prior to discharge to a sooner date as her next one is not until March. Review of Systems <Freya Figueroa APRN - Last Filed: 11/11/23 12:43> Review of Systems All other systems reviewed & are negative unless noted below or in HPI Exam <Freya Figueroa APRN - Last Filed: 11/11/23 12:43> Physical Exam Vital Signs: Temp Pulse Resp BP Pulse Ox O2 Del Method 99.1 F H 88 16 144/83 H 95 Room Air 11/11/23 05:00 11/11/23 05:00 11/11/23 05:00 11/11/23 05:00 11/11/23 05:00 11/11/23 05:00 Narrative: General: Awake, alert, oriented x3 HENT: Normal to inspection, normocephalic, atraumatic Eyes: PERRL, normal conjunctiva and sclera Neck: Normal ROM, normal visual inspection. Trachea midline. Cardio: Regular heart rate and rhythm Respiratory: Clear to auscultation bilaterally. Normal respiratory effort. No respiratory distress. GI: Abdomen soft, nontender, nondistended, active bowel sounds x4 quadrants Neuro: CN II-XII intact. Strength 5/5, equal bilaterally Extremities: Trace edema in the right lower extremity. Left AKA. Psych: Affect is constricted. Normal speech. Objective <Freya Figueroa APRN - Last Filed: 11/11/23 12:43> Labs 11/10/23 04:44 11/05/23 06:33 Medications and Allergies Allergies and Active Meds: Allergies aspirin Allergy (Severe, Verified 10/24/23 10:23) Swelling of Lip/Tongue/Throat atorvastatin [From Lipitor] Allergy (Severe, Verified 10/24/23 10:23) Anaphylaxis celecoxib [From Celebrex] Allergy (Verified 10/24/23 10:23) Rash codeine Allergy (Verified 10/24/23 10:23) Rash erythromycin base Allergy (Verified 10/24/23 10:23) Rash Penicillins Allergy (Verified 10/24/23 10:23) Rash doxycycline Adverse Reaction (Verified 10/24/23 10:23) Nausea Active Medications Generic Name Dose Route Start Last Admin Trade Name Freq PRN Reason Stop Dose Admin Acetaminophen 1,000 mg 11/08/23 14:00 11/11/23 09:53 Acetaminophen 500 Mg Tablet PO 11/07/24 13:59 1,000 mg TID FAISAL Administration Al Hydrox/Mg Hydrox/Simethicone 30 ml 10/31/23 14:57 Mag Hydrox/Al Hydrox/Simeth 30 Ml Udc PO 10/30/24 14:56 Q4H PRN Indigestion Bisacodyl 10 mg 10/31/23 14:57 Bisacodyl 10 Mg Supp.Rect KS 10/30/24 14:56 DAILY PRN Constipation Clopidogrel Bisulfate 75 mg 11/01/23 09:00 11/11/23 09:53 Clopidogrel Bisulfate 75 Mg Tablet PO 10/31/24 08:59 75 mg DAILY FAISAL Administration Cyclobenzaprine HCl 10 mg 11/08/23 10:06 11/09/23 20:46 Cyclobenzaprine 10 Mg Tablet PO 11/07/24 10:05 10 mg Q8HR PRN Administration Muscle Spasm Docusate Sodium 100 mg 10/31/23 14:57 11/01/23 06:29 Docusate 100 Mg Capsule PO 10/30/24 14:56 100 mg BID PRN Administration Constipation Docusate Sodium 283 mg 10/31/23 14:57 Docusate Enema 283 Mg/5 Ml Enema KS 10/30/24 14:56 DAILY PRN Constipation Docusate Sodium 100 mg 10/31/23 21:00 11/11/23 09:53 Docusate 100 Mg Capsule PO 10/30/24 20:59 100 mg BID FAISAL Administration Enoxaparin Sodium 40 mg 11/01/23 09:00 11/11/23 09:53 Enoxaparin 40 Mg/0.4 Ml Syringe SUBCUT 10/31/24 08:59 40 mg DAILY@1000 FAISAL Administration Gabapentin 300 mg 11/06/23 14:00 11/11/23 09:53 Gabapentin 300 Mg Capsule PO 11/05/24 13:59 300 mg TID FAISAL Administration Ibuprofen 200 mg 10/31/23 15:13 Ibuprofen 200 Mg Tablet PO 10/30/24 15:12 Q6HR PRN pain Lactulose 30 gm 10/31/23 14:57 11/01/23 20:15 Lactulose 20 Gm/30 Ml Udc PO 10/30/24 14:56 30 gm DAILY PRN Administration Constipation Levothyroxine Sodium 112 mcg 11/01/23 06:30 11/11/23 06:02 Levothyroxine 112 Mcg Tablet PO 10/31/24 06:29 112 mcg DAILY@0630 FAISAL Administration Nicotine 1 each 11/09/23 12:00 11/11/23 09:53 Nicotine Patch 21 Mg/24hr 1 Each Patch.Td24 TRANSDERML 12/20/23 09:01 1 each DAILY FAISAL Administration Ondansetron HCl 4 mg 11/04/23 12:03 Ondansetron Odt 4 Mg Tab.Rapdis PO 11/03/24 12:02 Q8HR PRN Nausea And Vomiting Oxycodone HCl 10 mg 10/31/23 15:13 11/11/23 06:02 Oxycodone Ir 5 Mg Tablet PO 10 mg Q4HR PRN Administration Pain Scale 6 - 10 Sennosides 2 tab 11/01/23 10:00 11/11/23 09:53 Sennosides 8.6 Mg Tablet PO 10/31/24 09:59 2 tab DAILY FAISAL Administration Sodium Chloride 0 ml 10/31/23 14:57 Sodium Chloride 0.9 % 10 Ml Syringe IV-PUSH 10/30/24 14:56 PRN PRN Flush Assessment/Plan <Freya Figueroa APRN - Last Filed: 11/11/23 12:43> Assessment/Plan (1) Critical limb ischemia of left lower extremity with rest pain: (2) PAD (peripheral artery disease): (3) Above knee amputation of left lower extremity: (4) Postoperative pain: (5) Leukocytosis: (6) CLL (chronic lymphocytic leukemia): (7) Impaired mobility and activities of daily living: (8) Smoker: (9) Hypothyroid: Plan This is a 48-year-old female who presents to [facility] IRF due to multifactorial functional decline in the setting of left above knee amputation due to peripheral artery disease. She has continued impaired mobility and impaired independence with ADLs and IADLs requiring PT/OT 5-7 days/week 3 hours/day to maximize safety and independence with functional ability and self-care. #. Left AKA 2/2 severe PVD -PT to improve patient's strength, endurance, bed mobility, transfers (sit- stand), standing balance, gait quality on level surfaces and stairs, coordination and functional ADL skills. We will also work to improve patient's safety awareness during transfers and ambulation. -OT for basic ADL retraining (bathing, dressing, toileting, continence, grooming, feeding, transferring), to increase activity tolerance and functional mobility to evaluate for adaptive assistive device. We will work to improve patient's endurance and educate patient on fall prevention and energy conservation techniques-pacing strategies and proper breathing techniques duringfunctional tasks. -Patient education -Pressure ulcer prophylaxis; encourage mobilization, frequent postural changes, pressure-relief techniques -DVT prophylaxis -Encourage deep breathing exercise incentive spirometry. -Monitor bladder. Toileting schedule. Continue current bladder management, with scans as needed and CIC if needed. Start bowel care program every day to obtain continence, prevent ileus. -Maintain fall precautions -Gait and balance retraining -Provision of the necessary gait aids and functional adaptive equipment to enhance the patient's a functional spiritism -Encourage deep breathing exercises and incentive spirometry -RD evaluation -Ensure adequate nutrition and hydration -Discharge planning. -Pain management as below -Daily stump dressing changes. Wound vac #. Acute urinary retention -S/p calloway catheter placed on 10/29 -Would try void trial early next week #. CLL -WBC 42.4 on admission to rehab -Follows with oncology at [facility] UPDATES: -Doing better with addition of Flexeril. Does admit to some drowsiness with it and tries to only take it before bedtime, but overall improved muscle spasms. -Follow-up CBC reviewed. WBC count slightly improved at 41.9. Stable H&H. Continue to trend. -Arrange a follow-up with oncology prior to discharge. Hospitalist to assist with management of comorbid medical conditions #. Pain control: Tylenol PRN, Ibuprofen 200 mg q6hr PRN, Oxy 10 q4hr PRN #. Bowel and bladder: Continent of Bowel/bladder #. Skin: (pressure ulcer/surgical site) Left residual limb incision. Monitor. Wound care #. Sleep: Optimize sleep/wake cycle #. Education: any eduction including CVA risk factor prevention, weight loss, smoking sessation, nutrition, etc DVT prophylaxis: Lovenox 40 mg daily Functional status: Impaired. Limited by pain, weakness Discharge planning: ELOS 1-2 weeks I spent 18 minutes for services, including [id number] encounter with the patient, discussion of the case, plan of care, and exam; and [id number] activities, such as reviewing pertinent call center support consultant documentation, recent therapynotes, laboratory and radiology studies, and discussion of case with care team including physician, nursing, behavioral health case manager, and therapists. More than 50 % of time was spent on patient/family counseling or coordination ofcare. <Davis Orozco MD - Last Filed: 11/11/23 13:25> Assessment/Plan (1) Critical limb ischemia of left lower extremity with rest pain: (2) PAD (peripheral artery disease): (3) Above knee amputation of left lower extremity: (4) Postoperative pain: (5) Leukocytosis: (6) CLL (chronic lymphocytic leukemia): (7) Impaired mobility and activities of daily living: (8) Smoker: (9) Hypothyroid: Plan This is a 48-year-old female who presents to [facility] IRF due to multifactorial functional decline in the setting of left above knee amputation due to peripheral artery disease. She has continued impaired mobility and impaired independence with ADLs and IADLs requiring PT/OT 5-7 days/week 3 hours/day to maximize safety and independence with functional ability and self-care. #. Left AKA 2/2 severe PVD -PT to improve patient's strength, endurance, bed mobility, transfers (sit- stand), standing balance, gait quality on level surfaces and stairs, coordination and functional ADL skills. We will also work to improve patient's safety awareness during transfers and ambulation. -OT for basic ADL retraining (bathing, dressing, toileting, continence, grooming, feeding, transferring), to increase activity tolerance and functional mobility to evaluate for adaptive assistive device. We will work to improve patient's endurance and educate patient on fall prevention and energy conservation techniques-pacing strategies and proper breathing techniques duringfunctional tasks. -Patient education -Pressure ulcer prophylaxis; encourage mobilization, frequent postural changes, pressure-relief techniques -DVT prophylaxis -Encourage deep breathing exercise incentive spirometry. -Monitor bladder. Toileting schedule. Continue current bladder management, with scans as needed and CIC if needed. Start bowel care program every day to obtain continence, prevent ileus. -Maintain fall precautions -Gait and balance retraining -Provision of the necessary gait aids and functional adaptive equipment to enhance the patient's a functional spiritism -Encourage deep breathing exercises and incentive spirometry -RD evaluation -Ensure adequate nutrition and hydration -Discharge planning. -Pain management as below -Daily stump dressing changes. Wound vac #. Acute urinary retention -S/p calloway catheter placed on 10/29 -Would try void trial early next week #. CLL -WBC 42.4 on admission to rehab -Follows with oncology at [facility] UPDATES: -Doing better with addition of Flexeril. Does admit to some drowsiness with it and tries to only take it before bedtime, but overall improved muscle spasms. -Follow-up CBC reviewed. WBC count slightly improved at 41.9. Stable H&H. Continue to trend. -Arrange a follow-up with oncology prior to discharge. Hospitalist to assist with management of comorbid medical conditions #. Pain control: Tylenol PRN, Ibuprofen 200 mg q6hr PRN, Oxy 10 q4hr PRN #. Bowel and bladder: Continent of Bowel/bladder #. Skin: (pressure ulcer/surgical site) Left residual limb incision. Monitor. Wound care #. Sleep: Optimize sleep/wake cycle DVT prophylaxis: Lovenox 40 mg daily Functional status: Impaired. Limited by pain, weakness Discharge planning: ELOS 1-2 weeks I spent 18 minutes for services, including [id number]-[id number] encounter with the patient, discussion of the case, plan of care, and exam; and dqzizkj-iv-cweh activities, such as reviewing pertinent call center support consultant documentation, recent therapynotes, laboratory and radiology studies, and discussion of case with care team including physician, nursing, behavioral health case manager, and therapists. More than 50 % of time was spent on patient/family counseling or coordination ofcare. Patient was personally seen by me, Dr. Orozco, on the day of encounter, reviewed the history and the relevant portions of the chart, including current orders, allied health and call center support consultant notes, labs/imaging and performed veloz elements of exam and I formulated the plan of care and facilitated the medical decision making. I completed a substantive portion of this encounter, the medical decision makingportion of this note in its entirety, including Allied health note review, nursing note review, call center support consultant note review, discussion with nursing and case management, and more than 50% of my time was spent on counseling and coordination of care, time spent 25 minutes Agree with above. Patient does continue to improve functionally. Pain better controlled. Does continue to have some phantom limb pain although better controlled. Patient with flat affect. I did discuss her mood today which she states is good. Continue PT/OT as ordered Documented By: Freya Figueroa APRN 11/11/23 1 238 Signed By: <Electronically signed by TAL Figueroa> 11/11/23 1243 <Electronically signed by Davis Orozco MD> 11/11/23 4179 [facility] Work Phone: 1(148) 321-852508-05-2024 Progress note Author Davis Orozco [facility] November 11, 2023 12:56pm Note Date/Time November 08, 2023 12: 05pm [facility] [address] [place] [address] Physiatry(Rehab) Progress Note Signed Patient: Juany Laws MR# : [id number] : 1975 Acct:[id number] Age/Sex: 48 / F Adm Date: 4 Loc: Room: 5Y8077-1 Type: ADM IN Attending Dr: Davis Orozco MD Copies to: ~ Date of Service: 11/08/2023 Subjective Subjective Narrative: Ms. Laws is a 48 year old female with a past medical history of left foot wound, hypothyroidism, current smoker, recently diagnosed with CLL in July 2023who underwent left above the knee amputation with application of wound VAC secondary to irreversible left lower extremity vascular gangrene by Dr. Mcqueen on 10/28/2023. Post op course was complicated by some urinary retention requiring a calloway catheter. Regarding the patients CLL, she follows with Dr. Chyna Whitten at [facility]. Her white count is being monitored and she may start chemotherapy if leukocytosis worsens. The patient lives in an apartment alone. No KESHIA. Uses a walker. IND. Interval history: Patient examined at the bedside she is sitting up in the wheelchair watching television. Reports no acute overnight events. Still complaining of some left stump pain, muscle spasms. States current muscle relaxer is not doing anythingfor the pain . Gabapentin dose was recently increased. I will make some medication adjustments to improve pain levels. Left stump drainage is improving. There is a scant amount of serosanguineous drainage in the tubing, nothing in the canister which was recently changed. Her vitals remained stable. No recent fevers or chills. She is doing well in therapy. Ambulatory 45+50 feet with a wheeled walker and CGA/SBA. Requires SBA with transfers. Exam Physical Exam Vital Signs: Temp Pulse Resp BP Pulse Ox O2 Del Method 97.7 F 83 20 116/77 93 L Room Air 11/08/23 05:54 11/08/23 05:54 11/08/23 05:54 11/08/23 05:54 11/08/23 05:54 11/08/23 05:54 Narrative: General: Awake, alert, oriented x3 HENT: Normal to inspection, normocephalic, atraumatic Eyes: PERRL, normal conjunctiva and sclera Neck: Normal ROM, normal visual inspection. Trachea midline. Cardio: Regular heart rate and rhythm Respiratory: Clear to auscultation bilaterally. Normal respiratory effort. No respiratory distress. GI: Abdomen soft, nontender, nondistended, active bowel sounds x4 quadrants Neuro: CN II-XII intact. Strength 5/5, equal bilaterally Extremities: Trace edema in the right lower extremity. Left AKA. Psych: Affect is constricted. Normal speech. Objective Labs 11/05/23 06:33 11/05/23 06:33 Labs: I reviewed clinical lab tests, radiology reports and obtained and summated medical records and have ordered follow up lab tests and imaging studies as needed for rehabilitation care. Medications and Allergies Allergies and Active Meds: Allergies aspirin Allergy (Severe, Verified 10/24/23 10:23) Swelling of Lip/Tongue/Throat atorvastatin [From Lipitor] Allergy (Severe, Verified 10/24/23 10:23) Anaphylaxis celecoxib [From Celebrex] Allergy (Verified 10/24/23 10:23) Rash codeine Allergy (Verified 10/24/23 10:23) Rash erythromycin base Allergy (Verified 10/24/23 10:23) Rash Penicillins Allergy (Verified 10/24/23 10:23) Rash doxycycline Adverse Reaction (Verified 10/24/23 10:23) Nausea Active Medications Generic Name Dose Route Start Last Admin Trade Name Freq PRN Reason Stop Dose Admin Acetaminophen 500 mg 10/31/23 14:57 11/07/23 23:43 Acetaminophen 500 Mg Tablet PO 10/30/24 14:56 500 mg Q4H PRN Administration Pain Al Hydrox/Mg Hydrox/Simethicone 30 ml 10/31/23 14:57 Mag Hydrox/Al Hydrox/Simeth 30 Ml Udc PO 10/30/24 14:56 Q4H PRN Indigestion Bisacodyl 10 mg 10/31/23 14:57 Bisacodyl 10 Mg Supp.Rect KS 10/30/24 14:56 DAILY PRN Constipation Clopidogrel Bisulfate 75 mg 11/01/23 09:00 11/08/23 09:15 Clopidogrel Bisulfate 75 Mg Tablet PO 10/31/24 08:59 75 mg DAILY FAISAL Administration Cyclobenzaprine HCl 10 mg 11/08/23 10:06 Cyclobenzaprine 10 Mg Tablet PO 11/07/24 10:05 Q8HR PRN Muscle Spasm Docusate Sodium 100 mg 10/31/23 14:57 11/01/23 06:29 Docusate 100 Mg Capsule PO 10/30/24 14:56 100 mg BID PRN Administration Constipation Docusate Sodium 283 mg 10/31/23 14:57 Docusate Enema 283 Mg/5 Ml Enema KS 10/30/24 14:56 DAILY PRN Constipation Docusate Sodium 100 mg 10/31/23 21:00 11/08/23 09:15 Docusate 100 Mg Capsule PO 10/30/24 20:59 100 mg BID FAISAL Administration Enoxaparin Sodium 40 mg 11/01/23 09:00 11/08/23 09:15 Enoxaparin 40 Mg/0.4 Ml Syringe SUBCUT 10/31/24 08:59 40 mg DAILY@1000 [facility] Administration Gabapentin 300 mg 11/06/23 14:00 11/08/23 09:15 Gabapentin 300 Mg Capsule PO 11/05/24 13:59 300 mg TID FAISAL Administration Ibuprofen 200 mg 10/31/23 15:13 Ibuprofen 200 Mg Tablet PO 10/30/24 15:12 Q6HR PRN pain Lactulose 30 gm 10/31/23 14:57 11/01/23 20:15 Lactulose 20 Gm/30 Ml Udc PO 10/30/24 14:56 30 gm DAILY PRN Administration Constipation Levothyroxine Sodium 112 mcg 11/01/23 06:30 11/08/23 05:51 Levothyroxine 112 Mcg Tablet PO 10/31/24 06:29 112 mcg DAILY@0630 [facility] Administration Ondansetron HCl 4 mg 11/04/23 12:03 Ondansetron Odt 4 Mg Tab.Rapdis PO 11/03/24 12:02 Q8HR PRN Nausea And Vomiting Oxycodone HCl 10 mg 10/31/23 15:13 11/08/23 05:51 Oxycodone Ir 5 Mg Tablet PO 10 mg Q4HR PRN Administration Pain Scale 6 - 10 Sennosides 2 tab 11/01/23 10:00 11/08/23 09:15 Sennosides 8.6 Mg Tablet PO 10/31/24 09:59 2 tab DAILY FAISAL Administration Sodium Chloride 0 ml 10/31/23 14:57 Sodium Chloride 0.9 % 10 Ml Syringe IV-PUSH 10/30/24 14:56 PRN PRN Flush Assessment/Plan Assessment/Plan (1) Critical limb ischemia of left lower extremity with rest pain: (2) PAD (peripheral artery disease): (3) Above knee amputation of left lower extremity: (4) Postoperative pain: (5) Leukocytosis: (6) CLL (chronic lymphocytic leukemia): (7) Impaired mobility and activities of daily living: (8) Smoker: (9) Hypothyroid: Plan This is a 48-year-old female who presents to [facility] IRF due to multifactorial functional decline in the setting of left above knee amputation due to peripheral artery disease. She has continued impaired mobility and impaired independence with ADLs and IADLs requiring PT/OT 5-7 days/week 3 hours/day to maximize safety and independence with functional ability and self-care. #. Left AKA 2/2 severe PVD -PT to improve patient's strength, endurance, bed mobility, transfers (sit- stand), standing balance, gait quality on level surfaces and stairs, coordination and functional ADL skills. We will also work to improve patient's safety awareness during transfers and ambulation. -OT for basic ADL retraining (bathing, dressing, toileting, continence, grooming, feeding, transferring), to increase activity tolerance and functional mobility to evaluate for adaptive assistive device. We will work to improve patient's endurance and educate patient on fall prevention and energy conservation techniques-pacing strategies and proper breathing techniques duringfunctional tasks. -Patient education -Pressure ulcer prophylaxis; encourage mobilization, frequent postural changes, pressure-relief techniques -DVT prophylaxis -Encourage deep breathing exercise incentive spirometry. -Monitor bladder. Toileting schedule. Continue current bladder management, with scans as needed and CIC if needed. Start bowel care program every day to obtain continence, prevent ileus. -Maintain fall precautions -Gait and balance retraining -Provision of the necessary gait aids and functional adaptive equipment to enhance the patient's a functional spiritism -Encourage deep breathing exercises and incentive spirometry -RD evaluation -Ensure adequate nutrition and hydration -Discharge planning. -Pain management as below -Daily stump dressing changes. Wound vac #. Acute urinary retention -S/p calloway catheter placed on 10/29 -Would try void trial early next week #. CLL -WBC 42.4 on admission to rehab -Follows with oncology at [facility] UPDATES: -Change Robaxin to cyclobenzaprine 10 mg 3 times daily as needed. Add 1000 mg of acetaminophen 3 times daily scheduled. -Continue to monitor incisional drainage. -Recheck CBC over the weekend. notify oncology if WBC count continues to trend up. Hospitalist to assist with management of comorbid medical conditions #. Pain control: Tylenol PRN, Ibuprofen 200 mg q6hr PRN, Oxy 10 q4hr PRN #. Bowel and bladder: Continent of Bowel/bladder #. Skin: (pressure ulcer/surgical site) Left residual limb incision. Monitor. Wound care #. Sleep: Optimize sleep/wake cycle #. Education: any eduction including CVA risk factor prevention, weight loss, smoking sessation, nutrition, etc DVT prophylaxis: Lovenox 40 mg daily Functional status: Impaired. Limited by pain, weakness Discharge planning: ELOS 1-2 weeks I spent 21 minutes for services, including pezl-iv-ykle encounter with the patient, discussion of the case, plan of care, and exam; and hhkcfhs-xi-[id number] activities, such as reviewing pertinent call center support consultant documentation, recent therapynotes, laboratory and radiology studies, and discussion of case with care team including physician, nursing, behavioral health case manager, and therapists. More than 50 % of time was spent on patient/family counseling or coordination ofcare. <Statement entered by Davis Orozco MD - 11/11/23 12:55> I reviewed the history and the relevant portions of the chart, including currentorders, allied health and call center support consultant notes, labs/imaging and plan of care as above. Documented By: Freya Figueroa APRN 11/08/23 1 205 Signed By: <Electronically signed by TAL Figueroa> 11/08/23 1212 <Electronically signed by Davis Orozco MD> 11/11/23 5520 [facility] Work Phone: 1(214) 304-681307-31-2024 Progress note Author Davis Orozco [facility] Bambi 31st, 2024 1:55pm Note Date/Time November 06, 2023 1:55 pm [facility] [address] [place] [address] Physiatry(Rehab) Progress Note Signed Patient: Juany Laws MR# : [id number] : 1975 Acct:[id number] Age/Sex: 48 / F Adm Date: 4 Loc: Room: [address] [place] [address] Type: ADM IN Attending Dr: Davis Orozco MD Copies to: ~ Date of Service: 11/06/2023 Subjective Subjective Narrative: Ms. Laws is a 48 year old female with a past medical history of left foot wound, hypothyroidism, current smoker, recently diagnosed with CLL in July 2023who underwent left above the knee amputation with application of wound VAC secondary to irreversible left lower extremity vascular gangrene by Dr. Mcqueen on 10/28/2023. Post op course was complicated by some urinary retention requiring a calloway catheter. Regarding the patients CLL, she follows with Dr. Chyna Whitten at [facility]. Her white count is being monitored and she may start chemotherapy if leukocytosis worsens. The patient lives in an apartment alone. No KESHIA. Uses a walker. IND. Interval history: Patient was seen today while working in the therapy gym. Appears in no distress.She does admit to some increased phantom pain (describes as burning where her foot used to be) as well as increased spasms. Review of Systems Review of Systems All other systems reviewed & are negative unless noted below or in HPI Exam Physical Exam Vital Signs: Temp Pulse Resp BP Pulse Ox O2 Del Method 98.3 F 95 17 111/76 94 L Room Air 11/06/23 12:00 11/06/23 12:00 11/06/23 12:00 11/06/23 12:00 11/06/23 12:00 11/06/23 12:00 Narrative: Pleasant NAD AO x 3 RRR S1 S2 Non-labored breathing Abd soft Left residual limb wrapped, wound vac in place. Right lower extremity intact. Objective Labs 11/05/23 06:33 11/05/23 06:33 Medications and Allergies Allergies and Active Meds: Allergies aspirin Allergy (Severe, Verified 10/24/23 10:23) Swelling of Lip/Tongue/Throat atorvastatin [From Lipitor] Allergy (Severe, Verified 10/24/23 10:23) Anaphylaxis celecoxib [From Celebrex] Allergy (Verified 10/24/23 10:23) Rash codeine Allergy (Verified 10/24/23 10:23) Rash erythromycin base Allergy (Verified 10/24/23 10:23) Rash Penicillins Allergy (Verified 10/24/23 10:23) Rash doxycycline Adverse Reaction (Verified 10/24/23 10:23) Nausea Active Medications Generic Name Dose Route Start Last Admin Trade Name Freq PRN Reason Stop Dose Admin Acetaminophen 500 mg 10/31/23 14:57 Acetaminophen 500 Mg Tablet PO 10/30/24 14:56 Q4H PRN Pain Al Hydrox/Mg Hydrox/Simethicone 30 ml 10/31/23 14:57 Mag Hydrox/Al Hydrox/Simeth 30 Ml Udc PO 10/30/24 14:56 Q4H PRN Indigestion Bisacodyl 10 mg 10/31/23 14:57 Bisacodyl 10 Mg Supp.Rect KS 10/30/24 14:56 DAILY PRN Constipation Clopidogrel Bisulfate 75 mg 11/01/23 09:00 11/06/23 08:57 Clopidogrel Bisulfate 75 Mg Tablet PO 10/31/24 08:59 75 mg DAILY FAISAL Administration Docusate Sodium 100 mg 10/31/23 14:57 11/01/23 06:29 Docusate 100 Mg Capsule PO 10/30/24 14:56 100 mg BID PRN Administration Constipation Docusate Sodium 283 mg 10/31/23 14:57 Docusate Enema 283 Mg/5 Ml Enema KS 10/30/24 14:56 DAILY PRN Constipation Docusate Sodium 100 mg 10/31/23 21:00 11/06/23 08:57 Docusate 100 Mg Capsule PO 10/30/24 20:59 100 mg BID FAISAL Administration Enoxaparin Sodium 40 mg 11/01/23 09:00 11/06/23 08:59 Enoxaparin 40 Mg/0.4 Ml Syringe SUBCUT 10/31/24 08:59 40 mg DAILY@1000 FAISAL Administration Gabapentin 100 mg 11/04/23 14:00 11/06/23 08:57 Gabapentin 100 Mg Capsule PO 11/03/24 13:59 100 mg TID FAISAL Administration Ibuprofen 200 mg 10/31/23 15:13 Ibuprofen 200 Mg Tablet PO 10/30/24 15:12 Q6HR PRN pain Lactulose 30 gm 10/31/23 14:57 11/01/23 20:15 Lactulose 20 Gm/30 Ml Udc PO 10/30/24 14:56 30 gm DAILY PRN Administration Constipation Levothyroxine Sodium 112 mcg 11/01/23 06:30 11/06/23 05:32 Levothyroxine 112 Mcg Tablet PO 10/31/24 06:29 112 mcg DAILY@0630 FAISAL Administration Nicotine 1 each 11/01/23 21:00 11/05/23 20:25 Nicotine Patch 21 Mg/24hr 1 Each Patch.Td24 TRANSDERML 12/11/23 21:01 1 each DAILY@2100 FAISAL Administration Ondansetron HCl 4 mg 11/04/23 12:03 Ondansetron Odt 4 Mg Tab.Rapdis PO 11/03/24 12:02 Q8HR PRN Nausea And Vomiting Oxycodone HCl 10 mg 10/31/23 15:13 11/06/23 11:41 Oxycodone Ir 5 Mg Tablet PO 10 mg Q4HR PRN Administration Pain Scale 6 - 10 Sennosides 2 tab 11/01/23 10:00 11/06/23 08:57 Sennosides 8.6 Mg Tablet PO 10/31/24 09:59 2 tab DAILY FAISAL Administration Sodium Chloride 0 ml 10/31/23 14:57 Sodium Chloride 0.9 % 10 Ml Syringe IV-PUSH 10/30/24 14:56 PRN PRN Flush Assessment/Plan Assessment/Plan (1) Critical limb ischemia of left lower extremity with rest pain: (2) PAD (peripheral artery disease): (3) Above knee amputation of left lower extremity: (4) Postoperative pain: (5) Leukocytosis: (6) CLL (chronic lymphocytic leukemia): (7) Impaired mobility and activities of daily living: (8) Smoker: (9) Hypothyroid: Plan This is a 48-year-old female who presents to [facility] IR[facility] due to multifactorial functional decline in the setting of left above knee amputation due to peripheral artery disease. She has continued impaired mobility and impaired independence with ADLs and IADLs requiring PT/OT 5-7 days/week 3 hours/day to maximize safety and independence with functional ability and self-care. #. Left AKA 2/2 severe PVD -PT to improve patient's strength, endurance, bed mobility, transfers (sit- stand), standing balance, gait quality on level surfaces and stairs, coordination and functional ADL skills. We will also work to improve patient's safety awareness during transfers and ambulation. -OT for basic ADL retraining (bathing, dressing, toileting, continence, grooming, feeding, transferring), to increase activity tolerance and functional mobility to evaluate for adaptive assistive device. We will work to improve patient's endurance and educate patient on fall prevention and energy conservation techniques-pacing strategies and proper breathing techniques duringfunctional tasks. -Patient education -Pressure ulcer prophylaxis; encourage mobilization, frequent postural changes, pressure-relief techniques -DVT prophylaxis -Encourage deep breathing exercise incentive spirometry. -Monitor bladder. Toileting schedule. Continue current bladder management, with scans as needed and CIC if needed. Start bowel care program every day to obtain continence, prevent ileus. -Maintain fall precautions -Gait and balance retraining -Provision of the necessary gait aids and functional adaptive equipment to enhance the patient's a functional spiritism -Encourage deep breathing exercises and incentive spirometry -RD evaluation -Ensure adequate nutrition and hydration -Discharge planning. -Pain management as below -Daily stump dressing changes. Wound vac #. Acute urinary retention -S/p calloway catheter placed on 10/29 -Would try void trial early next week #. CLL -WBC 42.4 on admission to rehab -Follows with oncology at [facility] UPDATES: -Increase Gabapentin to 300 TID for phantom pain. Add Robaxin for spasms -No other major concerns today -Zofran 4 mg every 8 hours as needed for nausea. -Discussed during team meeting. Will reevaluate progress next week. Hospitalist to assist with management of comorbid medical conditions #. Pain control: Tylenol PRN, Ibuprofen 200 mg q6hr PRN, Oxy 10 q4hr PRN #. Bowel and bladder: Continent of Bowel/bladder #. Skin: (pressure ulcer/surgical site) Left residual limb incision. Monitor. Wound care #. Sleep: Optimize sleep/wake cycle #. Education: any eduction including CVA risk factor prevention, weight loss, smoking sessation, nutrition, etc DVT prophylaxis: Lovenox 40 mg daily Functional status: Impaired. Limited by pain, weakness Discharge planning: ELOS 1-2 weeks Patient was personally seen by me, Dr. Orozco, on the day of encounter, reviewed the history and the relevant portions of the chart, including current orders, allied health and call center support consultant notes, labs/imaging and performed veloz elements of exam and I formulated the plan of care and facilitated the medical decision making. I completed a substantive portion of this encounter, the medical decision makingportion of this note in its entirety, including Allied health note review, nursing note review, call center support consultant note review, discussion with nursing and case management, and more than 50% of my time was spent on counseling and coordination of care, time spent 30 minutes Documented By: Davis Orozco MD [id number] Signed By: <Electronically signed by Davis Orozco MD> 11/06/23 1354 [facility] Work Phone: 1(467) 337-791207-30-2024 Progress note Author Davis Orozco [facility] November 05, 2023 2:19pm Note Date/Time November 05, 2023 2:18 pm [facility] [address] [place] [address] Physiatry(Rehab) Progress Note Signed Patient: Juany Laws MR# : [id number] : 1975 Acct:[id number] Age/Sex: 48 / F Adm Date: 4 Loc: Room: [address] [place] [address] Type: ADM IN Attending Dr: Davis Orozco MD Copies to: ~ Date of Service: 11/05/2023 Subjective Subjective Narrative: Ms. Laws is a 48 year old female with a past medical history of left foot wound, hypothyroidism, current smoker, recently diagnosed with CLL in July 2023who underwent left above the knee amputation with application of wound VAC secondary to irreversible left lower extremity vascular gangrene by Dr. Mcqueen on 10/28/2023. Post op course was complicated by some urinary retention requiring a calloway catheter. Regarding the patients CLL, she follows with Dr. Chyna Whitten at [facility]. Her white count is being monitored and she may start chemotherapy if leukocytosis worsens. The patient lives in an apartment alone. No KESHIA. Uses a walker. IND. Interval history: Patient was seen today at bedside. Sitting up in wheelchair. In no distress currently. States that pain is well controlled. In good spirits. Patient is progressing with therapy. Discussed during team meeting. Will reevaluate in 1 week. Review of Systems Review of Systems All other systems reviewed & are negative unless noted below or in HPI Exam Physical Exam Vital Signs: Temp Pulse Resp BP Pulse Ox O2 Del Method 98.0 F 78 18 115/81 96 Room Air 11/05/23 06:51 11/05/23 06:51 11/05/23 06:51 11/05/23 06:51 11/05/23 06:51 11/05/23 06:51 Narrative: Pleasant NAD AO x 3 RRR S1 S2 Non-labored breathing Abd soft Left residual limb wrapped, wound vac in place. Right lower extremity intact. Objective Labs 11/05/23 06:33 11/05/23 06:33 Labs: Laboratory Results - last 24 hr 11/05/23 06:33 Corrected WBC 49.1 H Uncorrected WBC Count 49.1 H RBC 3.80 Hgb 10.9 L Hct 34.9 MCV 91.6 MCH 28.6 MCHC 31.2 L RDW 13.8 Plt Count 440 MPV 7.8 Neut % (Auto) 13.7 Lymph % (Auto) 81.2 Taney % (Auto) 3.0 Eos % (Auto) 1.9 Baso % (Auto) 0.2 Nucleat RBC Rel Count 0.5 Neut # (Auto) 6.7 Lymph # (Auto) 39.9 H Taney # (Auto) 1.5 H Eos # (Auto) 1.0 H Baso # (Auto) 0.1 Platelet Estimate Normal Plt Morphology Comment Normal RBC Morphology N/A Polychromasia Slight PHA Creatinine Clear 109.51 Sodium 138 Potassium 4.2 Chloride 102 Carbon Dioxide 28.1 Anion Gap 12.1 BUN 14 Creatinine 0.70 Est GFR (CKD-EPI) > 60.0 Glucose 82 Calcium 8.7 Medications and Allergies Allergies and Active Meds: Allergies aspirin Allergy (Severe, Verified 10/24/23 10:23) Swelling of Lip/Tongue/Throat atorvastatin [From Lipitor] Allergy (Severe, Verified 10/24/23 10:23) Anaphylaxis celecoxib [From Celebrex] Allergy (Verified 10/24/23 10:23) Rash codeine Allergy (Verified 10/24/23 10:23) Rash erythromycin base Allergy (Verified 10/24/23 10:23) Rash Penicillins Allergy (Verified 10/24/23 10:23) Rash doxycycline Adverse Reaction (Verified 10/24/23 10:23) Nausea Active Medications Generic Name Dose Route Start Last Admin Trade Name Freq PRN Reason Stop Dose Admin Acetaminophen 500 mg 10/31/23 14:57 Acetaminophen 500 Mg Tablet PO 10/30/24 14:56 Q4H PRN Pain Al Hydrox/Mg Hydrox/Simethicone 30 ml 10/31/23 14:57 Mag Hydrox/Al Hydrox/Simeth 30 Ml Udc PO 10/30/24 14:56 Q4H PRN Indigestion Bisacodyl 10 mg 10/31/23 14:57 Bisacodyl 10 Mg Supp.Rect KS 10/30/24 14:56 DAILY PRN Constipation Clopidogrel Bisulfate 75 mg 11/01/23 09:00 11/05/23 09:08 Clopidogrel Bisulfate 75 Mg Tablet PO 10/31/24 08:59 75 mg DAILY FAISAL Administration Docusate Sodium 100 mg 10/31/23 14:57 11/01/23 06:29 Docusate 100 Mg Capsule PO 10/30/24 14:56 100 mg BID PRN Administration Constipation Docusate Sodium 283 mg 10/31/23 14:57 Docusate Enema 283 Mg/5 Ml Enema KS 10/30/24 14:56 DAILY PRN Constipation Docusate Sodium 100 mg 10/31/23 21:00 11/05/23 09:08 Docusate 100 Mg Capsule PO 10/30/24 20:59 100 mg BID FAISAL Administration Enoxaparin Sodium 40 mg 11/01/23 09:00 11/05/23 09:08 Enoxaparin 40 Mg/0.4 Ml Syringe SUBCUT 10/31/24 08:59 40 mg DAILY@1000 FAISAL Administration Gabapentin 100 mg 11/04/23 14:00 11/05/23 09:08 Gabapentin 100 Mg Capsule PO 11/03/24 13:59 100 mg TID FAISAL Administration Ibuprofen 200 mg 10/31/23 15:13 Ibuprofen 200 Mg Tablet PO 10/30/24 15:12 Q6HR PRN pain Lactulose 30 gm 10/31/23 14:57 11/01/23 20:15 Lactulose 20 Gm/30 Ml Udc PO 10/30/24 14:56 30 gm DAILY PRN Administration Constipation Levothyroxine Sodium 112 mcg 11/01/23 06:30 11/05/23 06:49 Levothyroxine 112 Mcg Tablet PO 10/31/24 06:29 112 mcg DAILY@0630 FAISAL Administration Nicotine 1 each 11/01/23 21:00 11/04/23 20:51 Nicotine Patch 21 Mg/24hr 1 Each Patch.Td24 TRANSDERML 12/11/23 21:01 1 each DAILY@2100 FAISAL Administration Ondansetron HCl 4 mg 11/04/23 12:03 Ondansetron Odt 4 Mg Tab.Rapdis PO 11/03/24 12:02 Q8HR PRN Nausea And Vomiting Oxycodone HCl 10 mg 10/31/23 15:13 11/05/23 11:04 Oxycodone Ir 5 Mg Tablet PO 10 mg Q4HR PRN Administration Pain Scale 6 - 10 Sennosides 2 tab 11/01/23 10:00 11/05/23 09:08 Sennosides 8.6 Mg Tablet PO 10/31/24 09:59 2 tab DAILY FAISAL Administration Sodium Chloride 0 ml 10/31/23 14:57 Sodium Chloride 0.9 % 10 Ml Syringe IV-PUSH 10/30/24 14:56 PRN PRN Flush Assessment/Plan Assessment/Plan (1) Critical limb ischemia of left lower extremity with rest pain: (2) PAD (peripheral artery disease): (3) Above knee amputation of left lower extremity: (4) Postoperative pain: (5) Leukocytosis: (6) CLL (chronic lymphocytic leukemia): (7) Impaired mobility and activities of daily living: (8) Smoker: (9) Hypothyroid: Plan This is a 48-year-old female who presents to [facility] IRF due to multifactorial functional decline in the setting of left above knee amputation due to peripheral artery disease. She has continued impaired mobility and impaired independence with ADLs and IADLs requiring PT/OT 5-7 days/week 3 hours/day to maximize safety and independence with functional ability and self-care. #. Left AKA 2/2 severe PVD -PT to improve patient's strength, endurance, bed mobility, transfers (sit- stand), standing balance, gait quality on level surfaces and stairs, coordination and functional ADL skills. We will also work to improve patient's safety awareness during transfers and ambulation. -OT for basic ADL retraining (bathing, dressing, toileting, continence, grooming, feeding, transferring), to increase activity tolerance and functional mobility to evaluate for adaptive assistive device. We will work to improve patient's endurance and educate patient on fall prevention and energy conservation techniques-pacing strategies and proper breathing techniques duringfunctional tasks. -Patient education -Pressure ulcer prophylaxis; encourage mobilization, frequent postural changes, pressure-relief techniques -DVT prophylaxis -Encourage deep breathing exercise incentive spirometry. -Monitor bladder. Toileting schedule. Continue current bladder management, with scans as needed and CIC if needed. Start bowel care program every day to obtain continence, prevent ileus. -Maintain fall precautions -Gait and balance retraining -Provision of the necessary gait aids and functional adaptive equipment to enhance the patient's a functional spiritism -Encourage deep breathing exercises and incentive spirometry -RD evaluation -Ensure adequate nutrition and hydration -Discharge planning. -Pain management as below -Daily stump dressing changes. Wound vac #. Acute urinary retention -S/p calloway catheter placed on 10/29 -Would try void trial early next week #. CLL -WBC 42.4 on admission to rehab. Downtrending -Follows with oncology at [facility] UPDATES: -No major concerns today -Void trial today -Gabapentin 100 mg 3 times daily for phantom leg pain. -Zofran 4 mg every 8 hours as needed for nausea. -Discussed during team meeting. Will reevaluate progress next week. Hospitalist to assist with management of comorbid medical conditions #. Pain control: Tylenol PRN, Ibuprofen 200 mg q6hr PRN, Oxy 10 q4hr PRN #. Bowel and bladder: Continent of Bowel/bladder #. Skin: (pressure ulcer/surgical site) Left residual limb incision. Monitor. Wound care #. Sleep: Optimize sleep/wake cycle #. Education: any eduction including CVA risk factor prevention, weight loss, smoking sessation, nutrition, etc DVT prophylaxis: Lovenox 40 mg daily Functional status: Impaired. Limited by pain, weakness Discharge planning: ELOS 1-2 weeks Patient was personally seen by me, Dr. Orozco, on the day of encounter, reviewed the history and the relevant portions of the chart, including current orders, allied health and call center support consultant notes, labs/imaging and performed veloz elements of exam and I formulated the plan of care and facilitated the medical decision making. I completed a substantive portion of this encounter, the medical decision makingportion of this note in its entirety, including Allied health note review, nursing note review, call center support consultant note review, discussion with nursing and case management, and more than 50% of my time was spent on counseling and coordination of care, time spent 30 minutes Case reviewed at weekly team conference, discussed progress and goals of care, barriers/problems to date and discharge planning. Documented By: Davis Orozco MD [id number] Signed By: <Electronically signed by Davis Orozco MD> 11/05/23 1419 [facility] Work Phone: [phone] 139-672807-30-2024 Progress note Author Davis Orozco [facility] November 05, 2023 1:22pm Note Date/Time November 04, 2023 12:0 2pm [facility] [address] [place] [address] Physiatry(Rehab) Progress Note Signed Patient: Juany Laws MR# : [id number] : 1975 Acct:[id number] Age/Sex: 48 / F Adm Date: 4 Loc: Room: 8T4993-5 Type: ADM IN Attending Dr: Davis Orozco MD Copies to: ~ <Freya Figueroa APRN - Last Filed: 11/04/23 12:21> Date of Service: 11/04/2023 Subjective <Freya Figueroa APRN - Last Filed: 11/04/23 12:21> Subjective Narrative: Ms. Laws is a 48 year old female with a past medical history of left foot wound, hypothyroidism, current smoker, recently diagnosed with CLL in July 2023who underwent left above the knee amputation with application of wound VAC secondary to irreversible left lower extremity vascular gangrene by Dr. Mcqueen on 10/28/2023. Post op course was complicated by some urinary retention requiring a calloway catheter. Regarding the patients CLL, she follows with Dr. Chyna Whitten at [facility]. Her white count is being monitored and she may start chemotherapy if leukocytosis worsens. The patient lives in an apartment alone. No KESHIA. Uses a walker. IND. Interval history: Patient was seen and evaluated in her room while sitting in the wheelchair. Sheis alert, oriented, cooperative. Rates left stump pain 3/10 at this time. She does have moderate amount of sanguinous drainage from the wound. Will add somegabapentin for complaints of phantom pains, especially at night. May also attempt voiding trial in the next day or two. Patient is working with therapy. She is able to walk a few steps with a walker. Propels self in a wheelchair for functional distances. Review of Systems <Freya Figueroa APRN - Last Filed: 11/04/23 12:21> Review of Systems All other systems reviewed & are negative unless noted below or in HPI Exam <Freya Figueroa APRN - Last Filed: 11/04/23 12:21> Physical Exam Vital Signs: Temp Pulse Resp BP Pulse Ox O2 Del Method 97.6 F 79 16 111/72 93 L Room Air 11/04/23 05:00 11/04/23 05:00 11/04/23 05:00 11/04/23 05:00 11/04/23 05:00 11/04/23 05:00 Narrative: General: Awake, alert, oriented x3 HENT: Normal to inspection, normocephalic, atraumatic Eyes: PERRL, normal conjunctiva and sclera Neck: Normal ROM, normal visual inspection. Trachea midline. Cardio: Regular heart rate and rhythm Respiratory: Clear to auscultation bilaterally. Normal respiratory effort. No respiratory distress. GI: Abdomen soft, nontender, nondistended, active bowel sounds x4 quadrants Neuro: CN II-XII intact. Strength 5/5, equal bilaterally Extremities: Trace edema in the right lower extremity. Left AKA. Psych: Affect is constricted. Normal speech. Objective <Freya Figueroa APRN - Last Filed: 11/04/23 12:21> Labs 11/05/23 06:33 11/05/23 06:33 Labs: I reviewed clinical lab tests, radiology reports and obtained and summated medical records and have ordered follow up lab tests and imaging studies as needed for rehabilitation care. Medications and Allergies Allergies and Active Meds: Allergies aspirin Allergy (Severe, Verified 10/24/23 10:23) Swelling of Lip/Tongue/Throat atorvastatin [From Lipitor] Allergy (Severe, Verified 10/24/23 10:23) Anaphylaxis celecoxib [From Celebrex] Allergy (Verified 10/24/23 10:23) Rash codeine Allergy (Verified 10/24/23 10:23) Rash erythromycin base Allergy (Verified 10/24/23 10:23) Rash Penicillins Allergy (Verified 10/24/23 10:23) Rash doxycycline Adverse Reaction (Verified 10/24/23 10:23) Nausea Active Medications Generic Name Dose Route Start Last Admin Trade Name Freq PRN Reason Stop Dose Admin Acetaminophen 500 mg 10/31/23 14:57 Acetaminophen 500 Mg Tablet PO 10/30/24 14:56 Q4H PRN Pain Al Hydrox/Mg Hydrox/Simethicone 30 ml 10/31/23 14:57 Mag Hydrox/Al Hydrox/Simeth 30 Ml Udc PO 10/30/24 14:56 Q4H PRN Indigestion Bisacodyl 10 mg 10/31/23 14:57 Bisacodyl 10 Mg Supp.Rect KS 10/30/24 14:56 DAILY PRN Constipation Clopidogrel Bisulfate 75 mg 11/01/23 09:00 11/04/23 07:59 Clopidogrel Bisulfate 75 Mg Tablet PO 10/31/24 08:59 75 mg DAILY FAISAL Administration Docusate Sodium 100 mg 10/31/23 14:57 11/01/23 06:29 Docusate 100 Mg Capsule PO 10/30/24 14:56 100 mg BID PRN Administration Constipation Docusate Sodium 283 mg 10/31/23 14:57 Docusate Enema 283 Mg/5 Ml Enema KS 10/30/24 14:56 DAILY PRN Constipation Docusate Sodium 100 mg 10/31/23 21:00 11/04/23 07:59 Docusate 100 Mg Capsule PO 10/30/24 20:59 100 mg BID FAISAL Administration Enoxaparin Sodium 40 mg 11/01/23 09:00 11/04/23 08:01 Enoxaparin 40 Mg/0.4 Ml Syringe SUBCUT 10/31/24 08:59 40 mg DAILY@1000 FAISAL Administration Ibuprofen 200 mg 10/31/23 15:13 Ibuprofen 200 Mg Tablet PO 10/30/24 15:12 Q6HR PRN pain Lactulose 30 gm 10/31/23 14:57 11/01/23 20:15 Lactulose 20 Gm/30 Ml Udc PO 10/30/24 14:56 30 gm DAILY PRN Administration Constipation Levothyroxine Sodium 112 mcg 11/01/23 06:30 11/04/23 05:17 Levothyroxine 112 Mcg Tablet PO 10/31/24 06:29 112 mcg DAILY@0630 FAISAL Administration Nicotine 1 each 11/01/23 21:00 11/03/23 20:16 Nicotine Patch 21 Mg/24hr 1 Each Patch.Td24 TRANSDERML 12/11/23 21:01 1 each DAILY@2100 FAISAL Administration Oxycodone HCl 10 mg 10/31/23 15:13 11/04/23 07:59 Oxycodone Ir 5 Mg Tablet PO 10 mg Q4HR PRN Administration Pain Scale 6 - 10 Sennosides 2 tab 11/01/23 10:00 11/04/23 07:59 Sennosides 8.6 Mg Tablet PO 10/31/24 09:59 2 tab DAILY FAISAL Administration Sodium Chloride 0 ml 10/31/23 14:57 Sodium Chloride 0.9 % 10 Ml Syringe IV-PUSH 10/30/24 14:56 PRN PRN Flush Assessment/Plan <Freya Figueroa, RN EMBEDDED - Last Filed: 11/04/23 12:21> Assessment/Plan (1) Critical limb ischemia of left lower extremity with rest pain: (2) PAD (peripheral artery disease): (3) Above knee amputation of left lower extremity: (4) Postoperative pain: (5) Leukocytosis: (6) CLL (chronic lymphocytic leukemia): (7) Impaired mobility and activities of daily living: (8) Smoker: (9) Hypothyroid: Plan This is a 48-year-old female who presents to [facility] IRF due to multifactorial functional decline in the setting of left above knee amputation due to peripheral artery disease. She has continued impaired mobility and impaired independence with ADLs and IADLs requiring PT/OT 5-7 days/week 3 hours/day to maximize safety and independence with functional ability and self-care. #. Left AKA 2/2 severe PVD -PT to improve patient's strength, endurance, bed mobility, transfers (sit- stand), standing balance, gait quality on level surfaces and stairs, coordination and functional ADL skills. We will also work to improve patient's safety awareness during transfers and ambulation. -OT for basic ADL retraining (bathing, dressing, toileting, continence, grooming, feeding, transferring), to increase activity tolerance and functional mobility to evaluate for adaptive assistive device. We will work to improve patient's endurance and educate patient on fall prevention and energy conservation techniques-pacing strategies and proper breathing techniques duringfunctional tasks. -Patient education -Pressure ulcer prophylaxis; encourage mobilization, frequent postural changes, pressure-relief techniques -DVT prophylaxis -Encourage deep breathing exercise incentive spirometry. -Monitor bladder. Toileting schedule. Continue current bladder management, with scans as needed and CIC if needed. Start bowel care program every day to obtain continence, prevent ileus. -Maintain fall precautions -Gait and balance retraining -Provision of the necessary gait aids and functional adaptive equipment to enhance the patient's a functional spiritism -Encourage deep breathing exercises and incentive spirometry -RD evaluation -Ensure adequate nutrition and hydration -Discharge planning. -Pain management as below -Daily stump dressing changes. Wound vac #. Acute urinary retention -S/p calloway catheter placed on 10/29 -Would try void trial early next week #. CLL -WBC 42.4 on admission to rehab. Downtrending -Follows with oncology at [facility] UPDATES: -Repeat CBC and BMP tomorrow morning. -Gabapentin 100 mg 3 times daily for phantom leg pain. -Zofran 4 mg every 8 hours as needed for nausea. -Calloway out for voiding trial tomorrow morning. Hospitalist to assist with management of comorbid medical conditions #. Pain control: Tylenol PRN, Ibuprofen 200 mg q6hr PRN, Oxy 10 q4hr PRN #. Bowel and bladder: Continent of Bowel/bladder #. Skin: (pressure ulcer/surgical site) Left residual limb incision. Monitor. Wound care #. Sleep: Optimize sleep/wake cycle #. Education: any eduction including CVA risk factor prevention, weight loss, smoking sessation, nutrition, etc DVT prophylaxis: Lovenox 40 mg daily Functional status: Impaired. Limited by pain, weakness Discharge planning: SCHUYLEROS 1-2 weeks I spent 26 minutes for services, including [id number] encounter with the patient, discussion of the case, plan of care, and exam; and [id number] activities, such as reviewing pertinent call center support consultant documentation, recent therapynotes, laboratory and radiology studies, and discussion of case with care team including physician, nursing, behavioral health case manager, and therapists. More than 50 % of time was spent on patient/family counseling or coordination ofcare. <Davis Orozco MD - Last Filed: 11/05/23 13:22> Assessment/Plan (1) Critical limb ischemia of left lower extremity with rest pain: (2) PAD (peripheral artery disease): (3) Above knee amputation of left lower extremity: (4) Postoperative pain: (5) Leukocytosis: (6) CLL (chronic lymphocytic leukemia): (7) Impaired mobility and activities of daily living: (8) Smoker: (9) Hypothyroid: Plan This is a 48-year-old female who presents to [facility] IR[facility] due to multifactorial functional decline in the setting of left above knee amputation due to peripheral artery disease. She has continued impaired mobility and impaired independence with ADLs and IADLs requiring PT/OT 5-7 days/week 3 hours/day to maximize safety and independence with functional ability and self-care. #. Left AKA 2/2 severe PVD -PT to improve patient's strength, endurance, bed mobility, transfers (sit- stand), standing balance, gait quality on level surfaces and stairs, coordination and functional ADL skills. We will also work to improve patient's safety awareness during transfers and ambulation. -OT for basic ADL retraining (bathing, dressing, toileting, continence, grooming, feeding, transferring), to increase activity tolerance and functional mobility to evaluate for adaptive assistive device. We will work to improve patient's endurance and educate patient on fall prevention and energy conservation techniques-pacing strategies and proper breathing techniques duringfunctional tasks. -Patient education -Pressure ulcer prophylaxis; encourage mobilization, frequent postural changes, pressure-relief techniques -DVT prophylaxis -Encourage deep breathing exercise incentive spirometry. -Monitor bladder. Toileting schedule. Continue current bladder management, with scans as needed and CIC if needed. Start bowel care program every day to obtain continence, prevent ileus. -Maintain fall precautions -Gait and balance retraining -Provision of the necessary gait aids and functional adaptive equipment to enhance the patient's a functional spiritism -Encourage deep breathing exercises and incentive spirometry -RD evaluation -Ensure adequate nutrition and hydration -Discharge planning. -Pain management as below -Daily stump dressing changes. Wound vac #. Acute urinary retention -S/p calloway catheter placed on 10/29 -Would try void trial early next week #. CLL -WBC 42.4 on admission to rehab. Downtrending -Follows with oncology at [facility] UPDATES: -Repeat CBC and BMP tomorrow morning. -Gabapentin 100 mg 3 times daily for phantom leg pain. -Zofran 4 mg every 8 hours as needed for nausea. -Calloway out for voiding trial tomorrow morning. Hospitalist to assist with management of comorbid medical conditions #. Pain control: Tylenol PRN, Ibuprofen 200 mg q6hr PRN, Oxy 10 q4hr PRN #. Bowel and bladder: Continent of Bowel/bladder #. Skin: (pressure ulcer/surgical site) Left residual limb incision. Monitor. Wound care #. Sleep: Optimize sleep/wake cycle #. Education: any eduction including CVA risk factor prevention, weight loss, smoking sessation, nutrition, etc DVT prophylaxis: Lovenox 40 mg daily Functional status: Impaired. Limited by pain, weakness Discharge planning: ELOS 1-2 weeks I spent 26 minutes for services, including [id number] encounter with the patient, discussion of the case, plan of care, and exam; and [id number] activities, such as reviewing pertinent call center support consultant documentation, recent therapynotes, laboratory and radiology studies, and discussion of case with care team including physician, nursing, behavioral health case manager, and therapists. More than 50 % of time was spent on patient/family counseling or coordination ofcare. Patient was personally seen by me, Dr. Orozco, on the day of encounter, reviewed the history and the relevant portions of the chart, including current orders, allied health and call center support consultant notes, labs/imaging and performed veloz elements of exam and I formulated the plan of care and facilitated the medical decision making. I completed a substantive portion of this encounter, the medical decision makingportion of this note in its entirety, including Allied health note review, nursing note review, call center support consultant note review, discussion with nursing and case management, and more than 50% of my time was spent on counseling and coordination of care, time spent 25 minutes Documented By: Freya Figueroa APRN 11/04/23 1 201 Signed By: <Electronically signed by TAL Figueroa> 11/04/23 1221 <Electronically signed by Davis Orozco MD> 11/05/[address] [facility] Work Phone: [phone] 763-852907-27-2024 Progress note Author Davis Orozco [facility] November 02, 2023 10:47am Note Date/Time November 02, 2023 10:4 7am [facility] [address] [place] [address] Physiatry(Rehab) Progress Note Signed Patient: Juany Laws MR# : [id number] : 1975 Acct:[id number] Age/Sex: 48 / F Adm Date: 4 Loc: Room: [address] [place] [address] Type: ADM IN Attending Dr: Davis Orozco MD Copies to: ~ Date of Service: 11/02/2023 Subjective Subjective Narrative: Ms. Laws is a 48 year old female with a past medical history of left foot wound, hypothyroidism, current smoker, recently diagnosed with CLL in July 2023who underwent left above the knee amputation with application of wound VAC secondary to irreversible left lower extremity vascular gangrene by Dr. Mcqueen on 10/28/2023. Post op course was complicated by some urinary retention requiring a calloway catheter. Regarding the patients CLL, she follows with Dr. Chyna Whitten at [facility]. Her white count is being monitored and she may start chemotherapy if leukocytosis worsens. The patient lives in an apartment alone. No KESHIA. Uses a walker. IND. Patient seen today. Working with PT. In no distress. Overall doing well. Had some nausea last night but states that she had a BM and feels better. Continues to endorse pain in the leg. Currently a 10/15. Review of Systems Review of Systems All other systems reviewed & are negative unless noted below or in HPI Exam Physical Exam Vital Signs: Temp Pulse Resp BP Pulse Ox O2 Del Method 97.8 F 86 18 126/84 93 L Room Air 11/02/23 05:00 11/02/23 05:00 11/02/23 05:00 11/02/23 05:00 11/02/23 05:00 11/02/23 05:00 Narrative: Pleasant NAD AO x 3 RRR S1 S2 Non-labored breathing Abd soft Left residual limb wrapped, wound vac in place. Right lower extremity intact. Objective Labs 11/01/23 05:31 11/01/23 05:31 Labs: Laboratory Results - last 24 hr 11/01/23 05:31 Prealbumin 15.7 L Medications and Allergies Allergies and Active Meds: Allergies aspirin Allergy (Severe, Verified 10/24/23 10:23) Swelling of Lip/Tongue/Throat atorvastatin [From Lipitor] Allergy (Severe, Verified 10/24/23 10:23) Anaphylaxis celecoxib [From Celebrex] Allergy (Verified 10/24/23 10:23) Rash codeine Allergy (Verified 10/24/23 10:23) Rash erythromycin base Allergy (Verified 10/24/23 10:23) Rash Penicillins Allergy (Verified 10/24/23 10:23) Rash doxycycline Adverse Reaction (Verified 10/24/23 10:23) Nausea Active Medications Generic Name Dose Route Start Last Admin Trade Name Freq PRN Reason Stop Dose Admin Acetaminophen 500 mg 10/31/23 14:57 Acetaminophen 500 Mg Tablet PO 10/30/24 14:56 Q4H PRN Pain Al Hydrox/Mg Hydrox/Simethicone 30 ml 10/31/23 14:57 Mag Hydrox/Al Hydrox/Simeth 30 Ml Udc PO 10/30/24 14:56 Q4H PRN Indigestion Bisacodyl 10 mg 10/31/23 14:57 Bisacodyl 10 Mg Supp.Rect KS 10/30/24 14:56 DAILY PRN Constipation Clopidogrel Bisulfate 75 mg 11/01/23 09:00 11/02/23 08:59 Clopidogrel Bisulfate 75 Mg Tablet PO 10/31/24 08:59 75 mg DAILY FAISAL Administration Docusate Sodium 100 mg 10/31/23 14:57 11/01/23 06:29 Docusate 100 Mg Capsule PO 10/30/24 14:56 100 mg BID PRN Administration Constipation Docusate Sodium 283 mg 10/31/23 14:57 Docusate Enema 283 Mg/5 Ml Enema KS 10/30/24 14:56 DAILY PRN Constipation Docusate Sodium 100 mg 10/31/23 21:00 11/02/23 09:00 Docusate 100 Mg Capsule PO 10/30/24 20:59 100 mg BID FAISAL Administration Enoxaparin Sodium 40 mg 11/01/23 09:00 11/02/23 09:00 Enoxaparin 40 Mg/0.4 Ml Syringe SUBCUT 10/31/24 08:59 40 mg DAILY@1000 FAISAL Administration Ibuprofen 200 mg 10/31/23 15:13 Ibuprofen 200 Mg Tablet PO 10/30/24 15:12 Q6HR PRN pain Lactulose 30 gm 10/31/23 14:57 11/01/23 20:15 Lactulose 20 Gm/30 Ml Udc PO 10/30/24 14:56 30 gm DAILY PRN Administration Constipation Levothyroxine Sodium 112 mcg 11/01/23 06:30 11/02/23 07:22 Levothyroxine 112 Mcg Tablet PO 10/31/24 06:29 Not Given DAILY@0630 FAISAL Nicotine 1 each 11/01/23 21:00 11/01/23 20:14 Nicotine Patch 21 Mg/24hr 1 Each Patch.Td24 TRANSDERML 12/11/23 21:01 1 each DAILY@2100 FAISAL Administration Oxycodone HCl 10 mg 10/31/23 15:13 11/01/23 20:14 Oxycodone Ir 5 Mg Tablet PO 10 mg Q4HR PRN Administration Pain Scale 6 - 10 Sennosides 2 tab 11/01/23 10:00 11/02/23 09:00 Sennosides 8.6 Mg Tablet PO 10/31/24 09:59 2 tab DAILY FAISAL Administration Sodium Chloride 0 ml 10/31/23 14:57 Sodium Chloride 0.9 % 10 Ml Syringe IV-PUSH 10/30/24 14:56 PRN PRN Flush Assessment/Plan Assessment/Plan (1) Critical limb ischemia of left lower extremity with rest pain: (2) PAD (peripheral artery disease): (3) Above knee amputation of left lower extremity: (4) Postoperative pain: (5) Leukocytosis: (6) CLL (chronic lymphocytic leukemia): (7) Impaired mobility and activities of daily living: (8) Smoker: (9) Hypothyroid: Plan This is a 48-year-old female who presents to [facility] IRF due to multifactorial functional decline in the setting of left above knee amputation due to peripheral artery disease. She has continued impaired mobility and impaired independence with ADLs and IADLs requiring PT/OT 5-7 days/week 3 hours/day to maximize safety and independence with functional ability and self-care. #. Left AKA 2/2 severe PVD -PT to improve patient's strength, endurance, bed mobility, transfers (sit- stand), standing balance, gait quality on level surfaces and stairs, coordination and functional ADL skills. We will also work to improve patient's safety awareness during transfers and ambulation. -OT for basic ADL retraining (bathing, dressing, toileting, continence, grooming, feeding, transferring), to increase activity tolerance and functional mobility to evaluate for adaptive assistive device. We will work to improve patient's endurance and educate patient on fall prevention and energy conservation techniques-pacing strategies and proper breathing techniques duringfunctional tasks. -Patient education -Pressure ulcer prophylaxis; encourage mobilization, frequent postural changes, pressure-relief techniques -DVT prophylaxis -Encourage deep breathing exercise incentive spirometry. -Monitor bladder. Toileting schedule. Continue current bladder management, with scans as needed and CIC if needed. Start bowel care program every day to obtain continence, prevent ileus. -Maintain fall precautions -Gait and balance retraining -Provision of the necessary gait aids and functional adaptive equipment to enhance the patient's a functional spiritism -Encourage deep breathing exercises and incentive spirometry -RD evaluation -Ensure adequate nutrition and hydration -Discharge planning. -Pain management as below -Daily stump dressing changes. Wound vac #. Acute urinary retention -S/p calloway catheter placed on 10/29 -Would try void trial early next week #. CLL -WBC 42.4 on admission to rehab. Downtrending -Follows with oncology at [facility] UPDATES: -Patient doing well today -Continue pain management as below -PT/OT as ordered Hospitalist to assist with management of comorbid medical conditions #. Pain control: Tylenol PRN, Ibuprofen 200 mg q6hr PRN, Oxy 10 q4hr PRN #. Bowel and bladder: Continent of Bowel/bladder #. Skin: (pressure ulcer/surgical site) Left residual limb incision. Monitor. Wound care #. Sleep: Optimize sleep/wake cycle #. Education: any eduction including CVA risk factor prevention, weight loss, smoking sessation, nutrition, etc DVT prophylaxis: Lovenox 40 mg daily Functional status: Impaired. Limited by pain, weakness Discharge planning: ELOS 1-2 weeks Patient was personally seen by me, Dr. Orozco, on the day of encounter, reviewed the history and the relevant portions of the chart, including current orders, allied health and call center support consultant notes, labs/imaging and performed veloz elements of exam and I formulated the plan of care and facilitated the medical decision making. I completed a substantive portion of this encounter, the medical decision makingportion of this note in its entirety, including Allied health note review, nursing note review, call center support consultant note review, discussion with nursing and case management, and more than 50% of my time was spent on counseling and coordination of care, time spent 25 minutes Documented By: Davis Orozco MD [id number] Signed By: <Electronically signed by Davis Orozco MD> 11/02/23 1047 [facility] Work Phone: 1(134) 984-470707-26-2024 History and physical note Author Davis Orozco [facility] November 01, 2023 1:41pm Note Date/Time November 01, 2023 11:3 5am [facility] [address] [place] [address] Physiatry (Rehab) H&P Signed Patient: Juany Laws MR# : [id number] : 1975 Acct:[id number] Age/Sex: 48 / F Adm Date: 4 Loc: Room: [address] [place] [address] Type: ADM IN Attending Dr: Davis Orozco MD Copies to: MD Sánchez Finn II, MD~ Date of Service: 11/01/2023 HPI The patient was seen and examined on: 11/01/23 Chief complaint: Leg pain History of Present Illness: Ms. Laws is a 48 year old female with a past medical history of left foot wound, hypothyroidism, current smoker, recently diagnosed with CLL in July 2023who underwent left above the knee amputation with application of wound VAC secondary to irreversible left lower extremity vascular gangrene by Dr. Mcqueen on 10/28/2023. Post op course was complicated by some urinary retention requiring a calloway catheter. Regarding the patients CLL, she follows with Dr. Chyna Whitten at [facility]. Her white count is being monitored and she may start chemotherapy if leukocytosis worsens. The patient lives in an apartment alone. No KESHIA. Uses a walker. IND. Patient seen upon admission to rehab. Lying in bed. No distress. Continues to endorse post operative pain as well as phantom sensations, not really phantom pain. States pain is 8-9/10. She denies chest pain, SOB, fever, chills. No BM recently. So far tolerating rehab. [facility] Medical History (Updated 11/01/23 @ 13:26 by Davis Orozco MD) Nonhealing ulcer of left lower extremity Pre-operative cardiovascular examination Graves disease Wound of left foot Smoker CLL (chronic lymphocytic leukemia) Hypothyroid Surgical History S/P peripheral artery bypass S/P right knee arthroscopy S/P cholecystectomy S/P appendectomy S/P thyroidectomy Family History Father Heart disease Myocardial infarction Mother Heart disease Myocardial infarction Diabetes Social History Smoking Status: Current every day smoker Tobacco Type: cigarettes Substance Use Type: None Meds Medications and Allergies Allergies aspirin Allergy (Severe, Verified 10/24/23 10:23) Swelling of Lip/Tongue/Throat atorvastatin [From Lipitor] Allergy (Severe, Verified 10/24/23 10:23) Anaphylaxis celecoxib [From Celebrex] Allergy (Verified 10/24/23 10:23) Rash codeine Allergy (Verified 10/24/23 10:23) Rash erythromycin base Allergy (Verified 10/24/23 10:23) Rash Penicillins Allergy (Verified 10/24/23 10:23) Rash doxycycline Adverse Reaction (Verified 10/24/23 10:23) Nausea Home and Active Meds: Home Medications ibuprofen 200 mg tablet (Advil) 200 mg PO Q6HR PRN pain 07/30/23 [History Confirmed 10/31/23] levothyroxine 112 mcg tablet 112 mcg PO QAM 07/30/23 [History Confirmed 10/31/23] clopidogrel 75 mg tablet 75 mg PO DAILY 90 days #90 tabs 09/23/23 [Rx Confirmed 10/31/23] docusate sodium 100 mg capsule 100 mg PO BID 10 days #20 caps 09/23/23 [Rx Confirmed 10/31/23] oxycodone 5 mg tablet 10 mg (2 x 5 mg) PO Q4HR PRN Pain Scale 6 - 10 #0 tabs 10/31/23 [Rx Confirmed 10/31/23] Active Medications Acetaminophen (Acetaminophen 500 Mg Tablet) 500 mg PO Q4H PRN PRN Reason: Pain Stop: 10/30/24 14:56 Al Hydrox/Mg Hydrox/Simethicone (Mag Hydrox/Al Hydrox/Simeth 30 Ml Udc) 30 ml PO Q4H PRN PRN Reason: Indigestion Stop: 10/30/24 14:56 Bisacodyl (Bisacodyl 10 Mg Supp.Rect) 10 mg KS DAILY PRN PRN Reason: Constipation Stop: 10/30/24 14:56 Clopidogrel Bisulfate (Clopidogrel Bisulfate 75 Mg Tablet) 75 mg PO DAILY [facility] Stop: 10/31/24 08:59 Last Admin: 11/01/23 08:05 Dose: 75 mg Docusate Sodium (Docusate 100 Mg Capsule) 100 mg PO BID PRN PRN Reason: Constipation Stop: 10/30/24 14:56 Last Admin: 11/01/23 06:29 Dose: 100 mg Docusate Sodium (Docusate Enema 283 Mg/5 Ml Enema) 283 mg KS DAILY PRN PRN Reason: Constipation Stop: 10/30/24 14:56 Docusate Sodium (Docusate 100 Mg Capsule) 100 mg PO BID [facility] Stop: 10/30/24 20:59 Last Admin: 11/01/23 08:05 Dose: 100 mg Enoxaparin Sodium (Enoxaparin 40 Mg/0.4 Ml Syringe) 40 mg SUBCUT DAILY@1000 [facility] Stop: 10/31/24 08:59 Last Admin: 11/01/23 09:05 Dose: Not Given Ibuprofen (Ibuprofen 200 Mg Tablet) 200 mg PO Q6HR PRN PRN Reason: pain Stop: 10/30/24 15:12 Lactulose (Lactulose 20 Gm/30 Ml Udc) 30 gm PO DAILY PRN PRN Reason: Constipation Stop: 10/30/24 14:56 Levothyroxine Sodium (Levothyroxine 112 Mcg Tablet) 112 mcg PO DAILY@0630 FAISAL Stop: 10/31/24 06:29 Last Admin: 11/01/23 06:29 Dose: 112 mcg Nicotine (Nicotine Patch 21 Mg/24hr 1 Each Patch.Td24) 1 each TRANSDERML DAILY@2100 [facility] Stop: 12/11/23 21:01 Oxycodone HCl (Oxycodone Ir 5 Mg Tablet) 10 mg PO Q4HR PRN PRN Reason: Pain Scale 6 - 10 Last Admin: 11/01/23 06:29 Dose: 10 mg Sennosides (Sennosides 8.6 Mg Tablet) 2 tab PO DAILY [facility] Stop: 10/31/24 09:59 Last Admin: 11/01/23 09:57 Dose: 2 tab Sodium Chloride (Sodium Chloride 0.9 % 10 Ml Syringe) 0 ml IV-PUSH PRN PRN PRN Reason: Flush Stop: 10/30/24 14:56 Exam Physical Exam Vital Signs: Temp Pulse Resp BP Pulse Ox O2 Del Method 98.3 F 88 16 103/68 94 L Room Air 11/01/23 06:22 11/01/23 08:08 11/01/23 06:22 11/01/23 08:08 11/01/23 08:08 11/01/23 07:30 Narrative: Pleasant NAD AO x 3 RRR S1 S2 Non-labored breathing Abd soft Left residual limb wrapped, wound vac in place. Right lower extremity intact. Results - Phys. Rehab Labs Labs: Laboratory Results - last 24 hr 11/01/23 05:31 Corrected WBC 42.4 H Uncorrected WBC Count 42.4 H RBC 3.44 L Hgb 10.2 L Hct 31.3 L MCV 90.9 MCH 29.5 MCHC 32.5 RDW 14.1 Plt Count 358 MPV 8.0 Neut % (Auto) N/A Lymph % (Auto) N/A Taney % (Auto) N/A Eos % (Auto) N/A Baso % (Auto) N/A Nucleat RBC Rel Count N/A Neut # (Auto) N/A Lymph # (Auto) N/A Taney # (Auto) N/A Eos # (Auto) N/A Baso # (Auto) N/A Lymphocytes % 39 Monocytes % 8 Eosinophils % 2 Metamyelocytes % 1 H Segmented Neutrophils 51 Platelet Estimate Normal Giant Platelets 1 Plt Morphology Comment Normal RBC Morphology Normal PHA Creatinine Clear 125.31 Sodium 138 Potassium 3.9 Chloride 102 Carbon Dioxide 28.5 Anion Gap 11.4 BUN 11 Creatinine 0.61 Est GFR (CKD-EPI) > 60.0 Glucose 82 Calcium 8.3 L Total Bilirubin 0.6 AST 20 ALT 14 Alkaline Phosphatase 71 Total Protein 5.1 L Albumin 3.1 L Globulin 2.0 Albumin/Globulin Ratio 1.6 Additional Results Results Comment: I reviewed clinical lab tests, radiology reports and obtained and summated medical records and have ordered follow up lab tests and imaging studies as needed for rehabilitation care. Individualized Plan of Care Individualized Plan of Care Plan of Care: Individualized Overall Plan of Care: Admit Date/Time: 10/31/23 Expected LOS: 14 Days Expected Discharge Destination: Home Rehabilitation IGC: 5.3 Primary Diagnosis: as above Patient?s/Family?s anticipated outcomes/personal goals: To have patient become more independent and to return home. Medical/ Functional Prognosis: Good Anticipated Functional Outcomes/Goals and Interventions: -Therapy Functional Outcome/Goal: Mobility/Locomotion: Patient likely to be independent with ambulation with assistive device. Anticipated interventions: Physician management, PT, OT, Dietitian, Rehab Nursing - Therapy Functional Outcome/Goal: Self Care: Patient likely to be functionally independent for activities of daily living using assistive / adaptive equipment as needed. Anticipated interventions: Physician management, PT, OT, Dietitian, Rehab Nursing - Therapy Functional Outcome/Goal: Bladder/Bowel Management: Patient likely to be independent with bladder care and independent with bowel care. Anticipated interventions: Physician management, PT, OT, Dietitian, Rehab Nursing -Therapy Functional Outcome/Goal: Communication/Cognition: Patient will be able to communicate fully and be safe cognitively. Anticipated interventions: Physician management, PT, OT, Dietitian, Rehab Nursing -Therapy Functional Outcome/Goal: Patient will be independent for bed mobility and transfers Anticipated interventions: Physician management, PT, OT, Dietitian, Rehab Nursing -Therapy Functional Outcome/Goal: Patient will improve endurance to be able to tolerate all daily self care activities and avocational activities. Anticipated interventions: Physician management, PT, OT, Nutrition, Rehab Nursing -Therapy Functional Outcome/Goal: Patient will understand and assimilate / integrate education regarding management of their medical conditions to maintainhealth and wellbeing. Anticipated interventions: Physician management, PT, OT, Dietitian, Rehab Nursing Required Therapy PT: 1.5 hour per day at least 5 days per week with additional therapy on as needed basis. Comments: PT to improve pt's strength, endurance, bed mobility, transfers (sit-stand), standing balance, gait quality on level surfaces and stairs, coordination and functional ADL skills. Will also work to improve pt's safety awareness during transfers and ambulation. OT: 1.5 hour per day at least 5 days per week with additional therapy on as needed basis. Comments: OT for basic ADL re-training (bathing, dressing, toileting, continence, grooming, feeding, transferring), to increase activity tolerance andfunctional mobility and to evaluate for adaptive and assistive devices. Will work to improve pt's endurance and educate pt on fall prevention and energy conservation techniques-pacing strategies and proper breathing techniques duringfunctional tasks. Other: Nutrition, Rehab nursing, Wound, P&O RATIONALE FOR IRF ADMISSION: Patient has both medical and functional complexities that require 24 hour daily monitoring and intervention from Melter Operator as well as other consulting physicians including internal medicine as well as 24 hour daily patient services rep nursing - for medical safe / optimal management. Patient requires interdisciplinary therapy team rehabilitation care including OT, PT, SW, Rehab Nursing, requires and can tolerate at least 3 hoursof daily OT and PT therapy at least 5 days weekly. The following medical conditions significantly impact the rehabilitation process and are being addressed daily and can not be managed at home or in a lesser intense medical setting: Refer to above problem oriented plan of care Assessment/Plan (1) Critical limb ischemia of left lower extremity with rest pain: (2) PAD (peripheral artery disease): (3) Above knee amputation of left lower extremity: (4) Postoperative pain: (5) Leukocytosis: (6) CLL (chronic lymphocytic leukemia): (7) Impaired mobility and activities of daily living: (8) Smoker: (9) Hypothyroid: Plan This is a 48-year-old female who presents to [facility] IRF due to multifactorial functional decline in the setting of left above knee amputation due to peripheral artery disease. She has continued impaired mobility and impaired independence with ADLs and IADLs requiring PT/OT 5-7 days/week 3 hours/day to maximize safety and independence with functional ability and self-care. #. Left AKA 2/2 severe PVD -PT to improve patient's strength, endurance, bed mobility, transfers (sit- stand), standing balance, gait quality on level surfaces and stairs, coordination and functional ADL skills. We will also work to improve patient's safety awareness during transfers and ambulation. -OT for basic ADL retraining (bathing, dressing, toileting, continence, grooming, feeding, transferring), to increase activity tolerance and functional mobility to evaluate for adaptive assistive device. We will work to improve patient's endurance and educate patient on fall prevention and energy conservation techniques-pacing strategies and proper breathing techniques duringfunctional tasks. -Patient education -Pressure ulcer prophylaxis; encourage mobilization, frequent postural changes, pressure-relief techniques -DVT prophylaxis -Encourage deep breathing exercise incentive spirometry. -Monitor bladder. Toileting schedule. Continue current bladder management, with scans as needed and CIC if needed. Start bowel care program every day to obtain continence, prevent ileus. -Maintain fall precautions -Gait and balance retraining -Provision of the necessary gait aids and functional adaptive equipment to enhance the patient's a functional spiritism -Encourage deep breathing exercises and incentive spirometry -RD evaluation -Ensure adequate nutrition and hydration -Discharge planning. -Pain management as below -Daily stump dressing changes. Wound vac #. Acute urinary retention -S/p calloway catheter placed on 10/29 -Would try void trial early next week #. CLL -WBC 42.4 on admission to rehab. Downtrending -Follows with oncology at [facility] Hospitalist to assist with management of comorbid medical conditions #. Pain control: Tylenol PRN, Ibuprofen 200 mg q6hr PRN, Oxy 10 q4hr PRN #. Bowel and bladder: Continent of Bowel/bladder #. Skin: (pressure ulcer/surgical site) Left residual limb incision. Monitor. Wound care #. Sleep: Optimize sleep/wake cycle #. Education: any eduction including CVA risk factor prevention, weight loss, smoking sessation, nutrition, etc DVT prophylaxis: Lovenox 40 mg daily Functional status: Impaired. Limited by pain, weakness Discharge planning: ELOS 1-2 weeks Patient was personally seen by me, Dr. Orozco, on the day of encounter, within 24 hours of rehab admission, reviewed the history and the relevant portions of the chart, including current orders, allied health and call center support consultant notes, labs/imaging and performed veloz elements of exam and I formulated the planof care and facilitated the medical decision making. I completed a substantive portion of this encounter, the medical decision makingportion of this note in its entirety, including Allied health note review, nursing note review, call center support consultant note review, discussion with nursing and case management, and more than 50% of my time was spent on counseling and coordination of care, time spent 75 minutes Documented By: Davis Orozco MD [id number] Signed By: <Electronically signed by Davis Orozco MD> 11/01/[address] [facility] Work Phone: 1(155) 850-520707-25-2024 Progress note Author David Boyd [facility] October 31, 2023 11:24am Note Date/Time October 30, 2023 8:37 am [facility] [address] [place] [address] Vascular Surgery Progress Note Signed Patient: Juany Laws MR# : [id number] : 1975 Acct:[id number] Age/Sex: 48 / F Adm Date: 4 Loc: Room: [address] [place] [address] Type: ADM IN Attending Dr: Benedicto Mcqueen MD Copies to: ~ Date of Service: 10/30/2023 Subjective Subjective Interval history: Post-op day #2 after left above-knee amputation and application of wound VAC . Pain is improved overall. Patient feeling better than yesterday. She was havingsome urine retention and calloway catheter was placed this morning. She did work with PT/OT yesterday and they have recommended inpatient rehab. Pre-cert processwas initiated. Subjective: no new complaints, feels better and pain is less Exam Physical Exam Vital Signs: Temp Pulse Resp BP Pulse Ox O2 Del Method O2 Flow Rate 98.5 F 88 12 127/81 93 L Room Air 2 10/30/23 03:50 10/30/23 03:50 10/30/23 03:50 10/30/23 03:50 10/30/23 03:50 10/30/23 03:50 10/29/23 08:00 Narrative: 48-year-old female, no acute distress. Her left stump dressing is clean, dry, and intact. Wound VAC with good seal with minimal drainage. Calloway catheter draining clear yellow urine. Const General: cooperative, comfortable and no acute distress Objective Labs 10/30/23 07:07 10/30/23 07:07 Other Labs: Laboratory Results - last 24 hr 10/30/23 07:07 Corrected WBC 47.6 H Uncorrected WBC Count 47.6 H RBC 3.28 L Hgb 9.7 L Hct 29.9 L MCV 91.1 MCH 29.4 MCHC 32.3 RDW 14.2 Plt Count 363 MPV 7.8 PHA Creatinine Clear 139.34 Sodium 137 Potassium 3.6 Chloride 105 Carbon Dioxide 27.6 Anion Gap 8.0 BUN 9 Creatinine 0.61 Est GFR (CKD-EPI) > 60.0 Glucose 80 Calcium 8.0 L Microbiology Microbiology: Microbiology - Results from entire visit 10/28/23 13:34 Leg,Left - Other Aerobic Culture - Preliminary Klebsiella pneumoniae 10/28/23 13:34 Leg,Left - Other Anaerobic Culture - Preliminary No Anaerobes Isolated 1 Day 10/28/23 13:34 Leg,Left - Other Gram Stain - Final 10/28/23 13:34 Leg,Left - Other Aerobic Culture - Preliminary Klebsiella pneumoniae 10/28/23 13:34 Leg,Left - Other Anaerobic Culture - Preliminary No Anaerobes Isolated 1 Day 10/28/23 13:34 Leg,Left - Other Gram Stain - Final A&P - Vascular Assessment/Plan (1) Postoperative pain: Encouraged use of available pain medications. Discussed alternate methods of pain control as well. (2) PAD (peripheral artery disease): . (3) Above knee amputation of left lower extremity: Overall doing well. Awaiting precert for inpatient rehab. Will consult [facility] to see patient during her stay to discuss future goals forambulation and activities. Documented By: Sharifa Mejia APRN 10/30/23 0 832 Signed By: <Electronically signed by TAL Mejia> 10/30/23 0844 <Electronically signed by MD David Boyd> 10/31/[address] [facility] Work Phone: 1(177) 597-422307-25-2024 [facility] Consult note Author Jian Mensah [facility] October 29, 2023 2:33pm Note Date/Time October 29, 2023 2:28 pm [facility] [address] [place] [address] Physiatry (Rehab) Consult Note Signed Patient: Juany Laws MR# : [id number] : 1975 Acct:[id number] Age/Sex: 48 / F Adm Date: 4 Loc: 4N Room: 5X7384-3 Type: ADM IN Attending Dr: Benedcito Mcqueen MD Copies to: MD Jian Mendoza II, MD Matthew T Langenberg, MD~ Etiologic Dx/Impairment Group Narrative Narrative: left AKA HPI Consult Date: 10/29/23 Requesting Physician: Benedicto Mcqueen MD Primary Care Provider: Sánchez Beatty II, MD Consult Narrative Reason for consult: s/p left AKA, rehab planning HPI: Ms. Laws is a 48 year old female past medical history as below presenting postop day #1 left AKA. Patient has multiple risk factors for peripheral artery disease, limb salvage procedures unsuccessful including attempted bypass. Today reports pain at operative site. She has phantom sensation but not much asfar as phantom limb pain. She is agreeable to rehabilitation stay, we discussed the nature of this today at length and we can open this with her insurance today, would anticipate approval given she is a new amputee. Of note, chronic leukocytosis today over 55. Review of Systems Review of Systems All other systems reviewed & are negative unless noted below or in HPI [facility]LY [facility] Medical History (Updated 10/29/23 @ 14:29 by Jian Mensah MD) Pre-operative cardiovascular examination Graves disease Wound of left foot Smoker CLL (chronic lymphocytic leukemia) Hypothyroid Surgical History S/P peripheral artery bypass S/P right knee arthroscopy S/P cholecystectomy S/P appendectomy S/P thyroidectomy Family History Father Heart disease Myocardial infarction Mother Heart disease Myocardial infarction Diabetes Social History Smoking Status: Current every day smoker (2 packs a day) Tobacco Type: cigarettes Substance Use Type: None Meds Medications and Allergies Allergies aspirin Allergy (Severe, Verified 10/24/23 10:23) Swelling of Lip/Tongue/Throat atorvastatin [From Lipitor] Allergy (Severe, Verified 10/24/23 10:23) Anaphylaxis celecoxib [From Celebrex] Allergy (Verified 10/24/23 10:23) Rash codeine Allergy (Verified 10/24/23 10:23) Rash erythromycin base Allergy (Verified 10/24/23 10:23) Rash Penicillins Allergy (Verified 10/24/23 10:23) Rash doxycycline Adverse Reaction (Verified 10/24/23 10:23) Nausea Home Medications ibuprofen 200 mg tablet (Advil) 200 mg PO Q6HR PRN pain 07/30/23 [History Confirmed 10/28/23] levothyroxine 112 mcg tablet 112 mcg PO QAM 07/30/23 [History Confirmed 10/28/23] clopidogrel 75 mg tablet 75 mg PO DAILY 90 days #90 tabs 09/23/23 [Rx Confirmed 10/28/23] docusate sodium 100 mg capsule 100 mg PO BID 10 days #20 caps 09/23/23 [Rx Confirmed 10/28/23] Exam Physical Exam Vital Signs: Temp Pulse Resp BP Pulse Ox O2 Del Method O2 Flow Rate 98.2 F 103 H 19 125/82 94 L Room Air 2 10/29/23 11:20 10/29/23 11:20 10/29/23 11:20 10/29/23 11:20 10/29/23 11:20 10/29/23 11:20 10/29/23 08:00 Narrative: Pleasant NAD AO x 3 Non-labored breathing Abd soft Left residual limb wrapped, wound vac in place. Right lower extremity intact. Results - Phys. Rehab Labs Labs: Laboratory Results - last 24 hr 10/29/23 06:01 Corrected WBC 59.5 H Uncorrected WBC Count 59.5 H RBC 3.55 L Hgb 10.5 L Hct 32.5 L MCV 91.5 MCH 29.4 MCHC 32.2 RDW 14.3 Plt Count 424 MPV 7.9 Neut % (Auto) 19.7 Lymph % (Auto) 77.9 Taney % (Auto) 2.1 Eos % (Auto) 0.0 Baso % (Auto) 0.3 Nucleat RBC Rel Count 0.5 Neut # (Auto) 11.7 H Lymph # (Auto) 46.4 H Taney # (Auto) 1.2 H Eos # (Auto) 0.0 Baso # (Auto) 0.2 Smudge Cells Marked Platelet Estimate Normal Plt Morphology Comment Normal RBC Morphology Normal PHA Creatinine Clear 149.58 Sodium 135 L Potassium 4.6 Chloride 104 Carbon Dioxide 24.2 Anion Gap 11.4 BUN 11 Creatinine 0.57 L Est GFR (CKD-EPI) > 60.0 Glucose 103 H Calcium 8.3 L Additional Results Results Comment: I reviewed clinical lab tests, radiology reports and obtained and summated medical records and have ordered follow up lab tests and imaging studies as needed for rehabilitation care. Assessment/Plan (1) Above knee amputation of left lower extremity: (2) S/P peripheral artery bypass: (3) Postoperative pain: (4) Nonhealing ulcer of left lower extremity: Qualifiers: Non-pressure ulcer stage: limited to breakdown of skin Qualified Code(s): L97.921 - Non-pressure chronic ulcer of unspecified part of left lower leg limited to breakdown of skin (5) PAD (peripheral artery disease): (6) Smoker: (7) Hypothyroid: (8) Impaired mobility and activities of daily living: Plan Ms. Laws is a 48 year old female past medical history as below presenting postop day #1 left AKA. -Continue residual limb care as ordered -Trend WBC -Anticipate admit to rehab pending insurance approval. Primary Rehabilitation Diagnosis: left AKA Patient is appropriate for acute inpatient rehab facility once medically stable per primary service and consultants. The patient has functional deficits requiring both active and ongoing therapeutic intervention of at least 2 disciplines of therapy, physical therapy/Occupational Therapy +/- speech therapy. Patient has worked appropriately with multiple disciplines of therapy on acute care, and demonstrates ability to tolerate and participate and make reasonable gains with at least a 15 hour/week inpatient rehabilitation program. Due to medical complexity as noted above, rehabilitation physician supervision is both reasonable and necessary, including [id number] visits at least 3 days/week with the need to treat, manage and modify course of treatment, including participating in at least once weekly interdisciplinary team conferences. The patient requires multidisciplinary rehabilitation treatment including rehabilitation physician at least 3 times per week, 24-hour rehabilitation nursing,physical occupational therapy, plus/minus speech-language pathology, rehabilitation case management, Dietitian services. This case cannot be best/most appropriately managed at a lower level of care. Estimated length of rehabilitation stay: 14 days Prior Level of Function: Independent Expected functional status at discharge from rehab: Independent Self-care (ADLs) : Independent Bed Mobility/Transfers: Independent Ambulation: Independent There is a reasonable plan in place for discharge to the community. Overall prognosis is fair to good to make functional gains that would make substantial difference in the eventual discharge setting. Documented By: Jian Mensah MD 10/29/23 1428 Signed By: <Electronically signed by Jian Mensah MD> 10/29/[address] [facility] Work Phone: 1(925) 408-117607-23-2024 Progress note Author Benedicto Mcqueen [facility] October 31, 2023 1:19pm Note Date/Time October 29, 2023 8:44 am [facility] [address] [place] [address] Vascular Surgery Progress Note Signed Patient: Juany Laws MR# : [id number] : 1975 Acct:[id number] Age/Sex: 48 / F Adm Date: 4 Loc: 4N Room: 0Z6648-1 Type: ADM IN Attending Dr: Benedicto Mcqueen MD Copies to: ~ Date of Service: 10/29/2023 Subjective Subjective Interval history: Patient underwent left above-knee amputation and application of wound VAC yesterday for irreversible gangrene of the left lower extremity. She has had noovernight complications. This morning she reports quite a bit of pain with any attempted movement of the stump and has some pain associated with the sucking of the wound VAC. She also reports feelings of a full bladder this morning. She does have a purewick in place but she tells me she feels as though she is having some urine retention. She does have an overhead trapeze in place on her bed but does not feel as though she can use it yet. She denies any nausea/vomiting, denies any chest pain or shortness of breath. Subjective: still having pain, tolerating liquids well and tolerating a regular diet Exam Physical Exam Vital Signs: Temp Pulse Resp BP Pulse Ox O2 Del Method O2 Flow Rate 98.2 F 81 19 125/73 95 Nasal Cannula 2 10/29/23 07:35 10/29/23 07:35 10/29/23 07:35 10/29/23 07:35 10/29/23 07:35 10/29/23 07:35 10/29/23 07:35 Narrative: 48-year-old female, reporting pain to the left amputation site. Her left stump dressing is clean, dry, and intact. Dressing will remain in place for another day or 2. Wound VAC with good seal with minimal drainage. She willnot even attempt to lifting the stump off the bed when asked due to reported pain and discomfort. She has no shortness of breath with our conversation. Purewick in place. Objective Labs 10/29/23 06:01 10/29/23 06:01 Other Labs: Laboratory Results - last 24 hr 10/28/23 10/29/23 11:56 06:01 Corrected WBC 55.3 H 59.5 H Uncorrected WBC Count 55.3 H 59.5 H RBC 4.23 3.55 L Hgb 12.4 10.5 L Hct 38.9 32.5 L MCV 91.8 91.5 MCH 29.3 29.4 MCHC 31.9 L 32.2 RDW 14.2 14.3 Plt Count 469 H 424 MPV 7.9 7.9 Neut % (Auto) 11.9 19.7 Lymph % (Auto) 86.1 77.9 Taney % (Auto) 1.2 2.1 Eos % (Auto) 0.5 0.0 Baso % (Auto) 0.3 0.3 Nucleat RBC Rel Count 0.2 0.5 Neut # (Auto) 6.6 11.7 H Lymph # (Auto) 47.7 H 46.4 H Taney # (Auto) 0.6 1.2 H Eos # (Auto) 0.3 0.0 Baso # (Auto) 0.2 0.2 Smudge Cells Marked Marked Platelet Estimate Increased Normal Plt Morphology Comment Normal Normal RBC Morphology Normal Normal PHA Creatinine Clear 98.79 149.58 Sodium 137 135 L Potassium 4.4 4.6 Chloride 104 104 Carbon Dioxide 25.4 24.2 Anion Gap 12.0 11.4 BUN 16 11 Creatinine 0.83 0.57 L Est GFR (CKD-EPI) > 60.0 > 60.0 Glucose 85 103 H Calcium 9.2 8.3 L HCG, Qual Negative A&P - Vascular Assessment/Plan (1) Postoperative pain: Encouraged use of available pain medications. Discussed alternate methods of pain control as well. (2) PAD (peripheral artery disease): . (3) Above knee amputation of left lower extremity: Long discussion with this patient this morning over the recovery process after above-knee amputation. Plans are for inpatient rehab on hospital discharge. Discussed with patient we will have PT/OT come work with her today. Encouraged participation. Encouraged use of overhead trapeze for adjusting self in bed. Encouraged use of available pain medication. Patient complains of some urinary retention, spoke with charge nurse who will do bladder scan and straight cath ifnecessary. I would expect she be here another day or 2 prior to being ready forinpatient rehab on discharge. Current dressing to remain in place for another day or 2 unless any issues are suspected. Time Spent with Patient Time Spent With Patient (min): 25 Documented By: Sharifa Mejia APRN 10/29/23 0 837 Signed By: <Electronically signed by TAL Mejia> 10/29/23 0850 <Electronically signed by Benedicto Mcqueen MD> 10/31/23 1313 [facility] Work Phone: 1(889) 476-557306-15-2024 Progress note Author Benedicto Mcqueen [facility] September 21, 2023 11:47am Note Date/Time September 21, 2023 11:4 7am [facility] [address] [place] [address] Vascular Surgery Progress Note Signed Patient: Juany Laws MR# : [id number] : 1975 Acct:[id number] Age/Sex: 48 / F Adm Date: 4 Loc: 4N Room: [address] [place] [address] Type: ADM IN Attending Dr: Benedicto Mcqueen MD Copies to: ~ Date of Service: 09/21/2023 Subjective Subjective Interval history: Patient was awake alert and oriented no distress she was alone in the room. Shestates she had some mild pain in left leg where the incisions were but she had no pain in the left foot. She can move her left foot. Exam Physical Exam Vital Signs: Temp Pulse Resp BP Pulse Ox O2 Del Method O2 Flow Rate 97.9 F 60 16 142/79 H 99 Nasal Cannula 2 09/21/23 08:00 09/21/23 08:00 09/21/23 08:00 09/21/23 08:00 09/21/23 08:00 09/21/23 08:00 09/21/23 08:00 Const Other: Patient was awake alert and oriented no distress resting comfortably. Left leg dressings were intact. These were not taken down today on purpose. Calloway catheter was draining clear urine. Chest was symmetric lungs were clear heart was regular rate and rhythm. Objective Labs 09/21/23 05:14 09/21/23 05:14 Other Labs: Laboratory Results - last 24 hr 09/21/23 05:14 Corrected WBC 39.2 H Uncorrected WBC Count 39.2 H RBC 4.00 Hgb 11.9 Hct 36.8 MCV 92.1 MCH 29.9 MCHC 32.4 RDW 14.0 Plt Count 218 MPV 8.9 Neut % (Auto) 21.4 Lymph % (Auto) 76.3 Taney % (Auto) 1.9 Eos % (Auto) 0.0 Baso % (Auto) 0.4 Nucleat RBC Rel Count 0.3 Neut # (Auto) 8.4 H Lymph # (Auto) 29.9 H Taney # (Auto) 0.8 Eos # (Auto) 0.0 Baso # (Auto) 0.2 Smudge Cells Marked Platelet Estimate Normal Plt Morphology Comment Normal RBC Morphology N/A Anisocytosis Slight Microcytosis Slight PHA Creatinine Clear 146.61 Sodium 137 Potassium 3.8 Chloride 104 Carbon Dioxide 25.6 Anion Gap 11.2 BUN 6 L Creatinine 0.57 L Est GFR (CKD-EPI) > 60.0 Glucose 88 Calcium 8.2 L A&P - Vascular Assessment/Plan (1) Nonhealing ulcer of left lower extremity: Plan Patient is doing well after surgery. I spent much time with her today at the bedside. I explained that I could not identify distal target and the bypass wasnot completed. We did not do a bypass. She understands this. I explained to her that she remains at risk for amputation of the leg. I also expressed my concern that the wound on her foot is not going to heal without additional bloodsupply. In my opinion this patient has irreversible ischemia and will eventually succumb to an amputation although I would like the wounds to heal first. No family members were in the room today. We will plan to discontinue Calloway catheter and consult PT and OT to get up and out of the bed. She understands and all of her questions were addressed thoroughly today. Documented By: Benedicto Mcqueen MD 09/21/23 3399 Signed By: <Electronically signed by Benedicto Mcqueen MD> 09/21/[address] [facility] Work Phone: 1([phone]) 650-953406-14-2024 [facility] Progress note Author Benedicto Mcqueen [facility] September 19, 2023 10:46am Note Date/Time September 19, 2023 9:12 am [facility] [address] [place] [address] Vascular Surgery Progress Note Signed Patient: Juany Laws MR# : [id number] : 1975 Acct:[id number] Age/Sex: 48 / F Adm Date: 4 Loc: 4N Room: [address] [place] [address] Type: ADM IN Attending Dr: Benedicto Mcqueen MD Copies to: ~ Date of Service: 09/19/2023 Subjective Subjective Interval history: Patient seen on morning rounds. She underwent left leg angiogram yesterday thatrevealed left popliteal artery occlusion and severe tibial artery disease. There are no further options for endovascular intervention. She suffers with critical limb ischemia and vascular ischemic rest pain along with tissue loss ofthe left foot and will require left leg bypass for limb salvage. This morning she remains with rest pain in the left foot and ischemic injury to the third fourth and fifth toes. Exam Physical Exam Vital Signs: Temp Pulse Resp BP Pulse Ox O2 Del Method O2 Flow Rate 97.6 F 76 14 163/96 H 98 Room Air 2 09/19/23 08:00 09/19/23 08:00 09/19/23 08:00 09/19/23 08:00 09/19/23 08:00 09/19/23 08:00 09/18/23 09:50 Narrative: 48-year-old female, no acute distress. She is resting comfortably in her bed on my morning rounds. She wakes easily to voice. She has no shortness of breath with conversation. Her groin puncture site is stable with no palpablehematoma. Her left foot remains with rest pain and ischemic injury to the third, fourth, and fifth toes. Const Other: The patient had a normal right groin pulse and slightly diminished left groin pulse. The popliteal pulse was absent left pedal pulses were absent. Left foothad an ischemic rubor and was pulseless. She also had tissue loss involving several of the toes of the left foot. The patient was awake alert and oriented no distress HEENT is also atraumatic chest was symmetric lungs were clear heart was regular rate and rhythm. Objective Labs 09/19/23 06:30 09/19/23 06:30 Other Labs: Laboratory Results - last 24 hr 09/18/23 09/18/23 09/18/23 08:29 17:50 18:59 Corrected WBC Uncorrected WBC Count RBC Hgb Hct MCV MCH MCHC RDW Plt Count MPV PHA Creatinine Clear 116.04 Sodium Potassium Chloride Carbon Dioxide Anion Gap BUN 14 Creatinine 0.71 Est GFR (CKD-EPI) > 60.0 Glucose Calcium Urine Opiates Screen Ur Barbiturates Screen Ur Phencyclidine Scrn Ur Amphetamines Screen U Benzodiazepines Scrn Urine Cocaine Screen U Marijuana (THC) Screen Blood Type A Negative Blood Type Recheck A Negative Antibody Screen Negative 09/19/23 09/19/23 04:35 06:30 Corrected WBC 34.7 H Uncorrected WBC Count 34.7 H RBC 4.13 Hgb 12.4 Hct 38.1 MCV 92.3 MCH 30.1 MCHC 32.6 RDW 14.1 Plt Count 215 MPV 9.0 PHA Creatinine Clear 138.55 Sodium 139 Potassium 4.0 Chloride 107 Carbon Dioxide 26.3 Anion Gap 9.7 BUN 8 Creatinine 0.60 Est GFR (CKD-EPI) > 60.0 Glucose 79 Calcium 8.3 L Urine Opiates Screen Positive H Ur Barbiturates Screen Negative Ur Phencyclidine Scrn Negative Ur Amphetamines Screen Negative U Benzodiazepines Scrn Negative Urine Cocaine Screen Negative U Marijuana (THC) Screen Negative Blood Type Blood Type Recheck Antibody Screen A&P - Vascular Assessment/Plan (1) Critical limb ischemia of left lower extremity with rest pain: Plan This patient underwent angiogram yesterday which revealed extensive disease thatis not amendable to endovascular intervention. She suffers with critical limb ischemia and vascular ischemic rest pain along with tissue loss of the left footand will require left leg bypass for limb salvage. This is planned for tomorrow. Cardiology has evaluated her and has cleared her for bypass surgery. Vein mapping is pending. This is Dr. Mcqueen dictating. Vein mapping was removed. The patient has adequate conduit proceed with a above-knee popliteal to posterior tibial artery bypass with reversed ipsilateral vein. Will also plan intraoperative angiogram upon completion of the bypass. The risks and benefits were explained to the patient today as well as medical surgical tenderness. I spent 30 minutes in theroom explaining potential complications and their treatment. Patient is aware of potential serious complications including need for additional surgeries infection amputation of the leg, DVT PE stroke heart attack and . Despite these terrible complications the patient wishes to proceed for limb salvage. Consent was obtained. Documented By: Sharifa Mejia APRN 09/19/23 0 910 Signed By: <Electronically signed by TAL Mejia> 09/19/23 0912 <Electronically signed by Benedicto Mcqueen MD> 09/19/[address] [facility] Work Phone: 1(681) 902-176106-12-2024 Consult note Author Timothy Henderson [facility] September 18, 2023 4:27pm Note Date/Time September 18, 2023 4:27 pm [facility] [address] [place] [address] Cardiology Consult Note Signed Patient: Juany Laws MR# : [id number] : 1975 Acct:[id number] Age/Sex: 48 / F Adm Date: 4 Loc: Room: Type: [facility] Attending Dr: Benedicto Mcqueen MD Copies to: MD Timothy Mendoza II, MD Matthew T Langenberg, MD~ Cardiology HPI History of Present Illness Consult Date: 09/18/23 HPI: Ms. Laws is a 48-year-old female with a past medical history below who is admitted [facility] on 09/18/2023 for revascularizationof severe left leg PAD. She is a patient of Dr. Mcqueen who has seen her for critical limb ischemia of the left foot with chronic ulcer of the left small toewith tissue loss and rest pain. She is at high risk for amputation of the leg and underwent peripheral angiogram this morning. 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 Multiple catheters and wires were used however the process was aborted and plans for surgical revascularization of the limb were made for Saturday. This is an urgent surgery and she will need left leg bypass for limb salvage. I am consulted for preoperative stratification. The patient denies any history of CAD, IN, CHF, stroke, CKD or arrhythmia. She has not seen a technology strategist for any reason. She denies any chest pain or shortness of breath. She has no family history of early CAD, her father developed CAD and had stents in his 60s. Review of Systems Review of Systems All other systems reviewed & are negative unless noted below or in HPI [facility] Medical History Graves disease Wound of left foot Smoker CLL (chronic lymphocytic leukemia) Hypothyroid Surgical History S/P right knee arthroscopy S/P cholecystectomy S/P appendectomy S/P thyroidectomy Social History Smoking Status: Current every day smoker Meds Medications and Allergies Allergies atorvastatin [From Lipitor] Allergy (Severe, Verified 09/18/23 15:05) Anaphylaxis celecoxib [From Celebrex] Allergy (Verified 09/18/23 08:27) Rash codeine Allergy (Verified 09/18/23 08:27) Rash erythromycin base Allergy (Verified 09/18/23 08:27) Rash Penicillins Allergy (Verified 09/18/23 08:27) Rash doxycycline Adverse Reaction (Verified 09/18/23 08:27) Nausea Home Medications ibuprofen 200 mg tablet (Advil) 200 mg PO Q6HR PRN pain 07/30/23 [History Confirmed 09/18/23] levothyroxine 112 mcg tablet 112 mcg PO QAM 07/30/23 [History Confirmed 09/18/23] doxycycline hyclate 100 mg tablet 100 mg PO BID 10 days #20 tabs 09/09/23 [Rx Confirmed 09/18/23] hydrocodone 5 mg-acetaminophen 325 mg tablet 1 tab PO Q4HR PRN pain 09/18/23 [History Confirmed 09/18/23] Exam Physical Exam Vital Signs: Pulse Resp BP Pulse Ox O2 Del Method O2 Flow Rate 70 16 158/78 H 96 Room Air 2 09/18/23 13:15 09/18/23 13:15 09/18/23 13:15 09/18/23 13:15 09/18/23 13:15 09/18/23 09:50 Narrative: Physical Exam: General: NAD, A&Ox3, Cooperative Head, Eyes: NC/AT, EOMI Lungs: Good air entry; No crackles Heart: S1S2 normal, Regular rhythm, No murmurs Extremities: No edema. Cold feet. Bandaged wound/ulcer on left small toe. Abdomen: Soft, non-tender, non-distended. Neuro: CN grossly intact, No focal deficits. Psych: Normal mood & affect. Results - Cardiology Labs 09/18/23 08:29 Lab results: Comprehensive Metabolic Panel 09/18/23 Range/Units 08:29 BUN 14 (7-25) mg/dL Creatinine 0.71 (0.60-1.20) mg/dL Intake and Output 09/18/23 09/18/23 09/18/23 06:59 14:59 22:59 Other: Weight 100.698 kg Patient Weight 09/19/23 06:59 Weight 100.698 kg A&P - Cardiology (1) Nonhealing ulcer of left lower extremity: Code(s): L97.929 - Non-pressure chronic ulcer of unspecified part of left lower leg with unspecified severity (2) PAD (peripheral artery disease): Code(s): I73.9 - Peripheral vascular disease, unspecified (3) Critical limb ischemia of left lower extremity with rest pain: Code(s): I70.222 - Atherosclerosis of [place] arteries of extremities with rest pain, leftleg (4) Pre-operative cardiovascular examination: Code(s): Z01.810 - Encounter for preprocedural cardiovascular examination Plan # Severe PAD of left leg with critical limb ischemia - failed attempt at peripheral revascularization. She is due for surgical revascularization on Saturday. This is an urgent surgery and she will need left leg bypass for limb salvage. # Tobacco abuse, quit this admission. # Other: Graves' disease with hypothyroidism, CLL. EKG 09/18/2023 ? NSR 66 bpm, normal EKG. -Given that this is an urgent surgery, it would only be delayed for active ACS which is not the case. Risk stratification protocols do not apply for urgent/emergent surgeries. -Please call with any questions. Patient will continue to follow-up with her PCPand vascular surgeon. Will sign off. Documented By: Timothy Henderson MD 09/064 Signed By: <Electronically signed by Timothy Henderson MD> 09/18/[address] [facility] Work Phone: 1(313) 384-521306-12-2024 Progress note Author Benedicto Mcqueen [facility] September 18, 2023 9:23am Note Date/Time September 18, 2023 9:23 am [facility] [address] [place] [address] Vascular Surgery Progress Note Signed Patient: Juany Laws MR# : [id number] : 1975 Acct:[id number] Age/Sex: 48 / F Adm Date: 4 Loc: IR Room: Type: [facility] Attending Dr: Benedicto Mcqueen MD Copies to: ~ Date of Service: 09/18/2023 Subjective Subjective Interval history: This patient was seen prior to the procedure today before any sedation was given. She was awake alert and oriented no distress she was complaining of leftfoot pain. Exam Physical Exam Vital Signs: Pulse Resp BP Pulse Ox O2 Del Method 73 18 148/94 H 96 Room Air 09/18/23 08:28 09/18/23 08:28 09/18/23 08:28 09/18/23 08:28 09/18/23 08:28 Const Other: The patient had a normal right groin pulse and slightly diminished left groin pulse. The popliteal pulse was absent left pedal pulses were absent. Left foothad an ischemic rubor and was pulseless. She also had tissue loss involving several of the toes of the left foot. The patient was awake alert and oriented no distress HEENT is also atraumatic chest was symmetric lungs were clear heart was regular rate and rhythm. Objective Labs 09/18/23 08:29 Other Labs: Laboratory Results - last 24 hr 09/18/23 08:29 PHA Creatinine Clear 116.04 BUN 14 Creatinine 0.71 Est GFR (CKD-EPI) > 60.0 A&P - Vascular Assessment/Plan (1) Critical limb ischemia of left lower extremity with rest pain: Plan This pain has critical limb ischemia of the left foot with tissue loss and rest pain. She is at high risk for amputation of the left leg. The plan will be forher to stop smoking start dual antiplatelet therapy and a high intensity statin. For limb salvage we will attempt to revascularize the left lower extremity. I did evaluate the CT angiogram. She does have what appears to be a significant left external iliac lesion and an occluded left popliteal artery. Both of theselevels of disease will need to be addressed in the Assisted Living Administrator setting in order to salvage the leg. The risks and benefits were explained as well as medical surgical alternatives. We also discussed potential complications and their management. The patient understands wishes to proceed. She is aware that thereis a chance of amputation renal failure infection need for additional surgeries PE stroke and . She wishes to proceed and consent was obtained today. Documented By: Benedicto Mcqueen MD 09/18/23919 Signed By: <Electronically signed by Benedicto Mcqueen MD> 09/18/23922 [facility] Work Phone: [phone] 157-321406-12-2024 [facility] noteFirM[facility] HospitalEvaluation noteNo assessment information available[facility] Work Phone: Evaluation note* Diagnosis Onset Date Resolution Status Critical limb ischemia of le ft lower extremity with rest pain acute [facility] Work Phone: Evaluation note* Diagnosis Onset Date Resolution Status Critical limb ischemia of le ft lower extremity with rest pain acute Critical limb ischemia of le ft lower extremity with rest pain acute Nonhealing ulcer of left lower extremity acute PAD (peripheral artery disease) acute Critical limb ischemia of le ft lower extremity with rest pain acute Nonhealing ulcer of left lower extremity acute PAD (peripheral artery disease) acute Pre-operative cardiovascular examination acute [facility] Work Phone: Evaluation note* Diagnosis Onset Date Resolution Status Critical limb ischemia of le ft lower extremity with rest pain acute Critical limb ischemia of le ft lower extremity with rest pain acute Nonhealing ulcer of left lower extremity acute PAD (peripheral artery disease) acute Critical limb ischemia of le ft lower extremity with rest pain acute Nonhealing ulcer of left lower extremity acute PAD (peripheral artery disease) acute PAD (peripheral artery disease) acute [facility] Work Phone: Evaluation note* Diagnosis Onset Date Resolution Status Critical limb ischemia of le ft lower extremity with rest pain acute Critical limb ischemia of le ft lower extremity with rest pain acute Nonhealing ulcer of left lower extremity acute PAD (peripheral artery disease) acute Critical limb ischemia of le ft lower extremity with rest pain acute Nonhealing ulcer of left lower extremity acute PAD (peripheral artery disease) acute PAD (peripheral artery disease) acute Critical limb ischemia of le ft lower extremity with rest pain acute [facility] Work Phone: Evaluation note* Diagnosis Onset Date Resolution Status Critical limb ischemia of le ft lower extremity with rest pain acute Nonhealing ulcer of left lower extremity acute PAD (peripheral artery disease) acute Critical limb ischemia of le ft lower extremity with rest pain acute Nonhealing ulcer of left lower extremity acute PAD (peripheral artery disease) acute PAD (peripheral artery disease) acute Critical limb ischemia of le ft lower extremity with rest pain acute Above knee amputation of left lower extremity acute Hypothyroid acute Impaired mobility and activities of daily living acute Leukocytosis acute Nonhealing ulcer of left lower extremity acute PAD (peripheral artery disease) acute Postoperative pain acute S/P peripheral artery bypass acute Smoker acute [facility] Work Phone: Evaluation note* Diagnosis Onset Date Resolution Status Critical limb ischemia of le ft lower extremity with rest pain acute PAD (peripheral artery disease) acute Critical limb ischemia of le ft lower extremity with rest pain acute PAD (peripheral artery disease) acute PAD (peripheral artery disease) acute Critical limb ischemia of le ft lower extremity with rest pain acute Above knee amputation of left lower extremity acute Hypothyroid acute Impaired mobility and activities of daily living acute Leukocytosis acute PAD (peripheral artery disease) acute Postoperative pain acute Smoker acute Above knee amputation of left lower extremity acute CLL (chronic lymphocytic leukemia) acute Critical limb ischemia of le ft lower extremity with rest pain acute Hypothyroid acute Impaired mobility and activities of daily living acute Leukocytosis acute PAD (peripheral artery disease) acute Postoperative pain acute Smoker acute [facility] Work Phone: Evaluation note* Diagnosis Onset Date Resolution Status Critical limb ischemia of le ft lower extremity with rest pain acute PAD (peripheral artery disease) acute Critical limb ischemia of le ft lower extremity with rest pain acute PAD (peripheral artery disease) acute PAD (peripheral artery disease) acute Critical limb ischemia of le ft lower extremity with rest pain acute Above knee amputation of left lower extremity acute Hypothyroid acute Impaired mobility and activities of daily living acute Leukocytosis acute PAD (peripheral artery disease) acute Postoperative pain acute Smoker acute Above knee amputation of left lower extremity acute CLL (chronic lymphocytic leukemia) acute Critical limb ischemia of le ft lower extremity with rest pain acute Hypothyroid acute Impaired mobility and activities of daily living acute Leukocytosis acute PAD (peripheral artery disease) acute Postoperative pain acute Smoker acute Postoperative wound infection acute [facility] Work Phone: Evaluation note* Diagnosis Onset Date Resolution Status PAD (peripheral artery disease) acute PAD (peripheral artery disease) acute PAD (peripheral artery disease) acute Above knee amputation of left lower extremity acute Hypothyroid acute Impaired mobility and activities of daily living acute Leukocytosis acute PAD (peripheral artery disease) acute Postoperative pain acute Smoker acute Above knee amputation of left lower extremity acute CLL (chronic lymphocytic leukemia) acute Hypothyroid acute Impaired mobility and activities of daily living acute Leukocytosis acute PAD (peripheral artery disease) acute Postoperative pain acute Smoker acute Postoperative wound infection acute [facility] Work Phone: Evaluation note* Diagnosis Onset Date Resolution Status PAD (peripheral artery disease) acute PAD (peripheral artery disease) acute PAD (peripheral artery disease) acute Above knee amputation of left lower extremity acute Hypothyroid acute Impaired mobility and activities of daily living acute Leukocytosis acute PAD (peripheral artery disease) acute Postoperative pain acute Smoker acute Above knee amputation of left lower extremity acute CLL (chronic lymphocytic leukemia) acute Hypothyroid acute Impaired mobility and activities of daily living acute Leukocytosis acute PAD (peripheral artery disease) acute Postoperative pain acute Smoker acute Postoperative wound infection acute Postoperative wound infection acute [facility] Work Phone: Evaluation note* Diagnosis Onset Date Resolution Status PAD (peripheral artery disease) acute PAD (peripheral artery disease) acute Above knee amputation of left lower extremity acute Hypothyroid acute Impaired mobility and activities of daily living acute Leukocytosis acute PAD (peripheral artery disease) acute Postoperative pain acute Smoker acute Above knee amputation of left lower extremity acute CLL (chronic lymphocytic leukemia) acute Hypothyroid acute Impaired mobility and activities of daily living acute Leukocytosis acute PAD (peripheral artery disease) acute Postoperative pain acute Smoker acute Postoperative wound infection acute Postoperative wound infection acute [facility] Work Phone: Progress note Author Benedicto Mcqueen [facility] September 23, 2023 1:38pm Note Date/Time September 23, 2023 1:38 pm [facility] [address] [place] [address] Vascular Surgery Progress Note Signed Patient: Juany Laws MR# : [id number] : 1975 Acct:[id number] Age/Sex: 48 / F Adm Date: 4 Loc: 4N Room: 7C9524-9 Type: ADM IN Attending Dr: Benedicto Mcqueen MD Copies to: ~ Date of Service: 09/23/2023 Subjective Subjective Interval history: Patient was seen the bedside. She can move her feet and toes on the left side. She is keen to go home. She does not complain of any pain in the left foot currently. Exam Physical Exam Vital Signs: Temp Pulse Resp BP Pulse Ox O2 Del Method O2 Flow Rate 98.0 F 90 15 109/62 97 Room Air 2 09/23/23 09:21 09/23/23 09:21 09/23/23 09:21 09/23/23 09:21 09/23/23 09:21 09/23/23 09:21 09/21/23 08:00 Const Other: The toes remain dusky in the left foot. I cannot palpate or obtain a left foot pulse. Her dressings are intact and her wounds are stable. Objective Labs 09/21/23 05:14 09/21/23 05:14 A&P - Vascular Assessment/Plan (1) Nonhealing ulcer of left lower extremity: Qualifiers: Non-pressure ulcer stage: limited to breakdown of skin Qualified Code(s): L97.921 - Non-pressure chronic ulcer of unspecified part of left lower leg limited to breakdown of skin Plan From our standpoint the patient can go home today. I have given her wound care instructions. She is to wash the wounds daily with warm soapy water and keep them covered. Will see her back in the office in 1 to 3 weeks. She can call for an appointment. It is likely she will end up with an amputation of the leftleg. She is aware of this. Documented By: Benedicto Mcqueen MD 09/23/23 1336 Signed By: <Electronically signed by Benedicto Mcqueen MD> 09/23/23 1338 [facility] Work Phone: Summary Purpose Family History Relationship Condition Age at Onset Recorded Date/T addy father Heart disease Unknown Myocardial infarction Unknown mother Heart disease Unknown Diabetes mellitus Unknown Advance Directives Advance Directive Response Recorded Date/ Time Advance Directives No August 12, 2018 12:42pm Chief Complaint and Reason for Visit Chief Complaint PVD w/Non Healing Ul cer PVD w/Non Healing Ulcer CHECK LEG AFTER SURGERY G89.18 3 WK F/U BYPASS GRAFT T14.8XXA Gangrene Gangrene Gangrene 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 3-week follow-up above-knee amputation non-healing incision site non-healing incision site WOUND ON STUMP T81.49XA 2 WK WOUND CHECK Reason for Visit PAD (peripheral domonique ry disease) PAD (peripheral artery disease) Above knee amputation of left lower extremity Hypothyroid Impaired mobility and activities of daily living Leukocytosis PAD (peripheral artery disease) Postoperative pain Smoker Above knee amputation of left lower extremity CLL (chronic lymphocytic leukemia) Hypothyroid Impaired mobility and activities of daily living Leukocytosis PAD (peripheral artery disease) Postoperative pain Smoker Postoperative wound infection Postoperative wound infection Chief Complaint GO OVER PVR'S PVD w/Non Healing Ulcer PVD w/Non Healing Ulcer PVD w/Non Healing Ulcer PVD w/Non Healing Ulcer CHECK LEG AFTER SURGERY G89.18 3 WK F/U BYPASS GRAFT T14.8XXA Gangrene Gangrene Gangrene 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 Reason for Visit Critical limb ischem ia of left lower extremity with rest pain PAD (peripheral artery disease) Critical limb ischemia of left lower extremity with rest pain PAD (peripheral artery disease) PAD (peripheral artery disease) Critical limb ischemia of left lower extremity with rest pain Above knee amputation of left lower extremity Hypothyroid Impaired mobility and activities of daily living Leukocytosis PAD (peripheral artery disease) Postoperative pain Smoker Above knee amputation of left lower extremity CLL (chronic lymphocytic leukemia) Critical limb ischemia of left lower extremity with rest pain Hypothyroid Impaired mobility and activities of daily living Leukocytosis PAD (peripheral artery disease) Postoperative pain Smoker Chief Complaint I70.22 I70.22 GO OVER PVR'S PVD w/Non Healing Ulcer PVD w/Non Healing Ulcer PVD w/Non Healing Ulcer PVD w/Non Healing Ulcer CHECK LEG AFTER SURGERY G89.18 3 WK F/U BYPASS GRAFT T14.8XXA Gangrene Gangrene Gangrene Reason for Visit Critical limb ischem ia of left lower extremity with rest pain Nonhealing ulcer of left lower extremity PAD (peripheral artery disease) Critical limb ischemia of left lower extremity with rest pain Nonhealing ulcer of left lower extremity PAD (peripheral artery disease) PAD (peripheral artery disease) Critical limb ischemia of left lower extremity with rest pain Above knee amputation of left lower extremity Hypothyroid Impaired mobility and activities of daily living Leukocytosis Nonhealing ulcer of left lower extremity PAD (peripheral artery disease) Postoperative pain S/P peripheral artery bypass Smoker Chief Complaint REF FOR CRITICAL HERNANDEZ B ISCHEMIA OF LT LOWER EXTREM I70.22 I70.22 GO OVER PVR'S PVD w/Non Healing Ulcer PVD w/Non Healing Ulcer PVD w/Non Healing Ulcer PVD w/Non Healing Ulcer CHECK LEG AFTER SURGERY G89.18 3 WK F/U BYPASS GRAFT Reason for Visit Critical limb ischem ia of left lower extremity with rest pain Critical limb ischemia of left lower extremity with rest pain Nonhealing ulcer of left lower extremity PAD (peripheral artery disease) Critical limb ischemia of left lower extremity with rest pain Nonhealing ulcer of left lower extremity PAD (peripheral artery disease) PAD (peripheral artery disease) Chief Complaint Unknown Unknown REF FOR CRITICAL LIMB ISCHEMIA OF LT LOWER EXTREM I70.22 I70.22 GO OVER PVR'S PVD w/Non Healing Ulcer PVD w/Non Healing Ulcer PVD w/Non Healing Ulcer Reason for Visit Critical limb ischem ia of left lower extremity with rest pain Critical limb ischemia of left lower extremity with rest pain Nonhealing ulcer of left lower extremity PAD (peripheral artery disease) Critical limb ischemia of left lower extremity with rest pain Nonhealing ulcer of left lower extremity PAD (peripheral artery disease) Pre-operative cardiovascular examination Chief Complaint Unknown Unknown REF FOR CRITICAL LIMB ISCHEMIA OF LT LOWER EXTREM I70.22 I70.22 GO OVER PVR'S Reason for Visit Critical limb ischem ia [...] and content) DATE CREATED AUTHOR 01/28/2020 [facility] DATE CREATED AUTHOR AUTHOR'S ORGANIZ ATION 08/16/2021 [facility] DATE CREATED AUTHOR AUTHOR'S ORGANIZ ATION 08/06/2023 [facility] EPIC DATE CREATED AUTHOR AUTHOR'S ORGANIZ ATION 12/14/2023 [facility] Care Teams (unrecognized sec tion and content) Team Status: Active Member Role Status Dates [...] August 12, 2023 End: August 12, 2023 Team Status: Inactive Member Role Status Dates Sánchez Beatty II MD Primary Care Provider Active Start: September 09, 2023 End: September 09, 2023 WALDEMAR PattonC Attending Provider Active Start: September 09, 2023 End: September 09, 2023 Team Status: Active Member Role Status Angle Beatty II MD Primary Care Provider Active Start: September 18, 2023 End: September 23, 2023 Benedicto Mcqueen MD Attending Prov ider, Other Provider Active Start: September 18, 2023 End: September 23, 2023 Team Status: Inactive Member Role Status Angle Beatty II MD Primary Care Provider Active Start: September 18, 2023 End: September 23, 2023 Benedicto Mcqueen MD Admit Provider , Attending Provider Active Start: September 18, 2023 End: September 23, 2023 Team Status: Active Member Role Status Dates Sánchez Betaty II MD Primary Care Provider Active Start: September 18, 2023 End: September 23, 2023 Benedicto Mcqueen MD Other Provider Active Start: September 18, 2023 End: September 23, 2023 Timothy Henderson MD Attending Provider Activ e Start: September 18, 2023 End: September 23, 2023 Team Status: Active Member Role Status Dates Sánchez Beatty II MD Primary Care Provider Active Start: September 27, 2023 End: September 23, 2023 Benedicto Mcqueen MD Admit Provider , Attending Provider, Other Provider Active Start: September 27, 2023 End: September 23, 2023 Team Status: Inactive Member Role Status Dates Sánchez Beatty II MD Primary Care Provider Active Start: October 02, 2023 End: October 02, 2023 David Boyd MD Active Start: October 02, 2023 End: October 02, 2023 Benedicto Mcqueen MD Attending Provider Active Start: October 02, 2023 End: October 02, 2023 Team Status: Inactive Member Role Status Dates Benedicto Mcqueen MD Attending Provider Active Start: October 02, 2023 End: October 02, 2023 Team Status: Inactive Member Role Status Dates Benedicto Mcqueen MD Attending Provider Active Start: October 24, 2023 End: October 24, 2023 NON STAFF Primary Care Provider Active Start: October 24, 2023 End: October 24, 2023 Team Status: Inactive Member Role Status Dates Sánchez Beatty II MD Primary Care Provider Active Start: October 24, 2023 End: October 24, 2023 SHANNAN Patton Attending Provider Active Start: October 24, 2023 End: October 24, 2023 Team Status: Active Member Role Status Dates NON STAFF Primary Care Provider Active Team Status: Inactive Member Role Status Dates Di Washington PA-C Attending Provider Active Start: July 15, 2023 End: July 15, 2023 Team Status: Inactive Member Role Status Dates Kenyatta Whitten MD Attending Provider Active St art: July 23, 2023 End: July 23, 2023 Team Status: Active Member Role Status Dates Sánchez Beatty II MD Primary Care Provider Active Start: September 18, 2023 Benedicto Mcqueen MD Attending Prov ider, Other Provider Active Start: September 18, 2023 Team Status: Active Member Role Status Dates Sánchez Beatty II MD Primary Care Provider Active Start: September 18, 2023 Benedicto Mcqueen MD Other Provider Active Start: September 18, 2023 Timothy Henderson MD Attending Provider Activ e Start: September 18, 2023 Team Status: Active Member Role Status Dates Sánchez Beatty II MD Primary Care Provider Active Start: September 27, 2023 Benedicto Mcqueen MD Admit Provider , Attending Provider, Other Provider Active Start: September 27, 2023 Team Status: Inactive Member Role Status Dates Benedicto Mcqueen MD Admit Provider , Attending Provider Active Start: October 28, 2023 End: October 31, 2023 Sánchez Beatty II MD Primary Care Provider Active Start: October 28, 2023 End: October 31, 2023 Enma Saenz MD Other Provider Active Start: Eleanor ly 2023 End: October 31, 2023 Jian Mensah MD Other Provider Active Start: Ebony crowe 2023 End: October 31, 2023 Freya Figueroa APRN Other Provider Active St art: October 28, 2023 End: October 31, 2023 Omar Marmolejo Jr, DO Other Provider Active S tart: October 28, 2023 End: October 31, 2023 Davis Orozco MD Other Provider Active Start: October 28, 2023 End: October 31, 2023 Diana Luz RN Other Provider Active Star t: October 28, 2023 End: October 31, 2023 Adrianne Santoyo , BREE Other Provider Active Start : October 28, 2023 End: October 31, 2023 Whit Khan , BREE Other Provider Active Star t: October 28, 2023 End: October 31, 2023 Ruth Thomas , BREE Other Provider Active Start: J sebastien 2023 End: October 31, 2023 Dot Jackson RN Other Provider Active Start: Eleanor ly 2023 End: October 31, 2023 Tramaine De Leon MD Other Provider Active Start: October 28, 2023 End: October 31, 2023 Nica Darby DO Other Provider Active Start : October 28, 2023 End: October 31, 2023 Kevin Reed MD Other Provider Active Start : October 28, 2023 End: October 31, 2023 Abdullahi Tee DO Other Provider Active Start: October 28, 2023 End: October 31, 2023 Neftaly Live MD Other Provider Active Start: October 28, 2023 End: October 31, 2023 Elena Rivera MD Other Provider Active Start : October 28, 2023 End: October 31, 2023 Jack Garcia MD Other Provider Active Start: Ebony sebastien 2023 End: October 31, 2023 Rasheeda Traore APRN Other Provider Active Start: October 28, 2023 End: October 31, 2023 Zoran Khan MD Other Provider Active Start: October 28, 2023 End: October 31, 2023 Garrick Banuelos MD Other Provider Active Start: Ebony crowe 2023 End: October 31, 2023 Anita Martin MD Other Provider Active Start: October 28, 2023 End: October 31, 2023 Bryan Edward MD Other Provider Active Start: October 28, 2023 End: October 31, 2023 Shahzad Sheridan DO Other Provider Active Start: October 28, 2023 End: October 31, 2023 Alona Culver MD Other Provider Active Start: ly 2023 End: October 31, 2023 Haris Gallego MD Other Provider Active Start: Oct End: October 31, 2023 Elizabeth Nielsen NP-C Other Provider Active St art: October 28, 2023 End: October 31, 2023 Isaiah Shafer APRN Other Provider Active Star t: October 28, 2023 End: October 31, 2023 Miles Downing MD Other Provider Active Start: October 28, 2023 End: October 31, 2023 Antonino Thompson MD Other Provider Active Start: Ju ly 2023 End: October 31, 2023 Chandu Stubbs MD Other Provider Active Start: Oct End: October 31, 2023 Idania Hale MD Other Provider Active Star t: October 28, 2023 End: October 31, 2023 Chaz Owens MD Other Provider Active Start: Ebony sebastien 2023 End: October 31, 2023 Kenia Garcia , Other Provider Active Start: Eleanor ly 2023 End: October 31, 2023 Kirk Dumont , Other Provider Active Start : October 28, 2023 End: October 31, 2023 Sheila Lester APRN Other Provider Active Start: October 28, 2023 End: October 31, 2023 Yung Luong DO Other Provider Active Start: October 28, 2023 End: October 31, 2023 Jonathan Gastelum MD Other Provider Active Sta rt: October 28, 2023 End: October 31, 2023 Ban Cueva APRN Other Provider Active Start : October 28, 2023 End: October 31, 2023 Jeanine Cole APRN Other Provider Active St art: October 28, 2023 End: October 31, 2023 Barbara Muhammad MD Other Provider Active Start: Ebony 2023 End: October 31, 2023 Sánchez Herrmann MD Other Provider Active S tart: October 28, 2023 End: October 31, 2023 Raphael Ying , Other Provider Active Star t: October 28, 2023 End: October 31, 2023 Jonh Ferrara DO Other Provider Active Start: October 28, 2023 End: October 31, 2023 Inocente Stubbs MD Other Provider Active Start: October 28, 2023 End: October 31, 2023 Sandy Mckeon MD Other Provider Active Start: October 27 End: October 31, 2023 Lauren Wright APRN Other Provider Active Star t: October 28, 2023 End: October 31, 2023 Daniel Wade MD Other Provider Active Start: Ebony 2023 End: October 31, 2023 Renato Geller MD Other Provider Active Start: Eleanor ly 2023 End: October 31, 2023 Liz Dowd RN Other Provider Active Start: Ebony 2023 End: October 31, 2023 Team Status: Active Member Role Status Dates Benedicto Mcqueen MD Admit Provider , Other Provider Active Start: October 29, 2023 Sánchez Beatty II MD Primary Care Provider Active Start: October 29, 2023 Enma Saenz MD Other Provider Active Start: ly 2023 Jian Mensah MD Other Provider Active Start: 2023 Freya Figueroa APRN Other Provider Active St art: October 29, 2023 Omar Marmolejo Jr, DO Other Provider Active S tart: October 29, 2023 Davis Orozco MD Other Provider Active Start: October 29, 2023 Diana Luz , BREE Other Provider Active Star t: October 29, 2023 Adrianne Santoyo , BREE Other Provider Active Start : October 29, 2023 Whit Khan , BREE Other Provider Active Star t: October 29, 2023 Ruth Thomas , BREE Other Provider Active Start: 2023 Dot Jacksno , BREE Other Provider Active Start: ly 2023 Tramaine De Leon MD Other Provider Active Start: October 29, 2023 Nica Darby DO Other Provider Active Start : October 29, 2023 Kevin Reed MD Other Provider Active Start : October 29, 2023 Abdullahi Tee DO Other Provider Active Start: October 29, 2023 Neftaly Live MD Other Provider Active Start: October 29, 2023 Elena Rivera MD Other Provider Active Start : October 29, 2023 Jack Garcia MD Other Provider Active Start: 2023 Rasheeda Traore APRN Other Provider Active Start: October 29, 2023 Zoran Khan MD Other Provider Active Start: October 29, 2023 Garrick Banuelos MD Other Provider Active Start: 2023 Anita Martin MD Other Provider Active Start: October 29, 2023 Bryan Edward MD Other Provider Active Start: October 29, 2023 Shahzad Sheridan DO Other Provider Active Start: October 29, 2023 Alona Culver MD Other Provider Active Start: ly 2023 Haris Gallego MD Other Provider Active Start: Augustine 2023 Elizabeth Nielsen NP-C Other Provider Active St art: October 29, 2023 Isaiah Shafer , RN EMBEDDED Other Provider Active Star t: October 29, 2023 Miles Downing MD Other Provider Active Start: October 29, 2023 Antonino Thompson MD Other Provider Active Start: 2023 Chandu Stubbs MD Other Provider Active Start: Oct Idania Hale MD Other Provider Active Star t: October 29, 2023 Chaz Owens MD Other Provider Active Start: 2023 Kenia Garcia , Other Provider Active Start: 2023 Kirk Dumont , DO Other Provider Active Start : October 29, 2023 Sheila Lester APRN Other Provider Active Start: October 29, 2023 Yung Luong , Other Provider Active Start: October 29, 2023 Jonathan Gastelum MD Other Provider Active Sta rt: October 29, 2023 Ban Cueva APRN Other Provider Active Start : October 29, 2023 Jeanine Cole APRN Other Provider Active St art: October 29, 2023 Barbara Muhammad MD Other Provider Active Start: 2023 Sánchez Herrmann MD Other Provider Active S tart: October 29, 2023 Raphael Ying , Other Provider Active Star t: October 29, 2023 Jonh Ferrara , DO Other Provider Active Start: October 29, 2023 Inocente Stubbs MD Other Provider Active Start: October 29, 2023 Sandy Mckeon MD Other Provider Active Start: October 28 Lauren Wright APRN Other Provider Active Star t: October 29, 2023 Daniel Waed MD Other Provider Active Start: 2023 Renato Geller MD Other Provider Active Start: 2023 Liz Dowd RN Other Provider Active Start: 2023 Sharifa Mejia NP-C Attending Provider Active Start: October 29, 2023 Team Status: Active Member Role Status Dates Benedicto Mcqueen MD Admit Provider , Other Provider Active Start: October 29, 2023 Sánchez Beatty II MD Primary Care Provider Active Start: October 29, 2023 Enma Saenz MD Other Provider Active Start: Eleanor 2023 Jian Mensah MD Attending Provider, Other Provider Active Start: October 29, 2023 Freya Figueroa APRN Other Provider Active St art: October 29, 2023 Omar Marmolejo Jr, DO Other Provider Active S tart: October 29, 2023 Davis Orozco MD Other Provider Active Start: October 29, 2023 Team Status: Inactive Member Role Status Angle Beatty II MD Primary Care Provider Active Start: October 31, 2023 End: November 15, 2023 Davis Orozco MD Admit Provid er, Attending Provider Active Start: October 31, 2023 End: November 15, 2023 Team Status: Active Member Role Status Angle Beatty II MD Primary Care Provider Active Start: November 01, 2023 Davis Orozco MD Admit Provid er, Attending Provider, Other Provider Active Start: November 01, 2023 Team Status: Active Member Role Status Angle Beatty II MD Primary Care Provider Active Start: November 08, 2023 Davis Orozco MD Admit Provid er, Other Provider Active Start: November 08, 2023 Freya Figueroa APRN Attending Provider Active Start: November 08, 2023 Team Status: Active Member Role Status Angle Beatty II MD Primary Care Provider Active Start: November 15, 2023 Davis Orozco MD Admit Provid er, Attending Provider, Other Provider Active Start: November 15, 2023 Team Status: Inactive Member Role Status Angle Beatty II MD Primary Care Provider Active Start: November 20, 2023 End: November 20, 2023 Benedicto Mcqueen MD Attending Provider Active Start: November 20, 2023 End: November 20, 2023 Team Status: Inactive Member Role Status Angle Beatty II MD Primary Care Provider Active Start: November 22, 2023 End: November 22, 2023 Benedicto Mcqueen MD Attending Provider Active Start: November 22, 2023 End: November 22, 2023 Team Status: Active Member Role Status Angle Beatty II MD Primary Care Provider Active Start: November 22, 2023 Benedicto Mcqueen MD Attending Prov ider, Other Provider Active Start: November 22, 2023 Team Status: Inactive Member Role Status Dates Sánchez Beatty II MD Primary Care Provider Active Start: December 04, 2023 End: December 04, 2023 Benedicto Mcqueen MD Attending Provider Active Start: December 04, 2023 End: December 04, 2023 Team Status: Inactive Member Role Status Dates Benedicto Mcqueen MD Attending Provider Active Start: December 04, 2023 End: December 04, 2023 Team Status: Inactive Member Role Status Dates Benedicto Mcqueen MD Attending Provider Active Start: December 18, 2023 End: December 18, 2023 Sánchez Beatty II MD Primary Care Provider Active Start: December 18, 2023 End: December 18, 2023 Goals (unrecognized section and content) Goals [...] BE BASED ON THE PRIMARY CLINICAL RECORDS. [employer] provides no warranty or guarantee of the accuracy or completeness of information in this document.
--- NOTE | 2023-12-30 19:29 | XR_ITS ---
The [address] [address] Patient Name: CHRISSY ESCOBAR MRN: [id number] date: 1975 Sex: F Assigned Patient Location: ER Current Patient Location: ER Accession/Order Number: [id number] Exam Date: 12/30/2023 19:50 Report Date: 12/30/2023 21:28 At the request of: EPHRAIM RÍOS Procedure: XR femur LT 2V XR femur LT 2V, 12/30/2023 6:50 PM CDT: History: Atraumatic pain, AKA in September. . Comparison: None. Technique: 2 views left femur Findings/Impression: The left hip is appropriately located. There is no fracture. There is an [id number] amputation. There are surgical clips throughout the medial soft tissues of the thigh. There is no osteolysis or periostitis. There is some subcutaneous gas within the amputation stump suggesting an infectious process. Electronically authenticated by: LENIN PALACIOS Date: 12/30/2023 21:28
--- NOTE | 2023-12-30 19:29 | XR_ITS ---
The [address] [address] Patient Name: CHRISSY ESCOBAR MRN: [id number] date: 1975 Sex: F Assigned Patient Location: ER Current Patient Location: ER Accession/Order Number: [id number] Exam Date: 12/30/2023 19:50 Report Date: 12/30/2023 21:44 At the request of: EPHRAIM RÍOS Procedure: XR hip LT min 2V XR hip LT min 2V, 12/30/2023 6:50 PM CDT: History: Atraumatic pain. . Comparison: None. Technique: 2 Views left hip Findings/Impression: The left hip is appropriately located. There is no fracture or malalignment. The soft tissues are normal. Electronically authenticated by: LENIN PALACIOS Date: 12/30/2023 21:44
--- NOTE | 2023-12-30 19:31 | ED_ITS ---
HPI HPI - General Adult General Chief complaint: Wound/Laceration Stated complaint: POSS LEG INFECTION Time Seen by Provider: 12/30/23 19:14 Source: patient Mode of arrival: Wheelchair Limitations: no limitations History of Present Illness HPI narrative: 48-year-old female presents for evaluation of the surgical wound. In September of this year at [facility] she had left AKA. She has had surgical wound and has home care coming to see her. The wound was felt to be worse than typical and she was sent here. A new cream has been applied to it. She has not had a fever or vomiting or diarrhea. She is a poor historian but her cousin accompanies her and gives a good history. Related Data Home Medications ?Medication ?Instructions ?Recorded ?Confirmed levothyroxine 112 mcg tablet 112 mcg PO DAILY 10/25/22 08/20/23 hydrocodone 5 mg-acetaminophen 325 1 tab PO Q8H 08/20/23 08/20/23 mg tablet Allergies Allergy/AdvReac Type Severity Reaction Status Date / Time celecoxib [From Celebrex] Allergy Severe Verified 08/20/23 04:51 codeine Allergy Severe Verified 08/20/23 04:51 naproxen [From Aleve] Allergy Severe Verified 08/20/23 04:51 Penicillins Allergy Severe Verified 08/20/23 04:51 pregabalin [From Lyrica] Allergy Severe Verified 08/20/23 04:51 Sulfa (Sulfonamide Allergy Severe Verified 08/20/23 04:51 Antibiotics) aspirin Allergy Hives Verified 08/20/23 04:51 erythromycin Allergy Severe Uncoded 08/20/23 04:51 ouracil Allergy Severe Uncoded 08/20/23 04:51 Opioid HPI Opioid Management Most Recent Opioid Data: Last Pain Scale 10 08/20/23 06:28 Review of Systems ROS Narrative A ten point review of systems is negative except as noted above. PFSH PFSH Social History Little interest or pleasure in doing things: not at all Feeling down, depressed, or hopeless: not at all Exam Narrative Exam Narrative: Nurses note and vital signs reviewed and patient is not hypoxic. General: The patient appears well and in no apparent distress. Patient is resting comfortably on cart. Skin: Warm, dry, no pallor noted. There is no rash noted. Head: Normocephalic, atraumatic Eye: Normal conjunctiva, no drainage Ears, Nose, Mouth, and Throat: oral mucosa is moist. Nares patent. Cardiovascular: Regular Rate and Rhythm Respiratory: Patient is in no distress, no accessory muscle use, lungs are clear to auscultation, no wheezing, rales or rhonchi Back: non-tender GI: Soft and nontender Musculoskeletal: The left leg stump is examined. There are 2 open areas with yellow substance on them which apparently is a medical cream. There is minimal erythema. There is no obvious purulent drainage. Neurological: Awake and alert Psychiatric: Cooperative Constitutional Vital Signs, click to edit/add: Last Vital Signs Temp 99.4 F 12/30/23 19:13 Pulse 96 H 12/30/23 19:13 Resp 18 12/30/23 19:13 BP 138/95 H 12/30/23 19:13 Pulse Ox 96 12/30/23 19:13 O2 Del Method Room Air 12/30/23 19:13 Course Vital Signs Vital signs: Vital Signs Temperature 99.4 F 12/30/23 19:13 Pulse Rate 96 H 12/30/23 19:13 Respiratory Rate 18 12/30/23 19:13 Blood Pressure 138/95 H 12/30/23 19:13 Pulse Oximetry 96 12/30/23 19:13 Oxygen Delivery Method Room Air 12/30/23 19:13 Temperature 99.4 F 12/30/23 19:13 Pulse Rate 96 H 12/30/23 19:13 Respiratory Rate 18 12/30/23 19:13 Blood Pressure 138/95 H 12/30/23 19:13 Pulse Oximetry 96 12/30/23 19:13 Oxygen Delivery Method Room Air 12/30/23 19:13 Medical Decision Making MDM Narrative Medical decision making narrative: WBC is elevated at 54,000 but this is near her baseline, she has CLL. X-rays shows some air in the soft tissues but this is at the site of the open area. I spoke to Dr. Boyd and we have agreed that the patient will be sent home tonight and will be seen early in the morning tomorrow. This was discussed with the patient and her family and they are able to be discharged home. Findings were discussed thoroughly. Differential Diagnosis Differential Diagnosis: Dehiscence, infection, postop healing Lab Data Lab results reviewed: Yes I reviewed the patient's lab results Labs: Lab Results 12/30/23 12/30/23 Range/Units 20:20 21:04 WBC 54.4 H* (4.0-11.0) 10^3/uL RBC 4.54 (4.20-5.40) 10^6/uL Hgb 12.8 (12.0-16.0) g/dL Hct 39.9 (36.0-48.0) % MCV 87.9 (81.0-99.0) fL MCH 28.2 (26.7-34.0) pg MCHC 32.1 (29.9-35.2) g/dL RDW 13.4 (11.0-15.0) % Plt Count 318 (150-450) 10^3/uL MPV 10.3 (9.5-13.5) fL Seg Neuts % (Manual) 15.0 L (43.0-75.0) Lymphocytes % (Manual) 79.0 H (20.5-60.0) % Monocytes % (Manual) 5.0 (1.7-12.0) % Eosinophils % (Manual) 1.0 (0.9-7.0) % Basophils % (Manual) 0.0 L (0.2-2.0) % Neutrophils # (Manual) 8.16 H (1.4-6.5) 10^3/uL Lymphocytes # (Manual) 42.97 H (1.20-3.80) 10^3/uL Monocytes # (Manual) 2.72 H (0.30-0.80) 10^3/uL Eosinophils # (Manual) 0.54 (0.00-0.70) 10^3/uL Basophils # (Manual) 0.00 (0.00-0.10) 10^3/uL Smudge Cells Seen Sodium 135 L (136-145) mmol/L Potassium 3.7 (3.5-5.1) mmol/L Chloride 98 (98-107) mmol/L Carbon Dioxide 27.1 (21.0-32.0) mmol/L Anion Gap 13.6 BUN 15.0 (7.0-18.0) mg/dL Creatinine 0.74 (0.55-1.02) mg/dL Est GFR ( Amer) >60 (>=60) Est GFR (Non-Af Amer) >60 (>=60) BUN/Creatinine Ratio 20.3 Glucose 102 (74-106) mg/dL Calcium 9.4 (8.5-10.1) mg/dL Imaging Data Femur, hip x-rays: Radiologist's impression: Procedure: XR hip LT min 2V XR hip LT min 2V, 12/30/2023 6:50 PM CDT: History: Atraumatic pain. . Comparison: None. Technique: 2 Views left hip Findings/Impression: The left hip is appropriately located. There is no fracture or malalignment. The soft tissues are normal. Electronically authenticated by: LENIN PALACIOS Date: 12/30/2023 21:44 Procedure: XR femur LT 2V XR femur LT 2V, 12/30/2023 6:50 PM CDT: History: Atraumatic pain, AKA in September. . Comparison: None. Technique: 2 views left femur Findings/Impression: The left hip is appropriately located. There is no fracture. There is an [id number] amputation. There are surgical clips throughout the medial soft tissues of the thigh. There is no osteolysis or periostitis. There is some subcutaneous gas within the amputation stump suggesting an infectious process. Electronically authenticated by: LENIN PALACIOS Date: 12/30/2023 21:28 Discharge Plan Discharge Chief Complaint: Wound/Laceration Clinical Impression: Encounter for postoperative wound check Patient Disposition: Home, Self-Care Time of Disposition Decision: 21:48 Condition: Good Mode of Transportation: Private Vehicle Prescriptions / Home Meds: No Action levothyroxine 112 mcg tablet 112 mcg PO DAILY hydrocodone-acetaminophen 5-325 mg tablet 1 tab PO Q8H Print Language: Malay Instructions: Surgical Site Infections (ED), Wound Healing and Your Diet (ED) Additional Instructions: Your vascular surgeon will see you in the morning. Please call at 9 AM for the time to be seen. Referrals: JAMES RUIZ [Primary Care Provider] - 1 week
[2023-12-30 20:36] LABS: Hematocrit 39.9 % (36.0-48.0); Hemoglobin 12.8 g/dL (12.0-16.0); Mean Corpuscular HGB Conc 32.1 g/dL (29.9-35.2); Mean Corpuscular Hemoglobin 28.2 pg (26.7-34.0); Mean Corpuscular Volume 87.9 fL (81.0-99.0); Mean Platelet Volume 10.3 fL (9.5-13.5); Platelet Count 318 10^3/uL (150-450); Red Blood Count 4.54 10^6/uL (4.20-5.40); Red Cell Distribution Width 13.4 % (11.0-15.0)
--- NOTE | 2023-12-30 20:38 | PC.NURSE ---
PT SENT BY HOME HEALTH NURSE FOR INFECTED LEFT LEG STUMP. UPON ASSESSMENT, 2 OPEN AREAS TO LEFT STUMP WITH PURULENT DRAINAGE AND TUNNELING
[2023-12-30 20:51] LABS: White Blood Count 54.4 10^3/uL (4.0-11.0)
[2023-12-30 21:14] LABS: Lymphocytes Absolute Manual 42.97 10^3/uL (1.20-3.80); Monocytes Absolute Manual 2.72 10^3/uL (0.30-0.80); Segmented Neut Absolute Manual 8.16 10^3/uL (1.4-6.5)
[2023-12-30 21:15] LABS: Eosinophils Absolute Manual 0.54 10^3/uL (0.00-0.70); Smudge Cells SEEN
[2023-12-30 21:25] LABS: Anion Gap 13.6; BUN Creatinine Ratio 20.3; Calcium 9.4 mg/dL (8.5-10.1); Carbon Dioxide 27.1 mmol/L (21.0-32.0); Chloride 98 mmol/L (98-107); Estimated GFR (African America >60 (>=60); Estimated GFR (Non-African Ame >60 (>=60); Glucose 102 mg/dL (74-106); Potassium 3.7 mmol/L (3.5-5.1); Sodium 135 mmol/L (136-145)
== END 2023-12-30 22:02 | disposition home or self-care (01) ==
PROVIDERS: Emergency Provider Emergency Medicine; PCP Internal Medicine
DX: Z47.81 Encounter for orthopedic aftercare following surgical amputation (principal); Z89.612 Acquired absence of left leg above knee; Z79.899 Other long term (current) drug therapy
CPT/HCPCS: 36415; 73502; 73552; 80048; 85007; 85027; 87070; 87075; 99285